=== PATIENT | female | born 1965 | race American Indian/Alaskan Native ===

== ENCOUNTER 2019-02-22 16:59 | Inpatient (IN) ==
[~2019-02-22 16:59] MED LIST: LEVOFLOXACIN 750 MG/150 ML BAG IV ONE
[2019-02-22] MEDS ORDERED: 0.9 % SODIUM CHLORIDE 1,000 ML IV ONE ×2 (17:11→18:52)
[2019-02-22] MEDS ORDERED: NALOXONE HCL 0.4 MG/ML VIAL IV ONE ×2 (17:26)
--- NOTE | 2019-02-22 17:26 | Emergency Department Note ---
Altered Mental Status HPI - General Chief Complaint: Altered Mental Status Stated Complaint: Unresponsive Time Seen by Provider: 02/22/19 17:13 Source: family Mode of arrival: other Limitations: altered mental status - History of Present Illness HPI Narrative: Patient brought in some lab way by daughter in which patient was sleeping all day today she noticed that she was unarousable 45 minutes before coming into the ED. Daughter states that her mother was unresponsive to try to wake her up she went a wheelchair and drove her in the car to the ED. Her sats were real low when she arrived to the ED in the 70s and responded immediately to bagging with O2 she is breathing on her own and her sats are running at 9800% at this time. Her Accu-Chek initially was 23 we did give her some D50 also gave her Narcan. Records indicate that she takes oxycodone at home Has had a history of previous hypoglycemia in the past according to the daughter these 2 previous times prior to coming to the ED this time daughter states that the patient has not been eating over the last 2 days. she has missed 2 ointments for dialysis. Her last treatment being last Tuesday 7 days ago.Initial respiratory rate was 8 initial pulse ox is reading at 69% until we did give her oxygen. Vital signs at this time show blood pressure 125/49 the pulse ox is reading at 100%. Heart rate is running 80 catheter probe was inserted her current temperature is 94.3 put a heating blanket on her we have IV fluids running and we have use normal saline with D5W most recent Accu-Chek was 125Her daughter states that the patient is never smoked. Uses no drugs records indicate that the patient is on oxycodone however - Related Data Previous Rx's Medication Instructions Recorded midodrine 5 mg tablet 5 mg PO TID #90 tab 06/16/18 glipizide 5 mg tablet 5 mg PO QDAY #90 tab 07/13/18 cholecalciferol (vitamin D3) 1,000 1,000 unit PO QDAY #30 cap 11/27/18 unit capsule sertraline 25 mg tablet 25 mg PO QDAY #30 tab 12/27/18 fluticasone propionate 50 2 spray INTRANASAL QDAY #9.9 g 01/11/19 mcg/actuation nasal spray,suspension pregabalin 100 mg capsule 100 mg PO BID #90 cap 01/11/19 oxycodone 10 mg tablet 10 mg PO q8h PRN #90 tab 01/25/19 atorvastatin 40 mg tablet 40 mg PO HS #90 tab 02/19/19 suvorexant 5 mg tablet 5 mg PO QHS #60 tab 02/19/19 Allergies Allergy/AdvReac Type Severity Reaction Status Date / Time No Known Drug Allergies Allergy Unverified 02/22/19 17:05 Review of Systems Limitations: ROS unobtainable due to patients medical condition Past Medical History - Past Medical History PMFSH Narrative: All Active Problems (Last Reviewed 01/11/19 @ 16:27 by Reyna Mattson DO) CRF (chronic renal failure) (Acute) Hypoglycemia associated with type 2 diabetes mellitus (Acute) Dehydration (Acute) Ventricular tachycardia, nonsustained (Acute) History of CHF (congestive heart failure) (Chronic) Obesity (Chronic) RBBB (right bundle branch block) (Chronic) Hemorrhoids (Chronic) Hypotension (Chronic) Depression (Chronic) Insomnia (Chronic) Encounter for Health Maintenance Examination in Adult (Chronic) Wellness examination (Chronic) Dizziness (Chronic) Chronic nausea (Chronic) Gastroparesis (Chronic) Steal syndrome of upper extremity (Chronic) Subcutaneous nodule of breast (Chronic) Diabetic retinopathy associated with type 2 diabetes mellitus (Chronic) Migraines (Chronic) Arthritis (Chronic) Diabetes (Chronic) Cancer of kidney (Chronic) Anxiety (Chronic) ESRD (end stage renal disease) on dialysis (Chronic) Fibromyalgia (Chronic) Past Surgical History (Last Reviewed 01/11/19 @ 16:27 by Reyna Mattson DO) H/O colonoscopy (Chronic) H/O: (Chronic) History of angioplasty (Chronic 07/26/17) History of kidney surgery (Chronic) History of surgery (Chronic 06/09/16) History of surgery (Chronic) History of surgery (Chronic) History of surgery (Chronic) Family History (Last Reviewed 01/11/19 @ 16:27 by Reyna Mattson DO) Sister Arthritis Mother Cancer Father Heart attack Brother Tuberculosis Medical history: Reports: cancer (renal.), CHF, DM, fibromyalgia, hyperlipidemia, hypertension, obesity, other (Frequent hypotension for which she takes midodrine.). Denies: CAD (coronary artery disease), CVA, thyroid disease, TIA Psychiatric history: Reports: anxiety, depression Surgical history ED: Reports: (2), cholecystectomy, other (Nephrectomy, fistula with repair) - Social History smoking status: Never smoker Alcohol use: Reports: None Drug use: Reports: none. Denies: marijuana Physical Exam Limitations: altered mental status General appearance: other (Unresponsive verbally. Responds to verbal stimuli) Head: atraumatic Eye: Present: normal appearance ENT: normal exam, normal oropharynx Neck: Present: normal inspection, full ROM Chest: Present: normal inspection, symmetric chest wall rise. Absent: tenderness Respiratory: Present: normal lung sounds bilaterally Cardiovascular: Present: regular rate, normal rhythm Abdominal: Present: soft. Absent: distention, tenderness Extremities: Present: normal inspection Back: Present: normal inspection Cranial nerves: EOM function (II, III, IV, ): Normal, facial sensation (V): Normal, facial palsy (VII): Normal, gag reflex (IX): Normal, spinal accessory function (XI): Normal, tongue deviation (XII): Normal Upper motor neuron exam: Babinski sign: Absent bilaterally Coma Scale Eye Opening: To Voice Psychiatric: Present: normal affect, normal mood Course Vital Signs Temperature 91 F L 02/22/19 17:06 Pulse Rate 85 02/22/19 17:06 Respiratory Rate 8 L 02/22/19 17:06 Pulse Oximetry (%) 69 L 02/22/19 17:06 Temperature 95.7 F L 02/22/19 20:00 Pulse Rate 88 02/22/19 20:00 Respiratory Rate 18 02/22/19 20:00 Blood Pressure 113/52 02/22/19 20:00 Pulse Oximetry (%) 92 02/22/19 20:00 Altered Mental Status - [facility] Narrative Medical decision making narrative: After the glucose and D5 was given, patient has aroused and responsive to verbal and painful stimuli. Quick [id number] 3 reveals that her potassium is 6.0 BUN is 117 and the creatinine 16.9. Dr. Lozano was consulted and she recommended that we give her bicarb as her CO2 was 16 also calcium gluconate. x-rays reveal a left pneumonia blood cultures have been drawn and lactic acid. Started Rocephin and Zithromax. PT 17.7 INR is 1.5. Patient denies any chest pain denies any shortness of breath. EKG shows no acute findings - Lab Data Result diagrams: 02/22/19 17:18 02/22/19 17:18 Lab Results 02/22/19 02/22/19 02/22/19 Range/Units 17:18 17:18 17:18 WBC 21.3 H (4.5-11.0) K/mcL RBC 3.57 L (4.00-5.20) M/mcL Hgb 9.8 L (12.0-15.0) g/dL Hct 30.1 L (36.0-48.0) % POC Hct 29.0 L (36.0-48.0) % MCV 84.2 (80.0-100.0) fL MCH 27.4 (26.0-34.0) pg MCHC 32.5 (31.0-36.0) g/dL RDW 13.3 (11.5-14.5) % Plt Count 357 (140-440) K/mcL MPV 8.7 (7.4-10.4) fL Gran % 93.7 H (38.0-78.0) % Lymph % (Auto) 5.1 L (15.5-49.0) % Nelson % (Auto) 1.2 (1.0-12.0) % Eos % (Auto) 0 (0.0-7.0) % Baso % (Auto) 0 (0.0-2.0) % Gran # 20.0 H (1.8-8.0) K/mcL Lymph # (Auto) 1.1 L (1.5-4.8) K/mcL Nelson # (Auto) 0.2 (0.1-0.9) K/mcL Eos # (Auto) 0 (0.0-0.7) K/mcL Baso # (Auto) 0 (0.0-0.3) K/mcL POC PT (11.9-14.5) sec POC INR (0.9-1.2) VBG Lactic Acid (0.5-2.0) mmol/L POC Sodium 137 (133-145) mmol/L Sodium 133 (133-145) mmol/L POC Potassium 6.0 H* (3.3-5.1) mmol/L Potassium 5.9 H* (3.3-5.1) mmol/L POC Chloride 109 H (96-108) mmol/L Chloride 100 (96-108) mmol/L Carbon Dioxide 14 L (22-30) mmol/L POC Total CO2 16 L (22-30) mmol/L Anion Gap 19.0 H (8-16) POC BUN 117 H* (6-20) mg/dl BUN 98 H (6-20) mg/dl Creatinine 14.4 H* (0.6-1.1) mg/dl POC Creatinine 16.9 H* (0.6-1.1) mg/dl GFR Calculation 3 Glucose 164 H (70-105) mg/dL POC Glucose 159 H (70-105) mg/dL Calcium 7.5 L (8.6-10.4) mg/dl POC WB Ioniz Calcium 1.03 L (1.16-1.32) mmol/L Total Bilirubin 0.4 (0.0-1.0) mg/dL AST 8 (0-37) U/l ALT 12 (0-40) U/l Alkaline Phosphatase 99 (39-117) U/L Total Creatine Kinase 55 (24-170) IU/L CK-MB (CK-2) 3.3 H (0-2.9) ng/ml Myoglobin 215 H (25-58) ng/ml Troponin T (0-0.03) ng/ml NT-Pro-B Natriuret Pep (0-125) pg/ml Total Protein 7.5 (5.9-8.4) gm/dL Albumin 3.6 (3.2-5.2) gm/dL Globulin 3.9 H (2.2-3.7) gm/dL Albumin/Globulin Ratio 0.9 L (1.0-2.3) Urine Color Urine Appearance Urine pH Ur Specific [place] Urine Protein Urine Glucose (UA) Urine Ketones Urine Occult Blood Urine Nitrate Urine Bilirubin Urine Urobilinogen Ur Leukocyte Esterase Salicylates < 0.3 mg/dL Urine Opiates Screen (NONDETECTED) Ur Opiates Confirm Ur Oxycodone Screen (NONDETECTED) Urine Methadone Screen (NONDETECTED) Ur Methadone Confirm Acetaminophen < 5.0 ug/mL Ur Barbiturates Screen (NONDETECTED) Ur Barbiturate Confirm Ur Phencyclidine Scrn (NONDETECTED) Urine PCP Confirm Ur Amphetamines Screen (NONDETECTED) U Amphetamines Confirm U Benzodiazepines Scrn (NONDETECTED) U Benzodiazepine Confm Urine Cocaine Screen (NONDETECTED) Urine Cocaine Confirm U Cannabinoids Confirm U Marijuana (THC) Screen (NONDETECTED) 02/22/19 02/22/19 02/22/19 Range/Units 17:18 17:18 17:18 WBC (4.5-11.0) K/mcL RBC (4.00-5.20) M/mcL Hgb (12.0-15.0) g/dL Hct (36.0-48.0) % POC Hct (36.0-48.0) % MCV (80.0-100.0) fL MCH (26.0-34.0) pg MCHC (31.0-36.0) g/dL RDW (11.5-14.5) % Plt Count (140-440) K/mcL MPV (7.4-10.4) fL Gran % (38.0-78.0) % Lymph % (Auto) (15.5-49.0) % Nelson % (Auto) (1.0-12.0) % Eos % (Auto) (0.0-7.0) % Baso % (Auto) (0.0-2.0) % Gran # (1.8-8.0) K/mcL Lymph # (Auto) (1.5-4.8) K/mcL Nelson # (Auto) (0.1-0.9) K/mcL Eos # (Auto) (0.0-0.7) K/mcL Baso # (Auto) (0.0-0.3) K/mcL POC PT (11.9-14.5) sec POC INR (0.9-1.2) VBG Lactic Acid 0.4 L (0.5-2.0) mmol/L POC Sodium (133-145) mmol/L Sodium (133-145) mmol/L POC Potassium (3.3-5.1) mmol/L Potassium (3.3-5.1) mmol/L POC Chloride (96-108) mmol/L Chloride (96-108) mmol/L Carbon Dioxide (22-30) mmol/L POC Total CO2 (22-30) mmol/L Anion Gap (8-16) POC BUN (6-20) mg/dl BUN (6-20) mg/dl Creatinine (0.6-1.1) mg/dl POC Creatinine (0.6-1.1) mg/dl GFR Calculation Glucose (70-105) mg/dL POC Glucose (70-105) mg/dL Calcium (8.6-10.4) mg/dl POC WB Ioniz Calcium (1.16-1.32) mmol/L Total Bilirubin (0.0-1.0) mg/dL AST (0-37) U/l ALT (0-40) U/l Alkaline Phosphatase (39-117) U/L Total Creatine Kinase 55 (24-170) IU/L CK-MB (CK-2) (0-2.9) ng/ml Myoglobin (25-58) ng/ml Troponin T 0.13 H* (0-0.03) ng/ml NT-Pro-B Natriuret Pep 5133.0 H (0-125) pg/ml Total Protein (5.9-8.4) gm/dL Albumin (3.2-5.2) gm/dL Globulin (2.2-3.7) gm/dL Albumin/Globulin Ratio (1.0-2.3) Urine Color Urine Appearance Urine pH Ur Specific [place] Urine Protein Urine Glucose (UA) Urine Ketones Urine Occult Blood Urine Nitrate Urine Bilirubin Urine Urobilinogen Ur Leukocyte Esterase Salicylates mg/dL Urine Opiates Screen (NONDETECTED) Ur Opiates Confirm Ur Oxycodone Screen (NONDETECTED) Urine Methadone Screen (NONDETECTED) Ur Methadone Confirm Acetaminophen ug/mL Ur Barbiturates Screen (NONDETECTED) Ur Barbiturate Confirm Ur Phencyclidine Scrn (NONDETECTED) Urine PCP Confirm Ur Amphetamines Screen (NONDETECTED) U Amphetamines Confirm U Benzodiazepines Scrn (NONDETECTED) U Benzodiazepine Confm Urine Cocaine Screen (NONDETECTED) Urine Cocaine Confirm U Cannabinoids Confirm U Marijuana (THC) Screen (NONDETECTED) 02/22/19 02/22/19 02/22/19 Range/Units 17:20 17:30 19:46 WBC (4.5-11.0) K/mcL RBC (4.00-5.20) M/mcL Hgb (12.0-15.0) g/dL Hct (36.0-48.0) % POC Hct (36.0-48.0) % MCV (80.0-100.0) fL MCH (26.0-34.0) pg MCHC (31.0-36.0) g/dL RDW (11.5-14.5) % Plt Count (140-440) K/mcL MPV (7.4-10.4) fL Gran % (38.0-78.0) % Lymph % (Auto) (15.5-49.0) % Nelson % (Auto) (1.0-12.0) % Eos % (Auto) (0.0-7.0) % Baso % (Auto) (0.0-2.0) % Gran # (1.8-8.0) K/mcL Lymph # (Auto) (1.5-4.8) K/mcL Nelson # (Auto) (0.1-0.9) K/mcL Eos # (Auto) (0.0-0.7) K/mcL Baso # (Auto) (0.0-0.3) K/mcL POC PT 17.7 H (11.9-14.5) sec POC INR 1.5 H (0.9-1.2) VBG Lactic Acid (0.5-2.0) mmol/L POC Sodium (133-145) mmol/L Sodium (133-145) mmol/L POC Potassium (3.3-5.1) mmol/L Potassium (3.3-5.1) mmol/L POC Chloride (96-108) mmol/L Chloride (96-108) mmol/L Carbon Dioxide (22-30) mmol/L POC Total CO2 (22-30) mmol/L Anion Gap (8-16) POC BUN (6-20) mg/dl BUN (6-20) mg/dl Creatinine (0.6-1.1) mg/dl POC Creatinine (0.6-1.1) mg/dl GFR Calculation Glucose (70-105) mg/dL POC Glucose (70-105) mg/dL Calcium (8.6-10.4) mg/dl POC WB Ioniz Calcium (1.16-1.32) mmol/L Total Bilirubin (0.0-1.0) mg/dL AST (0-37) U/l ALT (0-40) U/l Alkaline Phosphatase (39-117) U/L Total Creatine Kinase (24-170) IU/L CK-MB (CK-2) (0-2.9) ng/ml Myoglobin (25-58) ng/ml Troponin T (0-0.03) ng/ml NT-Pro-B Natriuret Pep (0-125) pg/ml Total Protein (5.9-8.4) gm/dL Albumin (3.2-5.2) gm/dL Globulin (2.2-3.7) gm/dL Albumin/Globulin Ratio (1.0-2.3) Urine Color TNP Urine Appearance Not Reportable Urine pH Not Reportable Ur Specific [place] Not Reportable Urine Protein Not Reportable Urine Glucose (UA) Not Reportable Urine Ketones Not Reportable Urine Occult Blood Not Reportable Urine Nitrate Not Reportable Urine Bilirubin Not Reportable Urine Urobilinogen Not Reportable Ur Leukocyte Esterase Not Reportable Salicylates mg/dL Urine Opiates Screen None detected (NONDETECTED) Ur Opiates Confirm Not Reportable Ur Oxycodone Screen None detected (NONDETECTED) Urine Methadone Screen Suspect positive A (NONDETECTED) Ur Methadone Confirm Not Reportable Acetaminophen ug/mL Ur Barbiturates Screen None detected (NONDETECTED) Ur Barbiturate Confirm Not Reportable Ur Phencyclidine Scrn None detected (NONDETECTED) Urine PCP Confirm Not Reportable Ur Amphetamines Screen None detected (NONDETECTED) U Amphetamines Confirm Not Reportable U Benzodiazepines Scrn None detected (NONDETECTED) U Benzodiazepine Confm Not Reportable Urine Cocaine Screen None detected (NONDETECTED) Urine Cocaine Confirm Not Reportable U Cannabinoids Confirm Not Reportable U Marijuana (THC) Screen None detected (NONDETECTED) Disposition Pt seen by [employer]/PA only: No Clinical Impression: Pneumonia, Hyperkalemia Disposition: Xfer As Inpt ([facility]) Condition: Fair
[2019-02-22] MEDS ORDERED: DEXTROSE 50% 50 ML SYRINGE IV ONE (17:27)
--- NOTE | 2019-02-22 17:34 | XRay Report ---
INDICATION: Unresponsive TECHNIQUE: AP chest x-ray,supine portable COMPARISON: Previous chest x-rays dated 04/22/2018, 07/27/2016, 10/03/2015 FINDINGS:There are diffuse left-sided infiltrate with dense left basilar infiltrate. Appearance is consistent with pneumonia. Right lung is negative. No right lung consolidation. There is cardiomegaly. This is probably unchanged when allowances are made for differences in positioning and technique IMPRESSION: 1. Diffuse left-sided infiltrate consistent with pneumonia 2. Cardiomegaly. No definite pulmonary edema Interpreted and Authenticated by: Gary Michel 02/22/19
[2019-02-22] MEDS ORDERED: AZITHROMYCIN 500 MG in DEXTROSE 5% IN WATER 250 ML IV ONE (17:37)
[2019-02-22] MEDS ORDERED: cefTRIAXone 1 GM VIAL IV ONE (17:37)
[2019-02-22] MEDS ORDERED: CALCIUM GLUCONATE 7 MEQ in DEXTROSE 5% IN WATER 50 ML IV ONE (17:45)
[2019-02-22] MEDS ORDERED: SODIUM BICARBONATE 50 MEQ/50 ML VIAL IV SCH (17:45)
[2019-02-22] MEDS ORDERED: SODIUM BICARBONATE 50 MEQ/50 ML VIAL IV ONE (17:53)
[2019-02-22] MEDS ORDERED: CALCIUM GLUCONATE 4.65 MEQ/10 ML VIAL ONE (17:59)
[2019-02-22 18:12] LABS: Basophils # (Auto) 0 K/mcL (0.0-0.3); Basophils % (Auto) 0 % (0.0-2.0); Eosinophils # (Auto) 0 K/mcL (0.0-0.7); Eosinophils % (Auto) 0 % (0.0-7.0); Granulocytes % (Auto) 93.7 % (38.0-78.0); Lymphocytes # (Auto) 1.1 K/mcL (1.5-4.8); Lymphocytes % (Auto) 5.1 % (15.5-49.0); Mean Cell Volume 84.2 fL (80.0-100.0); Mean Corpuscular HGB Conc 32.5 g/dL (31.0-36.0); Monocytes # (Auto) 0.2 K/mcL (0.1-0.9); Monocytes % (Auto) 1.2 % (1.0-12.0); Platelet Count 357 K/mcL (140-440); RBC 3.57 M/mcL (4.00-5.20); Red Cell Distribution Width 13.3 % (11.5-14.5)
[2019-02-22 18:22] LABS: Amphetamine Screen,Urine NONE DETECTED (NONDETECTED); Benzodiazepines Screen,Urine NONE DETECTED (NONDETECTED); Cocaine Screen,Urine NONE DETECTED (NONDETECTED); Opiate Screen,Urine NONE DETECTED (NONDETECTED); Oxycodone, Urine Screen NONE DETECTED (NONDETECTED)
[2019-02-22 18:34] LABS: Acetaminophen < 5.0 ug/mL; Creatine Kinase MB 3.3 ng/ml (0-2.9); Myoglobin 215 ng/ml (25-58); Salicylate < 0.3 mg/dL
[2019-02-22 18:37] LABS: ALT/SGPT 12 U/l (0-40); Albumin 3.6 gm/dL (3.2-5.2); Albumin/Globulin Ratio 0.9 (1.0-2.3); Alkaline Phosphatase 99 U/L (39-117); Blood Urea Nitrogen 98 mg/dl (6-20); Creatine Kinase 55 IU/L (24-170)
--- NOTE | 2019-02-22 18:38 | Nephrology Consult Note ---
History of Present Illness - Reason for Consult Patient information: Note initiated : 02/22/19 at 6:33 pm Service Date, if different from initiated Date: [] Patient: Dang Varner 53 y/o F admitted on for Unresponsive. Chief Complaint: [] Consult date: 02/22/19 end stage renal disease Requesting physician: Michael Joseph - History of Present Illness Patient is a 53 y/o female with PMH of ESRD on HD and other medical problems who presented to the ER with AMS Patient has missed her dialysis this week, last dialysed on Tuesday last week. She states she was feeling weak and then got late so did not come. She started having diarrhea, multiple episodes of loose stools since Tuesday. She denies nausea, vomiting. She also has been having some cough. She has no h/o fever but has been cold today per daughter. She denies any sick contacts. She denies SOB, CP. She was apparently not responding when her daughter checked on her this afternoon, she was alert and oriented this am, so the daughter brought her to ED. In the ER patient was found to have hypoxia, hypothermia and hypoglycemia, her mental status improved with improvement in her blood glucose level. She is been maintained on oxymask and is been warmed. Her BP is at her baseline Her labs show hyperkalemia, metabolic acidosis, elevated WBC count, very high BUN and s.creatinine, CXR shows diffuse left sided pneumonia She also has sore on her buttocks Review of Systems All systems PM: reviewed and no additional remarkable complaints except as stated (as in HPI) Past History Past medical history: ESRD on HD Secondary hyperparathyroidism anemia of CKD Diabetes mellitus type 2 with neuropathy and ESRD HTN, currently not on meds, rather hypotension on midodrine CHF, cardiomyopathy fibromyalgia on pain meds depression dyslipidemia patient has h/o LE fracture that was not fixed and she is wheelchair bound, walks with walker at home and has LE weakness from this Past surgical history: AVF, multiple surgeries, h/o tcc Past family history: not pertinent, reviewed Past social history: lives with her family, no current addictions, daughter provides care at home Medications and Allergies Home Medications Medication Instructions Recorded Confirmed Type midodrine 5 mg tablet 5 mg PO TID #90 tab 06/16/18 02/22/19 Rx glipizide 5 mg tablet 5 mg PO QDAY #90 tab 07/13/18 02/22/19 Rx cholecalciferol (vitamin D3) 1,000 1,000 unit PO QDAY #30 cap 11/27/18 02/22/19 Rx unit capsule sertraline 25 mg tablet 25 mg PO QDAY #30 tab 12/27/18 02/22/19 Rx fluticasone propionate 50 2 spray INTRANASAL QDAY #9.9 g 01/11/19 02/22/19 Rx mcg/actuation nasal spray,suspension pregabalin 100 mg capsule 100 mg PO BID #90 cap 01/11/19 02/22/19 Rx oxycodone 10 mg tablet 10 mg PO q8h PRN #90 tab 01/25/19 02/22/19 Rx atorvastatin 40 mg tablet 40 mg PO HS #90 tab 02/19/19 02/22/19 Rx suvorexant 5 mg tablet 5 mg PO QHS #60 tab 02/19/19 02/22/19 Rx Allergies Allergy/AdvReac Type Severity Reaction Status Date / Time No Known Drug Allergies Allergy Unverified 02/22/19 17:05 Exam - Vital Signs Vital signs: Temp Pulse Resp BP Pulse Ox 94.5 F L 77 23 H 95/48 100 02/22/19 18:11 02/22/19 18:11 02/22/19 18:11 02/22/19 18:11 02/22/19 18:11 - General Appearance General appearance: appears started age, frail EENT: mucous membranes moist Neck: no JVD Respiratory: rales (mainly on left ) Cardiology: no rub, no edema, normal S1, normal S2 (tachycardic) Gastrointestinal: no tenderness, no guarding Integumentary: warm and dry Neurologic: alert and oriented x3 Musculoskeletal: no erythema, no cyanosis Psychiatric: mood/affect appropriate Results - Lab Results 02/22/19 17:18 02/22/19 17:18 Assessment and Plan (1) Hyperkalemia Status: Acute (2) ESRD (end stage renal disease) on dialysis Status: Chronic (3) Metabolic acidosis Status: Acute (4) Anemia Plan was to dialyse the patient urgently but her AVF is not working when the RN tried to access it we do not have IR to declot the AVF or place temporary catheter and hence requested Dr Garibay to transfer the patient I will start her sodium bicarb gtt given mixed gap and non anion gap acidosis she has received calcium gluconate and one amp of sodium bicarb in the ER for her hyperkalemia I will give her one dose of kayexalate now given the anticipated delay in her dialysis given access issues Sepsis/pneumonia: on antibiotics, managed by hospitalist AMS from sepsis and hypoglycemia which resolved with improvement in her blood glucose Status: Acute (5) Pneumonia Status: Acute
[2019-02-22] MEDS ORDERED: DEXTROSE 5%-NS 1,000 ML IV ONE (18:52)
--- NOTE | 2019-02-22 19:12 | Internal Med History&Physical ---
Medical - H&P: [facility] Patient information: Note initiated : 02/22/19 at 7:07 pm Service Date, if different from initiated Date: [] Patient: Dang Varner a 53 y/o F admitted on for Unresponsive. Chief Complaint: [] Chief complaint: unresponsive History of present illness: Ms. Varner is a 53 year old F with a history of ESRD on hemodialysis who was found unresponsive state by her family and was brought into the ER for evaluation. Initial workup was consistent with hyperkalemia/severe sepsis with a white count over 21,000 and a large left-sided chest infiltrates. Potassium over 6. Patient is probably start an antibiotic coverage after cultures were drawn. Nephrology was consulted. Initial blood sugar was 22 with a core body temperature 94.4 Fahrenheit. After Narcan/D50 patient became slightly arousable. Most of the history was obtained from prior records and from daughter. Tox screen was positive for methadone Hospitalist service was consulted in light of above At the time of evaluation patient is lethargic and fatigued however was able to provide some history. She has been feeling poorly and has been experiencing upper respiratory symptoms including cough, weakness and shortness of breath over the last 3-4 days. She does not remember anything since this morning. She denies substance abuse. Patient was transferred to ICU for further management of hyperkalemia/severe sepsis/hypoxic respiratory failure and altered mental status and hypothermia Review of systems 10 point review of systems was attempted but could not be performed because the patient mental status. Medical - H&P: PMH Medical history: History of CHF (congestive heart failure) (Chronic) Obesity (Chronic) RBBB (right bundle branch block) (Chronic) Hemorrhoids (Chronic) Hypotension (Chronic) Depression (Chronic) Insomnia (Chronic) Encounter for Health Maintenance Examination in Adult (Chronic) Wellness examination (Chronic) 07/28/17 Dizziness (Chronic) Chronic nausea (Chronic) Gastroparesis (Chronic) 07/26/16 Steal syndrome of upper extremity (Chronic) Subcutaneous nodule of breast (Chronic) Diabetic retinopathy associated with type 2 diabetes mellitus (Chronic) Migraines (Chronic) Arthritis (Chronic) Diabetes (Chronic) Cancer of kidney (Chronic) 2014 Anxiety (Chronic) ESRD (end stage renal disease) on dialysis (Chronic) Fibromyalgia (Chronic) Arthralgia of multiple joints (Resolved) Atypical chest pain (Resolved) CKD (chronic kidney disease) stage 4, GFR 15-29 ml/min (Resolved) Maddie esophagitis (Resolved) Cervical muscle strain (Resolved) Chronic Kidney Disease (Resolved) Congestion of nasal sinus (Resolved) Congestive heart failure (Resolved) Daytime sleepiness (Resolved) Dehydration (Resolved) Depression (Resolved) Dizziness of unknown cause (Resolved) Encounter for medication refill (Resolved) Fracture of femur (Resolved) Gastroenteritis (Resolved) Gastroparesis (Resolved) Generalized pain (Resolved) Heart failure, chronic, with acute decompensation (Resolved) Hypokalemia (Resolved) Hypokalemia (Resolved) Insomnia (Resolved) Muscle pain (Resolved) Nausea (Resolved) Nausea & vomiting (Resolved) Nausea and vomiting (Resolved) Nausea, Vomiting, and Diarrhea (Resolved) Osteoarthritis (Resolved) Polymyalgia rheumatica (Resolved) Polyp in nasopharynx (Resolved) Trochanteric bursitis of left hip (Resolved) UTI (urinary tract infection) (Resolved) Volume depletion, gastrointestinal loss (Resolved) Surgical History H/O colonoscopy (Chronic) Dr. Ford H/O: (Chronic) 1998 2002 History of angioplasty (Chronic 07/26/17) and fistulogram History of kidney surgery (Chronic) 2010 Kidney cancer History of surgery (Chronic 06/09/16) Transposition of left upper arm cephalic vein History of surgery (Chronic) 2014 Placement of catheters History of surgery (Chronic) 1996 Gallstones History of surgery (Chronic) 2014 Fistula repair Family History Sister Arthritis Mother Cancer Father Heart attack Brother Tuberculosis Social History marital status: other: Children-2 smoking status: Never smoker alcohol intake frequency: does not drink Medical - H&P: Meds Home Medications Medication Instructions Recorded Confirmed Type midodrine 5 mg tablet 5 mg PO TID #90 tab 06/16/18 02/22/19 Rx glipizide 5 mg tablet 5 mg PO QDAY #90 tab 07/13/18 02/22/19 Rx cholecalciferol (vitamin D3) 1,000 1,000 unit PO QDAY #30 cap 11/27/18 02/22/19 Rx unit capsule sertraline 25 mg tablet 25 mg PO QDAY #30 tab 12/27/18 02/22/19 Rx fluticasone propionate 50 2 spray INTRANASAL QDAY #9.9 g 01/11/19 02/22/19 Rx mcg/actuation nasal spray,suspension pregabalin 100 mg capsule 100 mg PO BID #90 cap 01/11/19 02/22/19 Rx oxycodone 10 mg tablet 10 mg PO q8h PRN #90 tab 01/25/19 02/22/19 Rx atorvastatin 40 mg tablet 40 mg PO HS #90 tab 02/19/19 02/22/19 Rx suvorexant 5 mg tablet 5 mg PO QHS #60 tab 02/19/19 02/22/19 Rx Allergies Allergy/AdvReac Type Severity Reaction Status Date / Time No Known Drug Allergies Allergy Unverified 02/22/19 17:05 Medical - H&P: Exam - Constitutional Vitals: Temp Pulse Resp BP Pulse Ox 94.6 F L 81 18 95/41 95 02/22/19 18:48 02/22/19 18:48 02/22/19 18:48 02/22/19 18:47 02/22/19 18:48 General appearance: moderate distress, morbidly obese Exam: Confused and lethargic No scleral icterus Oral cavity dry No discharge Neck no lymphadenopathy S1 and S2 regular rhythm Diminished breath sounds bases, on 5 L oxygen Tachypnea Abdomen soft Lower extremity no cyanosis clubbing, clammy, erythema gluteal area Skin no suspicious lesion Psych lethargic and fatigued but cooperative Neuro moving all 4 extremities Medical - H&P: Reslt - Labs CBC & Chem 7: 02/22/19 17:18 02/22/19 17:18 Labs: Short CBC 02/22/19 Range/Units 17:18 WBC 21.3 H (4.5-11.0) K/mcL Hgb 9.8 L (12.0-15.0) g/dL Hct 30.1 L (36.0-48.0) % Plt Count 357 (140-440) K/mcL BMP 02/22/19 17:18 Sodium 133 Potassium 5.9 H* Chloride 100 Carbon Dioxide 14 L BUN 98 H Creatinine 14.4 H* Glucose 164 H Calcium 7.5 L Cardiac Enzymes 02/22/19 02/22/19 02/22/19 Range/Units 17:18 17:18 17:18 Total Creatine Kinase 55 55 (24-170) IU/L CK-MB (CK-2) 3.3 H (0-2.9) ng/ml Troponin T 0.13 H* (0-0.03) ng/ml Liver Function 02/22/19 Range/Units 17:18 Total Bilirubin 0.4 (0.0-1.0) mg/dL AST 8 (0-37) U/l ALT 12 (0-40) U/l Alkaline Phosphatase 99 (39-117) U/L Albumin 3.6 (3.2-5.2) gm/dL Medical - H&P: A/P (1) Left lower lobe pneumonia Current visit: Yes Status: Acute * Left lower lobe pneumonia-broad antibiotic coverage with Zosyn/Levaquin/Vanco. ICU admission. Sofa score 5, [place] II score 18 indicated above high risk mortality * Severe sepsis with hypotension and end organ dysfunction including AMS/hypothermia-continue management per guidelines, veloz cultures, broad antibiotic coverage. Initiate vasopressors * Acute hypoxic respiratory failure currently on 5 L oxygen. Secondary to abov e. * Acute change in mental status-secondary to sepsis end organ dysfunction/hypoglycemia. Status post D50/Narcan * Hypothermia gradual rewarming/electrolyte management * Hyperkalemia @ 6- managed per nephrology. He'll undergo hemodialysis * Anion gap metabolic acidosis- Started on Bicarb drip. Bicarb 14. Await ABG * ESRD on hemodialysis managed per nephrology * DM type II continue prandial insulin/CC diet/target blood sugars around 150 in light of hypoglycemia * Hyperlipidemia restart statin 24 hours * Neuropathy-hold Lyrica at this time and likely MS * Anxiety disorder on sertraline * History of hypotension-continue midodrine. Pressors as indicated * Full code * Prophylaxis heparin Plan * ICU admissions in light of high risk mortality based on [place] 2 score * Broad antibiotic coverage/vasopressors if MAP <65/ management per guidelines * Hypothermia management * Check ABG * Serial BMP * ESRD/hyperkalemia management per nephrology * Pre-existing medical condition management as above
[2019-02-22] MEDS ORDERED: DEXTROSE 31 GM ORAL.SUSP PO PRN (19:55)
[2019-02-22] MEDS ORDERED: ACETAMINOPHEN 325 MG TABLET PO PRN (19:55)
[2019-02-22] MEDS ORDERED: ONDANSETRON 4 MG/2 ML VIAL IV PRN (19:55)
[2019-02-22] MEDS ORDERED: DEXTROSE 50% 50 ML VIAL IV PRN (19:55)
[2019-02-22] MEDS ORDERED: MAGNESIUM SULFATE 2 GM/50 ML BAG IV PRN (19:55)
[2019-02-22] MEDS ORDERED: IPRATROPIUM/ALBUTEROL 3 ML AMPUL.NEB NEB PRN (19:55)
[2019-02-22] MEDS ORDERED: ACETAMINOPHEN 1,000 MG/100 ML BOTTLE IV PRN (19:55)
[2019-02-22] MEDS ORDERED: SENNOSIDES/DOCUSATE SODIUM 1 TAB TABLET PO SCH (21:00)
[2019-02-22] MEDS ORDERED: DOCUSATE SODIUM 100 MG CAPSULE PO SCH (21:00)
[2019-02-22] MEDS ORDERED: LEVOFLOXACIN 750 MG/150 ML BAG IV ONE (21:00)
[2019-02-22] MEDS ORDERED: INSULIN LISPRO 1 UNIT/0.01 ML UNIT SQ SCH (21:00)
[2019-02-22] MEDS ORDERED: HEPARIN 5,000 UNIT/ML VIAL SQ SCH (21:00)
[2019-02-22] MEDS ORDERED: CYANOCOBALAMIN (VITAMIN B-12) 500 MCG TABLET PO SCH (21:00)
[2019-02-22] MEDS ORDERED: 0.9 % SODIUM CHLORIDE 10 ML SYRINGE IV SCH (22:00)
[2019-02-22] MEDS ORDERED: PIPERACILLIN SODIUM/TAZOBACTAM 2.25 GM in DEXTROSE 5% IN WATER 50 ML IV SCH (22:00)
[2019-02-22] MEDS ORDERED: SODIUM POLYSTYRENE SULFONATE 15 GM/60 ML SUSPENSION PO ONE (22:38)
[2019-02-22] MEDS ORDERED: SODIUM BICARBONATE VIAL 150 MEQ in DEXTROSE 5% IN WATER 850 ML IV SCH (22:45)
[2019-02-22] MEDS ORDERED: SODIUM POLYSTYRENE SULFONATE 15 GM/60 ML SUSPENSION ONE (22:45)
[2019-02-22] MEDS ORDERED: VANCOMYCIN PER PHARMACY IV ONE (23:23)
[2019-02-22] MEDS ORDERED: VANCOMYCIN 1,500 MG in 0.9 % SODIUM CHLORIDE 500 ML IV ONE (23:36)
--- NOTE | 2019-02-22 23:45 | Transfer Summary ---
Transfer Discharge Sum: Prov Patient information: Note initiated : 02/22/19 at 11:19 pm Service Date, if different from initiated Date: [] Patient: Dang Varner 53 y/o F admitted on 02/22/19 for Unresponsive. Chief Complaint: [] Date of admission: 02/22/19 19:52 Discharge Date: 02/22/19 Primary care physician: Reyna Mattson DO Consults: 02/22/19 17:42 Consult to Physician [CONS] Stat Comment: Consulting Provider: Lupe Lozano Reason For Exam: Physician to Consult 02/22/19 18:49 Consult to Physician [CONS] Stat Comment: Consulting Provider: Roc Garibay Reason For Exam: Physician to Consult Receiving physician/facility: Syed Lopez Transfer Discharge Sum: Diag - Discharge Diagnosis (1) Left lower lobe pneumonia Status: Acute Transfer Discharge Sum: Med - Medications Active and Home Medications: Home Medications midodrine 5 mg tablet 5 mg PO TID #90 tab 06/16/18 [Rx Confirmed 02/22/19] glipizide 5 mg tablet 5 mg PO QDAY #90 tab 07/13/18 [Rx Confirmed 02/22/19] cholecalciferol (vitamin D3) 1,000 unit capsule 1,000 unit PO QDAY #30 cap 11/27/18 [Rx Confirmed 02/22/19] sertraline 25 mg tablet 25 mg PO QDAY #30 tab 12/27/18 [Rx Confirmed 02/22/19] fluticasone propionate 50 mcg/actuation nasal spray,suspension 2 spray INT RANASAL QDAY #9.9 g 01/11/19 [Rx Confirmed 02/22/19] pregabalin 100 mg capsule 100 mg PO BID #90 cap 01/11/19 [Rx Confirmed 02/22/19] oxycodone 10 mg tablet 10 mg PO q8h PRN #90 tab 01/25/19 [Rx Confirmed 02/22/19] atorvastatin 40 mg tablet 40 mg PO HS #90 tab 02/19/19 [Rx Confirmed 02/22/19] suvorexant 5 mg tablet 5 mg PO QHS #60 tab 02/19/19 [Rx Confirmed 02/22/19] Active Medications Acetaminophen (Tylenol) 650 mg PO Q4-6HP PRN PRN Reason: PAIN/FEVER > 101 Albuterol/Ipratropium (Duoneb) 3 ml NEB Q4HP PRN PRN Reason: Shortness Of Breath Cyanocobalamin (Vitamin B-12) 1,000 mcg PO BID [facility] Stop: 02/27/19 09:01 Last Admin: 02/22/19 22:38 Dose: Not Given Documented by: Dextrose (Dextrose 50%) 0 ml IV UD PRN PRN Reason: Hypoglycemia Diagnostic Test (Pha) (Accu-Chek) 1 each FS ACHS [facility] Last Admin: 02/22/19 22:32 Dose: 1 each Documented by: Docusate Sodium (Colace) 100 mg PO BID [facility] Last Admin: 02/22/19 22:37 Dose: Not Given Documented by: Glucose (Insta-Glucose) 15 gm PO PRN PRN PRN Reason: Hypoglycemia Heparin Sodium (Porcine) (Heparin) 5,000 unit SQ Q12 [facility] Last Admin: 02/22/19 23:13 Dose: Not Given Documented by: Magnesium Sulfate (Magnesium Sulfate) 2 gm in 50 mls @ 50 mls/hr IV UD PRN PRN Reason: MG = or < 1.7 Acetaminophen (Ofirmev) 1,000 mg in 100 mls @ 200 mls/hr IV Q6HP PRN PRN Reason: PAIN/FEVER > 101 Piperacillin Sod/Tazobactam (Sod 2.25 gm/ Dextrose) 50 mls @ 100 mls/hr IV Q8H [facility]; Protocol Levofloxacin (Levaquin) 500 mg in 100 mls @ 100 mls/hr IV Q48H [facility] Sodium Bicarbonate 150 meq/ (Dextrose) 1,000 mls @ 50 mls/hr IV Q20H [facility] Last Admin: 02/22/19 23:11 Dose: 50 mls/hr Documented by: Insulin Human Lispro (Humalog) 0 unit SQ [facility]; Protocol Last Admin: 02/22/19 22:38 Dose: Not Given Documented by: Ondansetron HCl (Zofran) 4 mg IV Q4-6HP PRN PRN Reason: Nausea And Vomiting Senna/Docusate Sodium (Senna Plus Tablet) 1 tab PO HS [facility] Last Admin: 02/22/19 22:38 Dose: Not Given Documented by: Sodium Chloride (Saline Flush) 10 ml IV Q8 [facility] Last Admin: 02/22/19 22:39 Dose: 10 ml Documented by: Sodium Polystyrene Sulfonate (Kayexalate) 30 gm PO ONCE ONE Stop: 02/22/19 22:39 Thiamine HCl (Vitamin B1) 100 mg PO DAILY [facility] Transfer Discharge Sum: Hosp Hospital course: Transfer diagnosis * Left lower lobe pneumonia-broad antibiotic coverage with Zosyn/Levaquin/vancomycin. Sofa score 5, [place] II score 18 indicated high risk mortality * Severe sepsis with borderline hypotension and end organ dysfunction including AMS/hypothermia-continue management per guidelines, veloz cultures, broad antibiotic coverage. Initiate vasopressors if map drops below 65 * Acute hypoxic respiratory failure currently on 5 L oxygen. Secondary to above. * Acute change in mental status-secondary to sepsis end organ dysfunction/hypoglycemia. Status post D50/Narcan. Continue monitoring * Hypothermia gradual rewarming/electrolyte management. Core body temperature 94.6 * Hyperkalemia @ 6- managed per nephrology. Patient unable to undergo hemodialysis due to inability to access fistula. On bicarbonate drip per nephrology * Anion gap metabolic acidosis-managed per nephrology. * ESRD on hemodialysis Brief hospital course Ms. Varner is a 53 year old F with a history of ESRD on hemodialysis who was found unresponsive state by her family and was brought into the ER for evaluation. Initial workup was consistent with hyperkalemia/severe sepsis with a white count over 21,000 and a large left-sided chest infiltrates. Potassium over 6. Patient is probably start an antibiotic coverage after cultures were drawn. Nephrology is consulted. Initial blood sugar was 22 with a core body temperature 94 Fahrenheit. After Narcan/D50 patient became slightly arousable. Most of the history was obtained from prior records and from daughter. Tox screen was positive for methadone Hospitalist service was consulted in light of above At the time of evaluation patient is lethargic and fatigued however was able to provide some history. She has been feeling poorly and has been experiencing upper respiratory symptoms including cough, weakness and shortness of breath over the last 3-4 days. She does not remember anything since this morning. She denies substance abuse. Patient was transferred to ICU for further management of hyperkalemia/severe sepsis/hypoxic respiratory failure and altered mental status and hypothermia 1045- fistula could not be accessed for HD. Nephrology recommends transfer to tertiary Center for fistula declotting/need for hemodialysis. Case discussed with [facility] Dr Syed Lopez who graciously accepted patient for further management. Patient be transferred via air ambula nce. Patient has been started on bicarbonate drip for hypokalemia. - Time Spent with Patient Total time spent providing and/or coordinating transfer services: Greater than 30 minutes Transfer Discharge Sum: Exam - Constitutional Vitals: Vital Signs Temp Pulse Resp BP Pulse Ox 02/22/19 20:00 95.7 F L 88 18 113/52 92 02/22/19 19:52 97.2 F 02/22/19 19:48 95.7 F L 88 18 92 02/22/19 19:46 95.9 F L 88 29 H 113/52 95 02/22/19 19:31 95.4 F L 87 24 H 107/36 93 02/22/19 19:15 95.0 F L 84 102/57 93 02/22/19 19:00 94.7 F L 81 19 89/43 95 02/22/19 18:57 94.7 F L 83 17 102/50 93 02/22/19 18:48 94.6 F L 81 18 95 02/22/19 18:47 94.6 F L 81 15 95/41 95 02/22/19 18:20 94.6 F L 80 23 H 108/49 100 02/22/19 18:19 94.6 F L 81 15 104/62 100 02/22/19 18:11 94.5 F L 77 23 H 95/48 100 02/22/19 18:01 94.4 F L 80 22 107/66 100 02/22/19 17:51 94.4 F L 81 13 137/54 100 02/22/19 17:41 94.4 F L 80 20 129/52 100 02/22/19 17:33 94.3 F L 79 22 125/49 100 02/22/19 17:31 94.3 F L 80 18 125/49 100 02/22/19 17:21 92.6 F L 81 22 106/53 100 02/22/19 17:12 82 27 H 115/93 99 02/22/19 17:06 91 F L 85 8 L 69 L Intake and Output 02/22/19 02/22/19 02/23/19 13:59 21:59 05:59 Intake Total 2741.0537 Balance 2741.0537 Intake: IV 2742.0537 Sodium Chloride 0.9% 1,000 ml @ 1917 500 mls/hr IV .Q2H ONE Rx#: [id number] Zithromax 500 mg In Dextrose 5% 250 in Water 250 ml @ 250 mls/hr IV ONCE ONE Rx#:[id number] Calcium Gluconate 7 Meq In 65.0537 Dextrose 5% in Water 50 ml @ 200 mls/hr IV ONCE ONE Rx#: [id number] Dextrose 5%-Ns IV Solution 1, 510 000 ml @ 250 mls/hr IV .Q4H ONE Rx#:[id number] Other: Urine Appearance Uretheral (Davis) Cloudy Sediment Purulent Urine Color Uretheral (Davis) Pale Weight 183 lb 6.4 oz Patient Weight 02/23/19 05:59 Weight 183 lb 6.4 oz Transfer Discharge Sum: Data Procedures and tests throughout hospitalization: Pending Orders 02/22/19 17:10 ABG (RT) NOW 02/22/19 17:24 Blood Culture Stat 02/22/19 17:42 Consult to Physician [CONS] Stat 02/22/19 18:42 DIALYSIS [Hemodialysis Treatment] .ROUTINE 02/22/19 18:49 Consult to Physician [CONS] Stat 02/22/19 19:00 GI Tube Management .Routine 02/22/19 19:04 Resuscitation Status Routine 02/22/19 19:55 Case Management Referral .Routine Admit as Inpatient Routine Ambulate-Progressive PRN Blood Culture PRN PRN classroom monitor CONT Condition Routine Elevate head of bed .ROUTINE Intake and Output Q4H Occult blood, stool, guaic poc .ALL STOOLS Oral hygiene .ROUTINE PICC Line PRN Specialty Bed PRN Vital Signs Q4H Weight Monitoring QHS Consistent Carbohydrate Diet Urine Culture Urgent Acetaminophen [Ofirmev] 1,000 mg in 100 ml IV Q6HP Acetaminophen [Tylenol] 650 mg PO Q4-6HP PRN Dextrose 50% See Dose Instructions IV UD PRN Dextrose [Insta-Glucose] 15 gm PO PRN PRN Ipratropium/Albuterol [Duoneb] 3 ml NEB Q4HP PRN Magnesium Sulfate 2 gm in 50 ml IV UD Ondansetron [Zofran] 4 mg IV Q4-6HP PRN RD to Adjust Diet/Supplements as Needed Routine Occupational Therapy Eval & Tx DAILY Physical Therapy Eval & Tx QD-BID Incentive Spirometry Assess/Tx Q2HWA Nebulizer management .Routine Oxygen Order .Routine 02/22/19 20:09 UA [Urinalysis] Urgent 02/22/19 21:00 Accu-Chek 1 each FS ACHS Cyanocobalamin (Vitamin B-12) [Vitamin B-12] 1,000 mcg PO BID Docusate Sodium [Colace] 100 mg PO BID Heparin 5,000 unit SQ Q12 Insulin Lispro [HumaLOG] See Dose Instructions SQ ACHS Sennosides/Docusate Sodium [Senna Plus Tablet] 1 tab PO HS 02/22/19 22:00 0.9 % Sodium Chloride [Saline Flush] 10 ml IV Q8 Piperacillin Sodium/Tazobactam [Zosyn] 2.25 gm Dextrose 5% in Water 50 ml IV Q8H 02/22/19 22:38 Sodium Polystyrene Sulfonate [Kayexalate] 30 gm PO ONCE ONE 02/22/19 22:45 Sodium Bicarbonate Vial 150 meq Dextrose 5% in Water 850 ml IV Q20H 02/23/19 04:00 Complete Blood Count Man Dif DAILY Inpatient Panel DAILY 02/23/19 09:00 Thiamine [Vitamin B1] 100 mg PO DAILY 02/24/19 04:00 Complete Blood Count Man Dif DAILY Inpatient Panel DAILY 02/24/19 12:00 Levofloxacin [Levaquin] 500 mg in 100 ml IV Q48H 02/25/19 04:00 Complete Blood Count Man Dif DAILY Inpatient Panel DAILY 02/26/19 04:00 Complete Blood Count Man Dif DAILY Inpatient Panel DAILY 02/27/19 04:00 Complete Blood Count Man Dif DAILY Inpatient Panel DAILY Transfer Discharge Sum: A/P - Problem Maintenance (1) Left lower lobe pneumonia Status: Acute - Plan Functional capacity at transfer: bed bound Overall status at transfer: patient is not back to baseline Disposition: Xfer [facility] Quality Measure Queries - VTE Deep Vein Thrombosis/Pulmonary Embolism Present on Admission: No
[2019-02-23] MEDS ORDERED: DEXTROSE 50% 50 ML VIAL IV ONE (01:00)
[2019-02-23] MEDS ORDERED: NALOXONE HCL 0.4 MG/ML VIAL IV ONE (01:00)
[2019-02-23 03:55] LABS: Appearance,Urine CLEAR; Bilirubin,Urine NEG (NEG); Color,Urine YELLOW; Glucose,Urine (UA) NORM (NEG); Leukocyte Esterase,Urine 1+ (SMALL) /uL (NEG); PH,Urine 5.5 (5.0-9.0); Protein,Urine >=300 mg/dL (NEG); Specific Gravity,Urine 1.025 (1.003-1.030); Urine Blood 2+ (MODERATE) mg/dL (<0.03); Urobilinogen,Urine NORM (NEG)
[2019-02-23] MEDS ORDERED: THIAMINE 100 MG TABLET PO SCH (09:00)
[2019-02-24] MEDS ORDERED: LEVOFLOXACIN 500 MG/100 ML BAG IV SCH (12:00)
== END 2019-02-23 01:01 | disposition short-term general hospital (02) | DRG 871 ==
LOC: ED 16:59 → ICU 19:52
PROVIDERS: ADMIT Internal Medicine; ATTEND Internal Medicine

== ENCOUNTER 2020-09-01 21:23 | Inpatient (IN) ==
--- NOTE | 2020-09-01 22:05 | Internal Med History&Physical ---
HPI History of Present Illness Patient information: Note initiated : 09/01/20 at 10:02 pm Service Date, if different from initiated Date: [] Patient: Dang Varner a 55 y/o F admitted on for foot wound. Chief Complaint: [] History of present illness: Ms. Varner is a 55 year old F Presents to the ED with left foot wound. Patient seems to be a poor historian she says she was seen in the ED several weeks ago but the last note was a month ago and that was for the foot infection. Sounds like a foot injury occurred after she did have it tightly wrapped, which she does whenever she goes to dialysis She says she was given an antibiotic for a week but could not recall what it is, possibly Keflex. She felt it was improving last week. She wrapped her foot up Tuesday for dialysis and usually takes it off afterwards but left it on a weekend and when she unwrapped it this morning she felt the wound was worsening. It is started to some purulent drainage and there was sloughing of skin. Some increased wet redness and smiling Patient denies fever chills. Laboratory work in the ED showed a leukocytosis of 17 and although elevated she has been between 12 and 14,000 since January. Lactic acid level was unremarkable. CT of the foot showed no osteomyelitis. But did show a metallic foreign body in the plantar soft tissue overlying the fifth metatarsal head and moderate cellulitis in the subcutaneous fat of the mid plantar region. Dr. Gerardo evaluated the wound in the ED and will follow in the hospital. Review of Systems: Pertinent positives as above. Denies headache/fever/chills/nausea/vomiting/chest or abdominal pain/cough/dy spnea/diarrhea. remaining 10 point review of system reviewed negative PFSH PFSH All Active Problems Cellulitis (Acute) Failure of outpatient treatment (Acute) Wound of left foot (Acute) Syncope (Acute) Anemia (Acute) At risk for fluid volume overload (Acute) Contusion of ankle or foot, left (Acute) Blister (nonthermal), left foot, initial encounter (Acute) Otitis externa (Acute) Cellulitis (Acute) Wound of right foot (Acute) Syncope and collapse (Acute) Debility (Acute) Generalized weakness (Acute) Chronic, continuous use of opioids (Chronic) Altered mental status (Acute) UTI (urinary tract infection) (Acute) Hypothermia (Chronic) AV fistula thrombosis (Chronic) Hypertension (Chronic) Anemia of chronic renal failure, stage 5 (Chronic) CRF (chronic renal failure) (Acute) Hypoglycemia associated with type 2 diabetes mellitus (Acute) Dehydration (Acute) Ventricular tachycardia, nonsustained (Acute) Hyperkalemia (Acute) Metabolic acidosis (Acute) Anemia (Acute) Pneumonia (Acute) Left lower lobe pneumonia (Acute) Pneumonia (Acute) Hyperkalemia (Acute) History of CHF (congestive heart failure) (Chronic) Obesity (Chronic) RBBB (right bundle branch block) (Chronic) Hemorrhoids (Chronic) Hypotension (Chronic) Depression (Chronic) Insomnia (Chronic) Encounter for Health Maintenance Examination in Adult (Chronic) Wellness examination (Chronic) Dizziness (Chronic) Chronic nausea (Chronic) Gastroparesis (Chronic) Steal syndrome of upper extremity (Chronic) Subcutaneous nodule of breast (Chronic) Diabetic retinopathy associated with type 2 diabetes mellitus (Chronic) Migraines (Chronic) Arthritis (Chronic) Diabetes (Chronic) Cancer of kidney (Chronic) Anxiety (Chronic) ESRD (end stage renal disease) on dialysis (Chronic) Fibromyalgia (Chronic) Medical History Anemia of chronic renal failure, stage 5 (Chronic) Anxiety (Chronic) Arthralgia of multiple joints (Resolved) Arthritis (Chronic) Atypical chest pain (Resolved) AV fistula thrombosis (Chronic) Cancer of kidney (Chronic) 2014 Maddie esophagitis (Resolved) Cellulitis (Acute) Cervical muscle strain (Resolved) Chronic Kidney Disease (Resolved) Chronic nausea (Chronic) Chronic, continuous use of opioids (Chronic) CKD (chronic kidney disease) stage 4, GFR 15-29 ml/min (Resolved) Congestion of nasal sinus (Resolved) Congestive heart failure (Resolved) Daytime sleepiness (Resolved) Dehydration (Resolved) Depression (Resolved) Depression (Chronic) Diabetes (Chronic) Diabetic retinopathy associated with type 2 diabetes mellitus (Chronic) Dizziness (Chronic) Dizziness of unknown cause (Resolved) Encounter for Health Maintenance Examination in Adult (Chronic) Encounter for medication refill (Resolved) ESRD (end stage renal disease) on dialysis (Chronic) Fibromyalgia (Chronic) Fracture of femur (Resolved) Gastroenteritis (Resolved) Gastroparesis (Resolved) Gastroparesis (Chronic) 07/26/16 Generalized pain (Resolved) Heart failure, chronic, with acute decompensation (Resolved) Hemorrhoids (Chronic) History of CHF (congestive heart failure) (Chronic) Hypertension (Chronic) Hypokalemia (Resolved) Hypokalemia (Resolved) Hypotension (Chronic) Hypothermia (Chronic) Insomnia (Resolved) Insomnia (Chronic) Migraines (Chronic) Muscle pain (Resolved) Nausea (Resolved) Nausea & vomiting (Resolved) Nausea and vomiting (Resolved) Nausea, Vomiting, and Diarrhea (Resolved) Obesity (Chronic) Osteoarthritis (Resolved) Otitis externa (Acute) Polymyalgia rheumatica (Resolved) Polyp in nasopharynx (Resolved) RBBB (right bundle branch block) (Chronic) Steal syndrome of upper extremity (Chronic) Subcutaneous nodule of breast (Chronic) Syncope and collapse (Acute) Trochanteric bursitis of left hip (Resolved) UTI (urinary tract infection) (Resolved) Volume depletion, gastrointestinal loss (Resolved) Wellness examination (Chronic) 07/28/17 Wound of left foot (Acute) Surgical History H/O colonoscopy (Chronic) Dr. Ford H/O: (Chronic) 1998 2002 History of angioplasty (Chronic 07/26/17) and fistulogram History of kidney surgery (Chronic) 2010 Kidney cancer History of surgery (Chronic 06/09/16) Transposition of left upper arm cephalic vein History of surgery (Chronic) 2014 Placement of catheters History of surgery (Chronic) 1996 Gallstones History of surgery (Chronic) 2014 Fistula repair Family History Sister Arthritis Mother Cancer Father Heart attack Brother Tuberculosis Social History (Updated 09/01/20 @ 22:03 by Yandel Hunt DO) marital status: other: Children-2 smoking status: Never smoker alcohol intake frequency: does not drink substance use type: does not use additional history: She uses a walker and wheelchair 50%/50% of the time MEDS/ALLERGIES Home Medications and Allergies Home Medications Medication Instructions Recorded Confirmed Type calcium acetate(phosphat bind) 667 667 mg PO TID #90 cap 11/19/19 08/05/20 Rx mg capsule pregabalin 100 mg capsule 100 mg PO BID #180 cap 01/03/20 08/05/20 Rx midodrine 2.5 mg tablet 2.5 mg PO ONCE PRN #30 tab 05/08/20 08/05/20 Rx Protein bar PO 05/21/20 08/05/20 History acetaminophen 325 mg capsule 325 mg PO ONCE PRN 05/21/20 08/05/20 History alteplase 2 mg intra-catheter 2 mg INTRA-CATHETER ONCE 05/21/20 08/05/20 History solution calcitriol 0.25 mcg capsule 0.25 mcg PO 3XW 05/21/20 08/05/20 History cholecalciferol (vitamin D3) 125 5,000 unit PO QDAY cap 05/21/20 08/05/20 History mcg (5,000 unit) capsule clonidine HCl 0.1 mg tablet 0.1 mg PO QHS 05/21/20 08/05/20 History heparin (porcine) 1,000 unit/mL IV 05/21/20 08/05/20 History injection solution heparin (porcine) 1,000 unit/mL IV .3 x wk ml 05/21/20 08/05/20 History injection solution heparin (porcine) 1,000 unit/mL IV .q 3 times wk ml 05/21/20 08/05/20 History injection solution hydroxyzine HCl 10 mg tablet 10 mg PO ONCE tab 05/21/20 08/05/20 History loperamide 2 mg capsule 2 mg PO Q6H PRN 05/21/20 08/05/20 History midodrine 5 mg tablet 5 mg PO 3XW tab 05/21/20 08/05/20 History ondansetron HCl 4 mg tablet 4 mg PO Q8H 05/21/20 08/05/20 History sodium ferric gluconat-sucrose 62.5 mg IV QWEEK ml 05/21/20 08/05/20 History 62.5 mg/5 mL intravenous cephalexin 500 mg capsule 500 mg PO BID #10 cap 05/29/20 08/05/20 Rx ciprofloxacin HCl 0.2 % ear drops 5 drp OTIC BID #14 each 05/29/20 08/05/20 Rx in a dropperette suvorexant 10 mg tablet 10 mg PO QHS #30 tab 06/02/20 08/05/20 Rx B complex with C 20-folic acid 1 1 cap PO QDAY #30 cap 07/14/20 08/05/20 Rx mg capsule cephalexin 500 mg PO QID #28 cap 07/28/20 08/05/20 Rx atorvastatin 40 mg tablet 40 mg PO HS #90 tab 08/04/20 08/05/20 Rx sertraline 25 mg tablet 25 mg PO QDAY #30 tab 08/26/20 Rx oxycodone 10 mg tablet 10 mg PO q8h PRN #90 tab 08/29/20 Rx Allergies Allergy/AdvReac Type Severity Reaction Status Date / Time No Known Drug Allergies Allergy Verified 09/01/20 15:29 EXAM Constitutional Vitals: Temp Pulse Resp BP Pulse Ox 98.1 F 87 16 161/84 98 09/01/20 21:23 09/01/20 21:41 09/01/20 21:23 09/01/20 21:41 09/01/20 21:41 Exam: General: Alert, Awake, No acute Distress Eyes/N/T: EOMI, PERRL, Head/Neck: neck supple, normocephalic atraumatic CV: RRR, No murmurs, normal s1/s2 Pulm: Clear b/l, no wheezing/rhonchi/rales Abd: soft, nontender, +BS x4 Ext: no clubbing/cyanosis/edema to left lower extremity. Right foot in dressings, was evaluated by wound care surgeon. Neuro: Alert, no focal deficits, moves all extremities, CN 2-12 grossly intact, symmetrical strength b/l upper/lower, decreased sensations from neuropathy bilateral lower extremities Skin: warm/dry DATA Data Completed and Pending Labs: Labs from last 24 hours 09/01/20 21:26 SARS-CoV-2 (PCR) Pending A/P Narrative A/P Narrative: A: *Left Foot wound/purulent cellulitis: Failed outpatient treatment -CT no osteo or abscess *Diabetes w/neuropathy: *ESRD: Has been following with Dr. Rodriguez *Anemia, chronic *HTN/HLD: *Depression/anxiety/fibromyalgia: *Chronic pain: *h/o cardiomyopathy: * P: -Vanco/Zosyn pending mrsa screen and WC/BC -Dr. Gerardo, ?debridement/exploration of foreign body -Nephrology for HD -clarify and update home meds -basal and SSI -cont home psych meds -cont home clonidine -PT/OT -ppx: Heparin Time Spent With Patient Time: Total time spent is greater than 50% in coordination of care (as documented) at patient's floor/unit and/or counseling patient:
[2020-09-01] MEDS ORDERED: cloNIDine HCL 0.1 MG TABLET PO PRN (22:59)
[2020-09-01] MEDS ORDERED: ONDANSETRON 4 MG/2 ML VIAL IV PRN (22:59)
[2020-09-01] MEDS ORDERED: DEXTROSE 31 GM ORAL.SUSP PO PRN (22:59)
[2020-09-01] MEDS ORDERED: POTASSIUM CHLORIDE 20 MEQ TABLET PO PRN (22:59)
[2020-09-01] MEDS ORDERED: SENNOSIDES 1 TABLET PO PRN (22:59)
[2020-09-01] MEDS ORDERED: POTASSIUM CHLORIDE 40 MEQ in DEXTROSE 5% IN WATER 500 ML IV PRN (22:59)
[2020-09-01] MEDS ORDERED: VANCOMYCIN PER PHARMACY IV ONE (22:59)
[2020-09-01] MEDS ORDERED: MAGNESIUM SULFATE 2 GM/50 ML BAG IV PRN (22:59)
[2020-09-01] MEDS ORDERED: DEXTROSE 50% 50 ML VIAL IV PRN (22:59)
[2020-09-01] MEDS ORDERED: POLYETHYLENE GLYCOL 3350 17 GM PACKET PO PRN (22:59)
[2020-09-01] MEDS ORDERED: ACETAMINOPHEN 325 MG TABLET PO PRN (22:59)
[2020-09-01] MEDS ORDERED: IPRATROPIUM/ALBUTEROL 3 ML AMPUL.NEB NEB PRN (22:59)
[2020-09-02 00:19] LABS: POC Blood Urea Nitrogen 5 mg/dL (6-20); POC CO2 31 mmol/L (22-30); POC Calcium, Ionized 1.01 mmEq/L (1.16-1.32); POC Chloride 96 mEq/L (96-108); POC Glucose, Random 98 mg/dL (70-105); POC Hematocrit 40 % (36-48); POC Potassium 3.7 mEql/L (3.3-5.1); POC Sodium 135 mEq/L (133-145)
[2020-09-02] MEDS: PIPERACILLIN SODIUM/TAZOBACTAM 3.375 GM in DEXTROSE 5% IN WATER 50 ML IV SCH ×2 (00:22→06:34)
[2020-09-02] MEDS ORDERED: VANCOMYCIN 1,000 MG in 0.9 % SODIUM CHLORIDE 250 ML IV ONE (01:31)
[2020-09-02 01:49] LABS: ALT/SGPT 13 U/L (<40); AST/SGOT 20 U/L (<32); Albumin 3.8 gm/dL (3.2-5.2); Albumin/Globulin Ratio 0.9 (1.0-2.3); Alkaline Phosphatase 129 U/L (39-117); Bilirubin,Total 0.2 mg/dL (0.1-1.0); Blood Urea Nitrogen 6 mg/dL (6-20); Calcium 8.6 mg/dL (8.6-10.4); Carbon Dioxide 27 mmol/L (22-30); Chloride 96 mmol/L (96-108); Globulin 4.2 gm/dL (2.2-3.7); Glomerular Filtration Rate 18; Glucose 88 mg/dL (70-105)
--- NOTE | 2020-09-02 05:11 | Nephrology Consult Note ---
HPI Data of Consult Patient: known to practice within the last 3 years Consult date: 09/02/20 Requesting physician: Yandel Hunt Primary Care Provider: Reyna Mattson DO Consult Narrative Chief complaint: Left leg cellulitis Reason for consult: End-stage renal disease on chronic hemodialysis History of present illness: Dang Varner is a 55-year-old female with end- stage renal disease on chronic hemodialysis, chronic anemia due to ESRD, diabetes mellitus type 2, admitted on 09/01/20 for left leg cellulitis. cc:: CC: Yandel Hunt Constitutional Constitutional: Absent fever(s) and headache(s) EENT Nose, mouth and throat: Absent nasal congestion and sore throat Cardiovascular Cardiovascular: Absent chest pain and dyspnea on exertion Respiratory Respiratory: Absent cough and wheezing Gastrointestinal Gastrointestinal: Absent diarrhea and nausea Genitourinary Genitourinary: Absent dysuria and hematuria Musculoskeletal Musculoskeletal: Absent joint swelling Integumentary Integumentary: Present wounds Neurological Neurological: Absent confusion and headache(s) Psychiatric Psychiatric: Absent anxiety and panic attacks Hematologic/Lymphatic Hematologic/Lymphatic: Absent easy bleeding and easy bruising Allergic/Immunologic Allergic/Immunologic: Absent tongue swelling and uticaria PFSH PFSH All Active Problems Cellulitis (Acute) Failure of outpatient treatment (Acute) Wound of left foot (Acute) Syncope (Acute) Anemia (Acute) At risk for fluid volume overload (Acute) Contusion of ankle or foot, left (Acute) Blister (nonthermal), left foot, initial encounter (Acute) Otitis externa (Acute) Cellulitis (Acute) Wound of right foot (Acute) Syncope and collapse (Acute) Debility (Acute) Generalized weakness (Acute) Chronic, continuous use of opioids (Chronic) Altered mental status (Acute) UTI (urinary tract infection) (Acute) Hypothermia (Chronic) AV fistula thrombosis (Chronic) Hypertension (Chronic) Anemia of chronic renal failure, stage 5 (Chronic) CRF (chronic renal failure) (Acute) Hypoglycemia associated with type 2 diabetes mellitus (Acute) Dehydration (Acute) Ventricular tachycardia, nonsustained (Acute) Hyperkalemia (Acute) Metabolic acidosis (Acute) Anemia (Acute) Pneumonia (Acute) Left lower lobe pneumonia (Acute) Pneumonia (Acute) Hyperkalemia (Acute) History of CHF (congestive heart failure) (Chronic) Obesity (Chronic) RBBB (right bundle branch block) (Chronic) Hemorrhoids (Chronic) Hypotension (Chronic) Depression (Chronic) Insomnia (Chronic) Encounter for Health Maintenance Examination in Adult (Chronic) Wellness examination (Chronic) Dizziness (Chronic) Chronic nausea (Chronic) Gastroparesis (Chronic) Steal syndrome of upper extremity (Chronic) Subcutaneous nodule of breast (Chronic) Diabetic retinopathy associated with type 2 diabetes mellitus (Chronic) Migraines (Chronic) Arthritis (Chronic) Diabetes (Chronic) Cancer of kidney (Chronic) Anxiety (Chronic) ESRD (end stage renal disease) on dialysis (Chronic) Fibromyalgia (Chronic) Medical History Anemia of chronic renal failure, stage 5 (Chronic) Anxiety (Chronic) Arthralgia of multiple joints (Resolved) Arthritis (Chronic) Atypical chest pain (Resolved) AV fistula thrombosis (Chronic) Cancer of kidney (Chronic) 2014 Maddie esophagitis (Resolved) Cellulitis (Acute) Cervical muscle strain (Resolved) Chronic Kidney Disease (Resolved) Chronic nausea (Chronic) Chronic, continuous use of opioids (Chronic) CKD (chronic kidney disease) stage 4, GFR 15-29 ml/min (Resolved) Congestion of nasal sinus (Resolved) Congestive heart failure (Resolved) Daytime sleepiness (Resolved) Dehydration (Resolved) Depression (Resolved) Depression (Chronic) Diabetes (Chronic) Diabetic retinopathy associated with type 2 diabetes mellitus (Chronic) Dizziness (Chronic) Dizziness of unknown cause (Resolved) Encounter for Health Maintenance Examination in Adult (Chronic) Encounter for medication refill (Resolved) ESRD (end stage renal disease) on dialysis (Chronic) Fibromyalgia (Chronic) Fracture of femur (Resolved) Gastroenteritis (Resolved) Gastroparesis (Resolved) Gastroparesis (Chronic) 07/26/16 Generalized pain (Resolved) Heart failure, chronic, with acute decompensation (Resolved) Hemorrhoids (Chronic) History of CHF (congestive heart failure) (Chronic) Hypertension (Chronic) Hypokalemia (Resolved) Hypokalemia (Resolved) Hypotension (Chronic) Hypothermia (Chronic) Insomnia (Resolved) Insomnia (Chronic) Migraines (Chronic) Muscle pain (Resolved) Nausea (Resolved) Nausea & vomiting (Resolved) Nausea and vomiting (Resolved) Nausea, Vomiting, and Diarrhea (Resolved) Obesity (Chronic) Osteoarthritis (Resolved) Otitis externa (Acute) Polymyalgia rheumatica (Resolved) Polyp in nasopharynx (Resolved) RBBB (right bundle branch block) (Chronic) Steal syndrome of upper extremity (Chronic) Subcutaneous nodule of breast (Chronic) Syncope and collapse (Acute) Trochanteric bursitis of left hip (Resolved) UTI (urinary tract infection) (Resolved) Volume depletion, gastrointestinal loss (Resolved) Wellness examination (Chronic) 07/28/17 Wound of left foot (Acute) Surgical History H/O colonoscopy (Chronic) Dr. Ford H/O: (Chronic) 1998 2002 History of angioplasty (Chronic 07/26/17) and fistulogram History of kidney surgery (Chronic) 2010 Kidney cancer History of surgery (Chronic 06/09/16) Transposition of left upper arm cephalic vein History of surgery (Chronic) 2014 Placement of catheters History of surgery (Chronic) 1996 Gallstones History of surgery (Chronic) 2014 Fistula repair Family History Sister Arthritis Mother Cancer Father Heart attack Brother Tuberculosis Social History (Updated 09/01/20 @ 22:03 by Yandel Hunt DO) marital status: other: Children-2 smoking status: Never smoker alcohol intake frequency: does not drink substance use type: does not use additional history: She uses a walker and wheelchair 50%/50% of the time MEDS/ALLERGIES Home Medications and Allergies Home Medications Medication Instructions Recorded Confirmed Type calcium acetate(phosphat bind) 667 667 mg PO TID #90 cap 11/19/19 08/05/20 Rx mg capsule pregabalin 100 mg capsule 100 mg PO BID #180 cap 01/03/20 08/05/20 Rx midodrine 2.5 mg tablet 2.5 mg PO ONCE PRN #30 tab 05/08/20 08/05/20 Rx Protein bar PO 05/21/20 08/05/20 History acetaminophen 325 mg capsule 325 mg PO ONCE PRN 05/21/20 08/05/20 History alteplase 2 mg intra-catheter 2 mg INTRA-CATHETER ONCE 05/21/20 08/05/20 History solution calcitriol 0.25 mcg capsule 0.25 mcg PO 3XW 05/21/20 08/05/20 History cholecalciferol (vitamin D3) 125 5,000 unit PO QDAY cap 05/21/20 08/05/20 History mcg (5,000 unit) capsule clonidine HCl 0.1 mg tablet 0.1 mg PO QHS 05/21/20 08/05/20 History heparin (porcine) 1,000 unit/mL IV 05/21/20 08/05/20 History injection solution heparin (porcine) 1,000 unit/mL IV .3 x wk ml 05/21/20 08/05/20 History injection solution heparin (porcine) 1,000 unit/mL IV .q 3 times wk ml 05/21/20 08/05/20 History injection solution hydroxyzine HCl 10 mg tablet 10 mg PO ONCE tab 05/21/20 08/05/20 History loperamide 2 mg capsule 2 mg PO Q6H PRN 05/21/20 08/05/20 History midodrine 5 mg tablet 5 mg PO 3XW tab 05/21/20 08/05/20 History ondansetron HCl 4 mg tablet 4 mg PO Q8H 05/21/20 08/05/20 History sodium ferric gluconat-sucrose 62.5 mg IV QWEEK ml 05/21/20 08/05/20 History 62.5 mg/5 mL intravenous cephalexin 500 mg capsule 500 mg PO BID #10 cap 05/29/20 08/05/20 Rx ciprofloxacin HCl 0.2 % ear drops 5 drp OTIC BID #14 each 05/29/20 08/05/20 Rx in a dropperette suvorexant 10 mg tablet 10 mg PO QHS #30 tab 06/02/20 08/05/20 Rx B complex with C 20-folic acid 1 1 cap PO QDAY #30 cap 07/14/20 08/05/20 Rx mg capsule cephalexin 500 mg PO QID #28 cap 07/28/20 08/05/20 Rx atorvastatin 40 mg tablet 40 mg PO HS #90 tab 08/04/20 08/05/20 Rx sertraline 25 mg tablet 25 mg PO QDAY #30 tab 08/26/20 Rx oxycodone 10 mg tablet 10 mg PO q8h PRN #90 tab 08/29/20 Rx Allergies Allergy/AdvReac Type Severity Reaction Status Date / Time No Known Drug Allergies Allergy Verified 09/01/20 15:29 Physical Examination Vital Signs Vital signs: Temp Pulse Resp BP Pulse Ox 99.0 F 74 16 148/73 93 09/02/20 04:20 09/02/20 04:20 09/02/20 04:20 09/02/20 04:20 09/02/20 04:20 General Appearance General appearance: well-developed and well-nourished EENT EENT: mucous membranes moist Respiratory Respiratory: clear Cardiovascular Cardiology: no edema and regular rate Gastrointestinal Gastrointestinal: no tenderness Integumentary Integumentary: warm and dry Neurologic Neurologic: no focal deficit and alert and oriented x3 Psychiatric Psychiatric: mood/affect appropriate and cooperative Results Lab Results Result Diagrams: 09/02/20 05:53 09/02/20 00:00 Lab results: Most recent lab results Calcium 8.6 mg/dL (8.6-10.4) 09/02/20 00:00 A/P Assessment and plan (1) ESRD (end stage renal disease) on dialysis: Assessment and plan: Dang Varner is a 55-year-old female with end-stage renal disease on chronic hemodialysis, chronic anemia due to ESRD, diabetes mellitus type 2, admitted on 09/01/20 for left leg cellulitis. Plan: Hemodialysis on Tuesday, Tuesday, Tuesday. Status: Chronic Time Spent With Patient Time: Total time spent is greater than 50% in coordination of care (as documented) at patient's floor/unit and/or counseling patient:
[2020-09-02 05:33] LABS: Hemoglobin A1C 6.7 % Hgb (4.0-6.0)
[2020-09-02] MEDS ORDERED: VANCOMYCIN PER PHARMACY IV SCH (06:30)
[2020-09-02 06:41] LABS: Basophils # (Auto) 0.25 K/mcL (0.00-0.20); Basophils % (Auto) 1.6 % (0.0-2.0); Eosinophils # (Auto) 0.53 K/mcL (0.00-0.70); Eosinophils % (Auto) 3.4 % (0.0-7.0); Hemoglobin 11.3 g/dL (12.0-15.0); Lymphocytes # (Auto) 2.05 K/mcL (1.50-4.80); Mean Cell Volume 89.6 fL (80.0-100.0); Mean Corpuscular HGB Conc 30.5 g/dL (31.0-36.0); Mean Platelet Volume 9.7 fL (7.4-10.4); Monocytes # (Auto) 0.65 K/mcL (0.10-0.90); Monocytes % (Auto) 4.1 % (1.0-12.0); Neutrophils % (Auto) 77.9 % (38.0-78.0); Platelet Count 331 K/mcL (140-440); RBC 4.13 M/mcL (4.00-5.20); Red Cell Distribution Width 13.4 % (11.5-14.5); WBC 15.8 K/mcL (4.5-11.0)
[2020-09-02] MEDS: 0.9 % SODIUM CHLORIDE 10 ML SYRINGE IV SCH ×3 (06:52→21:24)
[2020-09-02] MEDS: INSULIN LISPRO 1 UNIT/0.01 ML UNIT SQ SCH ×4 (06:53→21:36)
[2020-09-02 07:50] LABS: ALT/SGPT 12 U/L (<40); AST/SGOT 18 U/L (<32); Albumin 3.4 gm/dL (3.2-5.2); Albumin/Globulin Ratio 0.9 (1.0-2.3); Alkaline Phosphatase 124 U/L (39-117); Bilirubin,Direct < 0.2 mg/dL (<0.3); Bilirubin,Total 0.2 mg/dL (0.1-1.0); Blood Urea Nitrogen 10 mg/dL (6-20); Calcium 8.3 mg/dL (8.6-10.4); Carbon Dioxide 25 mmol/L (22-30); Chloride 97 mmol/L (96-108); Globulin 3.9 gm/dL (2.2-3.7); Glomerular Filtration Rate 14; Glucose 120 mg/dL (70-105); Lactate Dehydrogenase 218 U/L (135-225); Phosphorous 2.5 mg/dL (2.5-4.5); Triglycerides 181 mg/dL (<150); Uric Acid 2.4 mg/dL (2.5-8.0)
--- NOTE | 2020-09-02 07:52 | Internal Med Progress Note ---
SUBJECTIVE Subjective Patient information: Note initiated : 09/02/20 at 7:49 am Service Date, if different from initiated Date: [] Patient: Dang Varner a 55 y/o F admitted on 09/01/20 for foot wound. Chief Complaint: [] Interval history: History of present illness: Ms. Varner is a 55 year old F Presents to the ED with left foot wound. Patient seems to be a poor historian she says she was seen in the ED several weeks ago but the last note was a month ago and that was for the foot infection. Sounds like a foot injury occurred after she did have it tightly wrapped, which she does whenever she goes to dialysis She says she was given an antibiotic for a week but could not recall what it is, possibly Keflex. She felt it was improving last week. She wrapped her foot up Tuesday for dialysis and usually takes it off afterwards but left it on a weekend and when she unwrapped it this morning she felt the wound was worsening. It is started to some purulent drainage and there was sloughing of skin. Some increased wet redness and smiling Patient denies fever chills. Laboratory work in the ED showed a leukocytosis of 17 and although elevated she has been between 12 and 14,000 since January. Lactic acid level was unremarkable. CT of the foot showed no osteomyelitis. But did show a metallic foreign body in the plantar soft tissue overlying the fifth metatarsal head and moderate cellulitis in the subcutaneous fat of the mid plantar region. Dr. Gerardo evaluated the wound in the ED and will follow in the hospital. 09/02 No new complaints overnight events. Review of Systems: Positive for headache. Denies fever/chills/nausea/vomiting/chest or abdominal pain/cough/dyspnea/diarrhea. Otherwise see above. Constitutional Vitals: Vital Signs Temp Pulse Resp BP Pulse Ox 98.2 F 82 20 149/77 90 09/02/20 07:22 09/02/20 07:22 09/02/20 07:22 09/02/20 07:22 09/02/20 07:22 Period Temp Pulse Resp BP Sys/Bernstein Pulse Ox Last 24 Hr 98.1 F-99.0 F 74-88 16-20 117-181/70-93 90-98 Intake and Output 09/01/20 09/02/20 09/02/20 21:59 05:59 13:59 Intake Total 450 Output Total 0 Balance 450 Weight 79.832 kg 79.832 kg Intake & Output: Intake & Output 09/01/20 09/02/20 09/02/20 21:59 05:59 13:59 Intake Total 450 Output Total 0 Balance 450 Weight 79.832 kg 79.832 kg Intake: IV 300 Zosyn 3.375 gm In Dextrose 5% 50 in Water 50 ml @ 100 mls/hr IV Q6H KIET Rx#:[id number] Vancomycin 1,000 mg In Sodium 250 Chloride 0.9% 250 ml @ 250 mls/ hr IV ONCE ONE Rx#:[id number] Oral 150 Output: Void Amount 0 Exam: General: Alert, Awake, No acute Distress Eyes/N/T: EOMI, , Head/Neck: neck supple, CV: RRR, No murmurs, Pulm: Clear b/l, no wheezing/rhonchi/rales Abd: soft, nontender, +BS x4 Ext: no clubbing/cyanosis/edema to left lower extremity. Right foot in dressings Neuro: Alert, no focal deficits, moves all extremities, Skin: warm/dry OBJ DATA Labs CBC & Chem 7: 09/02/20 05:53 09/02/20 05:53 Labs: Abnormal Lab Results 09/02/20 09/02/20 09/01/20 05:53 00:00 23:57 WBC 15.8 H Hgb 11.3 L MCHC 30.5 L Lymph % (Auto) 13.0 L Baso # (Auto) 0.25 H Absolute Neutrophils 12.27 H POC Total CO2 31 H POC BUN 5 L Creatinine 2.8 H POC Creatinine 3.0 H Hemoglobin A1c POC WB Ioniz Calcium 1.01 L Alkaline Phosphatase 129 H Globulin 4.2 H Albumin/Globulin Ratio 0.9 L 09/01/20 16:13 WBC Hgb MCHC Lymph % (Auto) Baso # (Auto) Absolute Neutrophils POC Total CO2 POC BUN Creatinine POC Creatinine Hemoglobin A1c 6.7 H POC WB Ioniz Calcium Alkaline Phosphatase Globulin Albumin/Globulin Ratio Meds: Medications Acetaminophen (Tylenol) 650 mg PO Q6HP PRN PRN Reason: PAIN/FEVER > 101 Albuterol/Ipratropium (Duoneb) 3 ml NEB Q4HP PRN PRN Reason: Shortness Of Breath Clonidine HCl (Catapres) 0.1 mg PO Q4HP PRN PRN Reason: Hypertension Dextrose (Dextrose 50%) 0 ml IV UD PRN PRN Reason: Hypoglycemia Diagnostic Test (Pha) (Accu-Chek) 1 each FS [facility] Last Admin: 09/02/20 06:53 Dose: 1 each Documented by: Docusate Sodium (Colace) 100 mg PO BID [facility] Glucose (Insta-Glucose) 15 gm PO PRN PRN PRN Reason: Hypoglycemia Heparin Sodium (Porcine) (Heparin) 5,000 unit SQ Q12 [facility] Potassium Chloride 40 meq/ (Dextrose) 520 mls @ 130 mls/hr IV UD PRN PRN Reason: Potassium < 3 Magnesium Sulfate (Magnesium Sulfate) 2 gm in 50 mls @ 50 mls/hr IV UD PRN PRN Reason: Magnesium </= 1.6 Piperacillin Sod/Tazobactam (Sod 2.25 gm/ Dextrose) 50 mls @ 100 mls/hr IV Q8H [facility] Insulin Human Lispro (Humalog) 0 unit SQ [facility]; Protocol Last Admin: 09/02/20 06:53 Dose: Not Given Documented by: Ondansetron HCl (Zofran) 4 mg IV Q4HP PRN PRN Reason: Nausea And Vomiting Polyethylene Glycol (Miralax) 17 gm PO DAILYP PRN PRN Reason: Constipation Potassium Chloride (Kdur) 40 meq PO UD PRN PRN Reason: Potassium < 3 Senna (Senokot) 2 tab PO DAILYP PRN PRN Reason: Constipation Sodium Chloride (Saline Flush) 10 ml IV Q8 [facility] Last Admin: 09/02/20 06:52 Dose: 10 ml Documented by: Vancomycin HCl (Vancomycin Per Pharmacy) 1 order IV UD [facility]; Protocol A/P Narrative A/P Narrative: A: *Left Foot wound/purulent cellulitis: Failed outpatient treatment -CT no osteo or abscess -WC with GPC in clusters *Diabetes w/neuropathy: *ESRD: Has been following with Dr. Rodriguez *Anemia, chronic *HTN/HLD: *Depression/anxiety/fibromyalgia: *Chronic pain: *h/o cardiomyopathy: *chronic leukocytosis P: -Vanco/Zosyn deescalate, mrsa screen neg, pending WC/BC -Dr. Akin, ?debridement/exploration of foreign body -Nephrology for HD -clarify and update home meds -basal and SSI -cont home psych meds -cont home clonidine -PT/OT -ppx: Heparin Time Spent With Patient Time: Total time spent is greater than 50% in coordination of care (as documented) at patient's floor/unit and/or counseling patient: QUALITY VTE Deep Vein Thrombosis/Pulmonary Embolism Present on Admission: No
[2020-09-02] MEDS: DOCUSATE SODIUM 100 MG CAPSULE PO SCH ×2 (08:17→21:30)
[2020-09-02] MEDS: HEPARIN 5,000 UNIT/ML VIAL SQ SCH ×2 (08:17→21:31)
[2020-09-02] MEDS: PIPERACILLIN SODIUM/TAZOBACTAM 2.25 GM in DEXTROSE 5% IN WATER 50 ML IV SCH ×3 (08:17→21:15)
[2020-09-02] MEDS: COLLAGENASE TOP OINT TUBE 30GM TOPICAL SCH (11:56)
--- NOTE | 2020-09-02 11:57 | Emergency Department Note ---
HPI General Chief complaint: Skin/Abscess/Foreign Body Stated complaint: foot wound Time Seen by Provider: 09/01/20 15:36 Source: patient Mode of arrival: wheelchair Limitations: no limitations History of Present Illness HPI Narrative: Narrative: 55-year-old female presents for cellulitis and wound infection to the left foot. She was seen here a few hours ago and evaluated by myself. She left to go to dialysis as she did not want to miss it, prior to her labs returning. We did have her return to the ER after dialysis as she was found to have a white count of 17,000 and cellulitis findings on CT. She has co mpleted oral Keflex with no improvement. Patient is a poor historian. Has told nursing staff that this started a week ago. Has told me previously that it started 2 weeks ago after wrapping her foot and forgetting about it for 2 days. She originally wrapped this foot because of peripheral vascular disease that was causing her some pain and sometimes wrapping it helps. States when she remembered and took off the wrap 2 days later she had this wound. However we did find in a prior chart on 07-28-20 that she had been seen for cellulitis of the left foot and had a blister at that time. Since then it has progressively gotten worse. Denies fever but does have some chills intermittently. Unsure for how long. No nausea, vomiting, or diarrhea. Related Data Home Medications Medication Instructions Recorded Confirmed Protein bar PO 05/21/20 08/05/20 acetaminophen 325 mg capsule 325 mg PO ONCE PRN 05/21/20 08/05/20 alteplase 2 mg intra-catheter 2 mg INTRA-CATHETER ONCE 05/21/20 08/05/20 solution calcitriol 0.25 mcg capsule 0.25 mcg PO 3XW 05/21/20 08/05/20 cholecalciferol (vitamin D3) 125 5,000 unit PO QDAY cap 05/21/20 08/05/20 mcg (5,000 unit) capsule clonidine HCl 0.1 mg tablet 0.1 mg PO QHS 05/21/20 08/05/20 heparin (porcine) 1,000 unit/mL IV 05/21/20 08/05/20 injection solution heparin (porcine) 1,000 unit/mL IV .3 x wk ml 05/21/20 08/05/20 injection solution heparin (porcine) 1,000 unit/mL IV .q 3 times wk ml 05/21/20 08/05/20 injection solution hydroxyzine HCl 10 mg tablet 10 mg PO ONCE tab 05/21/20 08/05/20 loperamide 2 mg capsule 2 mg PO Q6H PRN 05/21/20 08/05/20 midodrine 5 mg tablet 5 mg PO 3XW tab 05/21/20 08/05/20 ondansetron HCl 4 mg tablet 4 mg PO Q8H 05/21/20 08/05/20 sodium ferric gluconat-sucrose 62.5 mg IV QWEEK ml 05/21/20 08/05/20 62.5 mg/5 mL intravenous Previous Rx's Medication Instructions Recorded calcium acetate(phosphat bind) 667 667 mg PO TID #90 cap 11/19/19 mg capsule pregabalin 100 mg capsule 100 mg PO BID #180 cap 01/03/20 midodrine 2.5 mg tablet 2.5 mg PO ONCE PRN #30 tab 05/08/20 cephalexin 500 mg capsule 500 mg PO BID #10 cap 05/29/20 ciprofloxacin HCl 0.2 % ear drops 5 drp OTIC BID #14 each 05/29/20 in a dropperette suvorexant 10 mg tablet 10 mg PO QHS #30 tab 06/02/20 B complex with C 20-folic acid 1 1 cap PO QDAY #30 cap 07/14/20 mg capsule cephalexin 500 mg PO QID #28 cap 07/28/20 atorvastatin 40 mg tablet 40 mg PO HS #90 tab 08/04/20 sertraline 25 mg tablet 25 mg PO QDAY #30 tab 08/26/20 oxycodone 10 mg tablet 10 mg PO q8h PRN #90 tab 08/29/20 Allergies Allergy/AdvReac Type Severity Reaction Status Date / Time No Known Drug Allergies Allergy Verified 09/01/20 15:29 Review of Systems ROS ROS Narrative: Narrative: All systems ED: reviewed and negative except as stated. PFSH Narrative Patient History Narrative: Narrative: Medical/Surgical/Family History All Active Problems Cellulitis (Acute) Failure of outpatient treatment (Acute) Wound of left foot (Acute) Syncope (Acute) Anemia (Acute) At risk for fluid volume overload (Acute) Contusion of ankle or foot, left (Acute) Blister (nonthermal), left foot, initial encounter (Acute) Otitis externa (Acute) Cellulitis (Acute) Wound of right foot (Acute) Syncope and collapse (Acute) Debility (Acute) Generalized weakness (Acute) Chronic, continuous use of opioids (Chronic) Altered mental status (Acute) UTI (urinary tract infection) (Acute) Hypothermia (Chronic) AV fistula thrombosis (Chronic) Hypertension (Chronic) Anemia of chronic renal failure, stage 5 (Chronic) CRF (chronic renal failure) (Acute) Hypoglycemia associated with type 2 diabetes mellitus (Acute) Dehydration (Acute) Ventricular tachycardia, nonsustained (Acute) Hyperkalemia (Acute) Metabolic acidosis (Acute) Anemia (Acute) Pneumonia (Acute) Left lower lobe pneumonia (Acute) Pneumonia (Acute) Hyperkalemia (Acute) History of CHF (congestive heart failure) (Chronic) Obesity (Chronic) RBBB (right bundle branch block) (Chronic) Hemorrhoids (Chronic) Hypotension (Chronic) Depression (Chronic) Insomnia (Chronic) Encounter for Health Maintenance Examination in Adult (Chronic) Wellness examination (Chronic) Dizziness (Chronic) Chronic nausea (Chronic) Gastroparesis (Chronic) Steal syndrome of upper extremity (Chronic) Subcutaneous nodule of breast (Chronic) Diabetic retinopathy associated with type 2 diabetes mellitus (Chronic) Migraines (Chronic) Arthritis (Chronic) Diabetes (Chronic) Cancer of kidney (Chronic) Anxiety (Chronic) ESRD (end stage renal disease) on dialysis (Chronic) Fibromyalgia (Chronic) Medical History Anemia of chronic renal failure, stage 5 (Chronic) Anxiety (Chronic) Arthralgia of multiple joints (Resolved) Arthritis (Chronic) Atypical chest pain (Resolved) AV fistula thrombosis (Chronic) Cancer of kidney (Chronic) 2014 Maddie esophagitis (Resolved) Cellulitis (Acute) Cervical muscle strain (Resolved) Chronic Kidney Disease (Resolved) Chronic nausea (Chronic) Chronic, continuous use of opioids (Chronic) CKD (chronic kidney disease) stage 4, GFR 15-29 ml/min (Resolved) Congestion of nasal sinus (Resolved) Congestive heart failure (Resolved) Daytime sleepiness (Resolved) Dehydration (Resolved) Depression (Resolved) Depression (Chronic) Diabetes (Chronic) Diabetic retinopathy associated with type 2 diabetes mellitus (Chronic) Dizziness (Chronic) Dizziness of unknown cause (Resolved) Encounter for Health Maintenance Examination in Adult (Chronic) Encounter for medication refill (Resolved) ESRD (end stage renal disease) on dialysis (Chronic) Fibromyalgia (Chronic) Fracture of femur (Resolved) Gastroenteritis (Resolved) Gastroparesis (Resolved) Gastroparesis (Chronic) 07/26/16 Generalized pain (Resolved) Heart failure, chronic, with acute decompensation (Resolved) Hemorrhoids (Chronic) History of CHF (congestive heart failure) (Chronic) Hypertension (Chronic) Hypokalemia (Resolved) Hypokalemia (Resolved) Hypotension (Chronic) Hypothermia (Chronic) Insomnia (Resolved) Insomnia (Chronic) Migraines (Chronic) Muscle pain (Resolved) Nausea (Resolved) Nausea & vomiting (Resolved) Nausea and vomiting (Resolved) Nausea, Vomiting, and Diarrhea (Resolved) Obesity (Chronic) Osteoarthritis (Resolved) Otitis externa (Acute) Polymyalgia rheumatica (Resolved) Polyp in nasopharynx (Resolved) RBBB (right bundle branch block) (Chronic) Steal syndrome of upper extremity (Chronic) Subcutaneous nodule of breast (Chronic) Syncope and collapse (Acute) Trochanteric bursitis of left hip (Resolved) UTI (urinary tract infection) (Resolved) Volume depletion, gastrointestinal loss (Resolved) Wellness examination (Chronic) 07/28/17 Wound of left foot (Acute) Surgical History H/O colonoscopy (Chronic) Dr. Ford H/O: (Chronic) 1998 2002 History of angioplasty (Chronic 07/26/17) and fistulogram History of kidney surgery (Chronic) 2010 Kidney cancer History of surgery (Chronic 06/09/16) Transposition of left upper arm cephalic vein History of surgery (Chronic) 2014 Placement of catheters History of surgery (Chronic) 1996 Gallstones History of surgery (Chronic) 2014 Fistula repair Family History Sister Arthritis Mother Cancer Father Heart attack Brother Tuberculosis Social History Smoking Status: Never smoker Alcohol Intake Frequency: does not drink Substance Use: does not use Exam Narrative Narrative: Narrative: General Limitations: no limitations General appearance: Present alert Head Head: Present atraumatic and normocephalic ENT ENT: Present normal exam, normal oropharynx, mucous membranes moist and TM's normal bilaterally Chest Chest: Present symmetric chest wall rise Respiratory Respiratory: Present normal lung sounds bilaterally; Absent respiratory distress, rales/crackles, wheezes, stridor and accessory muscle use Cardiovascular Cardiovascular: Present regular rate and normal heart sounds Adbominal Abdominal: Present soft; Absent distention, tenderness and guarding Extremities Extremities: Present normal capillary refill and other (There is diffuse swelling, redness, and warmth to the left foot. Culture was obtained earlier in prior visit and is pending.); Absent normal inspection (Left foot with 14 cm area that is open but the center 10 is the worst on the dorsal surface of the foot, extending over most of the surface. Palmar surface has a 6 cm area of skin breakdown. Please see pictures in the chart.) Neurological Neurological: Present alert and oriented X3 Psychiatric Psychiatric: Present normal affect and normal mood Skin Skin: Present warm (WNL) and dry Course Course Course Narrative: On patient's arrival I did speak with nephrology on-call Dr. López who agrees to consult on this patient. Dr. Hunt, hospitalist agrees to accept patient. Vital Signs Vital signs: Vital Signs Temperature 97.5 F 09/01/20 15:27 Pulse Rate 82 09/01/20 15:27 Respiratory Rate 18 09/01/20 15:27 Blood Pressure 130/73 09/01/20 15:27 Pulse Oximetry (%) 92 09/01/20 15:27 Temperature 97.5 F 09/01/20 15:27 Pulse Rate 81 09/01/20 16:17 Respiratory Rate 18 09/01/20 15:27 Blood Pressure 149/82 09/01/20 16:17 Pulse Oximetry (%) 92 09/01/20 16:17 [facility] Narrative Medical decision making narrative: Narrative: Lab Data Lab results reviewed: Yes I reviewed the patient's lab results. Result diagrams: 09/01/20 16:20 09/01/20 16:20 Labs: Lab Results 09/01/20 09/01/20 09/01/20 Range/Units 16:20 16:20 16:20 WBC 17.6 H (4.5-11.0) K/mcL RBC 4.35 (4.00-5.20) M/mcL Hgb 11.8 L (12.0-15.0) g/dL Hct 38.6 (36.0-48.0) % MCV 88.7 (80.0-100.0) fL MCH 27.1 (26.0-34.0) pg MCHC 30.6 L (31.0-36.0) g/dL RDW 13.4 (11.5-14.5) % Plt Count 345 (140-440) K/mcL MPV 9.9 (7.4-10.4) fL Neut % (Auto) 79.2 H (38.0-78.0) % Lymph % (Auto) 12.5 L (15.0-49.0) % Candler % (Auto) 4.2 (1.0-12.0) % Eos % (Auto) 2.7 (0.0-7.0) % Baso % (Auto) 1.4 (0.0-2.0) % Lymph # (Auto) 2.20 (1.50-4.80) K/mcL Candler # (Auto) 0.74 (0.10-0.90) K/mcL Eos # (Auto) 0.48 (0.00-0.70) K/mcL Baso # (Auto) 0.24 H (0.00-0.20) K/mcL Absolute Neutrophils 13.97 H (1.80-8.00) K/mcL VBG Lactic Acid 1.1 (0.5-2.0) mmol/L Sodium 135 (133-145) mmol/L Potassium 4.5 (3.3-5.1) mmol/L Chloride 98 (96-108) mmol/L Carbon Dioxide 22 (22-30) mmol/L Anion Gap 15.0 (8.0-16.0) BUN 28 H (6-20) mg/dL Creatinine 7.4 H* (0.6-1.1) mg/dL GFR Calculation 6 Glucose 104 (70-105) mg/dL Calcium 8.6 (8.6-10.4) mg/dL Total Bilirubin 0.2 (0.1-1.0) mg/dL AST 19 (<32) U/L ALT 13 (<40) U/L Alkaline Phosphatase 144 H (39-117) U/L Total Protein 7.7 (5.9-8.4) gm/dL Albumin 3.8 (3.2-5.2) gm/dL Globulin 3.9 H (2.2-3.7) gm/dL Albumin/Globulin Ratio 1.0 (1.0-2.3) Radiology Data Radiology results reviewed: Yes I reviewed the patient's radiology results. Discharge Plan Patient/Caregiver Discharge Instructions Pt seen by MANAGER OF MERCHANDISING/PA only: Yes Clinical Impression: Wound of left foot, Cellulitis, Failure of outpatient treatment Patient Disposition: Xfer As Inpt ([facility]) Condition: Fair Follow up with: Oscar Gerardo MD [Physician] - Reyna Mattson DO [Primary Care Provider] - Prescriptions: No Action calcium acetate(phosphat bind) 667 mg capsule 667 mg PO TID Qty: 90 RF: 2 pregabalin 100 mg capsule 100 mg PO BID Qty: 180 RF: 3 midodrine 2.5 mg tablet 2.5 mg PO ONCE PRN (Reason: BP equal/ below 90) Qty: 30 RF: 4 suvorexant 10 mg tablet 10 mg PO QHS Qty: 30 RF: 3 Triphrocaps 1 mg capsule 1 cap PO QDAY Qty: 30 RF: 6 atorvastatin 40 mg tablet 40 mg PO HS Qty: 90 RF: 0 sertraline 25 mg tablet 25 mg PO QDAY Qty: 30 RF: 3 oxycodone 10 mg tablet 10 mg PO q8h PRN (Reason: pain) Qty: 90 RF: 0 cephalexin [Keflex] 500 mg capsule 500 mg PO BID Qty: 10 RF: 0 ciprofloxacin HCl 0.2 % dropperette 5 drp OTIC BID Qty: 14 RF: 0 acetaminophen 325 mg capsule 325 mg PO ONCE PRN (Reason: Pain) RF: 0 calcitriol 0.25 mcg capsule 0.25 mcg PO 3XW RF: 0 Cathflo Activase 2 mg recon soln 2 mg intra-catheter ONCE RF: 0 cholecalciferol (vitamin D3) 125 mcg (5,000 unit) capsule 5,000 unit PO QDAY RF: 0 clonidine HCl 0.1 mg tablet 0.1 mg PO QHS RF: 0 sodium ferric gluconat-sucrose [Ferrlecit] 62.5 mg/5 mL solution 62.5 mg IV QWEEK RF: 0 heparin (porcine) 1,000 unit/mL solution IV .q 3 times wk RF: 0 heparin (porcine) 1,000 unit/mL solution IV .3 x wk RF: 0 heparin (porcine) 1,000 unit/mL solution IV RF: 0 hydroxyzine HCl 10 mg tablet 10 mg PO ONCE RF: 0 loperamide [Imodium A-D] 2 mg capsule 2 mg PO Q6H PRN (Reason: Diarrhea) RF: 0 midodrine 5 mg tablet 5 mg PO 3XW RF: 0 ondansetron HCl 4 mg tablet 4 mg PO Q8H RF: 0 Protein bar PO RF: 0 cephalexin [cephalexin] 500 MG capsule 500 mg PO QID Qty: 28 RF: 0 Discharge Date/Time: 09/01/20 17:00
[2020-09-02] MEDS ORDERED: MIDODRINE 2.5 MG PO PRN (14:13)
[2020-09-02] MEDS ORDERED: LOPERAMIDE 2 MG CAPSULE PO PRN (14:13)
[2020-09-02] MEDS ORDERED: MIDODRINE 5 MG TABLET PO SCH (14:15)
[2020-09-02] MEDS ORDERED: hydrOXYzine 10 MG TABLET PO PRN (14:15)
[2020-09-02] MEDS ORDERED: oxyCODONE HCL 5 MG TABLET PO PRN (14:16)
--- NOTE | 2020-09-02 15:13 | Discharge Summary ---
Discharge Provider Provider Patient information: Note initiated : 09/02/20 at 3:12 pm Service Date, if different from initiated Date: [] Patient: Dang Varner 55 y/o F admitted on 09/01/20 for foot wound. Chief Complaint: [] Date of admission: 09/01/20 22:36 Discharge date: 09/04/20 Primary care physician: Reyna Mattson DO Consults: 09/01/20 Consult to Physician [CONS] Stat Comment: Consulting Provider: Yandel Hunt Reason For Exam: Physician to Consult Consult to Physician [CONS] Stat Comment: Consulting Provider: Kala López Reason For Exam: Physician to Consult 09/01/20 22:59 Consult to Physician [CONS] Routine Comment: Consulting Provider: Oscar Gerardo Reason For Exam: Physician to Consult Discharge Meds Discharge Medications Home Medications calcium acetate(phosphat bind) 667 mg capsule 667 mg PO TID #90 cap 11/19/19 [Rx Confirmed 09/02/20 Last Taken 08/31/20 20:00] pregabalin 100 mg capsule 100 mg PO BID #180 cap 01/03/20 [Rx Confirmed 09/02/20 Last Taken 08/31/20 21:00] midodrine 2.5 mg tablet 2.5 mg PO ONCE PRN #30 tab 05/08/20 [Rx Confirmed 09/02/20 Last Taken 06/17/20] Protein bar PO 05/21/20 [History Confirmed 08/05/20 Last Taken Unknown] acetaminophen 325 mg capsule 325 mg PO ONCE PRN 05/21/20 [History Confirmed 09/02/20 Last Taken 08/31/20 20:00] alteplase 2 mg intra-catheter solution 2 mg INTRA-CATHETER ONCE 05/21/20 [History Confirmed 08/05/20 Last Taken Unknown] calcitriol 0.25 mcg capsule 0.25 mcg PO 3XW 05/21/20 [History Confirmed 09/02/20 Last Taken 08/31/20 20:00] cholecalciferol (vitamin D3) 125 mcg (5,000 unit) capsule 5,000 unit PO QDAY c ap 05/21/20 [History Confirmed 09/02/20 Last Taken Unknown] clonidine HCl 0.1 mg tablet 0.1 mg PO QHS 05/21/20 [History Confirmed 09/02/20 Last Taken Unknown] heparin (porcine) 1,000 unit/mL injection solution IV 05/21/20 [History Confirmed 08/05/20 Last Taken 09/01/20 21:00] heparin (porcine) 1,000 unit/mL injection solution IV .3 x wk ml 05/21/20 [History Confirmed 08/05/20 Last Taken 09/01/20 21:00] heparin (porcine) 1,000 unit/mL injection solution IV .q 3 times wk ml 05/21/20 [History Confirmed 08/05/20 Last Taken 09/01/20 20:00] hydroxyzine HCl 10 mg tablet 10 mg PO ONCE tab 05/21/20 [History Confirmed 09/02/20 Last Taken Unknown] loperamide 2 mg capsule 2 mg PO Q6H PRN 05/21/20 [History Confirmed 09/02/20 Last Taken 08/19/20 21:00] midodrine 5 mg tablet 5 mg PO 3XW tab 05/21/20 [History Confirmed 09/02/20 Last Taken 07/17/20] ondansetron HCl 4 mg tablet 4 mg PO Q8H 05/21/20 [History Confirmed 09/02/20 Last Taken Unknown] sodium ferric gluconat-sucrose 62.5 mg/5 mL intravenous 62.5 mg IV QWEEK ml 05/21/20 [History Confirmed 08/05/20 Last Taken Unknown] cephalexin 500 mg capsule 500 mg PO BID #10 cap 05/29/20 [Rx Confirmed 09/02/20 Last Taken 08/26/20] ciprofloxacin HCl 0.2 % ear drops in a dropperette 5 drp OTIC BID #14 each 05/29/20 [Rx Confirmed 09/02/20 Last Taken 07/17/20] suvorexant 10 mg tablet 10 mg PO QHS #30 tab 06/02/20 [Rx Confirmed 09/02/20 Last Taken 08/31/20 21:00] B complex with C 20-folic acid 1 mg capsule 1 cap PO QDAY #30 cap 07/14/20 [Rx Confirmed 09/02/20 Last Taken 08/31/20 20:00] cephalexin 500 mg PO QID #28 cap 07/28/20 [Rx Confirmed 09/02/20 Last Taken Unknown] atorvastatin 40 mg tablet 40 mg PO HS #90 tab 08/04/20 [Rx Confirmed 09/02/20 Last Taken 08/31/20 20:00] sertraline 25 mg tablet 25 mg PO QDAY #30 tab 08/26/20 [Rx Confirmed 09/02/20 Last Taken 08/31/20 21:00] oxycodone 10 mg tablet 10 mg PO q8h PRN #90 tab 08/29/20 [Rx Confirmed 09/02/20 Last Taken 08/31/20 21:00] amoxicillin-pot clavulanate [Augmentin] 1 tab PO QDAY #6 tab 09/04/20 [Rx Last Taken Unknown] COURSE Hospital Course Hospital course: History of present illness: Ms. Varner is a 55 year old F Presents to the ED with left foot wound. Patient seems to be a poor historian she says she was seen in the ED several weeks ago but the last note was a month ago and that was for the foot infection. Sounds like a foot injury occurred after she did have it tightly wrapped, which she does whenever she goes to dialysis She says she was given an antibiotic for a week but could not recall what it is, possibly Keflex. She felt it was improving last week. She wrapped her foot up Tuesday for dialysis and usually takes it off afterwards but left it on a weekend and when she unwrapped it this morning she felt the wound was worsening. It is started to some purulent drainage and there was sloughing of skin. Some increased wet redness and smiling Patient denies fever chills. Laboratory work in the ED showed a leukocytosis of 17 and although elevated she has been between 12 and 14,000 since January. Lactic acid level was unremarkable. CT of the foot showed no osteomyelitis. But did show a metallic foreign body in the plantar soft tissue overlying the fifth metatarsal head and moderate cellulitis in the subcutaneous fat of the mid plantar region. Dr. Gerardo evaluated the wound in the ED and will follow in the hospital. 09/02 No new complaints overnight events. 09/03 Slept all right. No new complaints overnight events. Evaluated by Dr. Gage, no concerned about the questionable foreign body, he will follow up outpatient with her after the course of antibiotics. 09/04 Doing well. No new complaints. Stable for discharge. Patient will follow up w ketan Gerardo A: *Left Foot wound/purulent cellulitis: Failed outpatient treatment -CT no osteo or abscess -WC with GPC in clusters *Diabetes w/neuropathy: *ESRD: Has been following with Dr. Rodriguez *Anemia, chronic *HTN/HLD: *Depression/anxiety/fibromyalgia: *Chronic pain: *h/o cardiomyopathy: *chronic leukocytosis Discharge diagnosis: Left foot wound cellulitis diabetic neuropathy Secondary discharge diagnosis: End-stage renal disease chronic anemia hypertension depression anxiety chronic pain cardiomyopathy chronic leukocytosis Time Spent with Patient Time attestation: Total time spent providing and/or coordinating discharge services: Time spent: Greater than 30 minutes EXAM Constitutional Vitals: Temp Pulse Resp BP Pulse Ox 97.9 F 79 20 141/72 90 09/02/20 12:00 09/02/20 12:00 09/02/20 12:00 09/02/20 12:00 09/02/20 12:00 Discharge Data Data Completed and Pending Labs on day of discharge: Labs from last 24 hours 09/02/20 09/02/20 09/02/20 05:53 05:53 00:00 WBC 15.8 H RBC 4.13 Hgb 11.3 L Hct 37.0 POC Hct MCV 89.6 MCH 27.4 MCHC 30.5 L RDW 13.4 Plt Count 331 MPV 9.7 Neut % (Auto) 77.9 Lymph % (Auto) 13.0 L Wake % (Auto) 4.1 Eos % (Auto) 3.4 Baso % (Auto) 1.6 Lymph # (Auto) 2.05 Wake # (Auto) 0.65 Eos # (Auto) 0.53 Baso # (Auto) 0.25 H Absolute Neutrophils 12.27 H POC Sodium Sodium 135 134 POC Potassium Potassium 4.1 3.7 POC Chloride Chloride 97 96 Carbon Dioxide 25 27 POC Total CO2 Anion Gap 13.0 11.0 POC BUN BUN 10 6 Creatinine 3.4 H 2.8 H POC Creatinine GFR Calculation 14 18 Glucose 120 H 88 POC Glucose Hemoglobin A1c Estim Average Glucose Uric Acid 2.4 L Calcium 8.3 L 8.6 POC WB Ioniz Calcium Phosphorus 2.5 Magnesium 2.3 Total Bilirubin 0.2 0.2 Direct Bilirubin < 0.2 GGT 12 AST 18 20 ALT 12 13 Alkaline Phosphatase 124 H 129 H Lactate Dehydrogenase 218 Total Protein 7.3 8.0 Albumin 3.4 3.8 Globulin 3.9 H 4.2 H Albumin/Globulin Ratio 0.9 L 0.9 L Triglycerides 181 H SARS-CoV-2 (PCR) 09/01/20 09/01/20 09/01/20 23:57 21:26 16:13 WBC RBC Hgb Hct POC Hct 40 MCV MCH MCHC RDW Plt Count MPV Neut % (Auto) Lymph % (Auto) Wake % (Auto) Eos % (Auto) Baso % (Auto) Lymph # (Auto) Wake # (Auto) Eos # (Auto) Baso # (Auto) Absolute Neutrophils POC Sodium 135 Sodium POC Potassium 3.7 Potassium POC Chloride 96 Chloride Carbon Dioxide POC Total CO2 31 H Anion Gap POC BUN 5 L BUN Creatinine POC Creatinine 3.0 H GFR Calculation Glucose POC Glucose 98 Hemoglobin A1c 6.7 H Estim Average Glucose 146 Uric Acid Calcium POC WB Ioniz Calcium 1.01 L Phosphorus Magnesium Total Bilirubin Direct Bilirubin GGT AST ALT Alkaline Phosphatase Lactate Dehydrogenase Total Protein Albumin Globulin Albumin/Globulin Ratio Triglycerides SARS-CoV-2 (PCR) Negative Discharge Plan Patient/Caregiver Discharge Instructions Activity: increase activity as tolerated Diet: Renal/Consistent Carbs Prescriptions: New amoxicillin-pot clavulanate [Augmentin] 500-125 mg tablet 1 tab PO QDAY Qty: 6 RF: 0 Continued calcium acetate(phosphat bind) 667 mg capsule 667 mg PO TID Qty: 90 RF: 2 pregabalin 100 mg capsule 100 mg PO BID Qty: 180 RF: 3 midodrine 2.5 mg tablet 2.5 mg PO ONCE PRN (Reason: BP equal/ below 90) Qty: 30 RF: 4 suvorexant 10 mg tablet 10 mg PO QHS Qty: 30 RF: 3 Triphrocaps 1 mg capsule 1 cap PO QDAY Qty: 30 RF: 6 atorvastatin 40 mg tablet 40 mg PO HS Qty: 90 RF: 0 sertraline 25 mg tablet 25 mg PO QDAY Qty: 30 RF: 3 oxycodone 10 mg tablet 10 mg PO q8h PRN (Reason: pain) Qty: 90 RF: 0 cephalexin [Keflex] 500 mg capsule 500 mg PO BID Qty: 10 RF: 0 ciprofloxacin HCl 0.2 % dropperette 5 drp OTIC BID Qty: 14 RF: 0 acetaminophen 325 mg capsule 325 mg PO ONCE PRN (Reason: Pain) RF: 0 calcitriol 0.25 mcg capsule 0.25 mcg PO 3XW RF: 0 Cathflo Activase 2 mg recon soln 2 mg intra-catheter ONCE RF: 0 cholecalciferol (vitamin D3) 125 mcg (5,000 unit) capsule 5,000 unit PO QDAY RF: 0 clonidine HCl 0.1 mg tablet 0.1 mg PO QHS RF: 0 sodium ferric gluconat-sucrose [Ferrlecit] 62.5 mg/5 mL solution 62.5 mg IV QWEEK RF: 0 heparin (porcine) 1,000 unit/mL solution IV .q 3 times wk RF: 0 heparin (porcine) 1,000 unit/mL solution IV .3 x wk RF: 0 heparin (porcine) 1,000 unit/mL solution IV RF: 0 hydroxyzine HCl 10 mg tablet 10 mg PO ONCE RF: 0 loperamide [Imodium A-D] 2 mg capsule 2 mg PO Q6H PRN (Reason: Diarrhea) RF: 0 midodrine 5 mg tablet 5 mg PO 3XW RF: 0 ondansetron HCl 4 mg tablet 4 mg PO Q8H RF: 0 Protein bar PO RF: 0 cephalexin 500 MG capsule 500 mg PO QID Qty: 28 RF: 0 Follow Up Plan Follow up with: Oscar Gerardo MD [Physician] - Patient Disposition: Home, Self-Care Prognosis: Fair Overall status at discharge: patient is progressing back to baseline Discharge Orders: Discharge Order (Routine); Ordered 09/04/20 Ordered By: Yandel Rios [facility] VTE Deep Vein Thrombosis/Pulmonary Embolism Present on Admission: No
--- NOTE | 2020-09-02 15:42 | General Surgery Consult Note ---
HPI Data of Consult Consult date: 09/02/20 Requesting physician: Yandel Hunt Primary Care Provider: Reyna Mattson DO Consult Narrative cc:: CC: Yandel Hunt [facility] All Active Problems Cellulitis (Acute) Failure of outpatient treatment (Acute) Wound of left foot (Acute) Syncope (Acute) Anemia (Acute) At risk for fluid volume overload (Acute) Contusion of ankle or foot, left (Acute) Blister (nonthermal), left foot, initial encounter (Acute) Otitis externa (Acute) Cellulitis (Acute) Wound of right foot (Acute) Syncope and collapse (Acute) Debility (Acute) Generalized weakness (Acute) Chronic, continuous use of opioids (Chronic) Altered mental status (Acute) UTI (urinary tract infection) (Acute) Hypothermia (Chronic) AV fistula thrombosis (Chronic) Hypertension (Chronic) Anemia of chronic renal failure, stage 5 (Chronic) CRF (chronic renal failure) (Acute) Hypoglycemia associated with type 2 diabetes mellitus (Acute) Dehydration (Acute) Ventricular tachycardia, nonsustained (Acute) Hyperkalemia (Acute) Metabolic acidosis (Acute) Anemia (Acute) Pneumonia (Acute) Left lower lobe pneumonia (Acute) Pneumonia (Acute) Hyperkalemia (Acute) History of CHF (congestive heart failure) (Chronic) Obesity (Chronic) RBBB (right bundle branch block) (Chronic) Hemorrhoids (Chronic) Hypotension (Chronic) Depression (Chronic) Insomnia (Chronic) Encounter for Health Maintenance Examination in Adult (Chronic) Wellness examination (Chronic) Dizziness (Chronic) Chronic nausea (Chronic) Gastroparesis (Chronic) Steal syndrome of upper extremity (Chronic) Subcutaneous nodule of breast (Chronic) Diabetic retinopathy associated with type 2 diabetes mellitus (Chronic) Migraines (Chronic) Arthritis (Chronic) Diabetes (Chronic) Cancer of kidney (Chronic) Anxiety (Chronic) ESRD (end stage renal disease) on dialysis (Chronic) Fibromyalgia (Chronic) Medical History Anemia of chronic renal failure, stage 5 (Chronic) Anxiety (Chronic) Arthralgia of multiple joints (Resolved) Arthritis (Chronic) Atypical chest pain (Resolved) AV fistula thrombosis (Chronic) Cancer of kidney (Chronic) 2015 Maddie esophagitis (Resolved) Cellulitis (Acute) Cervical muscle strain (Resolved) Chronic Kidney Disease (Resolved) Chronic nausea (Chronic) Chronic, continuous use of opioids (Chronic) CKD (chronic kidney disease) stage 4, GFR 15-29 ml/min (Resolved) Congestion of nasal sinus (Resolved) Congestive heart failure (Resolved) Daytime sleepiness (Resolved) Dehydration (Resolved) Depression (Resolved) Depression (Chronic) Diabetes (Chronic) Diabetic retinopathy associated with type 2 diabetes mellitus (Chronic) Dizziness (Chronic) Dizziness of unknown cause (Resolved) Encounter for Health Maintenance Examination in Adult (Chronic) Encounter for medication refill (Resolved) ESRD (end stage renal disease) on dialysis (Chronic) Fibromyalgia (Chronic) Fracture of femur (Resolved) Gastroenteritis (Resolved) Gastroparesis (Resolved) Gastroparesis (Chronic) 07/26/16 Generalized pain (Resolved) Heart failure, chronic, with acute decompensation (Resolved) Hemorrhoids (Chronic) History of CHF (congestive heart failure) (Chronic) Hypertension (Chronic) Hypokalemia (Resolved) Hypokalemia (Resolved) Hypotension (Chronic) Hypothermia (Chronic) Insomnia (Resolved) Insomnia (Chronic) Migraines (Chronic) Muscle pain (Resolved) Nausea (Resolved) Nausea & vomiting (Resolved) Nausea and vomiting (Resolved) Nausea, Vomiting, and Diarrhea (Resolved) Obesity (Chronic) Osteoarthritis (Resolved) Otitis externa (Acute) Polymyalgia rheumatica (Resolved) Polyp in nasopharynx (Resolved) RBBB (right bundle branch block) (Chronic) Steal syndrome of upper extremity (Chronic) Subcutaneous nodule of breast (Chronic) Syncope and collapse (Acute) Trochanteric bursitis of left hip (Resolved) UTI (urinary tract infection) (Resolved) Volume depletion, gastrointestinal loss (Resolved) Wellness examination (Chronic) 07/28/17 Wound of left foot (Acute) Surgical History H/O colonoscopy (Chronic) Dr. Ford H/O: (Chronic) 1998 2002 History of angioplasty (Chronic 07/26/17) and fistulogram History of kidney surgery (Chronic) 2010 Kidney cancer History of surgery (Chronic 06/09/16) Transposition of left upper arm cephalic vein History of surgery (Chronic) 2014 Placement of catheters History of surgery (Chronic) 1996 Gallstones History of surgery (Chronic) 2015 Fistula repair Family History Sister Arthritis Mother Cancer Father Heart attack Brother Tuberculosis Social History (Updated 09/01/20 @ 22:03 by Yandel Hunt DO) marital status: other: Children-2 smoking status: Never smoker alcohol intake frequency: does not drink substance use type: does not use additional history: She uses a walker and wheelchair 50%/50% of the time MEDS/ALLERGIES Home Medications and Allergies Home Medications Medication Instructions Recorded Confirmed Type calcium acetate(phosphat bind) 667 667 mg PO TID #90 cap 11/19/19 09/02/20 Rx mg capsule pregabalin 100 mg capsule 100 mg PO BID #180 cap 01/03/20 09/02/20 Rx midodrine 2.5 mg tablet 2.5 mg PO ONCE PRN #30 tab 05/08/20 09/02/20 Rx Protein bar PO 05/21/20 08/05/20 History acetaminophen 325 mg capsule 325 mg PO ONCE PRN 05/21/20 09/02/20 History alteplase 2 mg intra-catheter 2 mg INTRA-CATHETER ONCE 05/21/20 08/05/20 History solution calcitriol 0.25 mcg capsule 0.25 mcg PO 3XW 05/21/20 09/02/20 History cholecalciferol (vitamin D3) 125 5,000 unit PO QDAY cap 05/21/20 09/02/20 History mcg (5,000 unit) capsule clonidine HCl 0.1 mg tablet 0.1 mg PO QHS 05/21/20 09/02/20 History heparin (porcine) 1,000 unit/mL IV 05/21/20 08/05/20 History injection solution heparin (porcine) 1,000 unit/mL IV .3 x wk ml 05/21/20 08/05/20 History injection solution heparin (porcine) 1,000 unit/mL IV .q 3 times wk ml 05/21/20 08/05/20 History injection solution hydroxyzine HCl 10 mg tablet 10 mg PO ONCE tab 05/21/20 09/02/20 History loperamide 2 mg capsule 2 mg PO Q6H PRN 05/21/20 09/02/20 History midodrine 5 mg tablet 5 mg PO 3XW tab 05/21/20 09/02/20 History ondansetron HCl 4 mg tablet 4 mg PO Q8H 05/21/20 09/02/20 History sodium ferric gluconat-sucrose 62.5 mg IV QWEEK ml 05/21/20 08/05/20 History 62.5 mg/5 mL intravenous cephalexin 500 mg capsule 500 mg PO BID #10 cap 05/29/20 09/02/20 Rx ciprofloxacin HCl 0.2 % ear drops 5 drp OTIC BID #14 each 05/29/20 09/02/20 Rx in a dropperette suvorexant 10 mg tablet 10 mg PO QHS #30 tab 06/02/20 09/02/20 Rx B complex with C 20-folic acid 1 1 cap PO QDAY #30 cap 07/14/20 09/02/20 Rx mg capsule cephalexin 500 mg PO QID #28 cap 07/28/20 09/02/20 Rx atorvastatin 40 mg tablet 40 mg PO HS #90 tab 08/04/20 09/02/20 Rx sertraline 25 mg tablet 25 mg PO QDAY #30 tab 08/26/20 09/02/20 Rx oxycodone 10 mg tablet 10 mg PO q8h PRN #90 tab 08/29/20 09/02/20 Rx Allergies Allergy/AdvReac Type Severity Reaction Status Date / Time No Known Drug Allergies Allergy Verified 09/01/20 15:29 Physical Examination Vital Signs Vital signs: Temp Pulse Resp BP Pulse Ox 97.9 F 79 20 141/72 90 09/02/20 12:00 09/02/20 12:00 09/02/20 12:00 09/02/20 12:00 09/02/20 12:00 Results Labs Result diagrams: 09/02/20 05:53 09/02/20 05:53 Labs: Abnormal lab results 09/01/20 09/01/20 09/02/20 Range/Units 16:13 23:57 00:00 WBC (4.5-11.0) K/mcL Hgb (12.0-15.0) g/dL MCHC (31.0-36.0) g/dL Lymph % (Auto) (15.0-49.0) % Baso # (Auto) (0.00-0.20) K/mcL Absolute Neutrophils (1.80-8.00) K/mcL POC Total CO2 31 H (22-30) mmol/L POC BUN 5 L (6-20) mg/dL Creatinine 2.8 H (0.6-1.1) mg/dL POC Creatinine 3.0 H (0.6-1.2) mg/dL Glucose (70-105) mg/dL Hemoglobin A1c 6.7 H (4.0-6.0) % Hgb Uric Acid (2.5-8.0) mg/dL Calcium (8.6-10.4) mg/dL POC WB Ioniz Calcium 1.01 L (1.16-1.32) mmEq/L Alkaline Phosphatase 129 H (39-117) U/L Globulin 4.2 H (2.2-3.7) gm/dL Albumin/Globulin Ratio 0.9 L (1.0-2.3) Triglycerides (<150) mg/dL 09/02/20 09/02/20 Range/Units 05:53 05:53 WBC 15.8 H (4.5-11.0) K/mcL Hgb 11.3 L (12.0-15.0) g/dL MCHC 30.5 L (31.0-36.0) g/dL Lymph % (Auto) 13.0 L (15.0-49.0) % Baso # (Auto) 0.25 H (0.00-0.20) K/mcL Absolute Neutrophils 12.27 H (1.80-8.00) K/mcL POC Total CO2 (22-30) mmol/L POC BUN (6-20) mg/dL Creatinine 3.4 H (0.6-1.1) mg/dL POC Creatinine (0.6-1.2) mg/dL Glucose 120 H (70-105) mg/dL Hemoglobin A1c (4.0-6.0) % Hgb Uric Acid 2.4 L (2.5-8.0) mg/dL Calcium 8.3 L (8.6-10.4) mg/dL POC WB Ioniz Calcium (1.16-1.32) mmEq/L Alkaline Phosphatase 124 H (39-117) U/L Globulin 3.9 H (2.2-3.7) gm/dL Albumin/Globulin Ratio 0.9 L (1.0-2.3) Triglycerides 181 H (<150) mg/dL Diabetes panel 09/01/20 09/02/20 09/02/20 Range/Units 16:13 00:00 05:53 Sodium 134 135 (133-145) mmol/L Potassium 3.7 4.1 (3.3-5.1) mmol/L Chloride 96 97 (96-108) mmol/L Carbon Dioxide 27 25 (22-30) mmol/L BUN 6 10 (6-20) mg/dL Creatinine 2.8 H 3.4 H (0.6-1.1) mg/dL Glucose 88 120 H (70-105) mg/dL Hemoglobin A1c 6.7 H (4.0-6.0) % Hgb Calcium 8.6 8.3 L (8.6-10.4) mg/dL AST 20 18 (<32) U/L ALT 13 12 (<40) U/L Alkaline Phosphatase 129 H 124 H (39-117) U/L Total Protein 8.0 7.3 (5.9-8.4) gm/dL Albumin 3.8 3.4 (3.2-5.2) gm/dL Triglycerides 181 H (<150) mg/dL Calcium panel 09/02/20 09/02/20 Range/Units 00:00 05:53 Calcium 8.6 8.3 L (8.6-10.4) mg/dL Phosphorus 2.5 (2.5-4.5) mg/dL Albumin 3.8 3.4 (3.2-5.2) gm/dL Pituitary panel 09/02/20 09/02/20 Range/Units 00:00 05:53 Sodium 134 135 (133-145) mmol/L Potassium 3.7 4.1 (3.3-5.1) mmol/L Chloride 96 97 (96-108) mmol/L Carbon Dioxide 27 25 (22-30) mmol/L BUN 6 10 (6-20) mg/dL Creatinine 2.8 H 3.4 H (0.6-1.1) mg/dL Glucose 88 120 H (70-105) mg/dL Calcium 8.6 8.3 L (8.6-10.4) mg/dL Adrenal panel 09/02/20 09/02/20 Range/Units 00:00 05:53 Sodium 134 135 (133-145) mmol/L Potassium 3.7 4.1 (3.3-5.1) mmol/L Chloride 96 97 (96-108) mmol/L Carbon Dioxide 27 25 (22-30) mmol/L BUN 6 10 (6-20) mg/dL Creatinine 2.8 H 3.4 H (0.6-1.1) mg/dL Glucose 88 120 H (70-105) mg/dL Calcium 8.6 8.3 L (8.6-10.4) mg/dL Total Bilirubin 0.2 0.2 (0.1-1.0) mg/dL AST 20 18 (<32) U/L ALT 13 12 (<40) U/L Alkaline Phosphatase 129 H 124 H (39-117) U/L Total Protein 8.0 7.3 (5.9-8.4) gm/dL Albumin 3.8 3.4 (3.2-5.2) gm/dL All other labs normal. A/P Time Spent With Patient Time: Total time spent is greater than 50% in coordination of care (as documented) at patient's floor/unit and/or counseling patient:
--- NOTE | 2020-09-02 16:00 | General Surgery Consult Note ---
HPI Data of Consult Consult date: 09/02/20 Requesting physician: Yandel Hunt Primary Care Provider: Reyna Mattson, DO Consult Narrative cc:: CC: Yandel Hunt 55/F I saw this patient in ER last evening and again this morning on rounds with Keyanna FLEMING, Wound Care Nurse. This is a patient with HTN, ESRD, DM and peripheral neuropathy. She developed a skin wound of LEFT mid plantar foot, which progressed to involve an area along lateral and dorsal aspect of foot towards ankle region. Patient gets regular HD. She has deep tissue injury without clinical sings of sepsis. Her other comorbid medical conditions are dealt with by Hospitalist Medical Service. ( Dr. Hunt ) [facility] All Active Problems Cellulitis (Acute) Failure of outpatient treatment (Acute) Wound of left foot (Acute) Syncope (Acute) Anemia (Acute) At risk for fluid volume overload (Acute) Contusion of ankle or foot, left (Acute) Blister (nonthermal), left foot, initial encounter (Acute) Otitis externa (Acute) Cellulitis (Acute) Wound of right foot (Acute) Syncope and collapse (Acute) Debility (Acute) Generalized weakness (Acute) Chronic, continuous use of opioids (Chronic) Altered mental status (Acute) UTI (urinary tract infection) (Acute) Hypothermia (Chronic) AV fistula thrombosis (Chronic) Hypertension (Chronic) Anemia of chronic renal failure, stage 5 (Chronic) CRF (chronic renal failure) (Acute) Hypoglycemia associated with type 2 diabetes mellitus (Acute) Dehydration (Acute) Ventricular tachycardia, nonsustained (Acute) Hyperkalemia (Acute) Metabolic acidosis (Acute) Anemia (Acute) Pneumonia (Acute) Left lower lobe pneumonia (Acute) Pneumonia (Acute) Hyperkalemia (Acute) History of CHF (congestive heart failure) (Chronic) Obesity (Chronic) RBBB (right bundle branch block) (Chronic) Hemorrhoids (Chronic) Hypotension (Chronic) Depression (Chronic) Insomnia (Chronic) Encounter for Health Maintenance Examination in Adult (Chronic) Wellness examination (Chronic) Dizziness (Chronic) Chronic nausea (Chronic) Gastroparesis (Chronic) Steal syndrome of upper extremity (Chronic) Subcutaneous nodule of breast (Chronic) Diabetic retinopathy associated with type 2 diabetes mellitus (Chronic) Migraines (Chronic) Arthritis (Chronic) Diabetes (Chronic) Cancer of kidney (Chronic) Anxiety (Chronic) ESRD (end stage renal disease) on dialysis (Chronic) Fibromyalgia (Chronic) Medical History Anemia of chronic renal failure, stage 5 (Chronic) Anxiety (Chronic) Arthralgia of multiple joints (Resolved) Arthritis (Chronic) Atypical chest pain (Resolved) AV fistula thrombosis (Chronic) Cancer of kidney (Chronic) 2014 Maddie esophagitis (Resolved) Cellulitis (Acute) Cervical muscle strain (Resolved) Chronic Kidney Disease (Resolved) Chronic nausea (Chronic) Chronic, continuous use of opioids (Chronic) CKD (chronic kidney disease) stage 4, GFR 15-29 ml/min (Resolved) Congestion of nasal sinus (Resolved) Congestive heart failure (Resolved) Daytime sleepiness (Resolved) Dehydration (Resolved) Depression (Resolved) Depression (Chronic) Diabetes (Chronic) Diabetic retinopathy associated with type 2 diabetes mellitus (Chronic) Dizziness (Chronic) Dizziness of unknown cause (Resolved) Encounter for Health Maintenance Examination in Adult (Chronic) Encounter for medication refill (Resolved) ESRD (end stage renal disease) on dialysis (Chronic) Fibromyalgia (Chronic) Fracture of femur (Resolved) Gastroenteritis (Resolved) Gastroparesis (Resolved) Gastroparesis (Chronic) 07/26/16 Generalized pain (Resolved) Heart failure, chronic, with acute decompensation (Resolved) Hemorrhoids (Chronic) History of CHF (congestive heart failure) (Chronic) Hypertension (Chronic) Hypokalemia (Resolved) Hypokalemia (Resolved) Hypotension (Chronic) Hypothermia (Chronic) Insomnia (Resolved) Insomnia (Chronic) Migraines (Chronic) Muscle pain (Resolved) Nausea (Resolved) Nausea & vomiting (Resolved) Nausea and vomiting (Resolved) Nausea, Vomiting, and Diarrhea (Resolved) Obesity (Chronic) Osteoarthritis (Resolved) Otitis externa (Acute) Polymyalgia rheumatica (Resolved) Polyp in nasopharynx (Resolved) RBBB (right bundle branch block) (Chronic) Steal syndrome of upper extremity (Chronic) Subcutaneous nodule of breast (Chronic) Syncope and collapse (Acute) Trochanteric bursitis of left hip (Resolved) UTI (urinary tract infection) (Resolved) Volume depletion, gastrointestinal loss (Resolved) Wellness examination (Chronic) 07/28/17 Wound of left foot (Acute) Surgical History H/O colonoscopy (Chronic) Dr. Ford H/O: (Chronic) 1998 2002 History of angioplasty (Chronic 07/26/17) and fistulogram History of kidney surgery (Chronic) 2010 Kidney cancer History of surgery (Chronic 06/09/16) Transposition of left upper arm cephalic vein History of surgery (Chronic) 2014 Placement of catheters History of surgery (Chronic) 1996 Gallstones History of surgery (Chronic) 2014 Fistula repair Family History Sister Arthritis Mother Cancer Father Heart attack Brother Tuberculosis Social History (Updated 09/01/20 @ 22:03 by Yandel Hunt DO) marital status: other: Children-2 smoking status: Never smoker alcohol intake frequency: does not drink substance use type: does not use additional history: She uses a walker and wheelchair 50%/50% of the time MEDS/ALLERGIES Home Medications and Allergies Home Medications Medication Instructions Recorded Confirmed Type calcium acetate(phosphat bind) 667 667 mg PO TID #90 cap 11/19/19 09/02/20 Rx mg capsule pregabalin 100 mg capsule 100 mg PO BID #180 cap 01/03/20 09/02/20 Rx midodrine 2.5 mg tablet 2.5 mg PO ONCE PRN #30 tab 05/08/20 09/02/20 Rx Protein bar PO 05/21/20 08/05/20 History acetaminophen 325 mg capsule 325 mg PO ONCE PRN 05/21/20 09/02/20 History alteplase 2 mg intra-catheter 2 mg INTRA-CATHETER ONCE 05/21/20 08/05/20 History solution calcitriol 0.25 mcg capsule 0.25 mcg PO 3XW 05/21/20 09/02/20 History cholecalciferol (vitamin D3) 125 5,000 unit PO QDAY cap 05/21/20 09/02/20 History mcg (5,000 unit) capsule clonidine HCl 0.1 mg tablet 0.1 mg PO QHS 05/21/20 09/02/20 History heparin (porcine) 1,000 unit/mL IV 05/21/20 08/05/20 History injection solution heparin (porcine) 1,000 unit/mL IV .3 x wk ml 05/21/20 08/05/20 History injection solution heparin (porcine) 1,000 unit/mL IV .q 3 times wk ml 05/21/20 08/05/20 History injection solution hydroxyzine HCl 10 mg tablet 10 mg PO ONCE tab 05/21/20 09/02/20 History loperamide 2 mg capsule 2 mg PO Q6H PRN 05/21/20 09/02/20 History midodrine 5 mg tablet 5 mg PO 3XW tab 05/21/20 09/02/20 History ondansetron HCl 4 mg tablet 4 mg PO Q8H 05/21/20 09/02/20 History sodium ferric gluconat-sucrose 62.5 mg IV QWEEK ml 05/21/20 08/05/20 History 62.5 mg/5 mL intravenous cephalexin 500 mg capsule 500 mg PO BID #10 cap 05/29/20 09/02/20 Rx ciprofloxacin HCl 0.2 % ear drops 5 drp OTIC BID #14 each 05/29/20 09/02/20 Rx in a dropperette suvorexant 10 mg tablet 10 mg PO QHS #30 tab 06/02/20 09/02/20 Rx B complex with C 20-folic acid 1 1 cap PO QDAY #30 cap 07/14/20 09/02/20 Rx mg capsule cephalexin 500 mg PO QID #28 cap 07/28/20 09/02/20 Rx atorvastatin 40 mg tablet 40 mg PO HS #90 tab 08/04/20 09/02/20 Rx sertraline 25 mg tablet 25 mg PO QDAY #30 tab 08/26/20 09/02/20 Rx oxycodone 10 mg tablet 10 mg PO q8h PRN #90 tab 08/29/20 09/02/20 Rx Allergies Allergy/AdvReac Type Severity Reaction Status Date / Time No Known Drug Allergies Allergy Verified 09/01/20 15:29 Physical Examination Vital Signs Vital signs: Temp Pulse Resp BP Pulse Ox 97.9 F 79 20 141/72 90 09/02/20 12:00 09/02/20 12:00 09/02/20 12:00 09/02/20 12:00 09/02/20 12:00 General physical appearance General physical exam: well developed, well nourished, no distress and no pain Eyes Eye exam: PERRL and normal ocular movement ENT ENT exam: normal pinna, normal nares and no congestion Head Head exam IM: Present atraumatic and normocephalic Neck Neck exam: no masses, no lymphadenopathy and no venous distension Cardiovascular Cardiovascular exam IM: Present normal rate and rhythm Respiratory Respiratory exam: normal expansion and clear to auscultation Abdomen Abdomen: Present soft, non tender and bowel sounds Integumentary Integumentary: Present other (Dry gangenous / necrotic patches of skin DTI along mid plantar, lateral and dorsal surface of foot. NOT cirumferntial. Intact Ankle movements.) Neurologic Neurologic: Present other (Diabetes with mixed peripheral neuropathy of foot. ) Musculoskeletal Musculoskeletal: Present other (LLE, Hip, knee and ankle movements are unremarkable. Toes are warm, dry and moble.) Psychiatric Psychiatric: Present oriented to time, oriented to place and speech is normal Results Labs Result diagrams: 09/02/20 05:53 09/02/20 05:53 Labs: Abnormal lab results 09/01/20 09/01/20 09/02/20 Range/Units 16:13 23:57 00:00 WBC (4.5-11.0) K/mcL Hgb (12.0-15.0) g/dL MCHC (31.0-36.0) g/dL Lymph % (Auto) (15.0-49.0) % Baso # (Auto) (0.00-0.20) K/mcL Absolute Neutrophils (1.80-8.00) K/mcL POC Total CO2 31 H (22-30) mmol/L POC BUN 5 L (6-20) mg/dL Creatinine 2.8 H (0.6-1.1) mg/dL POC Creatinine 3.0 H (0.6-1.2) mg/dL Glucose (70-105) mg/dL Hemoglobin A1c 6.7 H (4.0-6.0) % Hgb Uric Acid (2.5-8.0) mg/dL Calcium (8.6-10.4) mg/dL POC WB Ioniz Calcium 1.01 L (1.16-1.32) mmEq/L Alkaline Phosphatase 129 H (39-117) U/L Globulin 4.2 H (2.2-3.7) gm/dL Albumin/Globulin Ratio 0.9 L (1.0-2.3) Triglycerides (<150) mg/dL 09/02/20 09/02/20 Range/Units 05:53 05:53 WBC 15.8 H (4.5-11.0) K/mcL Hgb 11.3 L (12.0-15.0) g/dL MCHC 30.5 L (31.0-36.0) g/dL Lymph % (Auto) 13.0 L (15.0-49.0) % Baso # (Auto) 0.25 H (0.00-0.20) K/mcL Absolute Neutrophils 12.27 H (1.80-8.00) K/mcL POC Total CO2 (22-30) mmol/L POC BUN (6-20) mg/dL Creatinine 3.4 H (0.6-1.1) mg/dL POC Creatinine (0.6-1.2) mg/dL Glucose 120 H (70-105) mg/dL Hemoglobin A1c (4.0-6.0) % Hgb Uric Acid 2.4 L (2.5-8.0) mg/dL Calcium 8.3 L (8.6-10.4) mg/dL POC WB Ioniz Calcium (1.16-1.32) mmEq/L Alkaline Phosphatase 124 H (39-117) U/L Globulin 3.9 H (2.2-3.7) gm/dL Albumin/Globulin Ratio 0.9 L (1.0-2.3) Triglycerides 181 H (<150) mg/dL Diabetes panel 09/01/20 09/02/20 09/02/20 Range/Units 16:13 00:00 05:53 Sodium 134 135 (133-145) mmol/L Potassium 3.7 4.1 (3.3-5.1) mmol/L Chloride 96 97 (96-108) mmol/L Carbon Dioxide 27 25 (22-30) mmol/L BUN 6 10 (6-20) mg/dL Creatinine 2.8 H 3.4 H (0.6-1.1) mg/dL Glucose 88 120 H (70-105) mg/dL Hemoglobin A1c 6.7 H (4.0-6.0) % Hgb Calcium 8.6 8.3 L (8.6-10.4) mg/dL AST 20 18 (<32) U/L ALT 13 12 (<40) U/L Alkaline Phosphatase 129 H 124 H (39-117) U/L Total Protein 8.0 7.3 (5.9-8.4) gm/dL Albumin 3.8 3.4 (3.2-5.2) gm/dL Triglycerides 181 H (<150) mg/dL Calcium panel 09/02/20 09/02/20 Range/Units 00:00 05:53 Calcium 8.6 8.3 L (8.6-10.4) mg/dL Phosphorus 2.5 (2.5-4.5) mg/dL Albumin 3.8 3.4 (3.2-5.2) gm/dL Pituitary panel 09/02/20 09/02/20 Range/Units 00:00 05:53 Sodium 134 135 (133-145) mmol/L Potassium 3.7 4.1 (3.3-5.1) mmol/L Chloride 96 97 (96-108) mmol/L Carbon Dioxide 27 25 (22-30) mmol/L BUN 6 10 (6-20) mg/dL Creatinine 2.8 H 3.4 H (0.6-1.1) mg/dL Glucose 88 120 H (70-105) mg/dL Calcium 8.6 8.3 L (8.6-10.4) mg/dL Adrenal panel 09/02/20 09/02/20 Range/Units 00:00 05:53 Sodium 134 135 (133-145) mmol/L Potassium 3.7 4.1 (3.3-5.1) mmol/L Chloride 96 97 (96-108) mmol/L Carbon Dioxide 27 25 (22-30) mmol/L BUN 6 10 (6-20) mg/dL Creatinine 2.8 H 3.4 H (0.6-1.1) mg/dL Glucose 88 120 H (70-105) mg/dL Calcium 8.6 8.3 L (8.6-10.4) mg/dL Total Bilirubin 0.2 0.2 (0.1-1.0) mg/dL AST 20 18 (<32) U/L ALT 13 12 (<40) U/L Alkaline Phosphatase 129 H 124 H (39-117) U/L Total Protein 8.0 7.3 (5.9-8.4) gm/dL Albumin 3.8 3.4 (3.2-5.2) gm/dL All other labs normal. A/P Narrative A/P Narrative: Assessment: Diabetes DFU ( Not staged ) DTI of LEFT mid foot Reviewed imaging studies, Question of ROFB on Radiology report. This appears to be vascular calcification. Will monitor her progress clinically. Plan: Chemical debridement using collagenase ( Santyl ) ointment along margins and over necrotic skin. Will follow clinically and make recommendations about excision / debridement etc as her condition evolves. Time Spent With Patient Time: Total time spent is greater than 50% in coordination of care (as documented) at patient's floor/unit and/or counseling patient: Total time spent with greater than 50% in coordination of care (as documented) at patient's floor/unit and/or counseling patient:: 15 - 24 minutes
[2020-09-02] MEDS: CALCIUM ACETATE 667 MG CAPSULE PO SCH (17:23)
[2020-09-02] MEDS: MELATONIN 3 MG TABLET PO SCH (21:30)
[2020-09-02] MEDS: ATORVASTATIN 40 MG TABLET PO SCH (21:31)
[2020-09-02] MEDS: cloNIDine HCL 0.1 MG TABLET PO SCH (21:31)
[2020-09-02] MEDS: PREGABALIN 100 MG CAPSULE PO SCH (21:31)
[2020-09-02] MEDS: SUVOREXANT 10 MG PO SCH (21:36)
[2020-09-03] MEDS: 0.9 % SODIUM CHLORIDE 10 ML SYRINGE IV SCH ×3 (05:55→21:13)
[2020-09-03] MEDS: PIPERACILLIN SODIUM/TAZOBACTAM 2.25 GM in DEXTROSE 5% IN WATER 50 ML IV SCH (05:55)
[2020-09-03 06:59] LABS: Basophils # (Auto) 0.24 K/mcL (0.00-0.20); Basophils % (Auto) 1.7 % (0.0-2.0); Eosinophils # (Auto) 0.37 K/mcL (0.00-0.70); Eosinophils % (Auto) 2.7 % (0.0-7.0); Hematocrit 33.5 % (36.0-48.0); Hemoglobin 10.3 g/dL (12.0-15.0); Lymphocytes # (Auto) 2.56 K/mcL (1.50-4.80); Lymphocytes % (Auto) 18.5 % (15.0-49.0); Mean Cell Volume 89.3 fL (80.0-100.0); Mean Corpuscular HGB Conc 30.7 g/dL (31.0-36.0); Mean Platelet Volume 9.8 fL (7.4-10.4); Monocytes # (Auto) 0.78 K/mcL (0.10-0.90); Monocytes % (Auto) 5.6 % (1.0-12.0); Neutrophils % (Auto) 71.5 % (38.0-78.0); Platelet Count 325 K/mcL (140-440); RBC 3.75 M/mcL (4.00-5.20); Red Cell Distribution Width 13.5 % (11.5-14.5); WBC 13.9 K/mcL (4.5-11.0)
[2020-09-03] MEDS: INSULIN LISPRO 1 UNIT/0.01 ML UNIT SQ SCH ×4 (07:29→21:12)
--- NOTE | 2020-09-03 07:52 | Internal Med Progress Note ---
SUBJECTIVE Subjective Patient information: Note initiated : 09/03/20 at 7:48 am Service Date, if different from initiated Date: [] Patient: Dang Varner a 55 y/o F admitted on 09/01/20 for foot wound. Chief Complaint: [] Interval history: History of present illness: Ms. Varner is a 55 year old F Presents to the ED with left foot wound. Patient seems to be a poor historian she says she was seen in the ED several weeks ago but the last note was a month ago and that was for the foot infection. Sounds like a foot injury occurred after she did have it tightly wrapped, which she does whenever she goes to dialysis She says she was given an antibiotic for a week but could not recall what it is, possibly Keflex. She felt it was improving last week. She wrapped her foot up Tuesday for dialysis and usually takes it off afterwards but left it on a weekend and when she unwrapped it this morning she felt the wound was worsening. It is started to some purulent drainage and there was sloughing of skin. Some increased wet redness and smiling Patient denies fever chills. Laboratory work in the ED showed a leukocytosis of 17 and although elevated she has been between 12 and 14,000 since January. Lactic acid level was unremarkable. CT of the foot showed no osteomyelitis. But did show a metallic foreign body in the plantar soft tissue overlying the fifth metatarsal head and moderate cellulitis in the subcutaneous fat of the mid plantar region. Dr. Gerardo evaluated the wound in the ED and will follow in the hospital. 09/02 No new complaints overnight events. 09/03 Slept all right. No new complaints overnight events. Evaluated by Dr. Gage, no concerned about the questionable foreign body, he will follow up outpatient with her after the course of antibiotics. Review of Systems: Positive for headache. Denies fever/chills/nausea/vomiting/chest or abdominal pain/cough/dyspnea/diarrhea. Otherwise see above. Constitutional Vitals: Vital Signs Temp Pulse Resp BP Pulse Ox 97.2 F 62 18 116/64 90 09/03/20 07:15 09/03/20 07:15 09/03/20 07:15 09/03/20 07:15 09/03/20 07:15 Period Temp Pulse Resp BP Sys/Bernstein Pulse Ox Last 24 Hr 97.2 F-98.5 F 62-87 - 116-155/64-80 90-93 Intake and Output 09/02/20 09/03/20 09/03/20 21:59 05:59 13:59 Intake Total 100 360 Balance 100 360 Weight 78.245 kg Intake & Output: Intake & Output 09/02/20 09/03/20 09/03/20 21:59 05:59 13:59 Intake Total 100 360 Balance 100 360 Weight 78.245 kg Intake: IV 100 Zosyn 2.25 gm In Dextrose 5% in 100 Water 50 ml @ 100 mls/hr IV Q8H [facility] Rx#:[id number] Oral 360 Other: Feeding Ability Assist with Tray Set Up # Voids 1 Exam: General: Alert, Awake, No acute Distress Eyes/N/T: EOMI, , Head/Neck: neck supple, CV: RRR, No murmurs, Pulm: Clear b/l, no wheezing/rhonchi/rales Abd: soft, nontender, +BS x4 Ext: no clubbing/cyanosis/edema to left lower extremity. Right foot in dressings Neuro: Alert, no focal deficits, moves all extremities, Skin: warm/dry OBJ DATA Labs CBC & Chem 7: 09/03/20 05:53 09/02/20 05:53 Labs: Abnormal Lab Results 09/03/20 09/02/20 09/02/20 05:53 05:53 05:53 WBC 13.9 H 15.8 H RBC 3.75 L Hgb 10.3 L 11.3 L Hct 33.5 L MCHC 30.7 L 30.5 L Lymph % (Auto) 13.0 L Baso # (Auto) 0.24 H 0.25 H Absolute Neutrophils 9.90 H 12.27 H POC Total CO2 POC BUN Creatinine 3.4 H POC Creatinine Glucose 120 H Hemoglobin A1c Uric Acid 2.4 L Calcium 8.3 L POC WB Ioniz Calcium Alkaline Phosphatase 124 H Globulin 3.9 H Albumin/Globulin Ratio 0.9 L Triglycerides 181 H 09/02/20 09/01/20 09/01/20 00:00 23:57 16:13 WBC RBC Hgb Hct MCHC Lymph % (Auto) Baso # (Auto) Absolute Neutrophils POC Total CO2 31 H POC BUN 5 L Creatinine 2.8 H POC Creatinine 3.0 H Glucose Hemoglobin A1c 6.7 H Uric Acid Calcium POC WB Ioniz Calcium 1.01 L Alkaline Phosphatase 129 H Globulin 4.2 H Albumin/Globulin Ratio 0.9 L Triglycerides Meds: Medications Acetaminophen (Tylenol) 650 mg PO Q6HP PRN PRN Reason: PAIN/FEVER > 101 Albuterol/Ipratropium (Duoneb) 3 ml NEB Q4HP PRN PRN Reason: Shortness Of Breath Atorvastatin Calcium (Lipitor) 40 mg PO HS [facility] Last Admin: 09/02/20 21:31 Dose: 40 mg Documented by: Calcitriol (Rocaltrol) 0.25 mcg PO MoWeFr@1600 [facility] Calcium Acetate (Phoslo) 667 mg PO TIDCC [facility] Last Admin: 09/02/20 17:23 Dose: 667 mg Documented by: Clonidine HCl (Catapres) 0.1 mg PO Q4HP PRN PRN Reason: Hypertension Clonidine HCl (Catapres) 0.1 mg PO QHS [facility] Last Admin: 09/02/20 21:31 Dose: 0.1 mg Documented by: Collagenase (Santyl Top Oint) 1 dose TOPICAL DAILY [facility] Last Admin: 09/02/20 11:56 Dose: 1 dose Documented by: Dextrose (Dextrose 50%) 0 ml IV UD PRN PRN Reason: Hypoglycemia Diagnostic Test (Pha) (Accu-Chek) 1 each FS ACHS [facility] Last Admin: 09/03/20 07:29 Dose: 1 each Documented by: Docusate Sodium (Colace) 100 mg PO BID [facility] Last Admin: 09/02/20 21:30 Dose: 100 mg Documented by: Glucose (Insta-Glucose) 15 gm PO PRN PRN PRN Reason: Hypoglycemia Heparin Sodium (Porcine) (Heparin) 5,000 unit SQ Q12 [facility] Last Admin: 09/02/20 21:31 Dose: 5,000 unit Documented by: Hydroxyzine HCl (Vistaril) 10 - 25 mg PO DAILYP PRN PRN Reason: Itching Potassium Chloride 40 meq/ (Dextrose) 520 mls @ 130 mls/hr IV UD PRN PRN Reason: Potassium < 3 Magnesium Sulfate (Magnesium Sulfate) 2 gm in 50 mls @ 50 mls/hr IV UD PRN PRN Reason: Magnesium </= 1.6 Piperacillin Sod/Tazobactam (Sod 2.25 gm/ Dextrose) 50 mls @ 100 mls/hr IV Q8H [facility] Last Admin: 09/03/20 05:55 Dose: 100 mls/hr Documented by: Insulin Human Lispro (Humalog) 0 unit SQ ACHS [facility]; Protocol Last Admin: 09/03/20 07:29 Dose: Not Given Documented by: Loperamide HCl (Imodium) 2 mg PO Q6H PRN PRN Reason: Diarrhea Melatonin (Melatonin 3mg Tablet) 3 mg PO QHS [facility] Last Admin: 09/02/20 21:30 Dose: 3 mg Documented by: Midodrine (Midodrine Hcl) 5 mg PO 3XW [facility] Ondansetron HCl (Zofran) 4 mg IV Q4HP PRN PRN Reason: Nausea And Vomiting Oxycodone HCl (Roxicodone) 10 mg PO Q8HP PRN PRN Reason: pain Suvorexant [Belsomra (] 10 Mg Tab) 1 dose PO QHS [facility] Last Admin: 09/02/20 21:36 Dose: Not Given Documented by: Polyethylene Glycol (Miralax) 17 gm PO DAILYP PRN PRN Reason: Constipation Potassium Chloride (Kdur) 40 meq PO UD PRN PRN Reason: Potassium < 3 Pregabalin (Lyrica) 100 mg PO BID [facility] Last Admin: 09/02/20 21:31 Dose: 100 mg Documented by: Senna (Senokot) 2 tab PO DAILYP PRN PRN Reason: Constipation Sertraline HCl (Zoloft) 25 mg PO DAILY [facility] Sodium Chloride (Saline Flush) 10 ml IV Q8 [facility] Last Admin: 09/03/20 05:55 Dose: 10 ml Documented by: Vancomycin HCl (Vancomycin Per Pharmacy) 1 order IV UD [facility]; Protocol Vitamin D (Vitamin D3) 5,000 unit PO DAILY [facility] A/P Narrative A/P Narrative: A: *Left Foot wound/purulent cellulitis: Failed outpatient treatment -CT no osteo or abscess, possible foreign body reviewed with wound surgeon - will f/u outpt after abx course -WC with [facility] in clusters -Leukocytosis improved to baseline *Diabetes w/neuropathy: *ESRD: Has been following with Dr. Rodriguez *Anemia, chronic *HTN/HLD: *Depression/anxiety/fibromyalgia: *Chronic pain: *h/o cardiomyopathy: *chronic leukocytosis P: -Vanco/zosyn to [place] roseescalate, mrsa screen neg, pending WC/BC -Dr. Gerardo/wound care -Nephrology for HD -basal and SSI -cont home psych meds -cont home clonidine -PT/OT -ppx: Heparin Time Spent With Patient Time: Total time spent is greater than 50% in coordination of care (as documented) at patient's floor/unit and/or counseling patient: QUALITY VTE Deep Vein Thrombosis/Pulmonary Embolism Present on Admission: No
--- NOTE | 2020-09-03 08:18 | Nephrology Progress Note ---
SUBJECTIVE Subjective Patient information: Note initiated : 09/03/20 at 8:17 am Patient: Dang Varner 55 y/o F admitted on 09/01/20 for foot wound. Chief Complaint: Left leg wound Pertinent ROS: Left leg wound No weakness Constitutional Vitals: Vital Signs Temp Pulse Resp BP Pulse Ox 97.2 F 62 18 116/64 90 09/03/20 07:15 09/03/20 07:15 09/03/20 07:15 09/03/20 07:15 09/03/20 07:15 Period Temp Pulse Resp BP Sys/Bernstein Pulse Ox Last 24 Hr 97.2 F-98.5 F 62-87 - 116-155/64-80 90-93 Intake and Output 09/02/20 09/03/20 09/03/20 21:59 05:59 13:59 Intake Total 100 360 Balance 100 360 Weight 172 lb 8 oz Intake & Output: Intake & Output 09/02/20 09/03/20 09/03/20 21:59 05:59 13:59 Intake Total 100 360 Balance 100 360 Weight 172 lb 8 oz Intake: IV 100 Zosyn 2.25 gm In Dextrose 5% in 100 Water 50 ml @ 100 mls/hr IV Q8H [facility] Rx#:[id number] Oral 360 Other: Feeding Ability Assist with Tray Set Up # Voids 1 General appearance: cooperative and no acute distress Head Head exam: Present normal inspection Eye Eye exam: Present normal appearance ENT ENT exam: Present mucous membranes moist Respiratory Respiratory exam: Absent respiratory distress Cardiovascular Cardiovascular exam: Present normal rate and rhythm GI/Abdominal GI/Abdominal exam: Present soft; Absent tenderness Extremities Exam Extremities exam: Absent joint swelling and pedal edema Neurological Exam Neurological exam: Present alert and oriented X3 Psychiatric Psychiatric exam: Present normal affect and normal mood Skin Skin exam: Present warm; Absent rash A/P Assessment and plan (1) ESRD (end stage renal disease) on dialysis: Assessment and plan: Dang Varner is a 55-year-old female with end-stage renal disease on chronic hemodialysis, chronic anemia due to ESRD, diabetes mellitus type 2, admitted on 09/01/20 for left leg cellulitis. Plan: The patient seen and evaluated during hemodialysis. Continue hemodialysis on Tuesday, Tuesday, Tuesday. Status: Chronic Time Spent With Patient Time: Total time spent is greater than 50% in coordination of care (as documented) at patient's floor/unit and/or counseling patient:
[2020-09-03 08:34] LABS: Blood Urea Nitrogen 24 mg/dL (6-20); Calcium 8.5 mg/dL (8.6-10.4); Carbon Dioxide 26 mmol/L (22-30); Chloride 98 mmol/L (96-108); Glomerular Filtration Rate 8; Glucose 96 mg/dL (70-105)
[2020-09-03] MEDS ORDERED: COLLAGENASE TOP OINT TUBE 30GM TOPICAL SCH (09:00)
[2020-09-03] MEDS: CALCIUM ACETATE 667 MG CAPSULE PO SCH ×3 (09:20→17:09)
[2020-09-03] MEDS: DOCUSATE SODIUM 100 MG CAPSULE PO SCH ×3 (11:42→21:09)
[2020-09-03] MEDS: HEPARIN 5,000 UNIT/ML VIAL SQ SCH ×3 (11:42→21:09)
[2020-09-03] MEDS: PREGABALIN 100 MG CAPSULE PO SCH ×3 (11:42→21:18)
[2020-09-03] MEDS: VITAMIN D3 5,000 UNIT CAPSULE PO SCH ×2 (11:43→12:30)
[2020-09-03] MEDS: SERTRALINE 50 MG TABLET PO SCH (11:43)
[2020-09-03] MEDS: cefTRIAXone 2 GM in DEXTROSE 5% IN WATER 50 ML IV SCH (12:29)
[2020-09-03] MEDS: COLLAGENASE TOP OINT TUBE 30GM TOPICAL SCH (13:03)
[2020-09-03 13:29] LABS: Vancomycin,Random 7.7 ug/mL
[2020-09-03] MEDS ORDERED: VANCOMYCIN 1,000 MG in 0.9 % SODIUM CHLORIDE 250 ML IV ONE (15:00)
[2020-09-03] MEDS ORDERED: CALCITRIOL 0.25 MCG CAPSULE PO SCH (16:00)
[2020-09-03] MEDS: ATORVASTATIN 40 MG TABLET PO SCH (21:09)
[2020-09-03] MEDS: cloNIDine HCL 0.1 MG TABLET PO SCH (21:09)
[2020-09-03] MEDS: SUVOREXANT 10 MG PO SCH (21:18)
[2020-09-03] MEDS: MELATONIN 3 MG TABLET PO SCH (21:18)
[2020-09-04] MEDS: INSULIN LISPRO 1 UNIT/0.01 ML UNIT SQ SCH ×2 (07:21→11:52)
[2020-09-04] MEDS: 0.9 % SODIUM CHLORIDE 10 ML SYRINGE IV SCH (07:21)
[2020-09-04] MEDS: CALCIUM ACETATE 667 MG CAPSULE PO SCH ×2 (08:32→11:51)
[2020-09-04] MEDS: SERTRALINE 50 MG TABLET PO SCH (08:32)
[2020-09-04] MEDS: VITAMIN D3 5,000 UNIT CAPSULE PO SCH (08:32)
[2020-09-04] MEDS: DOCUSATE SODIUM 100 MG CAPSULE PO SCH (08:32)
[2020-09-04] MEDS: PREGABALIN 100 MG CAPSULE PO SCH (08:33)
[2020-09-04] MEDS: HEPARIN 5,000 UNIT/ML VIAL SQ SCH (08:33)
[2020-09-04] MEDS: cefTRIAXone 2 GM in DEXTROSE 5% IN WATER 50 ML IV SCH (08:33)
[2020-09-04] MEDS: COLLAGENASE TOP OINT TUBE 30GM TOPICAL SCH (08:34)
--- NOTE | 2020-09-04 12:09 | Nephrology Progress Note ---
SUBJECTIVE Subjective Patient information: Note initiated : 09/04/20 at 12:07 pm Patient: Dang Varner 55 y/o F admitted on 09/01/20 for foot wound. Chief Complaint: Left leg wounds Pertinent ROS: No significant edema. Constitutional Vitals: Vital Signs Temp Pulse Resp BP Pulse Ox 96.5 F L 65 18 98/65 92 09/04/20 11:54 09/04/20 11:54 09/04/20 11:54 09/04/20 11:54 09/04/20 11:54 Period Temp Pulse Resp BP Sys/Bernstein Pulse Ox Last 24 Hr 96.4 F-98.4 F 62-74 - 98-167/63-83 90-93 Intake and Output 09/03/20 09/04/20 09/04/20 21:59 05:59 13:59 Intake Total 240 350 170 Balance 240 350 170 Weight 170 lb Intake & Output: Intake & Output 09/03/20 09/04/20 09/04/20 21:59 05:59 13:59 Intake Total 240 350 170 Balance 240 350 170 Weight 170 lb Intake: IV 50 Rocephin 2 gm In Dextrose 5% in 50 Water 50 ml @ 100 mls/hr IV Q24H [facility] Rx#:[id number] Oral 240 350 120 Other: Meal Dinner Breakfast Percent of Meal Consumed 75% 100% Feeding Ability Independent General appearance: cooperative and no acute distress Head Head exam: Present normal inspection Eye Eye exam: Present normal appearance ENT ENT exam: Present mucous membranes moist Respiratory Respiratory exam: Absent respiratory distress Cardiovascular Cardiovascular exam: Present normal rate and rhythm GI/Abdominal GI/Abdominal exam: Present soft; Absent tenderness Extremities Exam Extremities exam: Absent joint swelling and pedal edema Neurological Exam Neurological exam: Present alert and oriented X3 Psychiatric Psychiatric exam: Present normal affect and normal mood Skin Skin exam: Present warm; Absent rash A/P Assessment and plan (1) ESRD (end stage renal disease) on dialysis: Assessment and plan: Dang Varner is a 55-year-old female with end-stage renal disease on chronic hemodialysis, chronic anemia due to ESRD, diabetes mellitus type 2, admitted on 09/01/20 for left leg cellulitis. Plan: Continue hemodialysis on Tuesday, Tuesday, Tuesday. Status: Chronic Time Spent With Patient Time: Total time spent is greater than 50% in coordination of care (as documented) at patient's floor/unit and/or counseling patient:
== END 2020-09-04 14:30 | disposition home or self-care (01) | DRG 592 ==
LOC: ED 21:23 → MEDSUR 22:36
PROVIDERS: ADMIT Internal Medicine; ATTEND Internal Medicine

== ENCOUNTER 2020-09-15 12:00 | Inpatient (IN) ==
[2020-09-15] MEDS ORDERED: NALOXONE HCL 0.4 MG/ML VIAL ONE (12:27)
[2020-09-15] MEDS ORDERED: 0.9 % SODIUM CHLORIDE 250 ML IV SCH ×2 (12:30→20:03)
[2020-09-15] MEDS ORDERED: NOREPINEPHRINE BITARTRATE 16 MG in 0.9 % SODIUM CHLORIDE 234 ML IV SCH (12:30)
[2020-09-15] MEDS ORDERED: 0.9 % SODIUM CHLORIDE 1,000 ML IV SCH ×2 (12:30→20:03)
[2020-09-15] MEDS ORDERED: NALOXONE HCL 0.4 MG/ML VIAL IV ONE (12:49)
--- NOTE | 2020-09-15 13:35 | XRay Report ---
INDICATION: obtundation unexplained, fever, covid + TECHNIQUE: AP portable semierect upright chest x-ray COMPARISON: Previous examinations dated 09/13/2020, 06/12/2020, 02/22/2019 FINDINGS:No change in large caliber right central venous catheter with its tip in the right atrium Lungs:There are bilateral patchy pulmonary parenchymal densities, worse at the right lung base. This patient has a history of positive Covid test and findings are consistent with Covid pneumonia. Infiltrates are worse than on 09/13/2020 Heart, vascular:No significant cardiomegaly. Pulmonary vascularity is normal. No pulmonary edema or pulmonary congestion Mediastinum, monty:No mediastinal widening. No hilar mass Pleura:No pleural fluid. No pleural-based mass or calcification Skeletal:Negative. IMPRESSION: 1. Bilateral pulmonary parenchymal infiltrates consistent with Covid pneumonia 2. Interval worsening since 09/13/2020 Interpreted and Authenticated by: Gary Michel 09/15/20
[2020-09-15] MEDS ORDERED: PHENTOLAMINE MESYLATE 5 MG VIAL IJ ONE (14:00)
[2020-09-15 14:13] LABS: Basophils # (Auto) 0.14 K/mcL (0.00-0.20); Basophils % (Auto) 0.9 % (0.0-2.0); Eosinophils # (Auto) 0.04 K/mcL (0.00-0.70); Eosinophils % (Auto) 0.2 % (0.0-7.0); Hematocrit 40.8 % (36.0-48.0); Hemoglobin 12.2 g/dL (12.0-15.0); Lymphocytes # (Auto) 4.39 K/mcL (1.50-4.80); Lymphocytes % (Auto) 27.3 % (15.0-49.0); Mean Cell Volume 90.9 fL (80.0-100.0); Mean Corpuscular HGB Conc 29.9 g/dL (31.0-36.0); Mean Platelet Volume 9.8 fL (7.4-10.4); Monocytes # (Auto) 1.17 K/mcL (0.10-0.90); Monocytes % (Auto) 7.3 % (1.0-12.0); Neutrophils % (Auto) 64.3 % (38.0-78.0); Platelet Count 331 K/mcL (140-440); RBC 4.49 M/mcL (4.00-5.20); Red Cell Distribution Width 15.4 % (11.5-14.5); WBC 16.1 K/mcL (4.5-11.0)
[2020-09-15 14:46] LABS: Alcohol, Blood < 10.0 mg/dL
[2020-09-15 14:56] LABS: ALT/SGPT 14 U/L (<40); AST/SGOT 18 U/L (<32); Albumin 3.5 gm/dL (3.2-5.2); Albumin/Globulin Ratio 0.8 (1.0-2.3); Alkaline Phosphatase 121 U/L (39-117); Bilirubin,Total 0.2 mg/dL (0.1-1.0); Blood Urea Nitrogen 62 mg/dL (6-20); Calcium 7.4 mg/dL (8.6-10.4); Carbon Dioxide 12 mmol/L (22-30); Chloride 101 mmol/L (96-108); Globulin 4.2 gm/dL (2.2-3.7); Glomerular Filtration Rate 3; Glucose 134 mg/dL (70-105)
--- NOTE | 2020-09-15 15:00 | Emergency Department Note ---
Altered Mental Status HPI General Chief Complaint: Altered Mental Status Stated Complaint: altered loc Time Seen by Provider: 09/15/20 12:27 Source: EMS Mode of arrival: EMS Limitations: altered mental status History of Present Illness HPI Narrative: Narrative: This individual is brought by EMS with reports of missed her dialysis last week and reportedly was Covid positive although our test results from the indicate negative. They found her to have low blood pressure at 73 and was obtunded. Family had called EMS because of her not responding normally. They gave her 300 cc of IV fluids in route with her blood pressure coming up to 103. She remains unresponsive here to be able to gather much history. Blood pressures remain significantly low initially necessitating aggressive measures. Related Data Home Medications Medication Instructions Recorded Confirmed Protein bar PO 05/21/20 08/05/20 acetaminophen 325 mg capsule 325 mg PO ONCE PRN 05/21/20 09/02/20 alteplase 2 mg intra-catheter 2 mg INTRA-CATHETER ONCE 05/21/20 08/05/20 solution calcitriol 0.25 mcg capsule 0.25 mcg PO 3XW 05/21/20 09/02/20 cholecalciferol (vitamin D3) 125 5,000 unit PO QDAY cap 05/21/20 09/02/20 mcg (5,000 unit) capsule clonidine HCl 0.1 mg tablet 0.1 mg PO QHS 05/21/20 09/02/20 heparin (porcine) 1,000 unit/mL IV 05/21/20 08/05/20 injection solution heparin (porcine) 1,000 unit/mL IV .3 x wk ml 05/21/20 08/05/20 injection solution heparin (porcine) 1,000 unit/mL IV .q 3 times wk ml 05/21/20 08/05/20 injection solution hydroxyzine HCl 10 mg tablet 10 mg PO ONCE tab 05/21/20 09/02/20 loperamide 2 mg capsule 2 mg PO Q6H PRN 05/21/20 09/02/20 midodrine 5 mg tablet 5 mg PO 3XW tab 05/21/20 09/02/20 ondansetron HCl 4 mg tablet 4 mg PO Q8H 05/21/20 09/02/20 sodium ferric gluconat-sucrose 62.5 mg IV QWEEK ml 05/21/20 08/05/20 62.5 mg/5 mL intravenous Previous Rx's Medication Instructions Recorded calcium acetate(phosphat bind) 667 667 mg PO TID #90 cap 11/19/19 mg capsule pregabalin 100 mg capsule 100 mg PO BID #180 cap 01/03/20 midodrine 2.5 mg tablet 2.5 mg PO ONCE PRN #30 tab 05/08/20 cephalexin 500 mg capsule 500 mg PO BID #10 cap 05/29/20 ciprofloxacin HCl 0.2 % ear drops 5 drp OTIC BID #14 each 05/29/20 in a dropperette suvorexant 10 mg tablet 10 mg PO QHS #30 tab 06/02/20 B complex with C 20-folic acid 1 1 cap PO QDAY #30 cap 07/14/20 mg capsule cephalexin 500 mg PO QID #28 cap 07/28/20 atorvastatin 40 mg tablet 40 mg PO HS #90 tab 08/04/20 sertraline 25 mg tablet 25 mg PO QDAY #30 tab 08/26/20 oxycodone 10 mg tablet 10 mg PO q8h PRN #90 tab 08/29/20 amoxicillin-pot clavulanate 1 tab PO QDAY #6 tab 09/04/20 [Augmentin] Allergies Allergy/AdvReac Type Severity Reaction Status Date / Time No Known Drug Allergies Allergy Verified 09/15/20 12:21 Review of Systems ROS ROS Narrative: Narrative: Unable to obtain. [facility] Narrative Patient History Narrative: Narrative: Medical/Surgical/Family History All Active Problems (Updated 09/15/20 @ 17:34 by Artis Kelly DO) Acute viral syndrome (Acute) Fever (Acute) Pressure ulcer of buttock (Acute) Altered mental status (Acute) Hypotension (Acute) Chronic kidney disease, stage 5, kidney failure (Acute) Obtundation (Acute) Cellulitis (Acute) Failure of outpatient treatment (Acute) Wound of left foot (Acute) Syncope (Acute) Anemia (Acute) At risk for fluid volume overload (Acute) Contusion of ankle or foot, left (Acute) Blister (nonthermal), left foot, initial encounter (Acute) Otitis externa (Acute) Cellulitis (Acute) Wound of right foot (Acute) Syncope and collapse (Acute) Debility (Acute) Generalized weakness (Acute) Chronic, continuous use of opioids (Chronic) Altered mental status (Acute) UTI (urinary tract infection) (Acute) Hypothermia (Chronic) AV fistula thrombosis (Chronic) Hypertension (Chronic) Anemia of chronic renal failure, stage 5 (Chronic) CRF (chronic renal failure) (Acute) Hypoglycemia associated with type 2 diabetes mellitus (Acute) Dehydration (Acute) Ventricular tachycardia, nonsustained (Acute) Hyperkalemia (Acute) Metabolic acidosis (Acute) Anemia (Acute) Pneumonia (Acute) Left lower lobe pneumonia (Acute) Pneumonia (Acute) Hyperkalemia (Acute) History of CHF (congestive heart failure) (Chronic) Obesity (Chronic) RBBB (right bundle branch block) (Chronic) Hemorrhoids (Chronic) Hypotension (Chronic) Depression (Chronic) Insomnia (Chronic) Encounter for Health Maintenance Examination in Adult (Chronic) Wellness examination (Chronic) Dizziness (Chronic) Chronic nausea (Chronic) Gastroparesis (Chronic) Steal syndrome of upper extremity (Chronic) Subcutaneous nodule of breast (Chronic) Diabetic retinopathy associated with type 2 diabetes mellitus (Chronic) Migraines (Chronic) Arthritis (Chronic) Diabetes (Chronic) Cancer of kidney (Chronic) Anxiety (Chronic) ESRD (end stage renal disease) on dialysis (Chronic) Fibromyalgia (Chronic) Medical History (Updated 09/15/20 @ 17:34 by Artis Kelly DO) Anemia of chronic renal failure, stage 5 (Chronic) Anxiety (Chronic) Arthralgia of multiple joints (Resolved) Arthritis (Chronic) Atypical chest pain (Resolved) AV fistula thrombosis (Chronic) Cancer of kidney (Chronic) 2014 Maddie esophagitis (Resolved) Cellulitis (Acute) Cervical muscle strain (Resolved) Chronic Kidney Disease (Resolved) Chronic nausea (Chronic) Chronic, continuous use of opioids (Chronic) CKD (chronic kidney disease) stage 4, GFR 15-29 ml/min (Resolved) Congestion of nasal sinus (Resolved) Congestive heart failure (Resolved) Daytime sleepiness (Resolved) Dehydration (Resolved) Depression (Resolved) Depression (Chronic) Diabetes (Chronic) Diabetic retinopathy associated with type 2 diabetes mellitus (Chronic) Dizziness (Chronic) Dizziness of unknown cause (Resolved) Encounter for Health Maintenance Examination in Adult (Chronic) Encounter for medication refill (Resolved) ESRD (end stage renal disease) on dialysis (Chronic) Fibromyalgia (Chronic) Fracture of femur (Resolved) Gastroenteritis (Resolved) Gastroparesis (Resolved) Gastroparesis (Chronic) 07/26/16 Generalized pain (Resolved) Heart failure, chronic, with acute decompensation (Resolved) Hemorrhoids (Chronic) History of CHF (congestive heart failure) (Chronic) Hypertension (Chronic) Hypokalemia (Resolved) Hypokalemia (Resolved) Hypotension (Chronic) Hypothermia (Chronic) Insomnia (Resolved) Insomnia (Chronic) Migraines (Chronic) Muscle pain (Resolved) Nausea (Resolved) Nausea & vomiting (Resolved) Nausea and vomiting (Resolved) Nausea, Vomiting, and Diarrhea (Resolved) Obesity (Chronic) Osteoarthritis (Resolved) Otitis externa (Acute) Polymyalgia rheumatica (Resolved) Polyp in nasopharynx (Resolved) RBBB (right bundle branch block) (Chronic) Steal syndrome of upper extremity (Chronic) Subcutaneous nodule of breast (Chronic) Syncope and collapse (Acute) Trochanteric bursitis of left hip (Resolved) UTI (urinary tract infection) (Resolved) Volume depletion, gastrointestinal loss (Resolved) Wellness examination (Chronic) 07/28/17 Wound of left foot (Acute) Surgical History H/O colonoscopy (Chronic) Dr. Ford H/O: (Chronic) 1998 2002 History of angioplasty (Chronic 07/26/17) and fistulogram History of kidney surgery (Chronic) 2010 Kidney cancer History of surgery (Chronic 06/09/16) Transposition of left upper arm cephalic vein History of surgery (Chronic) 2014 Placement of catheters History of surgery (Chronic) 1996 Gallstones History of surgery (Chronic) 2014 Fistula repair Family History Tuberculosis Brother Arthritis Sister Heart attack Father Cancer Mother Social History Smoking Status: Never smoker Alcohol Intake Frequency: does not drink Substance Use: does not use Exam Narrative Narrative: Narrative: General: Does not respond to painful stimuli with sternal rub or tibial pressure. Does not appear to be grimacing. Neuro: Her left hand with some increased contraction and recruiting intern. She has some purposeful movements of her right hand. She occasionally moves her left extremity a little bit. None of these extremities are flaccid but have some minor tension generally. Her right leg seems to be more tense with trying to flex her knee and hip as if slight resistance but not consistent. Babinski is negative. Extremities: Has a significant ulcer that is with discharge and mucus that is brownish-zabala in color on the anterior dorsal foot (left). Lungs: Clear to auscultation CV: Regular without murmur. Abdomen: No hepatosplenomegaly or mass. Is somewhat obese and large abdominally. Psych: Unable to assess due to above. Eyes: Extra muscles appear to be intact. She does not have any spontaneous eye opening. Pupils are reactive and round. General Limitations: altered mental status Expanded Neurological Coma Scale Eye Opening: None Coma Scale Motor Response: None Coma Scale Verbal Response: None Coma Scale Total: 3 Course Vital Signs Vital signs: Vital Signs Temperature 98.2 F 09/15/20 12:11 Pulse Rate 75 09/15/20 12:11 Respiratory Rate 14 09/15/20 12:11 Blood Pressure 79/65 09/15/20 12:11 Pulse Oximetry (%) 98 09/15/20 12:11 Temperature 98.2 F 09/15/20 12:11 Pulse Rate 110 H 09/15/20 17:06 Respiratory Rate 16 09/15/20 17:06 Blood Pressure 103/55 09/15/20 17:01 Pulse Oximetry (%) 94 09/15/20 17:06 MDM MDM Narrative Medical decision making narrative: Narrative: 12:10 PM - interviewed and examined. Obtundation, hypotension, in need of dialysis possibly. Was seen yesterday with "acute viral syndrome, fever, pressure ulcer buttock". Rule out sepsis now. IV fluids, pressors if needed. Due to her obtundation she was given 2 doses of Narcan. There was 0 response to these. Pressors were needed for patient. Patient was carefully treated with some IV fluids but her blood pressures remained in the 50-70 systolic range. 12:37 PM - occasional purposeful movement of right arm. 2:45 PM - patient's blood pressures have come up nicely but and heart rate as well. Will wean down the Levophed. Because of difficulty with IV access and need excellent future access, anesthesia was asked to assist in placement of a central line. She does have a catheter, temporary, for hemodialysis in the right subclavian area and we wish not to use this if possible. 2:50 PM - labs include a white count of 16.1 which is not dissimilar to many labs that she has had in the past 7 months. She is consistently had a white count 12-17. No anemia which she actually has had in the past. Ethyl alcohol read 0.010 but there have been some false positives in this recent past and this lab. Lactic acid (RT), venous, 0.6. 2:55 PM - lab calls with her creatinine 12.3, potassium 6.7, troponin 0 0.15. Because of her obtundation. CT scan of her head had been intended and requested after she was stabilized. She is now stabilized and this will be ordered. Source or cause of her hypotension remains poorly defined. With her now having a white count unchanged, and initial lack of tachycardia, and a normal lactic acid, sepsis is less likely. She continues to require Levophed and so vascular access is still essential and so going ahead with the central line. I spoke with Dr. Mata who recommended 3 ampoules of bicarb for her potassium which was ordered. I spoke with Dr. Zaldivar who is willing to accept this patient. He requested ABG done. 5:25 PM - respiratory reports great difficulty obtaining ABG. Blood was actually then ran through the analyzer as venous and results included a pH of 7.03 and a PCO2 in the range as expected for venous therefore CO2 narcosis is not the cause of her mental status changes. Dr. Hunt has received these results. Lab Data Result diagrams: 09/15/20 13:08 09/15/20 13:08 Labs: Lab Results 09/15/20 09/15/20 09/15/20 Range/Units 13:08 13:08 13:08 WBC 16.1 H (4.5-11.0) K/mcL RBC 4.49 (4.00-5.20) M/mcL Hgb 12.2 (12.0-15.0) g/dL Hct 40.8 (36.0-48.0) % MCV 90.9 (80.0-100.0) fL MCH 27.2 (26.0-34.0) pg MCHC 29.9 L (31.0-36.0) g/dL RDW 15.4 H (11.5-14.5) % Plt Count 331 (140-440) K/mcL MPV 9.8 (7.4-10.4) fL Neut % (Auto) 64.3 (38.0-78.0) % Lymph % (Auto) 27.3 (15.0-49.0) % [place] % (Auto) 7.3 (1.0-12.0) % Eos % (Auto) 0.2 (0.0-7.0) % Baso % (Auto) 0.9 (0.0-2.0) % Lymph # (Auto) 4.39 (1.50-4.80) K/mcL [place] # (Auto) 1.17 H (0.10-0.90) K/mcL Eos # (Auto) 0.04 (0.00-0.70) K/mcL Baso # (Auto) 0.14 (0.00-0.20) K/mcL Absolute Neutrophils 10.32 H (1.80-8.00) K/mcL Sodium 135 (133-145) mmol/L Potassium 6.7 H* (3.3-5.1) mmol/L Chloride 101 (96-108) mmol/L Carbon Dioxide 12 L (22-30) mmol/L Anion Gap 22.0 H (8.0-16.0) BUN 62 H (6-20) mg/dL Creatinine 12.3 H* (0.6-1.1) mg/dL GFR Calculation 3 Glucose 134 H (70-105) mg/dL Calcium 7.4 L (8.6-10.4) mg/dL Total Bilirubin 0.2 (0.1-1.0) mg/dL AST 18 (<32) U/L ALT 14 (<40) U/L Alkaline Phosphatase 121 H (39-117) U/L Troponin T 0.15 H* (<0.03) ng/mL Total Protein 7.7 (5.9-8.4) gm/dL Albumin 3.5 (3.2-5.2) gm/dL Globulin 4.2 H (2.2-3.7) gm/dL Albumin/Globulin Ratio 0.8 L (1.0-2.3) Ethyl Alcohol (<0.010) gm/dL 09/15/20 Range/Units 13:08 WBC (4.5-11.0) K/mcL RBC (4.00-5.20) M/mcL Hgb (12.0-15.0) g/dL Hct (36.0-48.0) % MCV (80.0-100.0) fL MCH (26.0-34.0) pg MCHC (31.0-36.0) g/dL RDW (11.5-14.5) % Plt Count (140-440) K/mcL MPV (7.4-10.4) fL Neut % (Auto) (38.0-78.0) % Lymph % (Auto) (15.0-49.0) % [place] % (Auto) (1.0-12.0) % Eos % (Auto) (0.0-7.0) % Baso % (Auto) (0.0-2.0) % Lymph # (Auto) (1.50-4.80) K/mcL [place] # (Auto) (0.10-0.90) K/mcL Eos # (Auto) (0.00-0.70) K/mcL Baso # (Auto) (0.00-0.20) K/mcL Absolute Neutrophils (1.80-8.00) K/mcL Sodium (133-145) mmol/L Potassium (3.3-5.1) mmol/L Chloride (96-108) mmol/L Carbon Dioxide (22-30) mmol/L Anion Gap (8.0-16.0) BUN (6-20) mg/dL Creatinine (0.6-1.1) mg/dL GFR Calculation Glucose (70-105) mg/dL Calcium (8.6-10.4) mg/dL Total Bilirubin (0.1-1.0) mg/dL AST (<32) U/L ALT (<40) U/L Alkaline Phosphatase (39-117) U/L Troponin T (<0.03) ng/mL Total Protein (5.9-8.4) gm/dL Albumin (3.2-5.2) gm/dL Globulin (2.2-3.7) gm/dL Albumin/Globulin Ratio (1.0-2.3) Ethyl Alcohol 0.010 H (<0.010) gm/dL Discharge Plan Patient/Caregiver Discharge Instructions Pt seen by METAL TECHNICIAN/PA only: No Clinical Impression: Altered mental status, Pressure ulcer of buttock, Wound of left foot, Hypotension, Chronic kidney disease, stage 5, kidney failure, Obtundation Patient Disposition: Xfer As Inpt ([facility]) Follow up with: Reyna Mattson DO [Primary Care Provider] - Prescriptions: No Action calcium acetate(phosphat bind) 667 mg capsule 667 mg PO TID Qty: 90 RF: 2 pregabalin 100 mg capsule 100 mg PO BID Qty: 180 RF: 3 midodrine 2.5 mg tablet 2.5 mg PO ONCE PRN (Reason: BP equal/ below 90) Qty: 30 RF: 4 suvorexant 10 mg tablet 10 mg PO QHS Qty: 30 RF: 3 Triphrocaps 1 mg capsule 1 cap PO QDAY Qty: 30 RF: 6 atorvastatin 40 mg tablet 40 mg PO HS Qty: 90 RF: 0 sertraline 25 mg tablet 25 mg PO QDAY Qty: 30 RF: 3 oxycodone 10 mg tablet 10 mg PO q8h PRN (Reason: pain) Qty: 90 RF: 0 cephalexin [Keflex] 500 mg capsule 500 mg PO BID Qty: 10 RF: 0 ciprofloxacin HCl 0.2 % dropperette 5 drp OTIC BID Qty: 14 RF: 0 acetaminophen 325 mg capsule 325 mg PO ONCE PRN (Reason: Pain) RF: 0 calcitriol 0.25 mcg capsule 0.25 mcg PO 3XW RF: 0 Cathflo Activase 2 mg recon soln 2 mg intra-catheter ONCE RF: 0 cholecalciferol (vitamin D3) 125 mcg (5,000 unit) capsule 5,000 unit PO QDAY RF: 0 clonidine HCl 0.1 mg tablet 0.1 mg PO QHS RF: 0 sodium ferric gluconat-sucrose [Ferrlecit] 62.5 mg/5 mL solution 62.5 mg IV QWEEK RF: 0 heparin (porcine) 1,000 unit/mL solution IV .q 3 times wk RF: 0 heparin (porcine) 1,000 unit/mL solution IV .3 x wk RF: 0 heparin (porcine) 1,000 unit/mL solution IV RF: 0 hydroxyzine HCl 10 mg tablet 10 mg PO ONCE RF: 0 loperamide [Imodium A-D] 2 mg capsule 2 mg PO Q6H PRN (Reason: Diarrhea) RF: 0 midodrine 5 mg tablet 5 mg PO 3XW RF: 0 ondansetron HCl 4 mg tablet 4 mg PO Q8H RF: 0 Protein bar PO RF: 0 cephalexin 500 MG capsule 500 mg PO QID Qty: 28 RF: 0 amoxicillin-pot clavulanate [Augmentin] 500-125 mg tablet 1 tab PO QDAY Qty: 6 RF: 0
[2020-09-15] MEDS ORDERED: HYDROCORTISONE SOD SUCC 100 MG VIAL IV ONE (15:19)
--- NOTE | 2020-09-15 15:46 | Procedure Note ---
Procedures - Central Line Placement Left IJ Consent obtained: written consent ([address] Kelly) Date of Procedure: 09/15/20 (Altered LOC, [address] Kelly) Time out performed: Yes Patient placed on monitor/pulse ox: Yes MD prep: mask, sterile gown, sterile gloves, cap, other (N95 and faceshield, COVID 19 +) Central line prep: 2% Chlorhexidine scrub, large sterile drapes applied, proper hand hygiene Local anesthesia used: lidocaine 1% Amount of anesthesia used (mls): 20 (20mg Ketamine) Ultrasound used for placement: Yes Central line lumen inserted: quad, 16 cm Post procedure: sutured in place, good blood return, all ports aspirated, flushed, capped, sterile dressing applied Post procedure x-ray: tip of catheter in good position, no pneumothorax seen Patient tolerated procedure: well, no complications Complications: none
[2020-09-15] MEDS ORDERED: SODIUM BICARBONATE 50 MEQ/50 ML VIAL IV ONE ×3 (15:55→17:45)
--- NOTE | 2020-09-15 16:11 | XRay Report ---
INDICATION: confirm central line placement TECHNIQUE: AP portable upright chest x-ray COMPARISON: Previous chest x-ray dated 09/15/2020 FINDINGS:Interval placement of a left-sided central venous catheter. Catheter tip is in the brachiocephalic vein. There is no pneumothorax identified on this AP, supine radiograph Lungs:Bilateral pulmonary parenchymal infiltrates, left worse than right. Patient has a positive Covid test and findings are consistent with Covid pneumonia Heart, vascular:No significant cardiomegaly. Pulmonary vascularity is normal. No pulmonary edema or pulmonary congestion Mediastinum, monty:No mediastinal widening. No hilar mass Pleura:No pleural fluid. No pleural-based mass or calcification Skeletal:Negative. IMPRESSION: 1. Left central venous catheter with its tip in the brachiocephalic vein. No pneumothorax identified on AP, supine radiograph 2. Bilateral pulmonary parenchymal infiltrates consistent with Covid pneumonia Interpreted and Authenticated by: Gary Michel 09/15/20
--- NOTE | 2020-09-15 16:17 | Cat Scan Report ---
INDICATION: obtundation COMPARISON: Previous CT scans dated 09/17/2019, 04/15/2016. Previous MRI scan dated 04/23/2016 TECHNIQUE: Axial noncontrast-enhanced images through the brain. Sagittally and coronally reformatted images. FINDINGS: Cerebral hemispheres:No intra-axial hemorrhage. No acute attenuation abnormality or localized mass effect. No midline shift. There are bilateral globus pallidus lacunar infarctions. These are unchanged. Brainstem and cerebellum:No intra-axial abnormality Extra-axial:No acute hemorrhage. No subdural or epidural hematoma. No subarachnoid hemorrhage. Basilar cisterns are normal Calvarial: No calvarial fracture. There is a lytic lesion in the occipital bone. This is stable since 04/15/2016. No other calvarial lesions. There is stable lytic lesion is most consistent with a benign process such as epidermal inclusion cyst. Temporal bones are negative. No destructive lesions Soft tissue, orbits, sinuses:Orbits and visualized facial soft tissues and paranasal sinuses are negative IMPRESSION: 1. Benign lytic lesion in the occipital bone, unchanged 2. Bilateral chronic lacunar infarctions in the globus pallidus 3. No acute abnormality The exam was performed using radiation dose optimization techniques including, but not limited to, automated exposure control, adjustment of the mA and/or kV according to patient size and use of iterative reconstruction technique. Interpreted and Authenticated by: Gary Michel 09/15/20
--- NOTE | 2020-09-15 17:02 | Internal Med History&Physical ---
HPI History of Present Illness Patient information: Note initiated : 09/15/20 at 5:00 pm Service Date, if different from initiated Date: [] Patient: Dang Varnre a 55 y/o F admitted on for altered loc. Chief Complaint: [] History of present illness: Ms. Varner is a 55 year old F Presents to the ED with obtundation. History obtained from chart and, member. Per family member Meghan, she has had a dry cough for the past week little bit of phlegm occasionally but otherwise no recent complaints. She as well as found members were tested positive for Covid, but got tested at [place] on and were told results on Tuesday. She presented to [facility] ER with a cough on Tuesday when she was also to undergo dialysis but did not have any significant findings. Family ever said she was in her typical state of health last night. But they the patient would not wake up for the family member. Per the family member patient typically sleeps 2 to 4 hours daily. He has been to wound care clinic recently of the last Tuesday for a left foot infection she is dealing with. Family member did denies any drug use or alcohol use. She received Narcan x2 in the ED with no real response. She was hypotensive and was started on Levophed. Looking at her old history she has had many episodes of hypotension. She missed dialysis on Tuesday and today. Discussed with Dr. Mata. Patient will get dialysis today. Review of systems: Unable to obtain given patient's altered state PFSH PFSH All Active Problems (Updated 09/15/20 @ 17:34 by Artis Kelly DO) Acute viral syndrome (Acute) Fever (Acute) Pressure ulcer of buttock (Acute) Altered mental status (Acute) Hypotension (Acute) Chronic kidney disease, stage 5, kidney failure (Acute) Obtundation (Acute) Cellulitis (Acute) Failure of outpatient treatment (Acute) Wound of left foot (Acute) Syncope (Acute) Anemia (Acute) At risk for fluid volume overload (Acute) Contusion of ankle or foot, left (Acute) Blister (nonthermal), left foot, initial encounter (Acute) Otitis externa (Acute) Cellulitis (Acute) Wound of right foot (Acute) Syncope and collapse (Acute) Debility (Acute) Generalized weakness (Acute) Chronic, continuous use of opioids (Chronic) Altered mental status (Acute) UTI (urinary tract infection) (Acute) Hypothermia (Chronic) AV fistula thrombosis (Chronic) Hypertension (Chronic) Anemia of chronic renal failure, stage 5 (Chronic) CRF (chronic renal failure) (Acute) Hypoglycemia associated with type 2 diabetes mellitus (Acute) Dehydration (Acute) Ventricular tachycardia, nonsustained (Acute) Hyperkalemia (Acute) Metabolic acidosis (Acute) Anemia (Acute) Pneumonia (Acute) Left lower lobe pneumonia (Acute) Pneumonia (Acute) Hyperkalemia (Acute) History of CHF (congestive heart failure) (Chronic) Obesity (Chronic) RBBB (right bundle branch block) (Chronic) Hemorrhoids (Chronic) Hypotension (Chronic) Depression (Chronic) Insomnia (Chronic) Encounter for Health Maintenance Examination in Adult (Chronic) Wellness examination (Chronic) Dizziness (Chronic) Chronic nausea (Chronic) Gastroparesis (Chronic) Steal syndrome of upper extremity (Chronic) Subcutaneous nodule of breast (Chronic) Diabetic retinopathy associated with type 2 diabetes mellitus (Chronic) Migraines (Chronic) Arthritis (Chronic) Diabetes (Chronic) Cancer of kidney (Chronic) Anxiety (Chronic) ESRD (end stage renal disease) on dialysis (Chronic) Fibromyalgia (Chronic) Medical History (Updated 09/15/20 @ 17:34 by Artis Kelly DO) Anemia of chronic renal failure, stage 5 (Chronic) Anxiety (Chronic) Arthralgia of multiple joints (Resolved) Arthritis (Chronic) Atypical chest pain (Resolved) AV fistula thrombosis (Chronic) Cancer of kidney (Chronic) 2014 Maddie esophagitis (Resolved) Cellulitis (Acute) Cervical muscle strain (Resolved) Chronic Kidney Disease (Resolved) Chronic nausea (Chronic) Chronic, continuous use of opioids (Chronic) CKD (chronic kidney disease) stage 4, GFR 15-29 ml/min (Resolved) Congestion of nasal sinus (Resolved) Congestive heart failure (Resolved) Daytime sleepiness (Resolved) Dehydration (Resolved) Depression (Resolved) Depression (Chronic) Diabetes (Chronic) Diabetic retinopathy associated with type 2 diabetes mellitus (Chronic) Dizziness (Chronic) Dizziness of unknown cause (Resolved) Encounter for Health Maintenance Examination in Adult (Chronic) Encounter for medication refill (Resolved) ESRD (end stage renal disease) on dialysis (Chronic) Fibromyalgia (Chronic) Fracture of femur (Resolved) Gastroenteritis (Resolved) Gastroparesis (Resolved) Gastroparesis (Chronic) 07/26/16 Generalized pain (Resolved) Heart failure, chronic, with acute decompensation (Resolved) Hemorrhoids (Chronic) History of CHF (congestive heart failure) (Chronic) Hypertension (Chronic) Hypokalemia (Resolved) Hypokalemia (Resolved) Hypotension (Chronic) Hypothermia (Chronic) Insomnia (Resolved) Insomnia (Chronic) Migraines (Chronic) Muscle pain (Resolved) Nausea (Resolved) Nausea & vomiting (Resolved) Nausea and vomiting (Resolved) Nausea, Vomiting, and Diarrhea (Resolved) Obesity (Chronic) Osteoarthritis (Resolved) Otitis externa (Acute) Polymyalgia rheumatica (Resolved) Polyp in nasopharynx (Resolved) RBBB (right bundle branch block) (Chronic) Steal syndrome of upper extremity (Chronic) Subcutaneous nodule of breast (Chronic) Syncope and collapse (Acute) Trochanteric bursitis of left hip (Resolved) UTI (urinary tract infection) (Resolved) Volume depletion, gastrointestinal loss (Resolved) Wellness examination (Chronic) 07/28/17 Wound of left foot (Acute) Surgical History H/O colonoscopy (Chronic) Dr. Ford H/O: (Chronic) 1998 2002 History of angioplasty (Chronic 07/26/17) and fistulogram History of kidney surgery (Chronic) 2010 Kidney cancer History of surgery (Chronic 06/09/16) Transposition of left upper arm cephalic vein History of surgery (Chronic) 2014 Placement of catheters History of surgery (Chronic) 1996 Gallstones History of surgery (Chronic) 2014 Fistula repair Family History Sister Arthritis Mother Cancer Father Heart attack Brother Tuberculosis Social History (Updated 09/01/20 @ 22:03 by Yandel Hunt DO) marital status: other: Children-2 smoking status: Never smoker alcohol intake frequency: does not drink substance use type: does not use additional history: She uses a walker and wheelchair 50%/50% of the time MEDS/ALLERGIES Home Medications and Allergies Home Medications Medication Instructions Recorded Confirmed Type calcium acetate(phosphat bind) 667 667 mg PO TID #90 cap 11/19/19 09/02/20 Rx mg capsule pregabalin 100 mg capsule 100 mg PO BID #180 cap 01/03/20 09/02/20 Rx midodrine 2.5 mg tablet 2.5 mg PO ONCE PRN #30 tab 05/08/20 09/02/20 Rx Protein bar PO 05/21/20 08/05/20 History acetaminophen 325 mg capsule 325 mg PO ONCE PRN 05/21/20 09/02/20 History alteplase 2 mg intra-catheter 2 mg INTRA-CATHETER ONCE 05/21/20 08/05/20 History solution calcitriol 0.25 mcg capsule 0.25 mcg PO 3XW 05/21/20 09/02/20 History cholecalciferol (vitamin D3) 125 5,000 unit PO QDAY cap 05/21/20 09/02/20 History mcg (5,000 unit) capsule clonidine HCl 0.1 mg tablet 0.1 mg PO QHS 05/21/20 09/02/20 History heparin (porcine) 1,000 unit/mL IV 05/21/20 08/05/20 History injection solution heparin (porcine) 1,000 unit/mL IV .3 x wk ml 05/21/20 08/05/20 History injection solution heparin (porcine) 1,000 unit/mL IV .q 3 times wk ml 05/21/20 08/05/20 History injection solution hydroxyzine HCl 10 mg tablet 10 mg PO ONCE tab 05/21/20 09/02/20 History loperamide 2 mg capsule 2 mg PO Q6H PRN 05/21/20 09/02/20 History midodrine 5 mg tablet 5 mg PO 3XW tab 05/21/20 09/02/20 History ondansetron HCl 4 mg tablet 4 mg PO Q8H 05/21/20 09/02/20 History sodium ferric gluconat-sucrose 62.5 mg IV QWEEK ml 05/21/20 08/05/20 History 62.5 mg/5 mL intravenous cephalexin 500 mg capsule 500 mg PO BID #10 cap 05/29/20 09/02/20 Rx ciprofloxacin HCl 0.2 % ear drops 5 drp OTIC BID #14 each 05/29/20 09/02/20 Rx in a dropperette suvorexant 10 mg tablet 10 mg PO QHS #30 tab 06/02/20 09/02/20 Rx B complex with C 20-folic acid 1 1 cap PO QDAY #30 cap 07/14/20 09/02/20 Rx mg capsule cephalexin 500 mg PO QID #28 cap 07/28/20 09/02/20 Rx atorvastatin 40 mg tablet 40 mg PO HS #90 tab 08/04/20 09/02/20 Rx sertraline 25 mg tablet 25 mg PO QDAY #30 tab 08/26/20 09/02/20 Rx oxycodone 10 mg tablet 10 mg PO q8h PRN #90 tab 08/29/20 09/02/20 Rx amoxicillin-pot clavulanate 1 tab PO QDAY #6 tab 09/04/20 Rx [Augmentin] Allergies Allergy/AdvReac Type Severity Reaction Status Date / Time No Known Drug Allergies Allergy Verified 09/15/20 12:21 EXAM Constitutional Vitals: Temp Pulse Resp BP Pulse Ox 98.2 F 111 H 17 115/54 98 09/15/20 12:11 09/15/20 16:34 09/15/20 16:34 09/15/20 16:31 09/15/20 16:34 Exam: General: Obtunded, obese Eyes/N/T: PERRL, Head/Neck: neck supple, normocephalic atraumatic CV: Tacky but regular, No murmurs, normal s1/s2 Pulm: Clear b/l, no wheezing/rhonchi/rales Abd: soft, nontender, +BS x4 Ext: no clubbing/cyanosis/edema Neuro: Patient responds to sternal rub. She stated yes when asked if she could hear me but would not open her eyes. Seems to squeeze my hand but was difficult to tell. she is protecting her airway. pupils equal round reactive to light. Skin: warm/dry. left foot wound looks clean/dry DATA Data Completed and Pending Labs: Labs from last 24 hours 09/15/20 09/15/20 09/15/20 15:23 13:08 13:08 WBC RBC Hgb Hct MCV MCH MCHC RDW Plt Count MPV Neut % (Auto) Lymph % (Auto) [place] % (Auto) Eos % (Auto) Baso % (Auto) Lymph # (Auto) [place] # (Auto) Eos # (Auto) Baso # (Auto) Absolute Neutrophils Platelet Estimate Pending RBC Morphology Pending Sodium Potassium Chloride Carbon Dioxide Anion Gap BUN Creatinine GFR Calculation Glucose Calcium Total Bilirubin AST ALT Alkaline Phosphatase Troponin T Total Protein Albumin Globulin Albumin/Globulin Ratio Random Cortisol Pending Ethyl Alcohol 0.010 H 09/15/20 09/15/20 09/15/20 13:08 13:08 13:08 WBC 16.1 H RBC 4.49 Hgb 12.2 Hct 40.8 MCV 90.9 MCH 27.2 MCHC 29.9 L RDW 15.4 H Plt Count 331 MPV 9.8 Neut % (Auto) 64.3 Lymph % (Auto) 27.3 [place] % (Auto) 7.3 Eos % (Auto) 0.2 Baso % (Auto) 0.9 Lymph # (Auto) 4.39 [place] # (Auto) 1.17 H Eos # (Auto) 0.04 Baso # (Auto) 0.14 Absolute Neutrophils 10.32 H Platelet Estimate RBC Morphology Sodium 135 Potassium 6.7 H* Chloride 101 Carbon Dioxide 12 L Anion Gap 22.0 H BUN 62 H Creatinine 12.3 H* GFR Calculation 3 Glucose 134 H Calcium 7.4 L Total Bilirubin 0.2 AST 18 ALT 14 Alkaline Phosphatase 121 H Troponin T 0.15 H* Total Protein 7.7 Albumin 3.5 Globulin 4.2 H Albumin/Globulin Ratio 0.8 L Random Cortisol Ethyl Alcohol A/P Narrative A/P Narrative: A: *Acute encephalopathy (obtunded): likely metabolic with uremia/electrolyte + meds, ?infectious -CT brain unremarkable *ESRD: missed several sessions of HD *Hyperkalemia: *Circulatory shock: endocrine vs less likely septic vs meds(clonidine/narc). Has had multiple episodes of hypotension in past -weaning off levophed in ED -lactate wnl *AG met acidosis: lacate wnl *recent Left foot infection: follows with Dr. Gerardo *Diabetes w/neuropathy: A1c 6.7 *ESRD: Has been following with Dr. Rodriguez *Anemia, chronic *HTN/HLD: *Depression/anxiety/fibromyalgia: *Chronic pain: *h/o cardiomyopathy: *chronic leukocytosis *COVID(+) when tested @ [facility] on 09/11: -on room air -cxr with b/l infiltrates but could be edema P: -monitor airway, protecting at this time -icu -wean off levophed -Nephrology for emergent HD, bicarb - -check TSH/cortisol/ammonia/ABG/UA/BC/PCT -UDS -covid screen -Dr. Gerardo/wound care -basal and SSI -cont home psych meds -hold home clonidine -hold home narcotics -PT/OT -ppx: Heparin Time Spent With Patient Time: Total time spent is greater than 50% in coordination of care (as documented) at patient's floor/unit and/or counseling patient:
--- NOTE | 2020-09-15 17:41 | Nephrology History & Physical ---
HPI History of Present Illness Patient information: Note initiated : 09/15/20 at 5:36 pm Service Date, if different from initiated Date: [] Patient: Dang Varner a 55 y/o F admitted on for altered loc. Chief Complaint: [obtundation] History of present illness: Ms. Varner is a 55 year old F with a history of end-stage renal disease, diabetes, usual complications of diabetes and end-stage renal disease including anemia, hyperphosphatemia, and peripheral vascular disease. She was hospitalized earlier in the month for what is believed to be purulent cellulitis and was treated with completion of a course of a 1st- generation cephalosporin along with augmentin 500/125 mg po BID x 6 days. She was seen by wound care and MRI negative for osteomyelitis and she was discharged. She developed a dry cough about a week ago. On Tuesday, she did come to dialysis c/o diarrhea. She was seen in ED and was discharge with tentative Dx of a viral syndrome. her and other members of her family were tested for SARSCV 2 and results were at [facility] and I have not looked them up as of this dictation. The SARS CV-2 test from 09/11/2020 was POSITIVE at [facility]. She presented to the emergency room today hypotensive, acidotic and obtunded. Vital signs at 1736 hrs. include a blood pressure of 96/54, pulse of 109, respirations of 15, O2 sat of 86%. Her lowest blood pressure was 50-60 systolic. She received small boluses of normal saline with some improvement There is no change in her mentation with 2 A of Narcan EKG showed right bundle branch pattern but this is old CXR => IMPRESSION: 1. Left central venous catheter with its tip in the brachiocephalic vein. No pneumothorax identified on AP, supine radiograph 2. Bilateral pulmonary parenchymal infiltrates consistent with Covid pneumonia CT Head: IMPRESSION: 1. Benign lytic lesion in the occipital bone, unchanged 2. Bilateral chronic lacunar infarctions in the globus pallidus 3. No acute abnormality Laboratory Tests 09/15/20 09/15/20 13:08 13:08 WBC 16.1 H Hgb 12.2 Hct 40.8 MCV 90.9 Plt Count 331 Eos % (Auto) 0.2 Absolute Neutrophils 10.32 H Ethyl Alcohol 0.010 H Laboratory Tests 09/15/20 09/15/20 13:08 13:08 Sodium 135 Potassium 6.7 H* Chloride 101 Carbon Dioxide 12 L Anion Gap 22.0 H BUN 62 H Creatinine 12.3 H* GFR Calculation 3 Glucose 134 H Calcium 7.4 L Total Bilirubin 0.2 AST 18 ALT 14 Alkaline Phosphatase 121 H Troponin T 0.15 H* Albumin 3.5 In order to treat the hyperkalemia and acidosis rapidly as no HD is available for several hours, I would give a minimum of 3 amp IV NaHCO3 to replace bicarb deficit and promote intracellular shift of K. This is a toxic metabolic event and the trigger may well have been hypoxemia due to SARS CV2 preumionia and now shock, acidosis and hyperkalemia. Pressors for maintenance of perfusion. Solumedrol and remdesivir x 5 days with daily LFTs Oxycodone, pregabalin and suvorexant may be playing a role in contributing to the obtundation out of proprotion to ther hypoxemia Give 100 mg hydrocortisone for low BP incase this is acute adrenitis from a viral cause. Review of Systems ROS unobtainable: due to mental status Review of systems: Chart reviewed [facility] All Active Problems (Updated 09/15/20 @ 21:05 by Richy Mtaa MD) Toxic metabolic encephalopathy (Acute) Metabolic acidosis with increased anion gap and accumulation of organic acids (Acute) COVID-19 in immunocompromised patient (Acute) Acute viral syndrome (Acute) Fever (Acute) Pressure ulcer of buttock (Acute) Altered mental status (Acute) Hypotension (Acute) Chronic kidney disease, stage 5, kidney failure (Acute) Obtundation (Acute) Cellulitis (Acute) Failure of outpatient treatment (Acute) Wound of left foot (Acute) Syncope (Acute) Anemia (Acute) At risk for fluid volume overload (Acute) Contusion of ankle or foot, left (Acute) Blister (nonthermal), left foot, initial encounter (Acute) Otitis externa (Acute) Cellulitis (Acute) Wound of right foot (Acute) Syncope and collapse (Acute) Debility (Acute) Generalized weakness (Acute) Chronic, continuous use of opioids (Chronic) Altered mental status (Acute) UTI (urinary tract infection) (Acute) Hypothermia (Chronic) AV fistula thrombosis (Chronic) Hypertension (Chronic) Anemia of chronic renal failure, stage 5 (Chronic) CRF (chronic renal failure) (Acute) Hypoglycemia associated with type 2 diabetes mellitus (Acute) Dehydration (Acute) Ventricular tachycardia, nonsustained (Acute) Hyperkalemia (Acute) Metabolic acidosis (Acute) Anemia (Acute) Pneumonia (Acute) Left lower lobe pneumonia (Acute) Pneumonia (Acute) Hyperkalemia (Acute) History of CHF (congestive heart failure) (Chronic) Obesity (Chronic) RBBB (right bundle branch block) (Chronic) Hemorrhoids (Chronic) Hypotension (Chronic) Depression (Chronic) Insomnia (Chronic) Encounter for Health Maintenance Examination in Adult (Chronic) Wellness examination (Chronic) Dizziness (Chronic) Chronic nausea (Chronic) Gastroparesis (Chronic) Steal syndrome of upper extremity (Chronic) Subcutaneous nodule of breast (Chronic) Diabetic retinopathy associated with type 2 diabetes mellitus (Chronic) Migraines (Chronic) Arthritis (Chronic) Diabetes (Chronic) Cancer of kidney (Chronic) Anxiety (Chronic) ESRD (end stage renal disease) on dialysis (Chronic) Fibromyalgia (Chronic) Medical History (Updated 09/15/20 @ 21:05 by Richy Mata MD) Anemia of chronic renal failure, stage 5 (Chronic) Anxiety (Chronic) Arthralgia of multiple joints (Resolved) Arthritis (Chronic) Atypical chest pain (Resolved) AV fistula thrombosis (Chronic) Cancer of kidney (Chronic) 2014 Maddie esophagitis (Resolved) Cellulitis (Acute) Cervical muscle strain (Resolved) Chronic Kidney Disease (Resolved) Chronic nausea (Chronic) Chronic, continuous use of opioids (Chronic) CKD (chronic kidney disease) stage 4, GFR 15-29 ml/min (Resolved) Congestion of nasal sinus (Resolved) Congestive heart failure (Resolved) Daytime sleepiness (Resolved) Dehydration (Resolved) Depression (Resolved) Depression (Chronic) Diabetes (Chronic) Diabetic retinopathy associated with type 2 diabetes mellitus (Chronic) Dizziness (Chronic) Dizziness of unknown cause (Resolved) Encounter for Health Maintenance Examination in Adult (Chronic) Encounter for medication refill (Resolved) ESRD (end stage renal disease) on dialysis (Chronic) Missed HD on Tuesday due to viral syndrome and diarrhea. SARS CV2 positive on 09/11/2020 at [facility] Fibromyalgia (Chronic) Fracture of femur (Resolved) Gastroenteritis (Resolved) Gastroparesis (Resolved) Gastroparesis (Chronic) 07/26/16 Generalized pain (Resolved) Heart failure, chronic, with acute decompensation (Resolved) Hemorrhoids (Chronic) History of CHF (congestive heart failure) (Chronic) Hypertension (Chronic) Hypokalemia (Resolved) Hypokalemia (Resolved) Hypotension (Chronic) Hypothermia (Chronic) Insomnia (Resolved) Insomnia (Chronic) Migraines (Chronic) Muscle pain (Resolved) Nausea (Resolved) Nausea & vomiting (Resolved) Nausea and vomiting (Resolved) Nausea, Vomiting, and Diarrhea (Resolved) Obesity (Chronic) Osteoarthritis (Resolved) Otitis externa (Acute) Polymyalgia rheumatica (Resolved) Polyp in nasopharynx (Resolved) RBBB (right bundle branch block) (Chronic) Steal syndrome of upper extremity (Chronic) Subcutaneous nodule of breast (Chronic) Syncope and collapse (Acute) Trochanteric bursitis of left hip (Resolved) UTI (urinary tract infection) (Resolved) Volume depletion, gastrointestinal loss (Resolved) Wellness examination (Chronic) 07/28/17 Wound of left foot (Acute) Surgical History H/O colonoscopy (Chronic) Dr. Ford H/O: (Chronic) 1998 2002 History of angioplasty (Chronic 07/26/17) and fistulogram History of kidney surgery (Chronic) 2010 Kidney cancer History of surgery (Chronic 06/09/16) Transposition of left upper arm cephalic vein History of surgery (Chronic) 2014 Placement of catheters History of surgery (Chronic) 1996 Gallstones History of surgery (Chronic) 2014 Fistula repair Family History Sister Arthritis Mother Cancer Father Heart attack Brother Tuberculosis Social History (Updated 09/01/20 @ 22:03 by Yandel Hunt DO) marital status: other: Children-2 smoking status: Never smoker alcohol intake frequency: does not drink substance use type: does not use additional history: She uses a walker and wheelchair 50%/50% of the time MEDS/ALLERGIES Home Medications and Allergies Home Medications Medication Instructions Recorded Confirmed Type calcium acetate(phosphat bind) 667 667 mg PO TID #90 cap 11/19/19 09/02/20 Rx mg capsule pregabalin 100 mg capsule 100 mg PO BID #180 cap 01/03/20 09/02/20 Rx midodrine 2.5 mg tablet 2.5 mg PO ONCE PRN #30 tab 05/08/20 09/02/20 Rx Protein bar PO 05/21/20 08/05/20 History acetaminophen 325 mg capsule 325 mg PO ONCE PRN 05/21/20 09/02/20 History alteplase 2 mg intra-catheter 2 mg INTRA-CATHETER ONCE 05/21/20 08/05/20 History solution calcitriol 0.25 mcg capsule 0.25 mcg PO 3XW 05/21/20 09/02/20 History cholecalciferol (vitamin D3) 125 5,000 unit PO QDAY cap 05/21/20 09/02/20 History mcg (5,000 unit) capsule clonidine HCl 0.1 mg tablet 0.1 mg PO QHS 05/21/20 09/02/20 History heparin (porcine) 1,000 unit/mL IV 05/21/20 08/05/20 History injection solution heparin (porcine) 1,000 unit/mL IV .3 x wk ml 05/21/20 08/05/20 History injection solution heparin (porcine) 1,000 unit/mL IV .q 3 times wk ml 05/21/20 08/05/20 History injection solution hydroxyzine HCl 10 mg tablet 10 mg PO ONCE tab 05/21/20 09/02/20 History loperamide 2 mg capsule 2 mg PO Q6H PRN 05/21/20 09/02/20 History midodrine 5 mg tablet 5 mg PO 3XW tab 05/21/20 09/02/20 History ondansetron HCl 4 mg tablet 4 mg PO Q8H 05/21/20 09/02/20 History sodium ferric gluconat-sucrose 62.5 mg IV QWEEK ml 05/21/20 08/05/20 History 62.5 mg/5 mL intravenous cephalexin 500 mg capsule 500 mg PO BID #10 cap 05/29/20 09/02/20 Rx ciprofloxacin HCl 0.2 % ear drops 5 drp OTIC BID #14 each 05/29/20 09/02/20 Rx in a dropperette suvorexant 10 mg tablet 10 mg PO QHS #30 tab 06/02/20 09/02/20 Rx B complex with C 20-folic acid 1 1 cap PO QDAY #30 cap 07/14/20 09/02/20 Rx mg capsule cephalexin 500 mg PO QID #28 cap 07/28/20 09/02/20 Rx atorvastatin 40 mg tablet 40 mg PO HS #90 tab 08/04/20 09/02/20 Rx sertraline 25 mg tablet 25 mg PO QDAY #30 tab 08/26/20 09/02/20 Rx oxycodone 10 mg tablet 10 mg PO q8h PRN #90 tab 08/29/20 09/02/20 Rx amoxicillin-pot clavulanate 1 tab PO QDAY #6 tab 09/04/20 Rx [Augmentin] Allergies Allergy/AdvReac Type Severity Reaction Status Date / Time No Known Drug Allergies Allergy Verified 09/15/20 12:21 Physical Examination Vital Signs Vital signs: Temp Pulse Resp BP Pulse Ox 36.8 C 110 H 16 103/55 94 09/15/20 12:11 09/15/20 17:06 09/15/20 17:06 09/15/20 17:01 09/15/20 17:06 General Appearance General appearance: obese, chronically ill and comatose (obtunded) EENT EENT: ATNC, PERRL, mucous membranes dry and conjunctiva injected Neck Neck: no JVD, no carotid bruit and supple Respiratory Respiratory: no kyphosis, course breath sounds and rhonchi Cardiovascular Cardiology: mid-systolic murmur, no edema, normal S1 and normal S2 Gastrointestinal Gastrointestinal: no tenderness, no guarding and obese Integumentary Integumentary: no rash, decubiti and chronic venous stasis Neurologic Neurologic: CN 3-12 intact, obtunded and upper extremity weakness Musculoskeletal Musculoskeletal: no clubbing Results Lab Results Result Diagrams: 09/15/20 13:08 09/15/20 13:08 Lab results: Most recent lab results Creatinine 12.3 mg/dL (0.6-1.1) H* 09/15/20 13:08 Calcium 7.4 mg/dL (8.6-10.4) L 09/15/20 13:08 Image Kidney/bladder ultrasound: pending A/P Assessment and plan (1) ESRD (end stage renal disease) on dialysis: Status: Chronic Comment: Missed HD on Tuesday due to viral syndrome and diarrhea. SARS CV2 positive on 09/11/2020 at [facility] (2) COVID-19 in immunocompromised patient: Status: Acute Comment: Start Hydrocortisone or solumedrol Remdesivir x 5 days Monitor Aa gradient and trend O2 sats (3) Hyperkalemia: Status: Acute Comment: Will see if 150 mEq NaHCO3 helps temporize the K level currently at 6.9 mEq /L but no EKG changes (4) Obtundation: Status: Acute Comment: Seems like toxic/metabolic encephalopathy No acute CVA or SDH on CT Stop [employer]OC[employer]ATE active meds Not likely to be uremic in nature (5) Metabolic acidosis with increased anion gap and accumulation of organic acids: Status: Acute Comment: 3 amps bicarb given in ED Recheck stat labs and plan HD accordingly (6) Toxic metabolic encephalopathy: Status: Acute Comment: I suspect SARS CV-2 related acute encephalitis Consider LP to look for csf pleocytosis and rule out other causes of viral encephalitis High dose corticosteroids have helped in this situation. Stop [employer] active Rx Time Spent With Patient Time: Total time spent is greater than 50% in coordination of care (as documented) at patient's floor/unit and/or counseling patient:
[2020-09-15 19:02] LABS: Thyroid Stimulating Hormone 0.7 uIU/mL (0.27-5.01)
[2020-09-15 19:03] LABS: C-Reactive Protein 2.2 mg/dL (0.03-0.80)
[2020-09-15 19:08] LABS: Eosinophils % (Manual) 1 % (0-7); Lymphocytes % 27 % (15-49); Monocytes % (Manual) 4 % (1-12); Platelet Estimate NORMAL (Normal); RBC Morphology NORMAL (Normal); Segmented Neutrophils % 68 % (38-78)
[2020-09-15] MEDS: 0.9 % SODIUM CHLORIDE 250 ML IV SCH (19:42)
[2020-09-15] MEDS ORDERED: IPRATROPIUM/ALBUTEROL 3 ML AMPUL.NEB NEB PRN (20:03)
[2020-09-15] MEDS ORDERED: VANCOMYCIN PER PHARMACY IV SCH (20:03)
[2020-09-15] MEDS ORDERED: DEXTROSE 50% 50 ML VIAL IV PRN (20:03)
[2020-09-15] MEDS ORDERED: DEXTROSE 31 GM ORAL.SUSP PO PRN (20:03)
[2020-09-15] MEDS ORDERED: ONDANSETRON 4 MG/2 ML VIAL IV PRN (20:03)
[2020-09-15] MEDS ORDERED: VANCOMYCIN 1,000 MG in 0.9 % SODIUM CHLORIDE 250 ML IV ONE (20:15)
[2020-09-15 20:56] LABS: Prothrombin Time 13.6 sec (11.9-14.5)
[2020-09-15] MEDS: PIPERACILLIN SODIUM/TAZOBACTAM 2.25 GM in DEXTROSE 5% IN WATER 50 ML IV SCH (20:56)
[2020-09-15 21:02] LABS: Albumin 3.2 gm/dL (3.2-5.2); Calcium 7.4 mg/dL (8.6-10.4); Phosphorous 7.1 mg/dL (2.5-4.5)
[2020-09-15] MEDS: INSULIN LISPRO 1 UNIT/0.01 ML UNIT SQ SCH (21:27)
[2020-09-15] MEDS: DOCUSATE SODIUM 100 MG CAPSULE PO SCH (21:27)
[2020-09-15] MEDS ORDERED: 0.9 % SODIUM CHLORIDE 10 ML SYRINGE IV SCH (22:00)
[2020-09-15] MEDS: HEPARIN 5,000 UNIT/ML VIAL SQ SCH (22:20)
[2020-09-15 22:47] LABS: Albumin 3.4 gm/dL (3.2-5.2); Blood Urea Nitrogen 66 mg/dL (6-20); Calcium 7.1 mg/dL (8.6-10.4); Carbon Dioxide 18 mmol/L (22-30); Chloride 101 mmol/L (96-108); Glomerular Filtration Rate 3; Glucose 197 mg/dL (70-105)
[2020-09-15] MEDS ORDERED: SODIUM BICARBONATE VIAL 150 MEQ in DEXTROSE 5% IN WATER 850 ML IV SCH (23:30)
[2020-09-16] MEDS ORDERED: SODIUM BICARBONATE 50 MEQ/50 ML VIAL ONE (00:22)
[2020-09-16 03:51] LABS: Appearance,Urine CLOUDY (Clear); Bacteria,Urine FEW /hpf (0); Bilirubin,Urine Negative (Negative); Color,Urine YELLOW; Culture Indicated,Urine yes; Glucose,Urine (UA) 50 mg/dL (Negative); Ketones,Urine 5 mg/dL (Negative); Leukocyte Esterase,Urine 500 /ug (Negative); Nitrate,Urine Negative (Negative); Protein,Urine 100 mg/dL (Negative); Specific Gravity,Urine 1.017 (1.000-1.035); Urine Blood >=1.0 mg/dL (Negative); Urine RBC > 182 /hpf (0-1); Urine Squamous Epithelial Cell 2 /hpf (0-4); Urine Transitional Epi Cells 1 /hpf (0-2); Urine WBC 77 /hpf (0-4); Urobilinogen,Urine Negative
[2020-09-16 04:17] LABS: Amphetamine Screen,Urine None detected; Barbiturate Screen,Urine None detected; Benzodiazepines Screen,Urine None detected; Cannabinoid Screen,Urine None detected; Cocaine Screen,Urine None detected; Opiate Screen,Urine None detected; Oxycodone, Urine Screen None detected; Phencyclidine Screen,Urine None detected
[2020-09-16] MEDS: PIPERACILLIN SODIUM/TAZOBACTAM 2.25 GM in DEXTROSE 5% IN WATER 50 ML IV SCH ×3 (05:38→22:04)
--- NOTE | 2020-09-16 07:19 | Internal Med Progress Note ---
SUBJECTIVE Subjective Patient information: Note initiated : 09/16/20 at 7:07 am Service Date, if different from initiated Date: [] Patient: Dang Varner a 55 y/o F admitted on 09/15/20 for altered loc. Chief Complaint: [] Interval history: History of present illness: Ms. Varner is a 55 year old F Presents to the ED with obtundation. History obtained from chart and, member. Per family member Meghan, she has had a dry cough for the past week little bit of phlegm occasionally but otherwise no recent complaints. She as well as found members were tested positive for Covid, but got tested at [place] on and were told results on Tuesday. She presented to [facility] ER with a cough on Tuesday when she was also to undergo dialysis but did not have any significant findings. Family ever said she was in her typical state of health last night. But they the patient would not wake up for the family member. Per the family member patient typically sleeps 2 to 4 hours daily. He has been to wound care clinic recently of the last Tuesday for a left foot infection she is dealing with. Family member did denies any drug use or alcohol use. She received Narcan x2 in the ED with no real response. She was hypotensive and was started on Levophed. Looking at her old history she has had many episodes of hypotension. She missed dialysis on Tuesday and today. Discussed with Dr. Mata. Patient will get dialysis today. 09/16 Patient getting dialysis this morning. Mentation much improved. She does not recalled why she came in, explained that her daughter found her unresponsive. Review of Systems: denies headache/fever/chills/nausea/vomiting/chest or abdominal pain/cough/dyspnea/diarrhea. Otherwise see above. Constitutional Vitals: Vital Signs Temp Pulse Resp BP Pulse Ox 99.2 F H 75 14 166/74 98 09/16/20 05:00 09/16/20 06:39 09/16/20 06:39 09/16/20 06:39 09/16/20 06:39 Period Temp Pulse Resp BP Sys/Bernstein Pulse Ox Last 24 Hr 97.3 F-100.0 F 31-131 11-24 50-195/30-156 77-100 Intake and Output 09/15/20 09/16/20 09/16/20 21:59 05:59 13:59 Intake Total 88 265 Output Total 1 3 Balance 87 262 Weight 77.882 kg Intake & Output: Intake & Output 09/15/20 09/16/20 09/16/20 21:59 05:59 13:59 Intake Total 88 265 Output Total 1 3 Balance 87 262 Weight 77.882 kg Intake: IV 88 265 Levophed 16 mg In Sodium 38 15 Chloride 0.9% 234 ml @ 10 MCG/ MIN 9.375 mls/hr IV Q24H [facility] Rx #:[id number] Zosyn 2.25 gm In Dextrose 5% in 50 Water 50 ml @ 100 mls/hr IV Q8H [facility] Rx#:[id number] Vancomycin 1,000 mg In Sodium 250 Chloride 0.9% 250 ml @ 250 mls/ hr IV ONCE ONE Rx#:[id number] Oral 0 Output: Urine Catheter Amount 1 3 Uretheral (Davis) 1 Void Amount 0 Other: Urine Appearance Cloudy Uretheral (Davis) Sediment Mucous Threads Purulent Urine Color Light Cecille Uretheral (Davis) Light Cecille Stool Size Smear Stool Color Yellow Stool Consistency Loose # Bowel Movements 0 0 # of times incontinent of 1 Bowels Exam: General: Drowsy but awakens easily, acute distress, obese Eyes/N/T: EOMI Head/Neck: neck supple, CV: RRR , No murmurs, Pulm: mild b/l wheezing, nonlabored Abd: soft, nontender, +BS x4 Ext: no clubbing/cyanosis/edema, left foot in dressings Neuro: Patient is sleepy but awakens easily. Responds to questions appropriately. Follows commands. Moves all extremities Skin: warm/dry. OBJ DATA Labs CBC & Chem 7: 09/16/20 05:12 09/16/20 05:12 Labs: Abnormal Lab Results 09/16/20 09/15/20 09/15/20 02:18 21:08 16:00 WBC MCHC RDW [place] # (Auto) Absolute Neutrophils D-Dimer Potassium 6.3 H* 6.3 H* Carbon Dioxide 18 L 19 L Anion Gap 21.0 H 22.0 H BUN 66 H 66 H Creatinine 12.7 H* 12.8 H* Glucose 197 H 146 H Calcium 7.1 L 7.4 L Phosphorus 7.0 H* 7.1 H* Ferritin Alkaline Phosphatase Total Creatine Kinase Troponin T C-Reactive Protein Globulin Albumin/Globulin Ratio Procalcitonin Urine Appearance Cloudy A Urine Protein 100 A Urine Glucose (UA) 50 A Urine Ketones 5 A Urine Occult Blood >=1.0 A Ur Leukocyte Esterase 500 A Urine RBC > 182 H Urine WBC 77 H Urine Bacteria Few A Ethyl Alcohol 09/15/20 09/15/20 09/15/20 13:30 13:08 13:08 WBC MCHC RDW [place] # (Auto) Absolute Neutrophils D-Dimer Potassium Carbon Dioxide Anion Gap BUN Creatinine Glucose Calcium Phosphorus Ferritin 1784.0 H Alkaline Phosphatase Total Creatine Kinase 239 H Troponin T C-Reactive Protein 2.20 H Globulin Albumin/Globulin Ratio Procalcitonin 0.73 H Urine Appearance Urine Protein Urine Glucose (UA) Urine Ketones Urine Occult Blood Ur Leukocyte Esterase Urine RBC Urine WBC Urine Bacteria Ethyl Alcohol 09/15/20 09/15/20 09/15/20 13:08 13:08 13:08 WBC MCHC RDW [place] # (Auto) Absolute Neutrophils D-Dimer 1.61 H Potassium Carbon Dioxide Anion Gap BUN Creatinine Glucose Calcium Phosphorus Ferritin Alkaline Phosphatase Total Creatine Kinase Troponin T 0.15 H* C-Reactive Protein Globulin Albumin/Globulin Ratio Procalcitonin Urine Appearance Urine Protein Urine Glucose (UA) Urine Ketones Urine Occult Blood Ur Leukocyte Esterase Urine RBC Urine WBC Urine Bacteria Ethyl Alcohol 0.010 H 09/15/20 09/15/20 13:08 13:08 WBC 16.1 H MCHC 29.9 L RDW 15.4 H [place] # (Auto) 1.17 H Absolute Neutrophils 10.32 H D-Dimer Potassium 6.7 H* Carbon Dioxide 12 L Anion Gap 22.0 H BUN 62 H Creatinine 12.3 H* Glucose 134 H Calcium 7.4 L Phosphorus Ferritin Alkaline Phosphatase 121 H Total Creatine Kinase Troponin T C-Reactive Protein Globulin 4.2 H Albumin/Globulin Ratio 0.8 L Procalcitonin Urine Appearance Urine Protein Urine Glucose (UA) Urine Ketones Urine Occult Blood Ur Leukocyte Esterase Urine RBC Urine WBC Urine Bacteria Ethyl Alcohol Meds: Medications Acetaminophen (Tylenol) 650 mg IN Q4-6HP PRN PRN Reason: PAIN/FEVER > 101 Albuterol/Ipratropium (Duoneb) 3 ml NEB Q4HRT PRN PRN Reason: Dyspnea Dextrose (Dextrose 50%) 0 ml IV UD PRN PRN Reason: Hypoglycemia Diagnostic Test (Pha) (Accu-Chek) 1 each FS ACHS [facility] Last Admin: 09/15/20 21:25 Dose: 1 each Documented by: Docusate Sodium (Colace) 100 mg PO BID [facility] Last Admin: 09/15/20 21:27 Dose: Not Given Documented by: Glucose (Insta-Glucose) 15 gm PO PRN PRN PRN Reason: Hypoglycemia Heparin Sodium (Porcine) (Heparin) 5,000 unit SQ Q12 [facility] Last Admin: 09/15/20 22:20 Dose: 5,000 unit Documented by: Norepinephrine Bitartrate 16 (mg/ Sodium Chloride) 250 mls @ 9.375 mls/hr IV Q24H [facility]; Protocol Sodium Chloride (Sodium Chloride 0.9%) 250 mls @ 20 mls/hr IV .[id number] [facility] Last Admin: 09/15/20 19:42 Dose: 20 mls/hr Documented by: Piperacillin Sod/Tazobactam (Sod 2.25 gm/ Dextrose) 50 mls @ 100 mls/hr IV Q8H [facility]; Protocol Last Admin: 09/16/20 05:38 Dose: 100 mls/hr Documented by: Sodium Bicarbonate 150 meq/ (Dextrose) 1,000 mls @ 125 mls/hr IV Q20H [facility] Last Admin: 09/16/20 00:39 Dose: 125 mls/hr Documented by: Insulin Human Lispro (Humalog) 0 unit SQ ACHS [facility]; Protocol Last Admin: 09/15/20 21:27 Dose: Not Given Documented by: Ondansetron HCl (Zofran) 4 mg IV Q4-6HP PRN PRN Reason: Nausea And Vomiting Sodium Chloride (Saline Flush) 10 ml IV Q12 [facility] Vancomycin HCl (Vancomycin Per Pharmacy) 1 order IV UD [facility]; Protocol A/P Narrative A/P Narrative: A: *Acute encephalopathy (obtunded): likely metabolic/toxic with uremia/electrolyte + meds, ?infectious/covid -CT brain unremarkable. -much improved today *ESRD: missed several sessions of HD *Hyperkalemia: *Circulatory shock: endocrine vs less likely septic vs meds(clonidine/narc). Has had multiple episodes of hypotension in past -levophed first night -lactate wnl *AG met acidosis: lacate wnl *recent Left foot infection: follows with Dr. Gerardo and seen recently *?UTI: UA chronically abnormal *Diabetes w/neuropathy: A1c 6.7 *ESRD: Has been following with Dr. Rodriguez *Anemia, chronic *HTN/HLD: *Depression/anxiety/fibromyalgia: *Chronic pain: *h/o cardiomyopathy: *chronic leukocytosis *COVID(+) @ [facility] on 09/11: -on room air in ED. last night started on 2L. Tmax 100.0 -cxr with b/l infiltrates but could be edema P: -icu -Nephrology following, IVF's per nephro -Dexamathasone, renal fxn precluding remdesivir -empric abx, f/u PCT/BC -Wound care -basal and SSI -hold home clonidine -hold home narcotics -PT/OT -ppx: Heparin Time Spent With Patient Time: Total time spent is greater than 50% in coordination of care (as documented) at patient's floor/unit and/or counseling patient:
--- NOTE | 2020-09-16 07:37 | Nephrology Progress Note ---
SUBJECTIVE Subjective Patient information: Note initiated : 09/16/20 at 7:33 am Service Date, if different from initiated Date: [] Patient: Dang Varner 55 y/o F admitted on 09/15/20 for altered loc. Chief Complaint: [SARS COV 2 pneumonia with obtundation] This patient has end-stage renal disease with diabetes and peripheral vascular issues recently being treated for a left foot suppurative cellulitis on Keflex and Augmentin. She developed a viral syndrome and around 1126 had a positive S ARS COV 2 test at [facility]. Her last dialysis was Tuesday09/10/2020. She missed dialysis on Tuesday due to diarrhea/loose stools. Family brought her in to the ER and obtunded state yesterday where work-up was negative. 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 EtOH and urine tox screens were negative yesterday, head CT was negative, metabolic acidosis and hyperkalemia were temporized with IV bicarbonate. Labs from this morning are pending at the time of this dictation. She is scheduled for hemodialysis this morning and will repeat tomorrow to get her back on her regular MWF schedule. Discussed with Dr Hunt who offered an alternative explanation for her waxing and waning MS to obtundation again this afternoon, that is status epilepticus. She will go for MRI and be loaded with keppra as we do not have the capabilities for EEG and SARS CV2 infection limits her transport acceptance. Seen during HD this AM ~9:30 and she was stable hemodynamically and somewhat responsive to voice and followed simple commands. Lest arm not moving as much as right but HD nurse reports that this is not new and may be 2/2 nerve injury at time of AV access placement. MRI: Nothing acute. LP: Initially clear but by tube #4 blood tinged. Glucose and protein WNL and 5 WBCs/cmm which can be accounted for by the RBCs at a 400/1 ratio would expect 23 WBCs/cc just from blood contamination of the CSF. Laboratory Tests 09/16/20 17:20 CSF RBC 9231 H CSF Total Nucleated Auto 5 CSF Neutrophils 92 H CSF Lymphocytes 5 L CSF Monocytes 3 L CSF Glucose 84 H CSF Total Protein 26.0 Constitutional Vitals: Vital Signs Temp Pulse Resp BP Pulse Ox 37.3 C H 75 14 166/74 98 09/16/20 05:00 09/16/20 06:39 09/16/20 06:39 09/16/20 06:39 09/16/20 06:39 Period Temp Pulse Resp BP Sys/Bernstein Pulse Ox Last 24 Hr 36.3 C-37.8 C 31-131 11-24 50-195/30-156 77-100 Intake and Output 09/15/20 09/16/20 09/16/20 21:59 05:59 13:59 Intake Total 88 265 3 Output Total 1 3 Balance 87 262 3 Weight 77.882 kg Intake & Output: Intake & Output 09/15/20 09/16/20 09/16/20 21:59 05:59 13:59 Intake Total 88 265 3 Output Total 1 3 Balance 87 262 3 Weight 77.882 kg Intake: IV 88 265 3 Levophed 16 mg In Sodium 38 15 3 Chloride 0.9% 234 ml @ 10 MCG/ MIN 9.375 mls/hr IV Q24H [facility] Rx #:[id number] Zosyn 2.25 gm In Dextrose 5% in 50 Water 50 ml @ 100 mls/hr IV Q8H [facility] Rx#:[id number] Vancomycin 1,000 mg In Sodium 250 Chloride 0.9% 250 ml @ 250 mls/ hr IV ONCE ONE Rx#:[id number] Oral 0 Output: Urine Catheter Amount 1 3 Uretheral (Davis) 1 Void Amount 0 Other: Urine Appearance Cloudy Uretheral (Davis) Sediment Cloudy Mucous Threads Hematuria Purulent Urine Color Light Cecille Uretheral (Davis) Light Cecille Light Cecille Stool Size Smear Stool Color Yellow Stool Consistency Loose # Bowel Movements 0 0 # of times incontinent of 1 Bowels General appearance: disheveled and obese Exam: Opens her eyes to command which is an improvement over yesterday Head Head exam: Present normal inspection Eye Eye exam: Present conjunctival injection and EOMI Pupils: Present PERRL ENT ENT exam: Present mucous membranes dry Neck Neck exam: Absent meningismus Respiratory Respiratory exam: Present prolonged expiratory phase and rhonchi Cardiovascular Cardiovascular exam: Present normal rate and rhythm, +S1, +S2 and systolic murmur; Absent JVD and rubs GI/Abdominal GI/Abdominal exam: Present diminished bowel sounds Rectal Rectal exam: Present deferred Extremities Exam Extremities exam: Absent full ROM and tenderness Additional comments: Clotted AV graft Left foot with cellulitis said to be improved Back Exam Back exam: Absent rash noted Neurological Exam Neurological exam: Present altered (Obtunded on admission, improved during the retinal angiographer hours, once again obtunded high afternoon) Psychiatric Additional comments: Cannot assess Skin Skin exam: Present dry Additional comments: Scattered ecchymoses Additional findings Additional findings: Right IJ dialysis catheter with good function A/P Assessment and plan (1) COVID-19 in immunocompromised patient: Status: Acute Comment: Start Hydrocortisone or solumedrol Remdesivir x 5 days Monitor Aa gradient and trend O2 sats (2) Metabolic acidosis with increased anion gap and accumulation of organic acids: Status: Acute Comment: 3 amps bicarb given in ED Recheck stat labs and plan HD accordingly Repeat dialysis in the morning (3) Obtundation: Status: Acute Comment: Seems like toxic/metabolic encephalopathy No acute CVA or SDH on CT Stop [employer] active meds Not likely to be uremic in nature Results of LP argues against encephalitis MRI without any acute changes That 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 SARS CV2 positive on 09/11/2020 at [facility] Dialysis today with a potassium of 7 Repeat dialysis tomorrow and then 3 times a week on her usual MWF schedule Time Spent With Patient Time: Total time spent is greater than 50% in coordination of care (as documented) at patient's floor/unit and/or counseling patient: Total time spent with greater than 50% in coordination of care (as documented) at patient's floor/unit and/or counseling patient:: Greater than 35 minutes
[2020-09-16 07:48] LABS: ALT/SGPT 12 U/L (<40); AST/SGOT 19 U/L (<32); Albumin/Globulin Ratio 0.9 (1.0-2.3); Alkaline Phosphatase 96 U/L (39-117); Bilirubin,Direct < 0.2 mg/dL (<0.3); Bilirubin,Total 0.2 mg/dL (0.1-1.0); Blood Urea Nitrogen 69 mg/dL (6-20); Calcium 6.7 mg/dL (8.6-10.4); Carbon Dioxide 20 mmol/L (22-30); Chloride 101 mmol/L (96-108); Globulin 3.5 gm/dL (2.2-3.7); Glomerular Filtration Rate 3; Glucose 265 mg/dL (70-105); Lactate Dehydrogenase 225 U/L (135-225); Phosphorous 6.9 mg/dL (2.5-4.5); Triglycerides 85 mg/dL (<150); Uric Acid 12.3 mg/dL (2.5-8.0)
[2020-09-16] MEDS: INSULIN LISPRO 1 UNIT/0.01 ML UNIT SQ SCH ×4 (08:29→22:06)
[2020-09-16] MEDS: DOCUSATE SODIUM 100 MG CAPSULE PO SCH ×2 (08:30→22:05)
[2020-09-16] MEDS: HEPARIN 5,000 UNIT/ML VIAL SQ SCH ×2 (08:34→22:07)
[2020-09-16] MEDS: 0.9 % SODIUM CHLORIDE 250 ML IV SCH ×2 (08:37→22:08)
[2020-09-16] MEDS: 0.9 % SODIUM CHLORIDE 10 ML SYRINGE IV SCH ×2 (08:38→22:04)
[2020-09-16 08:40] LABS: Eosinophils % (Manual) 1 % (0-7); Hemoglobin 10.2 g/dL (12.0-15.0); Lymphocytes % 12 % (15-49); Mean Cell Volume 88.5 fL (80.0-100.0); Mean Corpuscular HGB Conc 30.9 g/dL (31.0-36.0); Mean Platelet Volume 9.9 fL (7.4-10.4); Monocytes % (Manual) 9 % (1-12); Platelet Count 287 K/mcL (140-440); Platelet Estimate NORMAL (Normal); RBC 3.73 M/mcL (4.00-5.20); RBC Morphology NORMAL (Normal); Red Cell Distribution Width 15.5 % (11.5-14.5); Segmented Neutrophils % 78 % (38-78); WBC 8.5 K/mcL (4.5-11.0)
[2020-09-16 10:44] LABS: C-Reactive Protein 3.8 mg/dL (0.03-0.80)
[2020-09-16] MEDS ORDERED: NOREPINEPHRINE BITARTRATE 16 MG in 0.9 % SODIUM CHLORIDE 234 ML IV SCH (12:30)
[2020-09-16 14:04] LABS: Vancomycin,Random 8.3 ug/mL
[2020-09-16] MEDS: DEXAMETHASONE 10 MG/ML VIAL IV SCH (14:30)
--- NOTE | 2020-09-16 14:56 | XRay Report ---
INDICATION: s/p HD, ?pulm edema TECHNIQUE: AP portable supine chest x-ray COMPARISON: Previous chest x-rays dated 09/15/2020, 09/13/2020 FINDINGS: Left-sided central venous catheter with its tip in the brachiocephalic vein. Large caliber right central venous catheter with its tip in the right atrium. Lungs: Poorly defined pulmonary parenchymal infiltrates. There is peribronchial thickening. More focal infiltrate at the left lung base. Appearance is most consistent with interstitial pulmonary edema. Left basilar pneumonia is possible. Heart, vascular:Mild cardiomegaly. Pulmonary vascularity is prominent but this study was performed and AP supine position Mediastinum, monty:No mediastinal widening. No hilar mass Pleura:No detectable pleural fluid Skeletal:Negative. Incidental note is made of surgical clips in the left upper arm IMPRESSION: 1. Probable interstitial pulmonary edema 2. Mild left basilar infiltrate. Pneumonia is possible. Interpreted and Authenticated by: Gary Michel 09/16/20
[2020-09-16 16:56] LABS: Prolactin 16.2 ng/mL (4.8-23.3)
[2020-09-16] MEDS ORDERED: VANCOMYCIN 1,000 MG in 0.9 % SODIUM CHLORIDE 250 ML IV ONE (17:00)
[2020-09-16] MEDS ORDERED: levETIRAcetam 750 MG in 0.9 % SODIUM CHLORIDE 100 ML IV SCH (17:00)
--- NOTE | 2020-09-16 17:26 | XRay Report ---
INDICATION: AMS, with Opening Pressure TECHNIQUE: Patient was placed in a prone position. Routine Betadine skin cleansing. 1% lidocaine was injected. An 18-gauge spinal needle was utilized. Lumbar puncture was performed at the L3-L4 level. Quantitative opening pressure was not obtained. CSF pressure is not elevated. CSF. Only slowly into the collection bile vials. 5 mL clear CSF was removed. The last tube was slightly bloody as I needed to adjust the position of the needle to continue collecting fluid. 10 seconds fluoroscopy utilized IMPRESSION: 1. Fluoroscopic guided lumbar puncture 2. 5 mL clear CSF removed 3. No elevated opening pressure Interpreted and Authenticated by: Gary Michel 09/16/20
[2020-09-16] MEDS ORDERED: LORazepam 2 MG/ML VIAL IV ONE (18:16)
[2020-09-16] MEDS ORDERED: LORazepam 2 MG/ML VIAL ONE (18:25)
[2020-09-16 18:50] LABS: Glucose,CSF 84 mg/dL (40-70)
--- NOTE | 2020-09-16 18:57 | Magnetic Resonance Report ---
INDICATION: AMS. Cochlea positive COMPARISON: Previous CT scan dated 09/15/2020 TECHNIQUE: Sagittal T1 FLAIR images. Axial diffusion-weighted images and FLAIR sequences FINDINGS: Cerebral hemispheres:No restricted diffusion. No acute infarction. No focal intra-axial signal abnormalities. No localized mass effect. No midline shift. Brain volume is normal. There is no hydrocephalus. Brain stem and cerebellum:No intra-axial abnormalities. Extra-axial:Normal flow void within vessels at the base of the brain. No subdural or epidural hematoma. No detectable subarachnoid hemorrhage Cavernous sinuses and basilar cisterns are normal. Skull:Lytic lesion in the occipital bone is again identified. This was present on previous brain CT scan. This was also present brain CT scan dated 04/15/2016. This is considered benign. There is mild subgaleal fluid in the left parietal region extending to the vertex. There is no discrete soft tissue mass Temporal bones:Mastoid sinuses are normal. No fluid or soft tissue intensity within either middle ear. Inner ear structures are normal Orbits, facial soft tissues:Globes are normal. No intraorbital abnormality. Facial soft tissues are negative Paranasal sinuses:Maxillary, frontal, ethmoid sinuses are negative. Sphenoid sinuses are negative. No mucosal thickening. No air-fluid levels. No discrete soft tissue mass IMPRESSION: No intracranial abnormality. No cerebral infarction Interpreted and Authenticated by: Gary Michel 09/16/20
[2020-09-16 19:40] LABS: Appearance,CSF Cloudy; Lymphocytes,CSF 5 % (28-96); Monocytes,CSF 3 % (16-56); Neutrophils,CSF 92 % (0-7); Nucleated Cells,CSF 5 /cumm (0-5); Red Blood Cell,CSF 9231 /cumm (0-1)
[2020-09-16] MEDS ORDERED: LORazepam 2 MG/ML VIAL IV PRN (19:49)
[2020-09-16] MEDS ORDERED: LABETALOL 5 MG/ML ML IV PRN (21:06)
[2020-09-16] MEDS ORDERED: cloNIDine HCL 0.1 MG TABLET PO PRN (21:06)
[2020-09-16] MEDS: BENZOCAINE/MENTHOL 1 LOZENGE PO PRN ×2 (21:46→23:01)
[2020-09-16] MEDS: ACETAMINOPHEN 650 MG SUPP.RECT PR PRN (22:38)
[2020-09-17] MEDS: BENZOCAINE/MENTHOL 1 LOZENGE PO PRN (01:58)
[2020-09-17] MEDS: PIPERACILLIN SODIUM/TAZOBACTAM 2.25 GM in DEXTROSE 5% IN WATER 50 ML IV SCH ×3 (05:11→21:49)
[2020-09-17] MEDS: ACETAMINOPHEN 650 MG SUPP.RECT PR PRN (05:27)
[2020-09-17 06:23] LABS: Basophils # (Auto) 0.03 K/mcL (0.00-0.20); Basophils % (Auto) 0.4 % (0.0-2.0); Eosinophils # (Auto) 0 K/mcL (0.00-0.70); Eosinophils % (Auto) 0 % (0.0-7.0); Hematocrit 33.3 % (36.0-48.0); Hemoglobin 10.5 g/dL (12.0-15.0); Lymphocytes % (Auto) 10.9 % (15.0-49.0); Mean Cell Volume 86.5 fL (80.0-100.0); Mean Corpuscular HGB Conc 31.5 g/dL (31.0-36.0); Monocytes # (Auto) 0.56 K/mcL (0.10-0.90); Monocytes % (Auto) 7.6 % (1.0-12.0); Neutrophils % (Auto) 81.1 % (38.0-78.0); Platelet Count 260 K/mcL (140-440); RBC 3.85 M/mcL (4.00-5.20); WBC 7.4 K/mcL (4.5-11.0)
[2020-09-17] MEDS ORDERED: NOREPINEPHRINE BITARTRATE 16 MG in 0.9 % SODIUM CHLORIDE 234 ML IV PRN ×2 (07:15→15:34)
[2020-09-17] MEDS ORDERED: ACETAMINOPHEN 160 MG/5 ML ORAL.SOL PO PRN (07:22)
--- NOTE | 2020-09-17 07:26 | Internal Med Progress Note ---
SUBJECTIVE Subjective Patient information: Note initiated : 09/17/20 at 7:21 am Service Date, if different from initiated Date: [] Patient: Dang Varner 55 y/o F admitted on 09/15/20 for altered loc. Chief Complaint: [] Interval history: History of present illness: Ms. Varner is a 55 year old F Presents to the ED with obtundation. History obtained from chart and, member. Per family member Meghan, she has had a dry cough for the past week little bit of phlegm occasionally but otherwise no recent complaints. She as well as found members were tested positive for Covid, but got tested at [facility] on and were told results on Tuesday. She presented to [facility] ER with a cough on Tuesday when she was also to undergo dialysis but did not have any significant findings. Family ever said she was in her typical state of health last night. But they the patient would not wake up for the family member. Per the family member patient typically sleeps 2 to 4 hours daily. He has been to wound care clinic recently of the last Tuesday for a left foot infection she is dealing with. Family member did denies any drug use or alcohol use. She received Narcan x2 in the ED with no real response. She was hypotensive and was started on Levophed. Looking at her old history she has had many episodes of hypotension. She missed dialysis on Tuesday and today. Discussed with Dr. Mata. Patient will get dialysis today. 09/16 Patient getting dialysis this morning. Mentation much improved. She does not recalled why she came in, explained that her daughter found her unresponsive. 09/17 Mentation clear up yesterday evening and is good again today. No overnight event or new complaints. Getting dialysis this morning. Review of Systems: denies headache/fever/chills/nausea/vomiting/chest or abdominal pain/cough/dyspnea/diarrhea. Otherwise see above. Constitutional Vitals: Vital Signs Temp Pulse Resp BP Pulse Ox 97.5 F 76 23 H 110/72 98 09/17/20 04:28 09/17/20 07:00 09/17/20 07:00 09/17/20 07:00 09/17/20 07:00 Period Temp Pulse Resp BP Sys/Bernstein Pulse Ox Last 24 Hr 96.2 F-98.3 F 73-89 8-24 68-181/26-140 91-100 Intake and Output 09/16/20 09/17/20 09/17/20 21:59 05:59 13:59 Intake Total 284.5 290 50 Output Total 25 Balance 284.5 265 50 Weight 78.29 kg Intake & Output: Intake & Output 09/16/20 09/17/20 09/17/20 21:59 05:59 13:59 Intake Total 284.5 290 50 Output Total 25 Balance 284.5 265 50 Weight 78.29 kg Intake: IV 284.5 50 50 Sodium Chloride 0.9% 250 ml @ 124 20 mls/hr IV .[id number] [facility] Rx#: [id number] Levophed 16 mg In Sodium 3 Chloride 0.9% 234 ml @ 10 MCG/ MIN 9.375 mls/hr IV Q24H [facility] Rx #:[id number] Zosyn 2.25 gm In Dextrose 5% in 50 50 50 Water 50 ml @ 100 mls/hr IV Q8H [facility] Rx#:[id number] Keppra 750 mg In Sodium 107.5 Chloride 0.9% 100 ml @ 200 mls/ hr IV Q24H [facility] Rx#:[id number] Oral 240 Output: Urine Catheter Amount 25 Other: Meal snack Percent of Meal Consumed 100% Urine Appearance Cloudy Cloudy Uretheral (Davis) Sediment Sediment Urine Color Dark Cecille Light Cecille Uretheral (Davis) Light Cecille Light Cecille Urine Odor Strong Stool Size Smear Smear Stool Color Yellow Yellow Stool Consistency Loose # Bowel Movements 0 # of times incontinent of 1 Bowels Exam: General: awake, acute distress, obese Eyes/N/T: EOMI Head/Neck: neck supple, CV: RRR , No murmurs, Pulm: mild b/l wheezing, nonlabored Abd: soft, nontender, +BS x4 Ext: no clubbing/cyanosis/edema, left foot in dressings Neuro: awake. no focal deficits. Follows commands. Moves all extremities Skin: warm/dry. OBJ DATA Labs CBC & Chem 7: 09/17/20 05:08 09/17/20 05:08 Labs: Abnormal Lab Results 09/17/20 09/16/20 09/16/20 05:08 17:20 05:13 WBC RBC 3.85 L Hgb 10.5 L Hct 33.3 L MCHC RDW 15.0 H Neut % (Auto) 81.1 H Lymph % (Auto) 10.9 L Lymph # (Auto) 0.80 L Owen # (Auto) Lymphocytes % Absolute Neutrophils D-Dimer Potassium Carbon Dioxide Anion Gap BUN Creatinine Glucose Uric Acid Calcium Phosphorus Ferritin Alkaline Phosphatase Total Creatine Kinase Troponin T C-Reactive Protein Albumin Globulin Albumin/Globulin Ratio Procalcitonin 2.49 H Urine Appearance Urine Protein Urine Glucose (UA) Urine Ketones Urine Occult Blood Ur Leukocyte Esterase Urine RBC Urine WBC Urine Bacteria CSF RBC 9231 H CSF Neutrophils 92 H CSF Lymphocytes 5 L CSF Monocytes 3 L CSF Glucose 84 H Ethyl Alcohol 09/16/20 09/16/20 09/16/20 05:12 05:12 05:12 WBC RBC 3.73 L Hgb 10.2 L Hct 33.0 L MCHC 30.9 L RDW 15.5 H Neut % (Auto) Lymph % (Auto) Lymph # (Auto) Owen # (Auto) Lymphocytes % 12 L Absolute Neutrophils D-Dimer Potassium 7.0 H* Carbon Dioxide 20 L Anion Gap 18.0 H BUN 69 H Creatinine 12.2 H* Glucose 265 H Uric Acid 12.3 H Calcium 6.7 L Phosphorus 6.9 H* Ferritin 1804.0 H Alkaline Phosphatase Total Creatine Kinase 257 H Troponin T C-Reactive Protein 3.80 H Albumin 3.0 L Globulin Albumin/Globulin Ratio 0.9 L Procalcitonin Urine Appearance Urine Protein Urine Glucose (UA) Urine Ketones Urine Occult Blood Ur Leukocyte Esterase Urine RBC Urine WBC Urine Bacteria CSF RBC CSF Neutrophils CSF Lymphocytes CSF Monocytes CSF Glucose Ethyl Alcohol 09/16/20 09/15/20 09/15/20 02:18 21:08 16:00 WBC RBC Hgb Hct MCHC RDW Neut % (Auto) Lymph % (Auto) Lymph # (Auto) Owen # (Auto) Lymphocytes % Absolute Neutrophils D-Dimer Potassium 6.3 H* 6.3 H* Carbon Dioxide 18 L 19 L Anion Gap 21.0 H 22.0 H BUN 66 H 66 H Creatinine 12.7 H* 12.8 H* Glucose 197 H 146 H Uric Acid Calcium 7.1 L 7.4 L Phosphorus 7.0 H* 7.1 H* Ferritin Alkaline Phosphatase Total Creatine Kinase Troponin T C-Reactive Protein Albumin Globulin Albumin/Globulin Ratio Procalcitonin Urine Appearance Cloudy A Urine Protein 100 A Urine Glucose (UA) 50 A Urine Ketones 5 A Urine Occult Blood >=1.0 A Ur Leukocyte Esterase 500 A Urine RBC > 182 H Urine WBC 77 H Urine Bacteria Few A CSF RBC CSF Neutrophils CSF Lymphocytes CSF Monocytes CSF Glucose Ethyl Alcohol 09/15/20 09/15/20 09/15/20 13:30 13:08 13:08 WBC RBC Hgb Hct MCHC RDW Neut % (Auto) Lymph % (Auto) Lymph # (Auto) Owen # (Auto) Lymphocytes % Absolute Neutrophils D-Dimer Potassium Carbon Dioxide Anion Gap BUN Creatinine Glucose Uric Acid Calcium Phosphorus Ferritin 1784.0 H Alkaline Phosphatase Total Creatine Kinase 239 H Troponin T C-Reactive Protein 2.20 H Albumin Globulin Albumin/Globulin Ratio Procalcitonin 0.73 H Urine Appearance Urine Protein Urine Glucose (UA) Urine Ketones Urine Occult Blood Ur Leukocyte Esterase Urine RBC Urine WBC Urine Bacteria CSF RBC CSF Neutrophils CSF Lymphocytes CSF Monocytes CSF Glucose Ethyl Alcohol 09/15/20 09/15/20 09/15/20 13:08 13:08 13:08 WBC RBC Hgb Hct MCHC RDW Neut % (Auto) Lymph % (Auto) Lymph # (Auto) Owen # (Auto) Lymphocytes % Absolute Neutrophils D-Dimer 1.61 H Potassium Carbon Dioxide Anion Gap BUN Creatinine Glucose Uric Acid Calcium Phosphorus Ferritin Alkaline Phosphatase Total Creatine Kinase Troponin T 0.15 H* C-Reactive Protein Albumin Globulin Albumin/Globulin Ratio Procalcitonin Urine Appearance Urine Protein Urine Glucose (UA) Urine Ketones Urine Occult Blood Ur Leukocyte Esterase Urine RBC Urine WBC Urine Bacteria CSF RBC CSF Neutrophils CSF Lymphocytes CSF Monocytes CSF Glucose Ethyl Alcohol 0.010 H 09/15/20 09/15/20 13:08 13:08 WBC 16.1 H RBC Hgb Hct MCHC 29.9 L RDW 15.4 H Neut % (Auto) Lymph % (Auto) Lymph # (Auto) Owen # (Auto) 1.17 H Lymphocytes % Absolute Neutrophils 10.32 H D-Dimer Potassium 6.7 H* Carbon Dioxide 12 L Anion Gap 22.0 H BUN 62 H Creatinine 12.3 H* Glucose 134 H Uric Acid Calcium 7.4 L Phosphorus Ferritin Alkaline Phosphatase 121 H Total Creatine Kinase Troponin T C-Reactive Protein Albumin Globulin 4.2 H Albumin/Globulin Ratio 0.8 L Procalcitonin Urine Appearance Urine Protein Urine Glucose (UA) Urine Ketones Urine Occult Blood Ur Leukocyte Esterase Urine RBC Urine WBC Urine Bacteria CSF RBC CSF Neutrophils CSF Lymphocytes CSF Monocytes CSF Glucose Ethyl Alcohol Meds: Medications Acetaminophen (Tylenol) 650 mg IN Q4-6HP PRN PRN Reason: PAIN/FEVER > 101 Last Admin: 09/17/20 05:27 Dose: 650 mg Documented by: Albuterol/Ipratropium (Duoneb) 3 ml NEB Q4HRT PRN PRN Reason: Dyspnea Clonidine HCl (Catapres) 0.1 mg PO Q4HP PRN PRN Reason: Hypertension sbp>155 Last Admin: 09/16/20 21:46 Dose: 0.1 mg Documented by: Dexamethasone (Decadron) 6 mg IV DAILY [facility] Last Admin: 09/16/20 14:30 Dose: 6 mg Documented by: Dextrose (Dextrose 50%) 0 ml IV UD PRN PRN Reason: Hypoglycemia Diagnostic Test (Pha) (Accu-Chek) 1 each FS [facility] Last Admin: 09/16/20 22:03 Dose: 1 each Documented by: Docusate Sodium (Colace) 100 mg PO BID [facility] Last Admin: 09/16/20 22:05 Dose: Not Given Documented by: Glucose (Insta-Glucose) 15 gm PO PRN PRN PRN Reason: Hypoglycemia Heparin Sodium (Porcine) (Heparin) 5,000 unit SQ Q12 [facility] Last Admin: 09/16/20 22:07 Dose: 5,000 unit Documented by: Sodium Chloride (Sodium Chloride 0.9%) 250 mls @ 20 mls/hr IV .[id number] [facility] Last Admin: 09/16/20 22:08 Dose: Not Given Documented by: Piperacillin Sod/Tazobactam (Sod 2.25 gm/ Dextrose) 50 mls @ 100 mls/hr IV Q8H [facility]; Protocol Last Infusion: 09/17/20 06:00 Dose: Infused Documented by: Levetiracetam 750 mg/ Sodium (Chloride) 107.5 mls @ 200 mls/hr IV Q24H [facility] Last Infusion: 09/16/20 18:15 Dose: Infused Documented by: Norepinephrine Bitartrate 16 (mg/ Sodium Chloride) 250 mls @ 9.375 mls/hr IV Q24HP PRN; Protocol PRN Reason: Hypotension Insulin Human Lispro (Humalog) 0 unit SQ [facility]; Protocol Last Admin: 09/16/20 22:06 Dose: Not Given Documented by: Labetalol HCl (Trandate) 0 mg IV Q2HP PRN PRN Reason: Hypertension Lorazepam (Ativan) 2 mg IV Q4HP PRN PRN Reason: Seizure Ondansetron HCl (Zofran) 4 mg IV Q4-6HP PRN PRN Reason: Nausea And Vomiting Sodium Chloride (Saline Flush) 10 ml IV Q12 [facility] Last Admin: 09/16/20 22:04 Dose: 10 ml Documented by: Throat Lozenges (Cepacol) 1 lozenge PO PRN PRN PRN Reason: Sore Throat Last Admin: 09/17/20 01:58 Dose: 1 lozenge Documented by: Vancomycin HCl (Vancomycin Per Pharmacy) 1 order IV UD [facility]; Protocol A/P Narrative A/P Narrative: A: *Acute encephalopathy (obtunded): likely metabolic/toxic with uremia/electrolyte + meds, ?infectious/covid, ?Seizure -CT brain unremarkable for acute but does show old b/l lacunar infarcts. -MRI/LP unremarkable, -much improved yesterday morning then worsened in afternoon, better again during the evening and today *ESRD: missed several sessions of HD *Hyperkalemia: resolved *Circulatory shock: endocrine vs less likely septic vs meds(clonidine/narc). Has had multiple episodes of hypotension in past -levophed first night -lactate wnl *AG met acidosis: lacate wnl, improved *recent Left foot infection: follows with Dr. Gerardo and seen recently, site looks good per Dr. Gerardo *?UTI: UA chronically abnormal *Diabetes w/neuropathy: A1c 6.7 *ESRD: Has been following with Dr. Rodriguez *Anemia, chronic *HTN/HLD: *Depression/anxiety/fibromyalgia: *Chronic pain: *h/o cardiomyopathy: *chronic leukocytosis *COVID(+) @ [facility] on 09/11: -cxr with b/l infiltrates more likely edema, appeared mildly improved after HD P: -Nephrology following, IVF's per nephro -Dexamathasone, renal fxn precluding remdesivir -empric abx, f/u PCT/BC/UC -Wound care -basal and SSI -restart home clonidine -hold home narcotics -PT/OT -ppx: Heparin Time Spent With Patient Time: Total time spent is greater than 50% in coordination of care (as docume nted) at patient's floor/unit and/or counseling patient:
[2020-09-17] MEDS ORDERED: MIDODRINE 5 MG TABLET PO PRN ×2 (07:36→15:34)
[2020-09-17 07:39] LABS: ALT/SGPT 16 U/L (<40); AST/SGOT 32 U/L (<32); Albumin 3.1 gm/dL (3.2-5.2); Albumin/Globulin Ratio 0.8 (1.0-2.3); Alkaline Phosphatase 81 U/L (39-117); Bilirubin,Direct < 0.2 mg/dL (<0.3); Bilirubin,Total 0.2 mg/dL (0.1-1.0); Blood Urea Nitrogen 28 mg/dL (6-20); Calcium 6.9 mg/dL (8.6-10.4); Carbon Dioxide 28 mmol/L (22-30); Chloride 90 mmol/L (96-108); Globulin 3.8 gm/dL (2.2-3.7); Glomerular Filtration Rate 7; Glucose 167 mg/dL (70-105); Lactate Dehydrogenase 327 U/L (135-225); Phosphorous 5.5 mg/dL (2.5-4.5); Triglycerides 98 mg/dL (<150)
[2020-09-17] MEDS: DOCUSATE SODIUM 100 MG CAPSULE PO SCH ×2 (07:46→21:18)
[2020-09-17] MEDS: INSULIN LISPRO 1 UNIT/0.01 ML UNIT SQ SCH ×4 (07:46→21:18)
[2020-09-17] MEDS ORDERED: MUPIROCIN OINT 2% 22GM TOPICAL SCH (09:00)
[2020-09-17] MEDS ORDERED: COLLAGENASE TOP OINT TUBE 30GM TOPICAL SCH (09:00)
--- NOTE | 2020-09-17 11:23 | General Surgery Consult Note ---
HPI Data of Consult Consult date: 09/16/20 Requesting physician: Yandel Hunt Primary Care Provider: Reyna Mattson, Family Provider: I saw this patient in ICU 120/D along with Lani RN , Wound care nurse. Reviewed details pertaining to patient's current admission and subsequent progress. Spoke with nursing staff and Dr. Hunt about wound care management. Consult Narrative cc:: CC: Yandel Hunt PFSH PFSH All Active Problems (Updated 09/16/20 @ 20:20 by Richy Mata MD) Toxic metabolic encephalopathy (Acute) Metabolic acidosis with increased anion gap and accumulation of organic acids (Acute) COVID-19 in immunocompromised patient (Acute) Acute viral syndrome (Acute) Fever (Acute) Pressure ulcer of buttock (Acute) Altered mental status (Acute) Hypotension (Acute) Chronic kidney disease, stage 5, kidney failure (Acute) Obtundation (Acute) Cellulitis (Acute) Failure of outpatient treatment (Acute) Wound of left foot (Acute) Syncope (Acute) Anemia (Acute) At risk for fluid volume overload (Acute) Contusion of ankle or foot, left (Acute) Blister (nonthermal), left foot, initial encounter (Acute) Otitis externa (Acute) Cellulitis (Acute) Wound of right foot (Acute) Syncope and collapse (Acute) Debility (Acute) Generalized weakness (Acute) Chronic, continuous use of opioids (Chronic) Altered mental status (Acute) UTI (urinary tract infection) (Acute) Hypothermia (Chronic) AV fistula thrombosis (Chronic) Hypertension (Chronic) Anemia of chronic renal failure, stage 5 (Chronic) CRF (chronic renal failure) (Acute) Hypoglycemia associated with type 2 diabetes mellitus (Acute) Dehydration (Acute) Ventricular tachycardia, nonsustained (Acute) Hyperkalemia (Acute) Metabolic acidosis (Acute) Anemia (Acute) Pneumonia (Acute) Left lower lobe pneumonia (Acute) Pneumonia (Acute) Hyperkalemia (Acute) History of CHF (congestive heart failure) (Chronic) Obesity (Chronic) RBBB (right bundle branch block) (Chronic) Hemorrhoids (Chronic) Hypotension (Chronic) Depression (Chronic) Insomnia (Chronic) Encounter for Health Maintenance Examination in Adult (Chronic) Wellness examination (Chronic) Dizziness (Chronic) Chronic nausea (Chronic) Gastroparesis (Chronic) Steal syndrome of upper extremity (Chronic) Subcutaneous nodule of breast (Chronic) Diabetic retinopathy associated with type 2 diabetes mellitus (Chronic) Migraines (Chronic) Arthritis (Chronic) Diabetes (Chronic) Cancer of kidney (Chronic) Anxiety (Chronic) ESRD (end stage renal disease) on dialysis (Chronic) Fibromyalgia (Chronic) Medical History (Updated 09/16/20 @ 20:20 by Richy Mata MD) Anemia of chronic renal failure, stage 5 (Chronic) Anxiety (Chronic) Arthralgia of multiple joints (Resolved) Arthritis (Chronic) Atypical chest pain (Resolved) AV fistula thrombosis (Chronic) Cancer of kidney (Chronic) 2014 Maddie esophagitis (Resolved) Cellulitis (Acute) Cervical muscle strain (Resolved) Chronic Kidney Disease (Resolved) Chronic nausea (Chronic) Chronic, continuous use of opioids (Chronic) CKD (chronic kidney disease) stage 4, GFR 15-29 ml/min (Resolved) Congestion of nasal sinus (Resolved) Congestive heart failure (Resolved) Daytime sleepiness (Resolved) Dehydration (Resolved) Depression (Resolved) Depression (Chronic) Diabetes (Chronic) Diabetic retinopathy associated with type 2 diabetes mellitus (Chronic) Dizziness (Chronic) Dizziness of unknown cause (Resolved) Encounter for Health Maintenance Examination in Adult (Chronic) Encounter for medication refill (Resolved) ESRD (end stage renal disease) on dialysis (Chronic) Missed HD on Tuesday due to viral syndrome and diarrhea. SARS CV2 positive on 09/11/2020 at [facility] Dialysis today with a potassium of 7 Repeat dialysis tomorrow and then 3 times a week on her usual MWF schedule Fibromyalgia (Chronic) Fracture of femur (Resolved) Gastroenteritis (Resolved) Gastroparesis (Resolved) Gastroparesis (Chronic) 07/26/16 Generalized pain (Resolved) Heart failure, chronic, with acute decompensation (Resolved) Hemorrhoids (Chronic) History of CHF (congestive heart failure) (Chronic) Hypertension (Chronic) Hypokalemia (Resolved) Hypokalemia (Resolved) Hypotension (Chronic) Hypothermia (Chronic) Insomnia (Resolved) Insomnia (Chronic) Migraines (Chronic) Muscle pain (Resolved) Nausea (Resolved) Nausea & vomiting (Resolved) Nausea and vomiting (Resolved) Nausea, Vomiting, and Diarrhea (Resolved) Obesity (Chronic) Osteoarthritis (Resolved) Otitis externa (Acute) Polymyalgia rheumatica (Resolved) Polyp in nasopharynx (Resolved) RBBB (right bundle branch block) (Chronic) Steal syndrome of upper extremity (Chronic) Subcutaneous nodule of breast (Chronic) Syncope and collapse (Acute) Trochanteric bursitis of left hip (Resolved) UTI (urinary tract infection) (Resolved) Volume depletion, gastrointestinal loss (Resolved) Wellness examination (Chronic) 07/28/17 Wound of left foot (Acute) Surgical History H/O colonoscopy (Chronic) Dr. Ford H/O: (Chronic) 1998 2002 History of angioplasty (Chronic 07/26/17) and fistulogram History of kidney surgery (Chronic) 2010 Kidney cancer History of surgery (Chronic 06/09/16) Transposition of left upper arm cephalic vein History of surgery (Chronic) 2014 Placement of catheters History of surgery (Chronic) 1996 Gallstones History of surgery (Chronic) 2014 Fistula repair Family History Sister Arthritis Mother Cancer Father Heart attack Brother Tuberculosis Social History (Updated 09/01/20 @ 22:03 by Yandel Hunt DO) marital status: other: Children-2 smoking status: Smoker, status unknown alcohol intake frequency: does not drink substance use type: does not use additional history: She uses a walker and wheelchair 50%/50% of the time MEDS/ALLERGIES Home Medications and Allergies Home Medications Medication Instructions Recorded Confirmed Type pregabalin 100 mg capsule 100 mg PO BID #180 cap 01/03/20 09/16/20 Rx acetaminophen 325 mg capsule 325 mg PO ONCE PRN 05/21/20 09/02/20 History alteplase 2 mg intra-catheter 2 mg INTRA-CATHETER ONCE 05/21/20 08/05/20 History solution calcitriol 0.25 mcg capsule 0.25 mcg PO 3XW 05/21/20 09/02/20 History cholecalciferol (vitamin D3) 125 5,000 unit PO QDAY cap 05/21/20 09/02/20 History mcg (5,000 unit) capsule clonidine HCl 0.1 mg tablet 0.1 mg PO QHS 05/21/20 09/02/20 History heparin (porcine) 1,000 unit/mL IV 05/21/20 08/05/20 History injection solution heparin (porcine) 1,000 unit/mL IV .3 x wk ml 05/21/20 08/05/20 History injection solution heparin (porcine) 1,000 unit/mL IV .q 3 times wk ml 05/21/20 08/05/20 History injection solution hydroxyzine HCl 10 mg tablet 10 mg PO ONCE tab 05/21/20 09/02/20 History loperamide 2 mg capsule 2 mg PO Q6H PRN 05/21/20 09/02/20 History midodrine 5 mg tablet 5 mg PO 3XW tab 05/21/20 09/02/20 History ondansetron HCl 4 mg tablet 4 mg PO Q8H 05/21/20 09/02/20 History sodium ferric gluconat-sucrose 62.5 mg IV QWEEK ml 05/21/20 08/05/20 History 62.5 mg/5 mL intravenous suvorexant 10 mg tablet 10 mg PO QHS #30 tab 06/02/20 09/16/20 Rx B complex with C 20-folic acid 1 1 cap PO QDAY #30 cap 07/14/20 09/16/20 Rx mg capsule atorvastatin 40 mg tablet 40 mg PO HS #90 tab 08/04/20 09/16/20 Rx sertraline 25 mg tablet 25 mg PO QDAY #30 tab 08/26/20 09/16/20 Rx oxycodone 10 mg tablet 10 mg PO q8h PRN #90 tab 08/29/20 09/16/20 Rx calcium acetate(phosphat bind) 1,334 mg PO TIDCC 09/16/20 09/16/20 History midodrine 2.5 mg PO BIDP PRN 09/16/20 09/16/20 History Allergies Allergy/AdvReac Type Severity Reaction Status Date / Time No Known Drug Allergies Allergy Verified 09/15/20 12:21 Physical Examination Vital Signs Vital signs: Temp Pulse Resp BP Pulse Ox 97.7 F 77 19 112/61 97 09/17/20 10:10 09/17/20 10:15 09/17/20 09:00 09/17/20 10:15 09/17/20 09:00 General physical appearance General physical exam: well developed, well nourished, no distress and no pain Eyes Eye exam: PERRL and normal ocular movement ENT ENT exam: normal pinna, normal nares, normal mucosa and no congestion Head Head exam IM: Present atraumatic and normocephalic Neck Neck exam: no masses, trachea midline and no venous distension Cardiovascular Cardiovascular exam IM: Present normal rate and rhythm Respiratory Respiratory exam: normal expansion and clear to auscultation Abdomen Abdomen: Present soft, non tender and bowel sounds Integumentary Integumentary: Present other (OPEN chronic wound Stage 3 ulceration dorsal foot DEPTH upto fascia and stendon. Stage 5 mid plantar escahar covered wound, demarcating well with Santyl ) Neurologic Neurologic: Present normal coordination and other (No focal neurological deficits. Speech normal ) Musculoskeletal Musculoskeletal: Present normal posture Psychiatric Psychiatric: Present oriented to time, oriented to person and speech is normal Results Labs Result diagrams: 09/17/20 05:08 09/17/20 05:08 Labs: Abnormal lab results 09/16/20 09/17/20 09/17/20 Range/Units 17:20 05:07 05:08 RBC 3.85 L (4.00-5.20) M/mcL Hgb 10.5 L (12.0-15.0) g/dL Hct 33.3 L (36.0-48.0) % RDW 15.0 H (11.5-14.5) % Neut % (Auto) 81.1 H (38.0-78.0) % Lymph % (Auto) 10.9 L (15.0-49.0) % Lymph # (Auto) 0.80 L (1.50-4.80) K/mcL D-Dimer (0.27-0.50) ug/mL Chloride (96-108) mmol/L BUN (6-20) mg/dL Creatinine (0.6-1.1) mg/dL Glucose (70-105) mg/dL Calcium (8.6-10.4) mg/dL Phosphorus (2.5-4.5) mg/dL Ferritin (13.0-150.0) ng/mL AST (<32) U/L Lactate Dehydrogenase (135-225) U/L Total Creatine Kinase 212 H (24-170) U/L C-Reactive Protein (0.03-0.80) mg/dL Albumin (3.2-5.2) gm/dL Globulin (2.2-3.7) gm/dL Albumin/Globulin Ratio (1.0-2.3) Procalcitonin (<0.10) ng/mL CSF RBC 9231 H (0-1) /cumm CSF Neutrophils 92 H (0-7) % CSF Lymphocytes 5 L (28-96) % CSF Monocytes 3 L (16-56) % CSF Glucose 84 H (40-70) mg/dL 09/17/20 09/17/20 09/17/20 Range/Units 05:08 05:08 05:08 RBC (4.00-5.20) M/mcL Hgb (12.0-15.0) g/dL Hct (36.0-48.0) % RDW (11.5-14.5) % Neut % (Auto) (38.0-78.0) % Lymph % (Auto) (15.0-49.0) % Lymph # (Auto) (1.50-4.80) K/mcL D-Dimer 1.87 H (0.27-0.50) ug/mL Chloride 90 L (96-108) mmol/L BUN 28 H (6-20) mg/dL Creatinine 5.9 H* (0.6-1.1) mg/dL Glucose 167 H (70-105) mg/dL Calcium 6.9 L (8.6-10.4) mg/dL Phosphorus 5.5 H (2.5-4.5) mg/dL Ferritin (13.0-150.0) ng/mL AST 32 H (<32) U/L Lactate Dehydrogenase 327 H (135-225) U/L Total Creatine Kinase (24-170) U/L C-Reactive Protein 3.10 H (0.03-0.80) mg/dL Albumin 3.1 L (3.2-5.2) gm/dL Globulin 3.8 H (2.2-3.7) gm/dL Albumin/Globulin Ratio 0.8 L (1.0-2.3) Procalcitonin 3.42 H (<0.10) ng/mL CSF RBC (0-1) /cumm CSF Neutrophils (0-7) % CSF Lymphocytes (28-96) % CSF Monocytes (16-56) % CSF Glucose (40-70) mg/dL 09/17/20 Range/Units 05:08 RBC (4.00-5.20) M/mcL Hgb (12.0-15.0) g/dL Hct (36.0-48.0) % RDW (11.5-14.5) % Neut % (Auto) (38.0-78.0) % Lymph % (Auto) (15.0-49.0) % Lymph # (Auto) (1.50-4.80) K/mcL D-Dimer (0.27-0.50) ug/mL Chloride (96-108) mmol/L BUN (6-20) mg/dL Creatinine (0.6-1.1) mg/dL Glucose (70-105) mg/dL Calcium (8.6-10.4) mg/dL Phosphorus (2.5-4.5) mg/dL Ferritin > 2000.0 H (13.0-150.0) ng/mL AST (<32) U/L Lactate Dehydrogenase (135-225) U/L Total Creatine Kinase (24-170) U/L C-Reactive Protein (0.03-0.80) mg/dL Albumin (3.2-5.2) gm/dL Globulin (2.2-3.7) gm/dL Albumin/Globulin Ratio (1.0-2.3) Procalcitonin (<0.10) ng/mL CSF RBC (0-1) /cumm CSF Neutrophils (0-7) % CSF Lymphocytes (28-96) % CSF Monocytes (16-56) % CSF Glucose (40-70) mg/dL Diabetes panel 09/17/20 Range/Units 05:08 Sodium 134 (133-145) mmol/L Potassium 4.6 (3.3-5.1) mmol/L Chloride 90 L (96-108) mmol/L Carbon Dioxide 28 (22-30) mmol/L BUN 28 H (6-20) mg/dL Creatinine 5.9 H* (0.6-1.1) mg/dL Glucose 167 H (70-105) mg/dL Calcium 6.9 L (8.6-10.4) mg/dL AST 32 H (<32) U/L ALT 16 (<40) U/L Alkaline Phosphatase 81 (39-117) U/L Total Protein 6.9 (5.9-8.4) gm/dL Albumin 3.1 L (3.2-5.2) gm/dL Triglycerides 98 (<150) mg/dL Calcium panel 12/02/20 Range/Units 05:08 Calcium 6.9 L (8.6-10.4) mg/dL Phosphorus 5.5 H (2.5-4.5) mg/dL Albumin 3.1 L (3.2-5.2) gm/dL Pituitary panel 09/16/20 09/17/20 Range/Units 15:42 05:08 Sodium 134 (133-145) mmol/L Potassium 4.6 (3.3-5.1) mmol/L Chloride 90 L (96-108) mmol/L Carbon Dioxide 28 (22-30) mmol/L BUN 28 H (6-20) mg/dL Creatinine 5.9 H* (0.6-1.1) mg/dL Glucose 167 H (70-105) mg/dL Calcium 6.9 L (8.6-10.4) mg/dL Prolactin 16.2 (4.8-23.3) ng/mL Adrenal panel 09/17/20 Range/Units 05:08 Sodium 134 (133-145) mmol/L Potassium 4.6 (3.3-5.1) mmol/L Chloride 90 L (96-108) mmol/L Carbon Dioxide 28 (22-30) mmol/L BUN 28 H (6-20) mg/dL Creatinine 5.9 H* (0.6-1.1) mg/dL Glucose 167 H (70-105) mg/dL Calcium 6.9 L (8.6-10.4) mg/dL Total Bilirubin 0.2 (0.1-1.0) mg/dL AST 32 H (<32) U/L ALT 16 (<40) U/L Alkaline Phosphatase 81 (39-117) U/L Total Protein 6.9 (5.9-8.4) gm/dL Albumin 3.1 L (3.2-5.2) gm/dL All other labs normal. A/P Narrative A/P Narrative: Assessment: Emergency admission with AMS. Encephalopathy and Shock IMPROVED. Chronic open wounds LEFT foot dorsal, lateral and plantar. Plan: Continue with medical management of her problems and HD per protocol LOCAL WOUND CARE AND DRESSING CHANGES daily. See wound care management notes / orders per wound care nurse. Will see patient as appropriate. Out patient f/u at wound center after discharge. Time Spent With Patient Time: Total time spent is greater than 50% in coordination of care (as documented) at patient's floor/unit and/or counseling patient: Total time spent with greater than 50% in coordination of care (as documented) at patient's floor/unit and/or counseling patient:: 25 - 35 minutes
[2020-09-17] MEDS ORDERED: ACETAMINOPHEN 325 MG TABLET PO PRN (13:36)
[2020-09-17] MEDS: DEXAMETHASONE 10 MG/ML VIAL IV SCH (14:37)
[2020-09-17] MEDS: HEPARIN 5,000 UNIT/ML VIAL SQ SCH ×2 (14:37→21:18)
[2020-09-17] MEDS: 0.9 % SODIUM CHLORIDE 250 ML IV SCH ×2 (14:39→16:19)
[2020-09-17] MEDS: 0.9 % SODIUM CHLORIDE 10 ML SYRINGE IV SCH ×2 (14:40→21:17)
[2020-09-17] MEDS ORDERED: BENZOCAINE/MENTHOL 1 LOZENGE PO PRN (15:34)
[2020-09-17] MEDS ORDERED: IPRATROPIUM/ALBUTEROL 3 ML AMPUL.NEB NEB PRN (15:34)
[2020-09-17] MEDS ORDERED: VANCOMYCIN PER PHARMACY IV SCH (15:34)
[2020-09-17] MEDS ORDERED: DEXTROSE 50% 50 ML VIAL IV PRN (15:34)
[2020-09-17] MEDS ORDERED: ONDANSETRON 4 MG/2 ML VIAL IV PRN (15:34)
[2020-09-17] MEDS ORDERED: DEXTROSE 31 GM ORAL.SUSP PO PRN (15:34)
[2020-09-17] MEDS ORDERED: LORazepam 2 MG/ML VIAL IV PRN (15:34)
[2020-09-17] MEDS: levETIRAcetam 750 MG in 0.9 % SODIUM CHLORIDE 100 ML IV SCH (17:01)
[2020-09-17] MEDS: cloNIDine HCL 0.1 MG TABLET PO SCH (21:19)
--- NOTE | 2020-09-17 23:40 | Nephrology Progress Note ---
SUBJECTIVE Subjective Patient information: Note initiated : 09/17/20 at 11:14 pm Service Date, if different from initiated Date: [] Patient: Dang Varner 55 y/o F admitted on 09/15/20 for altered loc. Chief Complaint: [OBTUNDATION in a hemodialysis patient] As mentioned on previous notes, patient is a chronically ill, nonambulatory obese patient with type 2 diabetes leading to ESRD. In August she was admitted with a suppurative cellulitis treated with IV then oral antibiotics with improvement. She returned with flulike symptom, was sent home and had a Covid positive PCR test done at [facility] on September 11. She was admitted after being found obtunded by her family. She had missed her regularly scheduled dialysis treatment on September 12 but missing 4 to 5 days of dialysis would not be expected to cause this degree of obtundation. Initially I was concerned for SARS COV 2 related encephalitis. She received dialysis within the first 12 hours of her hospitalization to address a serum potassium of 7. There are brief interludes of improvement in her mental status to awakening and looking around the room and even after a pleural long dialysis yesterday she lapsed back into a state of obtundation removing any doubt that this was not uremia. She had an MRI that showed no acute stroke or intracranial bleed nor was there any abnormal fluid collections or other explanations for her mental status. She then underwent a fluoroscopically guided LP that initially drained clear fluid but then became blood-tinged. Assuming of 400:1 ratio of red cells to white cells, there is no elevation in the CSF white count, additionally glucose and protein were not reduced or elevated respectively. While various viral PCR are being completed, encephalitis/meningitis does not seem to be a diagnostic possibility. 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 Hunt. For this reason the patient was loaded with Keppra last evening and she is markedly improved today as she is awake and conversant and reporting she is having severe cramping with her dialysis. She was seen on dialysis and treatment time was reduced to 3.5 hours due to her intense cramping and the fact that we are not able to remove much more than 2 L of fluid. Her next dialysis treatment will be Tuesday. Constitutional Vitals: Vital Signs Temp Pulse Resp BP Pulse Ox 36.2 C 81 18 156/78 95 09/17/20 19:55 09/17/20 21:31 09/17/20 21:31 09/17/20 21:31 09/17/20 21:31 Period Temp Pulse Resp BP Sys/Bernstein Pulse Ox Last 24 Hr 36.2 C-36.8 C 72-117 12-27 88-170/34-138 88-99 Intake and Output 09/17/20 09/17/20 09/18/20 13:59 21:59 05:59 Intake Total 50 0 50 Output Total 1256 5 Balance -1206 -5 50 Weight 78.698 kg Patient Weight 09/18/20 05:59 Weight 78.698 kg Intake & Output: Intake & Output 09/17/20 09/17/20 09/18/20 13:59 21:59 05:59 Intake Total 50 0 50 Output Total 1256 5 Balance -1206 -5 50 Weight 78.698 kg Intake: IV 50 50 Zosyn 2.25 gm In Dextrose 5% in 50 50 Water 50 ml @ 100 mls/hr IV Q8H [facility] Rx#:[id number] Oral 0 0 Output: Urine Catheter Amount 0 5 Uretheral (Davis) 5 Void Amount 0 Hemodialysis UF 1256 Other: Meal Lunch Dinner Percent of Meal Consumed Refused 25% Urine Appearance Uretheral (Davis) Sediment Stool Size Small Moderate Stool Color Brown Yellow Yellow Stool Consistency Soft Loose # Bowel Movements 1 1 # of times incontinent of 1 Bowels General appearance: disheveled, mild distress and obese Exam: HEENT: Normocephalic atraumatic Pupils equal round reactive, extraocular muscles are intact Sclera anicteric Oropharynx dry Neck is supple without elevated JVD Chest has scattered rhonchi no wheezing or rales Cardiac reveals normal S1 and S2 without an S3 or S4 there is a 2 out of 6 systolic ejection murmur Diminished pulses Clotted aVF graft Right IJ dialysis catheter with good flow and function Abdomen: Obese bowel sounds diminished nontender no CVA tenderness Extremities: Trace edema, muscle wasting present Skin: Pale, no jaundice or pallor no rashes Neuro: Left arm not moving as much as her right, may be an old finding from nerve injury during placement of an AV graft Cranial nerves II to XII intact Diabetic neuropathy changes are present Bedfast so cannot assess gait and she has not walked in a long time A/P Assessment and plan (1) Toxic metabolic encephalopathy: Status: Acute Comment: I suspect SARS CV-2 related acute encephalitis Consider LP to look for csf pleocytosis and rule out other causes of viral encephalitis High dose corticosteroids have helped in this situation. Stop [employer] active Rx Turns out the clinical picture and therapeutic response is best explained by status epilepticus with nonconvulsive epilepsy which 1 would assume would have to be triggered by Covid infection. (2) Metabolic acidosis with increased anion gap and accumulation of organic acids: Status: Acute Comment: 3 amps bicarb given in ED Recheck stat labs and plan HD accordingly Repeat dialysis in the morning (3) COVID-19 in immunocompromised patient: Status: Acute Comment: Start Hydrocortisone or solumedrol Remdesivir x 5 days Monitor Aa gradient and trend O2 sats (4) ESRD (end stage renal disease) on dialysis: Status: Chronic Comment: Missed HD on Tuesday due to viral syndrome and diarrhea. SARS CV2 positive on 09/11/2020 at [facility] Dialysis yesterday day with a potassium of 7 3-1/2-hour treatment today with maximal UF due to cramping and hypotension Next dialysis on Tuesday her regular treatment day Time Spent With Patient Time: Total time spent is greater than 50% in coordination of care (as documented) at patient's floor/unit and/or counseling patient:
[2020-09-18] MEDS: cloNIDine HCL 0.1 MG TABLET PO PRN ×2 (00:56→12:16)
[2020-09-18] MEDS: LABETALOL 5 MG/ML ML IV PRN ×3 (03:28→20:46)
[2020-09-18] MEDS: PIPERACILLIN SODIUM/TAZOBACTAM 2.25 GM in DEXTROSE 5% IN WATER 50 ML IV SCH ×3 (05:42→22:04)
[2020-09-18] MEDS: 0.9 % SODIUM CHLORIDE 250 ML IV SCH ×2 (05:42→16:13)
[2020-09-18] MEDS: DOCUSATE SODIUM 100 MG CAPSULE PO SCH ×2 (07:37→20:45)
--- NOTE | 2020-09-18 07:56 | Internal Med Progress Note ---
SUBJECTIVE Subjective Patient information: Note initiated : 09/18/20 at 7:53 am Service Date, if different from initiated Date: [] Patient: Dang Varner a 55 y/o F admitted on 09/15/20 for altered loc. Chief Complaint: [] Interval history: History of present illness: Ms. Varner is a 55 year old F Presents to the ED with obtundation. History obtained from chart and, member. Per family member Meghan, she has had a dry cough for the past week little bit of phlegm occasionally but otherwise no recent complaints. She as well as found members were tested positive for Covid, but got tested at [place] on and were told results on Tuesday. She presented to [facility] ER with a cough on Tuesday when she was also to undergo dialysis but did not have any significant findings. Family ever said she was in her typical state of health last night. But they the patient would not wake up for the family member. Per the family member patient typically sleeps 2 to 4 hours daily. He has been to wound care clinic recently of the last Tuesday for a left foot infection she is dealing with. Family member did denies any drug use or alcohol use. She received Narcan x2 in the ED with no real response. She was hypotensive and was started on Levophed. Looking at her old history she has had many episodes of hypotension. She missed dialysis on Tuesday and today. Discussed with Dr. Mata. Patient will get dialysis today. 09/16 Patient getting dialysis this morning. Mentation much improved. She does not recalled why she came in, explained that her daughter found her unresponsive. 09/17 Mentation clear up yesterday evening and is good again today. No overnight event or new complaints. Getting dialysis this morning. 09/18 Has not had any other episodes or she became obtunded since starting the Keppra. No events overnight. Had dialysis yesterday. Leukocytosis resolved. Weak. Has not been out of bed. Review of Systems: denies headache/fever/chills/nausea/vomiting/chest or abdominal pain/cough/dyspnea/diarrhea. Otherwise see above. Constitutional Vitals: Vital Signs Temp Pulse Resp BP Pulse Ox 98.4 F 82 11 L 171/89 90 09/18/20 03:30 09/18/20 06:01 09/18/20 06:01 09/18/20 06:01 09/18/20 06:01 Period Temp Pulse Resp BP Sys/Bernstein Pulse Ox Last 24 Hr 97.1 F-98.6 F 69-117 11-27 88-195/34-138 84-99 Intake and Output 09/17/20 09/18/20 09/18/20 21:59 05:59 13:59 Intake Total 157.5 450 50 Output Total 5 Balance 152.5 450 50 Weight 78.698 kg Intake & Output: Intake & Output 09/17/20 09/18/20 09/18/20 21:59 05:59 13:59 Intake Total 157.5 450 50 Output Total 5 Balance 152.5 450 50 Weight 78.698 kg Intake: IV 157.5 50 50 Zosyn 2.25 gm In Dextrose 5% in 50 50 50 Water 50 ml @ 100 mls/hr IV Q8H KIET Rx#:[id number] Keppra 750 mg In Sodium 107.5 Chloride 0.9% 100 ml @ 200 mls/ hr IV Q24H KIET Rx#:[id number] Oral 0 400 Output: Urine Catheter Amount 5 Uretheral (Davis) 5 Void Amount 0 Other: Meal Dinner Percent of Meal Consumed 25% Urine Appearance Uretheral (Davis) Sediment Stool Size Moderate Moderate Stool Color Yellow Yellow Green Stool Consistency Loose Loose # Bowel Movements 1 # of times incontinent of 1 1 Bowels Exam: General: awake, acute distress, obese Eyes/N/T: EOMI Head/Neck: neck supple, CV: RRR , No murmurs, Pulm: diminished b/l, no wheezing today, nonlabored Abd: soft, nontender, +BS x4 Ext: no clubbing/cyanosis/edema, left foot in dressings Neuro: awake. no focal deficits. Follows commands. Moves all extremities Skin: warm/dry. OBJ DATA Labs CBC & Chem 7: 09/17/20 05:08 09/17/20 05:08 Labs: Abnormal Lab Results 09/18/20 09/17/20 09/17/20 05:20 05:08 05:08 WBC RBC Hgb Hct MCHC RDW Neut % (Auto) Lymph % (Auto) Lymph # (Auto) [place] # (Auto) Lymphocytes % Absolute Neutrophils D-Dimer Potassium Chloride 90 L Carbon Dioxide Anion Gap BUN 28 H Creatinine 5.9 H* Glucose 167 H Uric Acid Calcium 6.9 L Phosphorus 5.5 H Ferritin > 2000.0 H AST 32 H Alkaline Phosphatase Lactate Dehydrogenase 327 H Total Creatine Kinase Troponin T C-Reactive Protein 3.10 H Albumin 3.1 L Globulin 3.8 H Albumin/Globulin Ratio 0.8 L Procalcitonin 2.69 H Urine Appearance Urine Protein Urine Glucose (UA) Urine Ketones Urine Occult Blood Ur Leukocyte Esterase Urine RBC Urine WBC Urine Bacteria CSF RBC CSF Neutrophils CSF Lymphocytes CSF Monocytes CSF Glucose Ethyl Alcohol 09/17/20 09/17/20 09/17/20 05:08 05:08 05:08 WBC RBC 3.85 L Hgb 10.5 L Hct 33.3 L MCHC RDW 15.0 H Neut % (Auto) 81.1 H Lymph % (Auto) 10.9 L Lymph # (Auto) 0.80 L [place] # (Auto) Lymphocytes % Absolute Neutrophils D-Dimer 1.87 H Potassium Chloride Carbon Dioxide Anion Gap BUN Creatinine Glucose Uric Acid Calcium Phosphorus Ferritin AST Alkaline Phosphatase Lactate Dehydrogenase Total Creatine Kinase Troponin T C-Reactive Protein Albumin Globulin Albumin/Globulin Ratio Procalcitonin 3.42 H Urine Appearance Urine Protein Urine Glucose (UA) Urine Ketones Urine Occult Blood Ur Leukocyte Esterase Urine RBC Urine WBC Urine Bacteria CSF RBC CSF Neutrophils CSF Lymphocytes CSF Monocytes CSF Glucose Ethyl Alcohol 09/17/20 09/16/20 09/16/20 05:07 17:20 05:13 WBC RBC Hgb Hct MCHC RDW Neut % (Auto) Lymph % (Auto) Lymph # (Auto) [place] # (Auto) Lymphocytes % Absolute Neutrophils D-Dimer Potassium Chloride Carbon Dioxide Anion Gap BUN Creatinine Glucose Uric Acid Calcium Phosphorus Ferritin AST Alkaline Phosphatase Lactate Dehydrogenase Total Creatine Kinase 212 H Troponin T C-Reactive Protein Albumin Globulin Albumin/Globulin Ratio Procalcitonin 2.49 H Urine Appearance Urine Protein Urine Glucose (UA) Urine Ketones Urine Occult Blood Ur Leukocyte Esterase Urine RBC Urine WBC Urine Bacteria CSF RBC 9231 H CSF Neutrophils 92 H CSF Lymphocytes 5 L CSF Monocytes 3 L CSF Glucose 84 H Ethyl Alcohol 09/16/20 09/16/20 09/16/20 05:12 05:12 05:12 WBC RBC 3.73 L Hgb 10.2 L Hct 33.0 L MCHC 30.9 L RDW 15.5 H Neut % (Auto) Lymph % (Auto) Lymph # (Auto) [place] # (Auto) Lymphocytes % 12 L Absolute Neutrophils D-Dimer Potassium 7.0 H* Chloride Carbon Dioxide 20 L Anion Gap 18.0 H BUN 69 H Creatinine 12.2 H* Glucose 265 H Uric Acid 12.3 H Calcium 6.7 L Phosphorus 6.9 H* Ferritin 1804.0 H AST Alkaline Phosphatase Lactate Dehydrogenase Total Creatine Kinase 257 H Troponin T C-Reactive Protein 3.80 H Albumin 3.0 L Globulin Albumin/Globulin Ratio 0.9 L Procalcitonin Urine Appearance Urine Protein Urine Glucose (UA) Urine Ketones Urine Occult Blood Ur Leukocyte Esterase Urine RBC Urine WBC Urine Bacteria CSF RBC CSF Neutrophils CSF Lymphocytes CSF Monocytes CSF Glucose Ethyl Alcohol 09/16/20 09/15/20 09/15/20 02:18 21:08 16:00 WBC RBC Hgb Hct MCHC RDW Neut % (Auto) Lymph % (Auto) Lymph # (Auto) [place] # (Auto) Lymphocytes % Absolute Neutrophils D-Dimer Potassium 6.3 H* 6.3 H* Chloride Carbon Dioxide 18 L 19 L Anion Gap 21.0 H 22.0 H BUN 66 H 66 H Creatinine 12.7 H* 12.8 H* Glucose 197 H 146 H Uric Acid Calcium 7.1 L 7.4 L Phosphorus 7.0 H* 7.1 H* Ferritin AST Alkaline Phosphatase Lactate Dehydrogenase Total Creatine Kinase Troponin T C-Reactive Protein Albumin Globulin Albumin/Globulin Ratio Procalcitonin Urine Appearance Cloudy A Urine Protein 100 A Urine Glucose (UA) 50 A Urine Ketones 5 A Urine Occult Blood >=1.0 A Ur Leukocyte Esterase 500 A Urine RBC > 182 H Urine WBC 77 H Urine Bacteria Few A CSF RBC CSF Neutrophils CSF Lymphocytes CSF Monocytes CSF Glucose Ethyl Alcohol 09/15/20 09/15/20 09/15/20 13:30 13:08 13:08 WBC RBC Hgb Hct MCHC RDW Neut % (Auto) Lymph % (Auto) Lymph # (Auto) [place] # (Auto) Lymphocytes % Absolute Neutrophils D-Dimer Potassium Chloride Carbon Dioxide Anion Gap BUN Creatinine Glucose Uric Acid Calcium Phosphorus Ferritin 1784.0 H AST Alkaline Phosphatase Lactate Dehydrogenase Total Creatine Kinase 239 H Troponin T C-Reactive Protein 2.20 H Albumin Globulin Albumin/Globulin Ratio Procalcitonin 0.73 H Urine Appearance Urine Protein Urine Glucose (UA) Urine Ketones Urine Occult Blood Ur Leukocyte Esterase Urine RBC Urine WBC Urine Bacteria CSF RBC CSF Neutrophils CSF Lymphocytes CSF Monocytes CSF Glucose Ethyl Alcohol 09/15/20 09/15/20 09/15/20 13:08 13:08 13:08 WBC RBC Hgb Hct MCHC RDW Neut % (Auto) Lymph % (Auto) Lymph # (Auto) [place] # (Auto) Lymphocytes % Absolute Neutrophils D-Dimer 1.61 H Potassium Chloride Carbon Dioxide Anion Gap BUN Creatinine Glucose Uric Acid Calcium Phosphorus Ferritin AST Alkaline Phosphatase Lactate Dehydrogenase Total Creatine Kinase Troponin T 0.15 H* C-Reactive Protein Albumin Globulin Albumin/Globulin Ratio Procalcitonin Urine Appearance Urine Protein Urine Glucose (UA) Urine Ketones Urine Occult Blood Ur Leukocyte Esterase Urine RBC Urine WBC Urine Bacteria CSF RBC CSF Neutrophils CSF Lymphocytes CSF Monocytes CSF Glucose Ethyl Alcohol 0.010 H 09/15/20 09/15/20 13:08 13:08 WBC 16.1 H RBC Hgb Hct MCHC 29.9 L RDW 15.4 H Neut % (Auto) Lymph % (Auto) Lymph # (Auto) [place] # (Auto) 1.17 H Lymphocytes % Absolute Neutrophils 10.32 H D-Dimer Potassium 6.7 H* Chloride Carbon Dioxide 12 L Anion Gap 22.0 H BUN 62 H Creatinine 12.3 H* Glucose 134 H Uric Acid Calcium 7.4 L Phosphorus Ferritin AST Alkaline Phosphatase 121 H Lactate Dehydrogenase Total Creatine Kinase Troponin T C-Reactive Protein Albumin Globulin 4.2 H Albumin/Globulin Ratio 0.8 L Procalcitonin Urine Appearance Urine Protein Urine Glucose (UA) Urine Ketones Urine Occult Blood Ur Leukocyte Esterase Urine RBC Urine WBC Urine Bacteria CSF RBC CSF Neutrophils CSF Lymphocytes CSF Monocytes CSF Glucose Ethyl Alcohol Meds: Medications Acetaminophen (Tylenol) 650 mg PO Q6HP PRN; Protocol PRN Reason: Per Pain Protocol Last Admin: 09/17/20 14:38 Dose: 650 mg Documented by: Albuterol/Ipratropium (Duoneb) 3 ml NEB Q4HRT PRN PRN Reason: Dyspnea Clonidine HCl (Catapres) 0.1 mg PO Q4HP PRN PRN Reason: Hypertension sbp>155 Last Admin: 09/18/20 00:56 Dose: 0.1 mg Documented by: Clonidine HCl (Catapres) 0.1 mg PO HS KIET Last Admin: 09/17/20 21:19 Dose: 0.1 mg Documented by: Collagenase (Santyl Top Oint) 1 dose TOPICAL DAILY KIET Dexamethasone (Decadron) 6 mg IV DAILY COUNTS INCLUDE 234 BEDS AT THE [facility] Dextrose (Dextrose 50%) 0 ml IV UD PRN PRN Reason: Hypoglycemia Diagnostic Test (Pha) (Accu-Chek) 1 each FS ACHS COUNTS INCLUDE 234 BEDS AT THE [facility] Last Admin: 09/18/20 07:36 Dose: 1 each Documented by: Docusate Sodium (Colace) 100 mg PO BID COUNTS INCLUDE 234 BEDS AT THE [facility] Last Admin: 09/18/20 07:37 Dose: Not Given Documented by: Glucose (Insta-Glucose) 15 gm PO PRN PRN PRN Reason: Hypoglycemia Heparin Sodium (Porcine) (Heparin) 5,000 unit SQ Q12 COUNTS INCLUDE 234 BEDS AT THE [facility] Last Admin: 09/17/20 21:18 Dose: 5,000 unit Documented by: Sodium Chloride (Sodium Chloride 0.9%) 250 mls @ 20 mls/hr IV .[id number] COUNTS INCLUDE 234 BEDS AT THE [facility] Last Admin: 09/18/20 05:42 Dose: Not Given Documented by: Levetiracetam 750 mg/ Sodium (Chloride) 107.5 mls @ 200 mls/hr IV Q24H COUNTS INCLUDE 234 BEDS AT THE [facility] Last Infusion: 09/17/20 18:00 Dose: Infused Documented by: Piperacillin Sod/Tazobactam (Sod 2.25 gm/ Dextrose) 50 mls @ 100 mls/hr IV Q8H COUNTS INCLUDE 234 BEDS AT THE [facility]; Protocol Last Infusion: 09/18/20 06:15 Dose: Infused Documented by: Norepinephrine Bitartrate 16 (mg/ Sodium Chloride) 250 mls @ 9.375 mls/hr IV Q24HP PRN; Protocol PRN Reason: Hypotension Insulin Human Lispro (Humalog) 0 unit SQ [facility]; Protocol Last Admin: 09/17/20 21:18 Dose: 2 units Documented by: Labetalol HCl (Trandate) 0 mg IV Q2HP PRN PRN Reason: Hypertension Last Admin: 09/18/20 07:35 Dose: 20 mg Documented by: Lorazepam (Ativan) 2 mg IV Q4HP PRN PRN Reason: Seizure Midodrine (Midodrine Hcl) 2.5 mg PO BIDP PRN PRN Reason: BP equal/ below 90 Mupirocin (Bactroban Oint 2%) 1 dose TOPICAL DAILY COUNTS INCLUDE 234 BEDS AT THE [facility] Ondansetron HCl (Zofran) 4 mg IV Q4-6HP PRN PRN Reason: Nausea And Vomiting Sodium Chloride (Saline Flush) 10 ml IV Q12 COUNTS INCLUDE 234 BEDS AT THE [facility] Last Admin: 12/02/20 21:17 Dose: 10 ml Documented by: Throat Lozenges (Cepacol) 1 lozenge PO PRN PRN PRN Reason: Sore Throat Vancomycin HCl (Vancomycin Per Pharmacy) 1 order IV UD COUNTS INCLUDE 234 BEDS AT THE [facility]; Protocol A/P Narrative A/P Narrative: A: *Acute encephalopathy (obtunded): concern for nonconvulsive seizure + metabolic/toxic with uremia/electrolyte + meds, ?infectious/covid, -CT brain unremarkable for acute but does show old b/l lacunar infarcts. -MRI/LP unremarkable, -PCT now improving -after initially waking up then becoming obtunded again, we started her on empiric Keppra w/o any further episodes *ESRD: missed several sessions of HD *Hyperkalemia: resolved *Circulatory shock: endocrine vs less likely septic vs meds(clonidine/narc). Has had multiple episodes of hypotension in past -levophed first night -lactate wnl *AG met acidosis: lacate wnl, improved *recent Left foot infection: follows with Dr. Gerardo and seen recently, site looks good per Dr. Gerardo *?UTI: UA chronically abnormal *Diabetes w/neuropathy: A1c 6.7 *ESRD: Has been following with Dr. Rodriguez *Anemia, chronic *HTN/HLD: *Depression/anxiety/fibromyalgia: *Chronic pain: *h/o cardiomyopathy: *chronic leukocytosis *[facility] -cxr with b/l infiltrates more likely edema, appeared mildly improved after HD P: -Nephrology following, -Dexamathasone, renal fxn precluding remdesivir -empric abx, f/u PCT/BC/UC -Empiric Keppra, f/u outpt with neurology/eeg -Wound care -basal and SSI -restarted home clonidine, BP labile -hold home narcotics -PT/OT -ppx: Heparin Time Spent With Patient Time: Total time spent is greater than 50% in coordination of care (as documented) at patient's floor/unit and/or counseling patient:
--- NOTE | 2020-09-18 08:25 | Internal Med Progress Note ---
SUBJECTIVE Subjective Patient information: Note initiated : 09/18/20 at 8:24 am Service Date, if different from initiated Date: [] Patient: Dang Varner 55 y/o F admitted on 09/15/20 for altered loc. Chief Complaint: [] Constitutional Vitals: Vital Signs Temp Pulse Resp BP Pulse Ox 98.4 F 82 20 165/72 96 09/18/20 03:30 09/18/20 08:02 09/18/20 08:02 09/18/20 08:02 09/18/20 08:02 Period Temp Pulse Resp BP Sys/Bernstein Pulse Ox Last 24 Hr 97.1 F-98.6 F 69-117 9-27 88-195/34-138 84-99 Intake and Output 09/17/20 09/18/20 09/18/20 21:59 05:59 13:59 Intake Total 157.5 450 50 Output Total 5 Balance 152.5 450 50 Weight 78.698 kg Intake & Output: Intake & Output 09/17/20 09/18/20 09/18/20 21:59 05:59 13:59 Intake Total 157.5 450 50 Output Total 5 Balance 152.5 450 50 Weight 78.698 kg Intake: IV 157.5 50 50 Zosyn 2.25 gm In Dextrose 5% in 50 50 50 Water 50 ml @ 100 mls/hr IV Q8H [facility] Rx#:[id number] Keppra 750 mg In Sodium 107.5 Chloride 0.9% 100 ml @ 200 mls/ hr IV Q24H [facility] Rx#:[id number] Oral 0 400 Output: Urine Catheter Amount 5 Uretheral (Daivs) 5 Void Amount 0 Other: Meal Dinner Percent of Meal Consumed 25% Urine Appearance Uretheral (Davis) Sediment Stool Size Moderate Moderate Stool Color Yellow Yellow Green Stool Consistency Loose Loose # Bowel Movements 1 # of times incontinent of 1 1 Bowels OBJ DATA Labs CBC & Chem 7: 09/17/20 05:08 09/17/20 05:08 Labs: Abnormal Lab Results 09/18/20 09/17/20 09/17/20 05:20 05:08 05:08 WBC RBC Hgb Hct MCHC RDW Neut % (Auto) Lymph % (Auto) Lymph # (Auto) [place] # (Auto) Lymphocytes % Absolute Neutrophils D-Dimer Potassium Chloride 90 L Carbon Dioxide Anion Gap BUN 28 H Creatinine 5.9 H* Glucose 167 H Uric Acid Calcium 6.9 L Phosphorus 5.5 H Ferritin > 2000.0 H AST 32 H Alkaline Phosphatase Lactate Dehydrogenase 327 H Total Creatine Kinase Troponin T C-Reactive Protein 3.10 H Albumin 3.1 L Globulin 3.8 H Albumin/Globulin Ratio 0.8 L Procalcitonin 2.69 H Urine Appearance Urine Protein Urine Glucose (UA) Urine Ketones Urine Occult Blood Ur Leukocyte Esterase Urine RBC Urine WBC Urine Bacteria CSF RBC CSF Neutrophils CSF Lymphocytes CSF Monocytes CSF Glucose Ethyl Alcohol 09/17/20 09/17/20 09/17/20 05:08 05:08 05:08 WBC RBC 3.85 L Hgb 10.5 L Hct 33.3 L MCHC RDW 15.0 H Neut % (Auto) 81.1 H Lymph % (Auto) 10.9 L Lymph # (Auto) 0.80 L [place] # (Auto) Lymphocytes % Absolute Neutrophils D-Dimer 1.87 H Potassium Chloride Carbon Dioxide Anion Gap BUN Creatinine Glucose Uric Acid Calcium Phosphorus Ferritin AST Alkaline Phosphatase Lactate Dehydrogenase Total Creatine Kinase Troponin T C-Reactive Protein Albumin Globulin Albumin/Globulin Ratio Procalcitonin 3.42 H Urine Appearance Urine Protein Urine Glucose (UA) Urine Ketones Urine Occult Blood Ur Leukocyte Esterase Urine RBC Urine WBC Urine Bacteria CSF RBC CSF Neutrophils CSF Lymphocytes CSF Monocytes CSF Glucose Ethyl Alcohol 09/17/20 09/16/20 09/16/20 05:07 17:20 05:13 WBC RBC Hgb Hct MCHC RDW Neut % (Auto) Lymph % (Auto) Lymph # (Auto) [place] # (Auto) Lymphocytes % Absolute Neutrophils D-Dimer Potassium Chloride Carbon Dioxide Anion Gap BUN Creatinine Glucose Uric Acid Calcium Phosphorus Ferritin AST Alkaline Phosphatase Lactate Dehydrogenase Total Creatine Kinase 212 H Troponin T C-Reactive Protein Albumin Globulin Albumin/Globulin Ratio Procalcitonin 2.49 H Urine Appearance Urine Protein Urine Glucose (UA) Urine Ketones Urine Occult Blood Ur Leukocyte Esterase Urine RBC Urine WBC Urine Bacteria CSF RBC 9231 H CSF Neutrophils 92 H CSF Lymphocytes 5 L CSF Monocytes 3 L CSF Glucose 84 H Ethyl Alcohol 09/16/20 09/16/20 09/16/20 05:12 05:12 05:12 WBC RBC 3.73 L Hgb 10.2 L Hct 33.0 L MCHC 30.9 L RDW 15.5 H Neut % (Auto) Lymph % (Auto) Lymph # (Auto) [place] # (Auto) Lymphocytes % 12 L Absolute Neutrophils D-Dimer Potassium 7.0 H* Chloride Carbon Dioxide 20 L Anion Gap 18.0 H BUN 69 H Creatinine 12.2 H* Glucose 265 H Uric Acid 12.3 H Calcium 6.7 L Phosphorus 6.9 H* Ferritin 1804.0 H AST Alkaline Phosphatase Lactate Dehydrogenase Total Creatine Kinase 257 H Troponin T C-Reactive Protein 3.80 H Albumin 3.0 L Globulin Albumin/Globulin Ratio 0.9 L Procalcitonin Urine Appearance Urine Protein Urine Glucose (UA) Urine Ketones Urine Occult Blood Ur Leukocyte Esterase Urine RBC Urine WBC Urine Bacteria CSF RBC CSF Neutrophils CSF Lymphocytes CSF Monocytes CSF Glucose Ethyl Alcohol 09/16/20 09/15/20 09/15/20 02:18 21:08 16:00 WBC RBC Hgb Hct MCHC RDW Neut % (Auto) Lymph % (Auto) Lymph # (Auto) [place] # (Auto) Lymphocytes % Absolute Neutrophils D-Dimer Potassium 6.3 H* 6.3 H* Chloride Carbon Dioxide 18 L 19 L Anion Gap 21.0 H 22.0 H BUN 66 H 66 H Creatinine 12.7 H* 12.8 H* Glucose 197 H 146 H Uric Acid Calcium 7.1 L 7.4 L Phosphorus 7.0 H* 7.1 H* Ferritin AST Alkaline Phosphatase Lactate Dehydrogenase Total Creatine Kinase Troponin T C-Reactive Protein Albumin Globulin Albumin/Globulin Ratio Procalcitonin Urine Appearance Cloudy A Urine Protein 100 A Urine Glucose (UA) 50 A Urine Ketones 5 A Urine Occult Blood >=1.0 A Ur Leukocyte Esterase 500 A Urine RBC > 182 H Urine WBC 77 H Urine Bacteria Few A CSF RBC CSF Neutrophils CSF Lymphocytes CSF Monocytes CSF Glucose Ethyl Alcohol 09/15/20 09/15/20 09/15/20 13:30 13:08 13:08 WBC RBC Hgb Hct MCHC RDW Neut % (Auto) Lymph % (Auto) Lymph # (Auto) [place] # (Auto) Lymphocytes % Absolute Neutrophils D-Dimer Potassium Chloride Carbon Dioxide Anion Gap BUN Creatinine Glucose Uric Acid Calcium Phosphorus Ferritin 1784.0 H AST Alkaline Phosphatase Lactate Dehydrogenase Total Creatine Kinase 239 H Troponin T C-Reactive Protein 2.20 H Albumin Globulin Albumin/Globulin Ratio Procalcitonin 0.73 H Urine Appearance Urine Protein Urine Glucose (UA) Urine Ketones Urine Occult Blood Ur Leukocyte Esterase Urine RBC Urine WBC Urine Bacteria CSF RBC CSF Neutrophils CSF Lymphocytes CSF Monocytes CSF Glucose Ethyl Alcohol 09/15/20 09/15/20 09/15/20 13:08 13:08 13:08 WBC RBC Hgb Hct MCHC RDW Neut % (Auto) Lymph % (Auto) Lymph # (Auto) [place] # (Auto) Lymphocytes % Absolute Neutrophils D-Dimer 1.61 H Potassium Chloride Carbon Dioxide Anion Gap BUN Creatinine Glucose Uric Acid Calcium Phosphorus Ferritin AST Alkaline Phosphatase Lactate Dehydrogenase Total Creatine Kinase Troponin T 0.15 H* C-Reactive Protein Albumin Globulin Albumin/Globulin Ratio Procalcitonin Urine Appearance Urine Protein Urine Glucose (UA) Urine Ketones Urine Occult Blood Ur Leukocyte Esterase Urine RBC Urine WBC Urine Bacteria CSF RBC CSF Neutrophils CSF Lymphocytes CSF Monocytes CSF Glucose Ethyl Alcohol 0.010 H 09/15/20 09/15/20 13:08 13:08 WBC 16.1 H RBC Hgb Hct MCHC 29.9 L RDW 15.4 H Neut % (Auto) Lymph % (Auto) Lymph # (Auto) [place] # (Auto) 1.17 H Lymphocytes % Absolute Neutrophils 10.32 H D-Dimer Potassium 6.7 H* Chloride Carbon Dioxide 12 L Anion Gap 22.0 H BUN 62 H Creatinine 12.3 H* Glucose 134 H Uric Acid Calcium 7.4 L Phosphorus Ferritin AST Alkaline Phosphatase 121 H Lactate Dehydrogenase Total Creatine Kinase Troponin T C-Reactive Protein Albumin Globulin 4.2 H Albumin/Globulin Ratio 0.8 L Procalcitonin Urine Appearance Urine Protein Urine Glucose (UA) Urine Ketones Urine Occult Blood Ur Leukocyte Esterase Urine RBC Urine WBC Urine Bacteria CSF RBC CSF Neutrophils CSF Lymphocytes CSF Monocytes CSF Glucose Ethyl Alcohol Meds: Medications Acetaminophen (Tylenol) 650 mg PO Q6HP PRN; Protocol PRN Reason: Per Pain Protocol Last Admin: 09/17/20 14:38 Dose: 650 mg Documented by: Albuterol/Ipratropium (Duoneb) 3 ml NEB Q4HRT PRN PRN Reason: Dyspnea Clonidine HCl (Catapres) 0.1 mg PO Q4HP PRN PRN Reason: Hypertension sbp>155 Last Admin: 09/18/20 00:56 Dose: 0.1 mg Documented by: Clonidine HCl (Catapres) 0.1 mg PO HS [facility] Last Admin: 09/17/20 21:19 Dose: 0.1 mg Documented by: Collagenase (Santyl Top Oint) 1 dose TOPICAL DAILY [facility] Dexamethasone (Decadron) 6 mg IV DAILY [facility] Dextrose (Dextrose 50%) 0 ml IV UD PRN PRN Reason: Hypoglycemia Diagnostic Test (Pha) (Accu-Chek) 1 each FS ACHS [facility] Last Admin: 09/18/20 07:36 Dose: 1 each Documented by: Docusate Sodium (Colace) 100 mg PO BID [facility] Last Admin: 09/18/20 07:37 Dose: Not Given Documented by: Glucose (Insta-Glucose) 15 gm PO PRN PRN PRN Reason: Hypoglycemia Heparin Sodium (Porcine) (Heparin) 5,000 unit SQ Q12 [facility] Last Admin: 09/17/20 21:18 Dose: 5,000 unit Documented by: Sodium Chloride (Sodium Chloride 0.9%) 250 mls @ 20 mls/hr IV .[id number] [facility] Last Admin: 09/18/20 05:42 Dose: Not Given Documented by: Levetiracetam 750 mg/ Sodium (Chloride) 107.5 mls @ 200 mls/hr IV Q24H [facility] Last Infusion: 09/17/20 18:00 Dose: Infused Documented by: Piperacillin Sod/Tazobactam (Sod 2.25 gm/ Dextrose) 50 mls @ 100 mls/hr IV Q8H [facility]; Protocol Last Infusion: 09/18/20 06:15 Dose: Infused Documented by: Norepinephrine Bitartrate 16 (mg/ Sodium Chloride) 250 mls @ 9.375 mls/hr IV Q24HP PRN; Protocol PRN Reason: Hypotension Insulin Human Lispro (Humalog) 0 unit SQ [facility]; Protocol Last Admin: 09/17/20 21:18 Dose: 2 units Documented by: Labetalol HCl (Trandate) 0 mg IV Q2HP PRN PRN Reason: Hypertension Last Admin: 09/18/20 07:35 Dose: 20 mg Documented by: Lorazepam (Ativan) 2 mg IV Q4HP PRN PRN Reason: Seizure Midodrine (Midodrine Hcl) 2.5 mg PO BIDP PRN PRN Reason: BP equal/ below 90 Mupirocin (Bactroban Oint 2%) 1 dose TOPICAL DAILY [facility] Ondansetron HCl (Zofran) 4 mg IV Q4-6HP PRN PRN Reason: Nausea And Vomiting Sodium Chloride (Saline Flush) 10 ml IV Q12 [facility] Last Admin: 09/17/20 21:17 Dose: 10 ml Documented by: Throat Lozenges (Cepacol) 1 lozenge PO PRN PRN PRN Reason: Sore Throat Vancomycin HCl (Vancomycin Per Pharmacy) 1 order IV UD [facility]; Protocol A/P Time Spent With Patient Time: Total time spent is greater than 50% in coordination of care (as docu mented) at patient's floor/unit and/or counseling patient:
[2020-09-18 08:45] LABS: Blood Urea Nitrogen 19 mg/dL (6-20); Calcium 6.1 mg/dL (8.6-10.4); Carbon Dioxide 25 mmol/L (22-30); Chloride 93 mmol/L (96-108); Glomerular Filtration Rate 14; Glucose 156 mg/dL (70-105)
[2020-09-18] MEDS: COLLAGENASE TOP OINT TUBE 30GM TOPICAL SCH (09:29)
[2020-09-18] MEDS: DEXAMETHASONE 10 MG/ML VIAL IV SCH (09:30)
[2020-09-18] MEDS: MUPIROCIN OINT 2% 22GM TOPICAL SCH (09:30)
[2020-09-18] MEDS: INSULIN LISPRO 1 UNIT/0.01 ML UNIT SQ SCH ×4 (09:30→22:03)
[2020-09-18] MEDS: HEPARIN 5,000 UNIT/ML VIAL SQ SCH ×2 (09:30→20:45)
[2020-09-18] MEDS: 0.9 % SODIUM CHLORIDE 10 ML SYRINGE IV SCH ×2 (09:31→20:45)
--- NOTE | 2020-09-18 09:43 | Nephrology Progress Note ---
SUBJECTIVE Subjective Patient information: Note initiated : 09/18/20 at 9:39 am Service Date, if different from initiated Date: [] Patient: Dang Varner 55 y/o F admitted on 09/15/20 for altered loc. Chief Complaint: [altered MS] Patient seen and evaluated on AM rounds. Next scheduled HD treatment Tuesday09/19/2020. ABx pip/cinthia and vanco Dexamethasone and Remdesivir Started Keppra 09/16/2020 out of concern for status epilepticus and non-epileptic Sz as cause of obtundadation Laboratory Tests 09/17/20 09/18/20 09/18/20 14:35 05:20 05:20 Sodium 134 Potassium 3.0 L Chloride 93 L Carbon Dioxide 25 Anion Gap 16.0 BUN 19 Creatinine 3.6 H GFR Calculation 14 Glucose 156 H Calcium 6.1 L Procalcitonin 2.69 H Random Vancomycin 17.0 Blood and urine culture N/G to date. CSF negative so far, encephalitis panel pending. Constitutional Vitals: Vital Signs Temp Pulse Resp BP Pulse Ox 37.0 C 82 20 165/72 96 09/18/20 08:00 09/18/20 08:02 09/18/20 08:02 09/18/20 08:02 09/18/20 08:02 Period Temp Pulse Resp BP Sys/Bernstein Pulse Ox Last 24 Hr 36.2 C-37.0 C 69-117 9-27 88-195/34-138 84-99 Intake and Output 09/17/20 09/18/20 09/18/20 21:59 05:59 13:59 Intake Total 157.5 450 50 Output Total 5 200 Balance 152.5 450 -150 Weight 78.698 kg Intake & Output: Intake & Output 09/17/20 09/18/20 09/18/20 21:59 05:59 13:59 Intake Total 157.5 450 50 Output Total 5 200 Balance 152.5 450 -150 Weight 78.698 kg Intake: IV 157.5 50 50 Zosyn 2.25 gm In Dextrose 5% in 50 50 50 Water 50 ml @ 100 mls/hr IV Q8H [facility] Rx#:[id number] Keppra 750 mg In Sodium 107.5 Chloride 0.9% 100 ml @ 200 mls/ hr IV Q24H [facility] Rx#:[id number] Oral 0 400 Output: Urine Catheter Amount 5 Uretheral (Davis) 5 Void Amount 0 200 Other: Meal Dinner Percent of Meal Consumed 25% Urine Appearance Clear Uretheral (Davis) Sediment Urine Color Dark Yellow Urine Odor Normal Stool Size Moderate Moderate Stool Color Yellow Yellow Green Stool Consistency Loose Loose # Bowel Movements 1 # of times incontinent of 1 1 Bowels General appearance: morbidly obese and no acute distress Head Head exam: Present normal inspection and normocephalic Eye Eye exam: Present EOMI and PERRL; Absent nystagmus Pupils: Present PERRL ENT ENT exam: Present mucous membranes moist Neck Neck exam: Present full ROM; Absent meningismus Respiratory Respiratory exam: Present decreased breath sounds; Absent rales, respiratory distress, rhonchi and stridor Cardiovascular Cardiovascular exam: Present normal rate and rhythm, RRR, +S1 and +S2 GI/Abdominal GI/Abdominal exam: Present soft and hypoactive bowel sounds; Absent tenderness Rectal Rectal exam: Present deferred Extremities Exam Extremities exam: Absent calf tenderness and pedal edema Back Exam Back exam: Absent CVA tenderness (L), CVA tenderness (R), muscle spasm and rash noted Neurological Exam Neurological exam: Present alert and CN II-XII intact; Absent abnormal gait (Wheelchair-bound nonambulatory at baseline) Psychiatric Psychiatric exam: Present flat affect Skin Skin exam: Present dry; Absent rash A/P Assessment and plan (1) Toxic metabolic encephalopathy: Status: Acute Comment: I suspect SARS CV-2 related acute encephalitis Consider LP to look for csf pleocytosis and rule out other causes of viral encephalitis => NEGATIVE High dose corticosteroids have helped in this situation. Stop [employer] active Rx Turns out the clinical picture and therapeutic response is best explained by status epilepticus with nonconvulsive epilepsy which 1 would assume would have to be triggered by Covid infection. => Improved with Keppra (2) COVID-19 in immunocompromised patient: Status: Acute Comment: Start Hydrocortisone or solumedrol Remdesivir x 5 days Monitor Aa gradient and trend O2 sats (3) ESRD (end stage renal disease) on dialysis: Status: Chronic Comment: Missed HD on Tuesday due to viral syndrome and diarrhea. SARS CV2 positive on 09/11/2020 at [facility] Dialysis yesterday Next dialysis on Tuesday her regular treatment day Time Spent With Patient Time: Total time spent is greater than 50% in coordination of care (as documented) at patient's floor/unit and/or counseling patient:
[2020-09-18] MEDS: levETIRAcetam 750 MG in 0.9 % SODIUM CHLORIDE 100 ML IV SCH (17:04)
[2020-09-18] MEDS: cloNIDine HCL 0.1 MG TABLET PO SCH (20:45)
[2020-09-19] MEDS: LABETALOL 5 MG/ML ML IV PRN ×4 (00:28→14:16)
[2020-09-19] MEDS: cloNIDine HCL 0.1 MG TABLET PO PRN ×2 (02:04→07:12)
[2020-09-19] MEDS: 0.9 % SODIUM CHLORIDE 250 ML IV SCH ×2 (03:10→17:36)
[2020-09-19] MEDS: PIPERACILLIN SODIUM/TAZOBACTAM 2.25 GM in DEXTROSE 5% IN WATER 50 ML IV SCH ×3 (06:28→22:19)
[2020-09-19 06:36] LABS: Basophils # (Auto) 0 K/mcL (0.00-0.20); Basophils % (Auto) 0 % (0.0-2.0); Eosinophils # (Auto) 0 K/mcL (0.00-0.70); Eosinophils % (Auto) 0 % (0.0-7.0); Hematocrit 33.9 % (36.0-48.0); Hemoglobin 10.9 g/dL (12.0-15.0); Lymphocytes # (Auto) 0.77 K/mcL (1.50-4.80); Lymphocytes % (Auto) 14.1 % (15.0-49.0); Mean Cell Volume 83.7 fL (80.0-100.0); Mean Corpuscular HGB Conc 32.2 g/dL (31.0-36.0); Mean Platelet Volume 10.5 fL (7.4-10.4); Monocytes # (Auto) 0.64 K/mcL (0.10-0.90); Monocytes % (Auto) 11.7 % (1.0-12.0); Neutrophils % (Auto) 74.2 % (38.0-78.0); Platelet Count 253 K/mcL (140-440); RBC 4.05 M/mcL (4.00-5.20); Red Cell Distribution Width 14.3 % (11.5-14.5); WBC 5.5 K/mcL (4.5-11.0)
--- NOTE | 2020-09-19 07:18 | Nephrology Progress Note ---
SUBJECTIVE Subjective Patient information: Note initiated : 09/19/20 at 7:11 am Service Date, if different from initiated Date: [] Patient: Dang Varner 55 y/o F admitted on 09/15/20 for altered loc. Chief Complaint: [CoVID 19 positive HD patient with obtundation] Interval history: On presentation she was obtunded with brief intervals when she would become responsive but it was only after Keppra was started that there is return to baseline level of mental status. Encephalitis had been considered but ruled out by the findings of the LP, and thus we are thinking that her obtundation represented status epilepticus which would have to include nonconvulsive seizures. Patient is not the best historian but she does not recall taking any new medications, any illicit drugs and there is no significantly elevated temperature. She will be dialyzed today with plans to continue a 5-day course of therapy with Solu-Medrol and remdesavir. Laboratory Tests 09/19/20 05:08 WBC 5.5 Hgb 10.9 L Hct 33.9 L MCV 83.7 Plt Count 253 Laboratory Tests 09/19/20 09/19/20 05:08 08:11 Sodium 133 Potassium 3.5 Chloride 89 L Carbon Dioxide 28 Anion Gap 16.0 BUN 37 H Creatinine 5.7 H* GFR Calculation 8 Glucose 172 H Calcium 6.8 L Random Vancomycin 16.0 Constitutional Vitals: Vital Signs Temp Pulse Resp BP Pulse Ox 36.8 C 72 10 L 197/90 93 09/19/20 04:01 09/19/20 04:01 09/19/20 04:01 09/19/20 04:01 09/19/20 04:01 Period Temp Pulse Resp BP Sys/Bernstein Pulse Ox Last 24 Hr 36.1 C-37.0 C 69-84 0-31 103-203/66-96 83-98 Intake and Output 09/18/20 09/19/20 09/19/20 21:59 05:59 13:59 Intake Total 770 397.5 Balance 770 397.5 Weight 78.97 kg Intake & Output: Intake & Output 09/18/20 09/19/20 09/19/20 21:59 05:59 13:59 Intake Total 770 397.5 Balance 770 397.5 Weight 78.97 kg Intake: IV 50 157.5 Zosyn 2.25 gm In Dextrose 5% in 50 50 Water 50 ml @ 100 mls/hr IV Q8H [facility] Rx#:[id number] Keppra 750 mg In Sodium 107.5 Chloride 0.9% 100 ml @ 200 mls/ hr IV Q24H [facility] Rx#:[id number] Oral 720 240 Other: Meal Lunch Percent of Meal Consumed 50% Feeding Ability Independent Stool Size Smear Stool Color Brown Green Stool Consistency Liquid General appearance: no acute distress and obese A/P Assessment and plan (1) Toxic metabolic encephalopathy: Status: Acute Comment: I suspect SARS CV-2 related acute encephalitis Consider LP to look for csf pleocytosis and rule out other causes of viral encephalitis => NEGATIVE High dose corticosteroids have helped in this situation. Stop [employer] active Rx Turns out the clinical picture and therapeutic response is best explained by status epilepticus with nonconvulsive epilepsy which 1 would assume would have to be triggered by Covid infection. => Improved with Keppra (2) COVID-19 in immunocompromised patient: Status: Acute Comment: Start Hydrocortisone or solumedrol Remdesivir x 5 days Monitor Aa gradient and trend O2 sats (3) ESRD (end stage renal disease) on dialysis: Status: Chronic Comment: Missed HD on Tuesday due to viral syndrome and diarrhea. SARS CV2 positive on 09/11/2020 at [facility] Dialysis on Tuesday her regular treatment day Time Spent With Patient Time: Total time spent is greater than 50% in coordination of care (as documented) at patient's floor/unit and/or counseling patient:
[2020-09-19] MEDS: INSULIN LISPRO 1 UNIT/0.01 ML UNIT SQ SCH ×4 (08:29→20:37)
[2020-09-19 08:39] LABS: Blood Urea Nitrogen 37 mg/dL (6-20); Calcium 6.8 mg/dL (8.6-10.4); Carbon Dioxide 28 mmol/L (22-30); Chloride 89 mmol/L (96-108); Glomerular Filtration Rate 8; Glucose 172 mg/dL (70-105)
[2020-09-19] MEDS: HEPARIN 5,000 UNIT/ML VIAL SQ SCH ×2 (08:58→20:36)
[2020-09-19] MEDS: DOCUSATE SODIUM 100 MG CAPSULE PO SCH ×2 (08:58→20:38)
[2020-09-19] MEDS: 0.9 % SODIUM CHLORIDE 10 ML SYRINGE IV SCH ×2 (08:59→20:38)
[2020-09-19] MEDS: DEXAMETHASONE 10 MG/ML VIAL IV SCH (08:59)
[2020-09-19] MEDS: COLLAGENASE TOP OINT TUBE 30GM TOPICAL SCH (08:59)
[2020-09-19] MEDS: MUPIROCIN OINT 2% 22GM TOPICAL SCH (08:59)
[2020-09-19] MEDS ORDERED: DARBEPOETIN ALFA 100 MCG/ML VIAL IV ONE ×2 (10:19→11:00)
--- NOTE | 2020-09-19 11:49 | Internal Med Progress Note ---
SUBJECTIVE Subjective Patient information: Note initiated : 09/19/20 at 11:47 am Service Date, if different from initiated Date: [] Patient: Dang Varner a 55 y/o F admitted on 09/15/20 for altered loc. Chief Complaint: Interval history: Histor of present illness: Ms. Varner is a 55 year old F Presents to the ED with obtundation. History obtained from chart and, member. Per family member Meghan, she has had a dry cough for the past week little bit of phlegm occasionally but otherwise no recent complaints. She as well as found members were tested positive for Covid, but got tested at [place] on and were told results on Tuesday. She presented to [facility] ER with a cough on Tuesday when she was also to undergo dialysis but did not have any significant findings. Family ever said she was in her typical state of health last night. But they the patient would not wake up for the family member. Per the family member patient typically sleeps 2 to 4 hours daily. He has been to wound care clinic recently of the last Tuesday for a left foot infection she is dealing with. Family member did denies any drug use or alcohol use. She received Narcan x2 in the ED with no real response. She was hypotensive and was started on Levophed. Looking at her old history she has had many episodes of hypotension. She missed dialysis on Tuesday and today. Discussed with Dr. Mata. Patient will get dialysis today. 09/16 Patient getting dialysis this morning. Mentation much improved. She does not recalled why she came in, explained that her daughter found her unresponsive. 09/17 Mentation clear up yesterday evening and is good again today. No overnight event or new complaints. Getting dialysis this morning. 09/18 Has not had any other episodes or she became obtunded since starting the Keppra. No events overnight. Had dialysis yesterday. Leukocytosis resolved. Weak. Has not been out of bed. 09/19-patient doing a lot better since previous day. However suboptimally controlled hypertension. Managed as per nephrology recommendations. Currently on 1 L oxygen. Stable white count. On dexamethasone/COVID-19 precautions. Improving encephalopathy. Work-up negative so far. Currently on Keppra for suspected seizures. Continue antibiotic coverage. Constitutional Vitals: Vital Signs Temp Pulse Resp BP Pulse Ox 97.2 F 74 19 134/84 98 09/19/20 09:50 09/19/20 11:45 09/19/20 09:46 09/19/20 11:45 09/19/20 10:00 Period Temp Pulse Resp BP Sys/Bernstein Pulse Ox Last 24 Hr 97.0 F-98.2 F 69-85 0-31 94-214/66-116 83-99 Intake and Output 09/18/20 09/19/20 09/19/20 21:59 05:59 13:59 Intake Total 770 397.5 50 Balance 770 397.5 50 Weight 78.97 kg Improved mentation now alert and oriented No anxiety On 1 L oxygen Afebrile Intake & Output: Intake & Output 09/18/20 09/19/20 09/19/20 21:59 05:59 13:59 Intake Total 770 397.5 50 Balance 770 397.5 50 Weight 78.97 kg Intake: IV 50 157.5 50 Zosyn 2.25 gm In Dextrose 5% in 50 50 50 Water 50 ml @ 100 mls/hr IV Q8H [facility] Rx#:[id number] Keppra 750 mg In Sodium 107.5 Chloride 0.9% 100 ml @ 200 mls/ hr IV Q24H [facility] Rx#:[id number] Oral 720 240 Other: Meal Lunch Percent of Meal Consumed 50% Feeding Ability Independent Stool Size Smear Stool Color Brown Brown Green Green Stool Consistency Liquid Loose OBJ DATA Labs CBC & Chem 7: 09/19/20 05:08 09/19/20 05:08 Labs: Abnormal Lab Results 09/19/20 09/19/20 09/18/20 05:08 05:08 05:20 RBC Hgb 10.9 L Hct 33.9 L RDW MPV 10.5 H Neut % (Auto) Lymph % (Auto) 14.1 L Lymph # (Auto) 0.77 L D-Dimer Potassium 3.0 L Chloride 89 L 93 L BUN 37 H Creatinine 5.7 H* 3.6 H Glucose 172 H 156 H Calcium 6.8 L 6.1 L Phosphorus Ferritin AST Lactate Dehydrogenase Total Creatine Kinase C-Reactive Protein Albumin Globulin Albumin/Globulin Ratio Procalcitonin CSF RBC CSF Neutrophils CSF Lymphocytes CSF Monocytes CSF Glucose 09/18/20 09/17/20 09/17/20 05:20 05:08 05:08 RBC Hgb Hct RDW MPV Neut % (Auto) Lymph % (Auto) Lymph # (Auto) D-Dimer Potassium Chloride 90 L BUN 28 H Creatinine 5.9 H* Glucose 167 H Calcium 6.9 L Phosphorus 5.5 H Ferritin > 2000.0 H AST 32 H Lactate Dehydrogenase 327 H Total Creatine Kinase C-Reactive Protein 3.10 H Albumin 3.1 L Globulin 3.8 H Albumin/Globulin Ratio 0.8 L Procalcitonin 2.69 H CSF RBC CSF Neutrophils CSF Lymphocytes CSF Monocytes CSF Glucose 09/17/20 09/17/20 09/17/20 05:08 05:08 05:08 RBC 3.85 L Hgb 10.5 L Hct 33.3 L RDW 15.0 H MPV Neut % (Auto) 81.1 H Lymph % (Auto) 10.9 L Lymph # (Auto) 0.80 L D-Dimer 1.87 H Potassium Chloride BUN Creatinine Glucose Calcium Phosphorus Ferritin AST Lactate Dehydrogenase Total Creatine Kinase C-Reactive Protein Albumin Globulin Albumin/Globulin Ratio Procalcitonin 3.42 H CSF RBC CSF Neutrophils CSF Lymphocytes CSF Monocytes CSF Glucose 09/17/20 09/16/20 05:07 17:20 RBC Hgb Hct RDW MPV Neut % (Auto) Lymph % (Auto) Lymph # (Auto) D-Dimer Potassium Chloride BUN Creatinine Glucose Calcium Phosphorus Ferritin AST Lactate Dehydrogenase Total Creatine Kinase 212 H C-Reactive Protein Albumin Globulin Albumin/Globulin Ratio Procalcitonin CSF RBC 9231 H CSF Neutrophils 92 H CSF Lymphocytes 5 L CSF Monocytes 3 L CSF Glucose 84 H Meds: Medications Acetaminophen (Tylenol) 650 mg PO Q6HP PRN; Protocol PRN Reason: Per Pain Protocol Last Admin: 09/17/20 14:38 Dose: 650 mg Documented by: Albuterol/Ipratropium (Duoneb) 3 ml NEB Q4HRT PRN PRN Reason: Dyspnea Clonidine HCl (Catapres) 0.1 mg PO Q4HP PRN PRN Reason: Hypertension sbp>155 Last Admin: 09/19/20 07:12 Dose: 0.1 mg Documented by: Clonidine HCl (Catapres) 0.1 mg PO HS [facility] Last Admin: 09/18/20 20:45 Dose: 0.1 mg Documented by: Collagenase (Santyl Top Oint) 1 dose TOPICAL DAILY [facility] Last Admin: 09/19/20 08:59 Dose: 1 dose Documented by: Dexamethasone (Decadron) 6 mg IV DAILY [facility] Last Admin: 09/19/20 08:59 Dose: 6 mg Documented by: Dextrose (Dextrose 50%) 0 ml IV UD PRN PRN Reason: Hypoglycemia Diagnostic Test (Pha) (Accu-Chek) 1 each FS ACHS [facility] Last Admin: 09/19/20 07:11 Dose: 1 each Documented by: Docusate Sodium (Colace) 100 mg PO BID [facility] Last Admin: 09/19/20 08:58 Dose: 100 mg Documented by: Glucose (Insta-Glucose) 15 gm PO PRN PRN PRN Reason: Hypoglycemia Heparin Sodium (Porcine) (Heparin) 5,000 unit SQ Q12 [facility] Last Admin: 09/19/20 08:58 Dose: 5,000 unit Documented by: Sodium Chloride (Sodium Chloride 0.9%) 250 mls @ 20 mls/hr IV .[id number] [facility] Last Admin: 09/19/20 03:10 Dose: Not Given Documented by: Levetiracetam 750 mg/ Sodium (Chloride) 107.5 mls @ 200 mls/hr IV Q24H [facility] Last Infusion: 09/19/20 04:31 Dose: Infused Documented by: Piperacillin Sod/Tazobactam (Sod 2.25 gm/ Dextrose) 50 mls @ 100 mls/hr IV Q8H [facility]; Protocol Last Infusion: 09/19/20 07:00 Dose: Infused Documented by: Norepinephrine Bitartrate 16 (mg/ Sodium Chloride) 250 mls @ 9.375 mls/hr IV Q24HP PRN; Protocol PRN Reason: Hypotension Vancomycin HCl 500 mg/ Sodium (Chloride) 100 mls @ 100 mls/hr IV ONCE ONE Stop: 09/19/20 13:59 Insulin Human Lispro (Humalog) 0 unit SQ ACHS [facility]; Protocol Last Admin: 09/19/20 08:29 Dose: Not Given Documented by: Labetalol HCl (Trandate) 0 mg IV Q2HP PRN PRN Reason: Hypertension Last Admin: 09/19/20 06:28 Dose: 20 mg Documented by: Lorazepam (Ativan) 2 mg IV Q4HP PRN PRN Reason: Seizure Midodrine (Midodrine Hcl) 2.5 mg PO BIDP PRN PRN Reason: BP equal/ below 90 Mupirocin (Bactroban Oint 2%) 1 dose TOPICAL DAILY [facility] Last Admin: 09/19/20 08:59 Dose: 1 dose Documented by: Ondansetron HCl (Zofran) 4 mg IV Q4-6HP PRN PRN Reason: Nausea And Vomiting Sodium Chloride (Saline Flush) 10 ml IV Q12 [facility] Last Admin: 09/19/20 08:59 Dose: 10 ml Documented by: Throat Lozenges (Cepacol) 1 lozenge PO PRN PRN PRN Reason: Sore Throat Vancomycin HCl (Vancomycin Per Pharmacy) 1 order IV UD [facility]; Protocol A/P Narrative A/P Narrative: * COVID-19 syndrome with acute change mental status/pneumonia. Diagnosed at [facility] on 09/11. * *Acute encephalopathy (obtunded): Much improved now alert and responding. Likely manifestation of acute COVID-19 infection/uremia/electrolyte + meds/seizure. Responded well to Keppra. -CT brain unremarkable for acute but does show old b/l lacunar infarcts. -MRI/LP unremarkable, * *ESRD: missed several sessions of HD. Management per Dr. Mata nephrology * *Hyperkalemia: resolved * *Circulatory shock: endocrine vs less likely septic vs meds(clonidine/narc). Has had multiple episodes of hypotension in past. Clinically resolved follo wing brief treatment on vasopressors * *AG met acidosis: lacate wnl, improved * *recent Left foot infection: follows with Dr. Gerardo and seen recently, site looks good per Dr. Gerardo * *?UTI: UA chronically abnormal * *Diabetes w/neuropathy: A1c 6.7 * *ESRD: Has been following with Dr. Rodriguez * *Anemia, chronic * *HTN/HLD: Managed per nephrology * *Depression/anxiety/fibromyalgia: * *Chronic pain: * *h/o cardiomyopathy: * Chronic leukocytosis Plan - HD per nephrology -Hypertension management per nephrology -Dexamathasone -Continue Keppra, follow-up outpatient neurology/EEG on discharge -empric abx, f/u PCT/BC/UC -Wound care -basal and SSI -Continue home clonidine, BP labile -hold home narcotics -PT/OT -ppx: Heparin Time Spent With Patient Time: Total time spent is greater than 50% in coordination of care (as documented) at patient's floor/unit and/or counseling patient:
[2020-09-19] MEDS ORDERED: VANCOMYCIN 500 MG in 0.9 % SODIUM CHLORIDE 100 ML IV ONE (13:00)
[2020-09-19] MEDS: levETIRAcetam 750 MG in 0.9 % SODIUM CHLORIDE 100 ML IV SCH (16:48)
[2020-09-19] MEDS: cloNIDine HCL 0.1 MG TABLET PO SCH (20:36)
[2020-09-20] MEDS: PIPERACILLIN SODIUM/TAZOBACTAM 2.25 GM in DEXTROSE 5% IN WATER 50 ML IV SCH ×3 (05:26→21:29)
[2020-09-20 06:53] LABS: ALT/SGPT 14 U/L (<40); AST/SGOT 36 U/L (<32); Albumin 2.8 gm/dL (3.2-5.2); Albumin/Globulin Ratio 0.8 (1.0-2.3); Alkaline Phosphatase 58 U/L (39-117); Bilirubin,Direct < 0.2 mg/dL (<0.3); Bilirubin,Total 0.4 mg/dL (0.1-1.0); Blood Urea Nitrogen 20 mg/dL (6-20); Calcium 7.1 mg/dL (8.6-10.4); Carbon Dioxide 30 mmol/L (22-30); Chloride 89 mmol/L (96-108); Globulin 3.6 gm/dL (2.2-3.7); Glomerular Filtration Rate 12; Glucose 121 mg/dL (70-105); Lactate Dehydrogenase 424 U/L (135-225); Phosphorous 2.4 mg/dL (2.5-4.5); Triglycerides 191 mg/dL (<150); Uric Acid 3.4 mg/dL (2.5-8.0)
[2020-09-20] MEDS: INSULIN LISPRO 1 UNIT/0.01 ML UNIT SQ SCH ×4 (06:57→20:33)
[2020-09-20 07:01] LABS: Basophils # (Auto) 0.01 K/mcL (0.00-0.20); Basophils % (Auto) 0.1 % (0.0-2.0); Eosinophils # (Auto) 0 K/mcL (0.00-0.70); Eosinophils % (Auto) 0 % (0.0-7.0); Hematocrit 32.3 % (36.0-48.0); Hemoglobin 10.4 g/dL (12.0-15.0); Lymphocytes % (Auto) 10.7 % (15.0-49.0); Mean Cell Volume 83.2 fL (80.0-100.0); Mean Corpuscular HGB Conc 32.2 g/dL (31.0-36.0); Mean Platelet Volume 10.4 fL (7.4-10.4); Monocytes # (Auto) 0.53 K/mcL (0.10-0.90); Monocytes % (Auto) 5.2 % (1.0-12.0); Platelet Count 273 K/mcL (140-440); RBC 3.88 M/mcL (4.00-5.20); Red Cell Distribution Width 14.5 % (11.5-14.5); WBC 10.2 K/mcL (4.5-11.0)
[2020-09-20] MEDS: 0.9 % SODIUM CHLORIDE 250 ML IV SCH ×2 (08:41→23:16)
--- NOTE | 2020-09-20 08:48 | XRay Report ---
INDICATION: Increasing oxygen demand TECHNIQUE: AP portable semiupright chest x-ray COMPARISON: Previous examinations dated 09/16/2020, 09/15/2020, 06/12/2020 FINDINGS:No change in positions of left central venous catheter and right hemodialysis catheter Lungs:Lungs remain abnormal. There is peribronchial thickening which may represent interstitial edema. There are focal infiltrates in left mid lung and left base. These are slightly worse. Findings suggest pneumonia. Clinical correlation continued radiographic follow-up recommended. Heart, vascular:There is cardiomegaly, unchanged. Pulmonary vascularity remains prominent Mediastinum, monty:No mediastinal widening. No hilar mass Pleura:No detectable pleural effusion. This is atypical for congestive heart failure. Skeletal:Negative. IMPRESSION: 1. Left midlung and basilar infiltrates consistent with pneumonia. Findings are slightly worse 2. Possible interstitial edema as well Interpreted and Authenticated by: Gary Michel 09/20/20
--- NOTE | 2020-09-20 09:25 | Internal Med Progress Note ---
SUBJECTIVE Subjective Patient information: Note initiated : 09/20/20 at 9:21 am Service Date, if different from initiated Date: [] Patient: Dang Varner a 55 y/o F admitted on 09/15/20 for altered loc. Chief Complaint: [] Interval history: Histor of present illness: Ms. Varner is a 55 year old F Presents to the ED with obtundation. History obtained from chart and, member. Per family member Meghan, she has had a dry cough for the past week little bit of phlegm occasionally but otherwise no recent complaints. She as well as found members were tested positive for Covid, but got tested at [place] on and were told results on Tuesday. She presented to [facility] ER with a cough on Tuesday when she was also to undergo dialysis but did not have any significant findings. Family ever said she was in her typical state of health last night. But they the patient would not wake up for the family member. Per the family member patient typically sleeps 2 to 4 hours daily. He has been to wound care clinic recently of the last Tuesday for a left foot infection she is dealing with. Family member did denies any drug use or alcohol use. She received Narcan x2 in the ED with no real response. She was hypotensive and was started on Levophed. Looking at her old history she has had many episodes of hypotension. She missed dialysis on Tuesday and today. Discussed with Dr. Mata. Patient will get dialysis today. 09/16 Patient getting dialysis this morning. Mentation much improved. She does not recalled why she came in, explained that her daughter found her unresponsive. 09/17 Mentation clear up yesterday evening and is good again today. No overnight event or new complaints. Getting dialysis this morning. 09/18 Has not had any other episodes or she became obtunded since starting the Keppra. No events overnight. Had dialysis yesterday. Leukocytosis resolved. Weak. Has not been out of bed. 09/19-patient doing a lot better since previous day. However suboptimally controlled hypertension. Managed as per nephrology recommendations. Currently on 1 L oxygen. Stable white count. On dexamethasone/COVID-19 precautions. Improving encephalopathy. Work-up negative so far. Currently on Keppra for suspected seizures. Continue antibiotic coverage. 09/20-dramatic deterioration in respiratory status now requiring several days oxygen. Repeat interval imaging/ABG. Worsening infiltrates noted on chest imaging. Case discussed with nephrology. [employer]er recommends considering remdesivir in light of patient deteriorating status. Start noninvasive ventilation if significant AA gradient. Current PaO2 FiO2 ratio less than 150. Appears confused lethargic. No telemetry events. Constitutional Vitals: Vital Signs Temp Pulse Resp BP Pulse Ox 99.1 F H 92 H 24 H 119/68 90 09/20/20 08:01 09/20/20 08:01 09/20/20 08:01 09/20/20 08:01 09/20/20 08:01 Period Temp Pulse Resp BP Sys/Bernstein Pulse Ox Last 24 Hr 97.2 F-99.1 F 57-96 7-29 77-206/51-105 76-100 Intake and Output 09/19/20 09/20/20 09/20/20 21:59 05:59 13:59 Intake Total 148 250 157.5 Output Total 400 Balance -252 250 157.5 Weight 77.8 kg Confused and lethargic Labored breathing on 7 L oxygen Nondistended nontender abdomen No lymphedema Intake & Output: Intake & Output 09/19/20 09/20/20 09/20/20 21:59 05:59 13:59 Intake Total 148 250 157.5 Output Total 400 Balance -252 250 157.5 Weight 77.8 kg Intake: IV 148 50 157.5 Zosyn 2.25 gm In Dextrose 5% in 50 50 50 Water 50 ml @ 100 mls/hr IV Q8H [facility] Rx#:[id number] Vancomycin 500 mg In Sodium 98 Chloride 0.9% 100 ml @ 100 mls/ hr IV ONCE ONE Rx#:[id number] Keppra 750 mg In Sodium 107.5 Chloride 0.9% 100 ml @ 200 mls/ hr IV Q24H [facility] Rx#:[id number] Oral 200 Output: Hemodialysis UF 400 Other: Urine Appearance Clear Urine Color Pale Urine Odor Normal Stool Size Large Moderate Stool Color Brown Stool Consistency Liquid Liquid # Bowel Movements 1 # of times incontinent of 1 Bowels OBJ DATA Labs CBC & Chem 7: 09/20/20 05:10 09/20/20 05:10 Labs: Abnormal Lab Results 09/20/20 09/20/20 09/19/20 05:10 05:10 05:08 RBC 3.88 L Hgb 10.4 L 10.9 L Hct 32.3 L 33.9 L MPV 10.5 H Neut % (Auto) 84.0 H Lymph % (Auto) 10.7 L 14.1 L Lymph # (Auto) 1.10 L 0.77 L Absolute Neutrophils 8.60 H Sodium 132 L Potassium Chloride 89 L BUN Creatinine 4.0 H Glucose 121 H Calcium 7.1 L Phosphorus 2.4 L AST 36 H Lactate Dehydrogenase 424 H Albumin 2.8 L Albumin/Globulin Ratio 0.8 L Triglycerides 191 H Procalcitonin 09/19/20 09/18/20 09/18/20 05:08 05:20 05:20 RBC Hgb Hct MPV Neut % (Auto) Lymph % (Auto) Lymph # (Auto) Absolute Neutrophils Sodium Potassium 3.0 L Chloride 89 L 93 L BUN 37 H Creatinine 5.7 H* 3.6 H Glucose 172 H 156 H Calcium 6.8 L 6.1 L Phosphorus AST Lactate Dehydrogenase Albumin Albumin/Globulin Ratio Triglycerides Procalcitonin 2.69 H Meds: Medications Acetaminophen (Tylenol) 650 mg PO Q6HP PRN; Protocol PRN Reason: Per Pain Protocol Last Admin: 09/17/20 14:38 Dose: 650 mg Documented by: Albuterol/Ipratropium (Duoneb) 3 ml NEB Q4HRT PRN PRN Reason: Dyspnea Clonidine HCl (Catapres) 0.1 mg PO Q4HP PRN PRN Reason: Hypertension sbp>155 Last Admin: 09/19/20 07:12 Dose: 0.1 mg Documented by: Clonidine HCl (Catapres) 0.1 mg PO HS [facility] Last Admin: 09/19/20 20:36 Dose: 0.1 mg Documented by: Collagenase (Santyl Top Oint) 1 dose TOPICAL DAILY [facility] Last Admin: 09/19/20 08:59 Dose: 1 dose Documented by: Dexamethasone (Decadron) 6 mg IV DAILY [facility] Last Admin: 09/19/20 08:59 Dose: 6 mg Documented by: Dextrose (Dextrose 50%) 0 ml IV UD PRN PRN Reason: Hypoglycemia Diagnostic Test (Pha) (Accu-Chek) 1 each FS ACHS [facility] Last Admin: 09/20/20 06:57 Dose: 1 each Documented by: Docusate Sodium (Colace) 100 mg PO BID [facility] Last Admin: 09/19/20 20:38 Dose: Not Given Documented by: Glucose (Insta-Glucose) 15 gm PO PRN PRN PRN Reason: Hypoglycemia Heparin Sodium (Porcine) (Heparin) 5,000 unit SQ Q12 [facility] Last Admin: 09/19/20 20:36 Dose: 5,000 unit Documented by: Sodium Chloride (Sodium Chloride 0.9%) 250 mls @ 20 mls/hr IV .[id number] [facility] Last Admin: 09/20/20 08:41 Dose: Not Given Documented by: Levetiracetam 750 mg/ Sodium (Chloride) 107.5 mls @ 200 mls/hr IV Q24H [facility] Last Infusion: 09/20/20 08:41 Dose: Infused Documented by: Piperacillin Sod/Tazobactam (Sod 2.25 gm/ Dextrose) 50 mls @ 100 mls/hr IV Q8H [facility]; Protocol Last Infusion: 09/20/20 08:41 Dose: Infused Documented by: Norepinephrine Bitartrate 16 (mg/ Sodium Chloride) 250 mls @ 9.375 mls/hr IV Q24HP PRN; Protocol PRN Reason: Hypotension Insulin Human Lispro (Humalog) 0 unit SQ ACHS [facility]; Protocol Last Admin: 09/20/20 06:57 Dose: Not Given Documented by: Labetalol HCl (Trandate) 0 mg IV Q2HP PRN PRN Reason: Hypertension Last Admin: 09/19/20 14:16 Dose: 5 mg Documented by: Lorazepam (Ativan) 2 mg IV Q4HP PRN PRN Reason: Seizure Midodrine (Midodrine Hcl) 2.5 mg PO BIDP PRN PRN Reason: BP equal/ below 90 Mupirocin (Bactroban Oint 2%) 1 dose TOPICAL DAILY [facility] Last Admin: 09/19/20 08:59 Dose: 1 dose Documented by: Ondansetron HCl (Zofran) 4 mg IV Q4-6HP PRN PRN Reason: Nausea And Vomiting Sodium Chloride (Saline Flush) 10 ml IV Q12 [facility] Last Admin: 09/19/20 20:38 Dose: 10 ml Documented by: Throat Lozenges (Cepacol) 1 lozenge PO PRN PRN PRN Reason: Sore Throat Vancomycin HCl (Vancomycin Per Pharmacy) 1 order IV [facility] [place] [place]; Protocol A/P Narrative A/P Narrative: * COVID-19 pneumonia with acute change mental status. Diagnosed at [facility] on 09/11. Now worsening interval chest imaging. Continue dexamethasone. Low GFR precluding remdesivir use * Acute hypoxic respiratory failure with large AA gradient/PaO2 FiO2 ratio less than 150. Secondary to Covid pneumonia. Initiate noninvasive ventilation * *Acute encephalopathy (obtunded): Demonstrating fluctuating mental status. Now more lethargic. Worsening interval chest imaging. Alert and responding. Likely manifestation of acute COVID-19 infection/uremia/electrolyte + meds/seizure. Responded well to Keppra. CT brain unremarkable for acute but does show old b/l lacunar infarcts. MRI/LP unremarkable, * ESRD: missed several sessions of HD. Management per Dr. Mata nephrology * *Hyperkalemia: resolved * *Circulatory shock: endocrine vs less likely septic vs meds(clonidine/narc). Has had multiple episodes of hypotension in past. Clinically resolved following brief treatment on vasopressors * *AG met acidosis: lacate wnl, improved * *recent Left foot infection: follows with Dr. Gerardo and seen recently, s ite looks good per Dr. Gerardo * *?UTI: UA chronically abnormal * *Diabetes w/neuropathy: A1c 6.7 * *ESRD: Has been following with Dr. Rodriguez * *Anemia, chronic * *HTN/HLD: Managed per nephrology * *Depression/anxiety/fibromyalgia: * *Chronic pain: * *h/o cardiomyopathy: * Chronic leukocytosis Plan - HD per nephrology -Start noninvasive mechanical ventilation -Hypertension management per nephrology -Continue Dexamathasone -Continue Keppra, follow-up outpatient neurology/EEG on discharge -empric abx, f/u PCT/BC/UC -Wound care -basal and SSI -Continue home clonidine, BP labile -hold home narcotics -PT/OT -ppx: Heparin Time Spent With Patient Time: Total time spent is greater than 50% in coordination of care (as documented) at patient's floor/unit and/or counseling patient:
[2020-09-20] MEDS: HEPARIN 5,000 UNIT/ML VIAL SQ SCH ×2 (09:38→20:29)
[2020-09-20] MEDS: MUPIROCIN OINT 2% 22GM TOPICAL SCH (09:39)
[2020-09-20] MEDS: COLLAGENASE TOP OINT TUBE 30GM TOPICAL SCH (09:39)
[2020-09-20] MEDS: 0.9 % SODIUM CHLORIDE 10 ML SYRINGE IV SCH ×2 (09:39→20:35)
[2020-09-20] MEDS: DOCUSATE SODIUM 100 MG CAPSULE PO SCH ×2 (09:39→20:30)
[2020-09-20] MEDS: DEXAMETHASONE 10 MG/ML VIAL IV SCH (09:39)
--- NOTE | 2020-09-20 09:41 | Nephrology Progress Note ---
SUBJECTIVE Subjective Patient information: Note initiated : 09/20/20 at 9:40 am Service Date, if different from initiated Date: [] Patient: Dang Varner 55 y/o F admitted on 09/15/20 for altered loc. Chief Complaint: [obtundation] Interval history: On presentation she was obtunded with brief intervals when she would become responsive but it was only after Keppra was started that there is return to baseline level of mental status. Encephalitis had been considered but ruled out by the findings of the LP, and thus we are thinking that her obtundation represented status epilepticus which would have to include nonconvulsive seizures. Patient is not the best historian but she does not recall taking any new medications, any illicit drugs and there is no significantly elevated temperature. On the day of presentation, September 15, she received 100 mg of hydrocortisone out of concern for adrenal insufficiency but this proved not to be the case as her serum cortisol level prior to hydrocortisone was elevated in a fashion appropriate for response to hypotension and stress. It was my understanding the patient was receiving remdesivir but this turned out not to be the case, and she received 4 additional doses of Solu-Medrol on September 16 THRU September 19. She has been on vancomycin and PIP/Roger . Blood cultures and urine cultures have been negative. Gram stain of CSF negative No growth to date CSF On 1125 her SARSCV 2 PCR was positive at [facility] With time and perhaps institution of Keppra therapy, patient has had improvement back to baseline level mentation. She will need to have an outpatient EEG and neurology evaluation and in all likelihood we will have to continue Keppra for a year and a can be discontinued at that point if she has been seizure-free. She is nonambulatory and does not drive. As recently as yesterday there is consideration of discharge home until last night when she became dyspneic with increased work of breathing and an increased AA gradient requiring the use of BiPAP to maintain her oxygen saturations. This is occurred in the setting of corticosteroid therapy and broad-spectrum antibiotic coverage in a patient considered high risk for Covid complications which appear to be the development of an ARDS-like picture. With dialysis, she had had ultrafiltration to the maximal degree as she became hypotensive during and Fridays treatments. We did not have the equipment necessary for continuous renal replacement therapy so 1 option would be daily hemodialysis with less ultrafiltration per day. While I be the first to admit the data on remdesivir is conflicting at best, her clinical course would warrant a 5-day treatment as the theoretical risks are outweighed by the potential benefits and a high risk patient with a downward clinical course. As such I have ordered 200 mg dose of remdesivir to be given today followed by 4 additional 100 mg doses over the next 4 days. During this time corticosteroids will continue. Laboratory Results 09/19/20 09/20/20 09/20/20 08:11 05:10 05:10 WBC 10.2 RBC 3.88 L Hgb 10.4 L Hct 32.3 L MCV 83.2 MCH 26.8 MCHC 32.2 RDW 14.5 Plt Count 273 MPV 10.4 Neut % (Auto) 84.0 H Lymph % (Auto) 10.7 L [place] % (Auto) 5.2 Eos % (Auto) 0 Baso % (Auto) 0.1 Lymph # (Auto) 1.10 L [place] # (Auto) 0.53 Eos # (Auto) 0 Baso # (Auto) 0.01 Absolute Neutrophils 8.60 H Sodium 132 L Potassium 3.3 Chloride 89 L Carbon Dioxide 30 Anion Gap 13.0 BUN 20 Creatinine 4.0 H GFR Calculation 12 Glucose 121 H Uric Acid 3.4 Calcium 7.1 L Phosphorus 2.4 L Magnesium 1.7 Total Bilirubin 0.4 Direct Bilirubin < 0.2 GGT 20 AST 36 H ALT 14 Alkaline Phosphatase 58 Lactate Dehydrogenase 424 H Total Protein 6.4 Albumin 2.8 L Globulin 3.6 Albumin/Globulin Ratio 0.8 L Triglycerides 191 H Random Vancomycin 16.0 Miscellaneous Test CXR 09/20/2020: 1. Left midlung and basilar infiltrates consistent with pneumonia. Findings are slightly worse 2. Possible interstitial edema as well Constitutional Vitals: Vital Signs Temp Pulse Resp BP Pulse Ox 37.3 C H 92 H 24 H 119/68 90 09/20/20 08:01 09/20/20 08:01 09/20/20 08:01 09/20/20 08:01 09/20/20 08:01 Period Temp Pulse Resp BP Sys/Bernstein Pulse Ox Last 24 Hr 36.2 C-37.3 C 57-96 7-29 77-206/51-93 76-100 Intake and Output 09/19/20 09/20/20 09/20/20 21:59 05:59 13:59 Intake Total 148 250 157.5 Output Total 400 Balance -252 250 157.5 Weight 77.8 kg Intake & Output: Intake & Output 09/19/20 09/20/20 09/20/20 21:59 05:59 13:59 Intake Total 148 250 157.5 Output Total 400 Balance -252 250 157.5 Weight 77.8 kg Intake: IV 148 50 157.5 Zosyn 2.25 gm In Dextrose 5% in 50 50 50 Water 50 ml @ 100 mls/hr IV Q8H [facility] Rx#:[id number] Vancomycin 500 mg In Sodium 98 Chloride 0.9% 100 ml @ 100 mls/ hr IV ONCE ONE Rx#:[id number] Keppra 750 mg In Sodium 107.5 Chloride 0.9% 100 ml @ 200 mls/ hr IV Q24H [facility] Rx#:[id number] Oral 200 Output: Hemodialysis UF 400 Other: Urine Appearance Clear Urine Color Pale Urine Odor Normal Stool Size Large Moderate Stool Color Brown Stool Consistency Liquid Liquid # Bowel Movements 1 # of times incontinent of 1 Bowels General appearance: moderate distress and obese Head Head exam: Present atraumatic Eye Eye exam: Present EOMI and PERRL ENT Additional comments: BiPAP in place Neck Neck exam: Present normal inspection; Absent meningismus Respiratory Respiratory exam: Present accessory muscle use, decreased breath sounds, prolonged expiratory phase and respiratory distress Cardiovascular Cardiovascular exam: Present JVD, +S1 and +S2 GI/Abdominal GI/Abdominal exam: Present bruit, distended and hypoactive bowel sounds Rectal Rectal exam: Present deferred Extremities Exam Extremities exam: Present pedal edema; Absent calf tenderness Back Exam Back exam: Absent CVA tenderness (L), CVA tenderness (R) and rash noted Neurological Exam Neurological exam: Present altered and CN II-XII intact Psychiatric Additional comments: Cannot assess Skin Skin exam: Present dry A/P Assessment and plan (1) ESRD (end stage renal disease) on dialysis: Assessment and plan: Usually Tuesday and Tuesday dialysis. Today's change in condition may require daily ultrafiltration and every other day hemodialysis Status: Chronic Comment: Missed HD on Tuesday due to viral syndrome and diarrhea. SARS CV2 positive on 09/11/2020 at [facility] Dialysis on Tuesday her regular treatment day (2) COVID-19 in immunocompromised patient: Assessment and plan: Will have 10-day course of corticosteroids. Remdesivir x 5 days starting today due to clinical deterioration overnight Monitor Aa gradient and trend O2 sats May require daily ultrafiltration and every other day hemodialysis as continuous renal replacement therapy is not available in the [facility] Status: Acute (3) Toxic metabolic encephalopathy: Assessment and plan: LP was not consistent with encephalitis Had a waxing and waning clinical course but seemed to improve with Keppra therapy for 48 to 72 hours Rapid decline now in parallel with pulmonary decompensation Suspect we are in the cytokine storm phase of SARS COV 2 infection With recent turn of events hospital mortality is now 50% Status: Acute (4) Anemia due to end stage renal disease: Assessment and plan: Aranesp weekly to maintain hemoglobin above 10 gm/dl Status: Acute Narrative A/P Narrative: * After 7 days if cultures remain negative would discontinue Vanco and Zosyn. * 5-day course of remdesivir initiated today and IV dexamethasone will continue for an additional 5 days (total of 10 days). * Hypoxemic respiratory failure requiring ventilatory support in a chronic dialysis patient now increases her mortality to 50%. Time Spent With Patient Time: Total time spent is greater than 50% in coordination of care (as documented) at patient's floor/unit and/or counseling patient: Total time spent with greater than 50% in coordination of care (as documented) at patient's floor/unit and/or counseling patient:: Greater than 35 minutes
[2020-09-20] MEDS ORDERED: REMDESIVIR 200 MG in 0.9 % SODIUM CHLORIDE 250 ML IV ONE (16:00)
[2020-09-20] MEDS: levETIRAcetam 750 MG in 0.9 % SODIUM CHLORIDE 100 ML IV SCH (16:03)
[2020-09-20] MEDS: cloNIDine HCL 0.1 MG TABLET PO SCH (20:29)
[2020-09-20] MEDS: LABETALOL 5 MG/ML ML IV PRN (22:10)
[2020-09-20] MEDS: LOPERAMIDE 2 MG CAPSULE PO PRN (22:13)
[2020-09-21] MEDS: LABETALOL 5 MG/ML ML IV PRN ×3 (00:09→14:52)
[2020-09-21] MEDS: cloNIDine HCL 0.1 MG TABLET PO PRN (02:18)
[2020-09-21] MEDS: PIPERACILLIN SODIUM/TAZOBACTAM 2.25 GM in DEXTROSE 5% IN WATER 50 ML IV SCH ×3 (05:34→21:32)
[2020-09-21 06:14] LABS: Basophils # (Auto) 0 K/mcL (0.00-0.20); Basophils % (Auto) 0 % (0.0-2.0); Eosinophils # (Auto) 0 K/mcL (0.00-0.70); Eosinophils % (Auto) 0 % (0.0-7.0); Hematocrit 32.6 % (36.0-48.0); Hemoglobin 10.6 g/dL (12.0-15.0); Lymphocytes # (Auto) 0.73 K/mcL (1.50-4.80); Lymphocytes % (Auto) 9.3 % (15.0-49.0); Mean Cell Volume 83.4 fL (80.0-100.0); Mean Corpuscular HGB Conc 32.5 g/dL (31.0-36.0); Mean Platelet Volume 10.3 fL (7.4-10.4); Monocytes % (Auto) 10.2 % (1.0-12.0); Neutrophils % (Auto) 80.5 % (38.0-78.0); Platelet Count 312 K/mcL (140-440); RBC 3.91 M/mcL (4.00-5.20); Red Cell Distribution Width 14.5 % (11.5-14.5); WBC 7.8 K/mcL (4.5-11.0)
[2020-09-21 07:36] LABS: ALT/SGPT 18 U/L (<40); AST/SGOT 39 U/L (<32); Albumin 2.6 gm/dL (3.2-5.2); Albumin/Globulin Ratio 0.7 (1.0-2.3); Alkaline Phosphatase 60 U/L (39-117); Bilirubin,Direct < 0.2 mg/dL (<0.3); Bilirubin,Total 0.4 mg/dL (0.1-1.0); Blood Urea Nitrogen 38 mg/dL (6-20); Calcium 7.2 mg/dL (8.6-10.4); Carbon Dioxide 27 mmol/L (22-30); Chloride 88 mmol/L (96-108); Globulin 3.9 gm/dL (2.2-3.7); Glomerular Filtration Rate 8; Glucose 117 mg/dL (70-105); Lactate Dehydrogenase 517 U/L (135-225); Phosphorous 4.8 mg/dL (2.5-4.5); Triglycerides 74 mg/dL (<150); Uric Acid 4.9 mg/dL (2.5-8.0)
[2020-09-21] MEDS: INSULIN LISPRO 1 UNIT/0.01 ML UNIT SQ SCH ×4 (08:48→20:41)
[2020-09-21] MEDS: DOCUSATE SODIUM 100 MG CAPSULE PO SCH ×2 (08:49→20:43)
[2020-09-21] MEDS: REMDESIVIR 100 MG in 0.9 % SODIUM CHLORIDE 250 ML IV SCH (08:50)
[2020-09-21] MEDS: 0.9 % SODIUM CHLORIDE 250 ML IV SCH (08:50)
[2020-09-21] MEDS ORDERED: clonazePAM 0.5 MG TABLET PO PRN (09:21)
--- NOTE | 2020-09-21 09:25 | Nephrology Progress Note ---
SUBJECTIVE Subjective Patient information: Note initiated : 09/21/20 at 9:22 am Service Date, if different from initiated Date: [] Patient: Dang Varner 55 y/o F admitted on 09/15/20 for altered loc. Chief Complaint: [Obtundation in ESRD with SARS -CV2 positive pneumonia] Patient was seen and evaluated on afternoon rounds. The chart shows that the patient has been able to wean down from BiPAP to nasal cannula. She is awake and sitting up but not eating much of he lung. Responsive, lethargic but appropriate. C. difficile titer is negative. Blood and urine cultures from admission are negative. I think it is unlikely that we are dealing with a bacterial infection in this patient and we should consider discontinuing the vancomycin and PIP Roger and can to continue to treat for COVID-19 with remdesivir (day #2) and dexamethasone (day #6). Her MRI was essentially normal with the ex ception of a stable lytic lesion in the occipital area. LP with normal protein and glucose, few white cells explained by blood contamination and tube #4 after the patient moved during the procedure. Prior to that fluid was clear. As she has a history of positive ARRON, I will go ahead and repeat her ARRON and complement levels. She seems fairly dependent on right-sided filling pressures for blood pressure as exhibited by the fact that her blood pressure at the end of dialysis will be low and as soon as we return the 250 cc of blood in the extracorporeal circuit her blood pressure returns to hypertensive levels. Send off a proBNP to see if we are dealing with cardiogenic or most likely noncardiogenic pulmonary edema which would be secondary to SARS COV 2 and cytokine storm. Laboratory Tests 09/21/20 09/21/20 05:30 05:30 NT-Pro-B Natriuret Pep 11937.0 H ARRON Screen Pending Complement C3 81 L Complement C4 19 Labs drawn on September 21 are as follows: Constitutional Vitals: Vital Signs Temp Pulse Resp BP Pulse Ox 36.3 C 76 19 132/93 95 09/21/20 08:02 09/21/20 08:02 09/21/20 08:02 09/21/20 08:02 09/21/20 08:02 Period Temp Pulse Resp BP Sys/Bernstein Pulse Ox Last 24 Hr 36.3 C-36.8 C 76-90 6-26 132-197/61-93 89-100 Intake and Output 09/20/20 09/21/20 09/21/20 21:59 05:59 13:59 Intake Total 407.5 450 50 Balance 407.5 450 50 Weight 78.5 kg Intake & Output: Intake & Output 09/20/20 09/21/20 09/21/20 21:59 05:59 13:59 Intake Total 407.5 450 50 Balance 407.5 450 50 Weight 78.5 kg Intake: IV 407.5 50 50 Zosyn 2.25 gm In Dextrose 5% in 50 50 50 Water 50 ml @ 100 mls/hr IV Q8H [facility] Rx#:[id number] Veklury 200 mg In Sodium 250 Chloride 0.9% 250 ml @ 500 mls/ hr IV ONCE ONE Rx#:[id number] Keppra 750 mg In Sodium 107.5 Chloride 0.9% 100 ml @ 200 mls/ hr IV Q24H [facility] Rx#:[id number] Oral 400 Other: Stool Size Moderate Stool Color Brown Stool Consistency Liquid # of times incontinent of 1 Bowels General appearance: mild distress and obese Head Head exam: Present normal inspection and normocephalic Eye Eye exam: Present EOMI and PERRL; Absent nystagmus ENT ENT exam: Present mucous membranes dry Neck Neck exam: Present full ROM; Absent meningismus Respiratory Respiratory exam: Present decreased breath sounds and rales (bilateral fine crackles); Absent wheezes Cardiovascular Cardiovascular exam: Present normal rate and rhythm, +S1 and +S2; Absent gallop, rubs, +S3 and +S4 GI/Abdominal GI/Abdominal exam: Present diminished bowel sounds; Absent guarding and mass Rectal Rectal exam: Present deferred Extremities Exam Extremities exam: Present pedal edema; Absent calf tenderness Neurological Exam Neurological exam: Present abnormal gait (nonambulatory at baseline), altered (still lethargic but awake) and CN II-XII intact Psychiatric Psychiatric exam: Present depressed (per primary nurse) and flat affect Skin Skin exam: Present dry; Absent rash A/P Assessment and plan (1) Toxic metabolic encephalopathy: Status: Acute Comment: Not related to uremia, bacterial infection, fungal infection or ischemic event or bleed. Could be secondary to SARS COV 2, non-convulsive sz with status or given Hx of prior (+) ARRON and mildly reduced C3 level, [employer] lupus. (2) COVID-19 in immunocompromised patient: Status: Acute Comment: Waxing and waning mental status.. For full 5 days with remdesivir, total of 10 days with dexamethasone IV, pulmonary status has improved over the past 24 hours (3) ESRD (end stage renal disease) on dialysis: Status: Chronic Comment: Missed HD on Tuesday due to viral syndrome and diarrhea. SARS CV2 positive on 09/11/2020 at [facility] Dialysis on Tuesday her regular treatment day Narrative A/P Narrative: 1. Would recommend stopping vancomycin and piperacillin tazobactam tomorrow as cultures are now negative for a week 2. Continue Keppra for 6 months. If seizure-free during this interval and this could be stopped. She does not drive or walk so she is at low risk for injury if she did have a seizure in the future. 3. Total of 5 days of remdesivir, 10 days of dexamethasone IV. 4. Trend complement levels, awaiting results of ARRON 5. CSF encephalopathy panel is pending. CSF itself was not suggestive of a viral encephalitis. 6. Due to her variability in blood pressure will use short-lasting medications either captopril orally or Vasotec IV as I wish to avoid hydralazine in a patient with a positive ARRON as this will just confuse the issue. 7. We will start a antidepressant but do not expect much improvement for 2 to 4 weeks. Time Spent With Patient Time: Total time spent is greater than 50% in coordination of care (as documented) at patient's floor/unit and/or counseling patient: Total time spent with greater than 50% in coordination of care (as documented) at patient's floor/unit and/or counseling patient:: 25 - 35 minutes
--- NOTE | 2020-09-21 09:30 | Internal Med Progress Note ---
SUBJECTIVE Subjective Patient information: Note initiated : 09/21/20 at 9:25 am Service Date, if different from initiated Date: [] Patient: Dang Varner a 55 y/o F admitted on 09/15/20 for altered loc. Chief Complaint: [] Interval history: Histor of present illness: Ms. Varner is a 55 year old F Presents to the ED with obtundation. History obtained from chart and, member. Per family member Meghan, she has had a dry cough for the past week little bit of phlegm occasionally but otherwise no recent complaints. She as well as found members were tested positive for Covid, but got tested at [place] on and were told results on Tuesday. She presented to [facility] ER with a cough on Tuesday when she was also to undergo dialysis but did not have any significant findings. Family ever said she was in her typical state of health last night. But they the patient would not wake up for the family member. Per the family member patient typically sleeps 2 to 4 hours daily. He has been to wound care clinic recently of the last Tuesday for a left foot infection she is dealing with. Family member did denies any drug use or alcohol use. She received Narcan x2 in the ED with no real response. She was hypotensive and was started on Levophed. Looking at her old history she has had many episodes of hypotension. She missed dialysis on Tuesday and today. Discussed with Dr. Mata. Patient will get dialysis today. 09/16 Patient getting dialysis this morning. Mentation much improved. She does not recalled why she came in, explained that her daughter found her unresponsive. 09/17 Mentation clear up yesterday evening and is good again today. No overnight event or new complaints. Getting dialysis this morning. 09/18 Has not had any other episodes or she became obtunded since starting the Keppra. No events overnight. Had dialysis yesterday. Leukocytosis resolved. Weak. Has not been out of bed. 09/19-patient doing a lot better since previous day. However suboptimally controlled hypertension. Managed as per nephrology recommendations. Currently on 1 L oxygen. Stable white count. On dexamethasone/COVID-19 precautions. Improving encephalopathy. Work-up negative so far. Currently on Keppra for suspected seizures. Continue antibiotic coverage. 09/20-dramatic deterioration in respiratory status now requiring several days oxygen. Repeat interval imaging/ABG. Worsening infiltrates noted on chest imaging. Case discussed with nephrology. Vice President Investor Relations recommends considering remdesivir in light of patient deteriorating status. Start noninvasive ventilation if significant AA gradient. Current PaO2 FiO2 ratio less than 150. Appears confused lethargic. No telemetry events. 09/21-patient intermittently on CPAP/on 7 L oxygen this morning. Very emotionally labile and distressed due to concern about her kids being alone at home and the fact that she is not recovering well from Covid. Started on remdesivir treatment per nephrology. Ongoing hemodialysis per nephrology. Stable hemodynamics overnight. White count 7.8, potassium 3.2, procalcitonin 2.69 on empiric antibiotic coverage on Zosyn/vancomycin Constitutional Vitals: Vital Signs Temp Pulse Resp BP Pulse Ox 97.4 F 76 19 132/93 95 09/21/20 08:02 09/21/20 08:02 09/21/20 08:02 09/21/20 08:02 09/21/20 08:02 Period Temp Pulse Resp BP Sys/Bernsteni Pulse Ox Last 24 Hr 97.4 F-98.2 F 76-90 6-26 132-197/61-93 89-100 Intake and Output 09/20/20 09/21/20 09/21/20 21:59 05:59 13:59 Intake Total 407.5 450 50 Balance 407.5 450 50 Weight 78.5 kg Alert but extremely anxious minimally labored breathing on 7 L oxygen nasal cannula No lymphedema Intake & Output: Intake & Output 09/20/20 09/21/20 09/21/20 21:59 05:59 13:59 Intake Total 407.5 450 50 Balance 407.5 450 50 Weight 78.5 kg Intake: IV 407.5 50 50 Zosyn 2.25 gm In Dextrose 5% in 50 50 50 Water 50 ml @ 100 mls/hr IV Q8H [facility] Rx#:[id number] Veklury 200 mg In Sodium 250 Chloride 0.9% 250 ml @ 500 mls/ hr IV ONCE ONE Rx#:[id number] Keppra 750 mg In Sodium 107.5 Chloride 0.9% 100 ml @ 200 mls/ hr IV Q24H [facility] Rx#:[id number] Oral 400 Other: Stool Size Moderate Stool Color Brown Stool Consistency Liquid # of times incontinent of 1 Bowels OBJ DATA Labs CBC & Chem 7: 09/21/20 05:30 09/21/20 05:30 Labs: Abnormal Lab Results 09/21/20 09/21/20 09/20/20 05:30 05:30 05:10 RBC 3.91 L 3.88 L Hgb 10.6 L 10.4 L Hct 32.6 L 32.3 L MPV Neut % (Auto) 80.5 H 84.0 H Lymph % (Auto) 9.3 L 10.7 L Lymph # (Auto) 0.73 L 1.10 L Absolute Neutrophils 8.60 H Sodium 131 L Potassium 3.2 L Chloride 88 L BUN 38 H Creatinine 5.3 H* Glucose 117 H Calcium 7.2 L Phosphorus 4.8 H AST 39 H Lactate Dehydrogenase 517 H Albumin 2.6 L Globulin 3.9 H Albumin/Globulin Ratio 0.7 L Triglycerides 09/20/20 09/19/20 09/19/20 05:10 05:08 05:08 RBC Hgb 10.9 L Hct 33.9 L MPV 10.5 H Neut % (Auto) Lymph % (Auto) 14.1 L Lymph # (Auto) 0.77 L Absolute Neutrophils Sodium 132 L Potassium Chloride 89 L 89 L BUN 37 H Creatinine 4.0 H 5.7 H* Glucose 121 H 172 H Calcium 7.1 L 6.8 L Phosphorus 2.4 L AST 36 H Lactate Dehydrogenase 424 H Albumin 2.8 L Globulin Albumin/Globulin Ratio 0.8 L Triglycerides 191 H Meds: Medications Acetaminophen (Tylenol) 650 mg PO Q6HP PRN; Protocol PRN Reason: Per Pain Protocol Last Admin: 09/17/20 14:38 Dose: 650 mg Documented by: Albuterol/Ipratropium (Duoneb) 3 ml NEB Q4HRT PRN PRN Reason: Dyspnea Clonazepam (Klonopin) 0.25 mg PO BIDP PRN PRN Reason: Anxiety Clonidine HCl (Catapres) 0.1 mg PO Q4HP PRN PRN Reason: Hypertension sbp>155 Last Admin: 09/21/20 02:18 Dose: 0.1 mg Documented by: Clonidine HCl (Catapres) 0.1 mg PO HS [facility] Last Admin: 09/20/20 20:29 Dose: 0.1 mg Documented by: Collagenase (Santyl Top Oint) 1 dose TOPICAL DAILY [facility] Last Admin: 09/20/20 09:39 Dose: 1 dose Documented by: Dexamethasone (Decadron) 6 mg IV DAILY [facility] Stop: 09/25/20 22:00 Dextrose (Dextrose 50%) 0 ml IV UD PRN PRN Reason: Hypoglycemia Diagnostic Test (Pha) (Accu-Chek) 1 each FS ACHS [facility] Last Admin: 09/21/20 08:48 Dose: 1 each Documented by: Docusate Sodium (Colace) 100 mg PO BID [facility] Last Admin: 09/21/20 08:49 Dose: Not Given Documented by: Glucose (Insta-Glucose) 15 gm PO PRN PRN PRN Reason: Hypoglycemia Heparin Sodium (Porcine) (Heparin) 5,000 unit SQ Q12 [facility] Last Admin: 09/20/20 20:29 Dose: 5,000 unit Documented by: Levetiracetam 750 mg/ Sodium (Chloride) 107.5 mls @ 200 mls/hr IV Q24H [facility] Last Infusion: 09/20/20 18:26 Dose: Infused Documented by: Piperacillin Sod/Tazobactam (Sod 2.25 gm/ Dextrose) 50 mls @ 100 mls/hr IV Q8H [facility]; Protocol Last Infusion: 09/21/20 06:14 Dose: Infused Documented by: Norepinephrine Bitartrate 16 (mg/ Sodium Chloride) 250 mls @ 9.375 mls/hr IV Q24HP PRN; Protocol PRN Reason: Hypotension REMDESIVIR 100 mg/ Sodium (Chloride) 250 mls @ 500 mls/hr IV Q24H [facility] Stop: 09/24/20 09:29 Last Admin: 09/21/20 08:50 Dose: 500 mls/hr Documented by: Insulin Human Lispro (Humalog) 0 unit SQ ACHS [facility]; Protocol Last Admin: 09/21/20 08:48 Dose: Not Given Documented by: Labetalol HCl (Trandate) 0 mg IV Q2HP PRN PRN Reason: Hypertension Last Admin: 09/21/20 04:14 Dose: 20 mg Documented by: Loperamide HCl (Imodium) 2 mg PO PRN PRN PRN Reason: Diarrhea Last Admin: 09/20/20 22:13 Dose: 2 mg Documented by: Lorazepam (Ativan) 2 mg IV Q4HP PRN PRN Reason: Seizure Midodrine (Midodrine Hcl) 2.5 mg PO BIDP PRN PRN Reason: BP equal/ below 90 Mupirocin (Bactroban Oint 2%) 1 dose TOPICAL DAILY [facility] Last Admin: 09/20/20 09:39 Dose: 1 dose Documented by: Ondansetron HCl (Zofran) 4 mg IV Q4-6HP PRN PRN Reason: Nausea And Vomiting Sodium Chloride (Saline Flush) 10 ml IV Q12 [facility] Last Admin: 09/20/20 20:35 Dose: 10 ml Documented by: Throat Lozenges (Cepacol) 1 lozenge PO PRN PRN PRN Reason: Sore Throat Vancomycin HCl (Vancomycin Per Pharmacy) 1 order IV UD [facility]; Protocol A/P Assessment and plan (1) COVID-19 in immunocompromised patient: Assessment and plan: Will have 10-day course of corticosteroids. Remdesivir x 5 days starting today due to clinical deterioration overnight Monitor Aa gradient and trend O2 sats May require daily ultrafiltration and every other day hemodialysis as continuous renal replacement therapy is not available in the [facility] Status: Acute Narrative A/P Narrative: * COVID-19 pneumonia with interval clinical deterioration . Diagnosed at [facility] on 09/11. on remdesivir/dexamethasone. On empiric vancomycin/Zosyn for concomitant bacterial infection * Acute hypoxic respiratory failure with large AA gradient/PaO2 FiO2 ratio less than 150. Now intermittently on NIV/7 L low flow, * Acute encephalopathy (obtunded): Fully resolved, Alert and responding. Likely manifestation of acute COVID-19 infection/uremia/electrolyte + meds/seizure. Responded well to Keppra. CT brain unremarkable for acute but does show old b/l lacunar infarcts. MRI/LP unremarkable, * ESRD: missed several outpatient sessions of HD. Management per Dr. Mata nephrology * Hyperkalemia: resolved * Circulatory shock: endocrine vs less likely septic vs meds(clonidine/narc). Has had multiple episodes of hypotension in past. Clinically resolved following brief treatment on vasopressors * recent Left foot infection: follows with Dr. Gerardo and seen recently, site looks good per Dr. Gerardo * Diabetes w/neuropathy: A1c 6.7 * Anemia, chronic * HTN/HLD: Managed per nephrology * Depression/anxiety/fibromyalgia: Started on clonazepam * Chronic pain: Stable * h/o cardiomyopathy: * Chronic leukocytosis Plan - HD per nephrology -Continue NIV and wean as tolerated -Hypertension management per nephrology -Continue Dexamathasone/remdesivir/empiric antibiotics -Continue Keppra, follow-up outpatient neurology/EEG on discharge -Wound care -basal and SSI -Continue home clonidine, BP labile -hold home narcotics -PT/OT -ppx: Heparin Critical care time 35 minutes on management of Covid pneumonia/hypoxic respiratory failure Time Spent With Patient Time: Total time spent is greater than 50% in coordination of care (as documented) at patient's floor/unit and/or counseling patient:
[2020-09-21] MEDS: LOPERAMIDE 2 MG CAPSULE PO PRN ×4 (09:53→17:11)
[2020-09-21] MEDS: HEPARIN 5,000 UNIT/ML VIAL SQ SCH ×2 (09:53→20:42)
[2020-09-21] MEDS: DEXAMETHASONE 10 MG/ML VIAL IV SCH (09:54)
[2020-09-21] MEDS: COLLAGENASE TOP OINT TUBE 30GM TOPICAL SCH (10:02)
[2020-09-21] MEDS: MUPIROCIN OINT 2% 22GM TOPICAL SCH (10:02)
[2020-09-21] MEDS: 0.9 % SODIUM CHLORIDE 10 ML SYRINGE IV SCH ×2 (10:02→21:32)
[2020-09-21 10:15] LABS: Complement C3 81 mg/dL (90-180)
[2020-09-21] MEDS: levETIRAcetam 750 MG in 0.9 % SODIUM CHLORIDE 100 ML IV SCH (16:41)
[2020-09-21] MEDS: CALCIUM ACETATE 667 MG CAPSULE PO SCH (17:48)
[2020-09-21 20:13] LABS: Anti-Nuclear Antibody Pattern SPECKLED
[2020-09-21] MEDS: cloNIDine HCL 0.1 MG TABLET PO SCH (20:43)
[2020-09-21] MEDS ORDERED: AMITRIPTYLINE 25 MG TABLET PO SCH (21:00)
[2020-09-22] MEDS: LABETALOL 5 MG/ML ML IV PRN ×2 (01:12→04:40)
[2020-09-22] MEDS: LOPERAMIDE 2 MG CAPSULE PO PRN ×2 (04:41→08:32)
[2020-09-22] MEDS: PIPERACILLIN SODIUM/TAZOBACTAM 2.25 GM in DEXTROSE 5% IN WATER 50 ML IV SCH (05:38)
[2020-09-22 06:20] LABS: Basophils # (Auto) 0.01 K/mcL (0.00-0.20); Basophils % (Auto) 0.1 % (0.0-2.0); Eosinophils # (Auto) 0 K/mcL (0.00-0.70); Eosinophils % (Auto) 0 % (0.0-7.0); Hematocrit 33.3 % (36.0-48.0); Hemoglobin 10.8 g/dL (12.0-15.0); Lymphocytes % (Auto) 7.4 % (15.0-49.0); Mean Cell Volume 82.2 fL (80.0-100.0); Mean Corpuscular HGB Conc 32.4 g/dL (31.0-36.0); Mean Platelet Volume 9.9 fL (7.4-10.4); Monocytes # (Auto) 0.85 K/mcL (0.10-0.90); Monocytes % (Auto) 7.9 % (1.0-12.0); Neutrophils % (Auto) 84.6 % (38.0-78.0); Platelet Count 389 K/mcL (140-440); RBC 4.05 M/mcL (4.00-5.20); Red Cell Distribution Width 14.4 % (11.5-14.5); WBC 10.8 K/mcL (4.5-11.0)
[2020-09-22 06:48] LABS: ALT/SGPT 17 U/L (<40); AST/SGOT 27 U/L (<32); Albumin 2.7 gm/dL (3.2-5.2); Albumin/Globulin Ratio 0.7 (1.0-2.3); Alkaline Phosphatase 64 U/L (39-117); Bilirubin,Direct < 0.2 mg/dL (<0.3); Bilirubin,Total 0.3 mg/dL (0.1-1.0); Blood Urea Nitrogen 55 mg/dL (6-20); Calcium 7.6 mg/dL (8.6-10.4); Carbon Dioxide 24 mmol/L (22-30); Chloride 85 mmol/L (96-108); Globulin 3.9 gm/dL (2.2-3.7); Glomerular Filtration Rate 7; Glucose 126 mg/dL (70-105); Lactate Dehydrogenase 491 U/L (135-225); Phosphorous 5.6 mg/dL (2.5-4.5); Triglycerides 60 mg/dL (<150); Uric Acid 5.9 mg/dL (2.5-8.0)
[2020-09-22] MEDS: INSULIN LISPRO 1 UNIT/0.01 ML UNIT SQ SCH ×2 (08:06→12:49)
--- NOTE | 2020-09-22 08:30 | Nephrology Progress Note ---
SUBJECTIVE Subjective Patient information: Note initiated : 09/22/20 at 8:28 am Service Date, if different from initiated Date: [] Patient: Dang Varner 55 y/o F admitted on 09/15/20 for altered loc. Chief Complaint: [esrd, sars cv-2, alteration in MS] Interval history: Patient was seen and evaluated on afternoon rounds. The chart shows that the patient has been able to wean down from BiPAP to nasal cannula. She is awake and sitting up but not eating much of he lung. Responsive, lethargic but appropriate. C. difficile titer is negative. Blood and urine cultures from admission are negative. I think it is unlikely that we are dealing with a bacterial infection in this patient and we should consider discontinuing the vancomycin and PIP Roger and can to continue to treat for COVID-19 with remdesivir (day #2) and dexamethasone (day #6). Her MRI was essentially normal with the exception of a stable lytic lesion in the occipital area. LP with normal protein and glucose, few white cells explained by blood contamination and tube #4 after the patient moved during the procedure. Prior to that fluid was clear. As she has a history of positive ARRON, I will go ahead and repeat her ARRON and complement levels. She seems fairly dependent on right-sided filling pressures for blood pressure as exhibited by the fact that her blood pressure at the end of dialysis will be low and as soon as we return the 250 cc of blood in the extracorporeal circuit her blood pressure returns to hypertensive levels. Send off a proBNP to see if we are dealing with cardiogenic or most likely noncardi ogenic pulmonary edema which would be secondary to SARS COV 2 and cytokine storm. Laboratory Tests 09/21/20 09/22/20 09/22/20 05:30 05:38 05:38 WBC 10.8 Hgb 10.8 L Hct 33.3 L MCV 82.2 Plt Count 389 Sodium 129 L Potassium 3.3 Chloride 85 L Carbon Dioxide 24 BUN 55 H Creatinine 6.2 H* Glucose 126 H Uric Acid 5.9 Calcium 7.6 L Phosphorus 5.5 Magnesium 1.9 Total Bilirubin 0.3 GGT 21 AST 27 Alkaline Phosphatase 64 Lactate Dehydrogenase 491 H Total Protein 6.6 Albumin 2.7 L ARRON Screen Pos 1:80 or greater A ARRON Pattern Speckled Complement C3 81 L Complement C4 19 Dialysis was performed for 3.5 hours with a total ultrafiltration volume of 1.5 L. While she tolerated the procedure well she has had progressive increased O2 requirements and the hospital service have requested and arranged transfer to a tertiary referral center in [facility]. Constitutional Vitals: Vital Signs Temp Pulse Resp BP Pulse Ox 36.1 C 71 16 167/58 95 09/22/20 08:01 09/22/20 08:01 09/22/20 08:01 09/22/20 08:01 09/22/20 08:01 Period Temp Pulse Resp BP Sys/Bernstein Pulse Ox Last 24 Hr 36.1 C-36.7 C 68-85 0-22 104-187/52-88 85-100 Intake and Output 09/21/20 09/22/20 09/22/20 21:59 05:59 13:59 Intake Total 767.5 250 Output Total 100 Balance 767.5 150 Weight 81 kg Intake & Output: Intake & Output 09/21/20 09/22/20 09/22/20 21:59 05:59 13:59 Intake Total 767.5 250 Output Total 100 Balance 767.5 150 Weight 81 kg Intake: IV 407.5 50 Zosyn 2.25 gm In Dextrose 5% in 50 50 Water 50 ml @ 100 mls/hr IV Q8H [facility] Rx#:[id number] Veklury 100 mg In Sodium 250 Chloride 0.9% 250 ml @ 500 mls/ hr IV Q24H [facility] Rx#:[id number] Keppra 750 mg In Sodium 107.5 Chloride 0.9% 100 ml @ 200 mls/ hr IV Q24H [facility] Rx#:[id number] Oral 360 200 Output: Stool 100 Other: Meal Dinner Percent of Meal Consumed 100% Urine Appearance Clear Urine Color Pale Urine Odor Normal Stool Size Moderate Stool Color Brown Stool Consistency Liquid # Bowel Movements 2 # of times incontinent of 2 Bowels General appearance: moderate distress and obese Head Head exam: Present normocephalic Eye Eye exam: Present EOMI Pupils: Present PERRL ENT ENT exam: Present mucous membranes dry Neck Neck exam: Present full ROM and meningismus Respiratory Respiratory exam: Present decreased breath sounds and rales (Fine crackles bilaterally); Absent stridor and wheezes Cardiovascular Cardiovascular exam: Present normal rate and rhythm and systolic murmur (2/6 JAMIE); Absent JVD, rubs and +S3 GI/Abdominal GI/Abdominal exam: Present diminished bowel sounds; Absent bruit, guarding, mass and rebound Rectal Rectal exam: Present deferred Extremities Exam Extremities exam: Absent calf tenderness Neurological Exam Neurological exam: Present abnormal gait (actually bedridden, wheelchair bound for years) and CN II-XII intact Psychiatric Psychiatric exam: Present flat affect Skin Skin exam: Present dry; Absent petechiae A/P Narrative A/P Narrative: (1) Toxic metabolic encephalopathy: (2) COVID-19 in immunocompromised patient: (3) ESRD (end stage renal disease) on dialysis: A/P Narrative: 1. Would recommend stopping vancomycin and piperacillin tazobactam tomorrow as cultures are now negative for a week 2. Continue Keppra for 6 months. If seizure-free during this interval and this could be stopped. She does not drive or walk so she is at low risk for injury if she did have a seizure in the future. 3. Total of 5 days of remdesivir, 10 days of dexamethasone IV. 4. Trend complement levels, awaiting results of ARRON 5. CSF encephalopathy panel is pending. CSF itself was not suggestive of a viral encephalitis. 6. Due to her variability in blood pressure will use short-lasting medications either captopril orally or Vasotec IV as I wish to avoid hydralazine in a patient with a positive ARRON as this will just confuse the issue. 7. We will start a antidepressant but do not expect much improvement for 2 to 4 weeks. Time Spent With Patient Time: Total time spent is greater than 50% in coordination of care (as documented) at patient's floor/unit and/or counseling patient: Total time spent with greater than 50% in coordination of care (as documented) at patient's floor/unit and/or counseling patient as well as supervising dialysis: 25 - 35 minutes Addendum: Patient has been transferred for higher level of care following completion of dialysis due to increased AA gradient and increased work of breathing. Time Spent With Patient Time: Total time spent is greater than 50% in coordination of care (as docu mented) at patient's floor/unit and/or counseling patient: Total time spent with greater than 50% in coordination of care (as documented) at patient's floor/unit and/or counseling patient:: Greater than 35 minutes
[2020-09-22] MEDS: DEXAMETHASONE 10 MG/ML VIAL IV SCH (08:31)
[2020-09-22] MEDS: CALCIUM ACETATE 667 MG CAPSULE PO SCH ×2 (08:32→14:10)
[2020-09-22] MEDS: HEPARIN 5,000 UNIT/ML VIAL SQ SCH (08:33)
[2020-09-22] MEDS: 0.9 % SODIUM CHLORIDE 10 ML SYRINGE IV SCH (08:40)
--- NOTE | 2020-09-22 10:41 | Internal Med Progress Note ---
SUBJECTIVE Subjective Patient information: Note initiated : 09/22/20 at 10:35 am Service Date, if different from initiated Date: [] Patient: Dang Varner a 55 y/o F admitted on 09/15/20 for altered loc. Chief Complaint: [] Interval history: Histor of present illness: Ms. Varner is a 55 year old F Presents to the ED with obtundation. History obtained from chart and, member. Per family member Meghan, she has had a dry cough for the past week little bit of phlegm occasionally but otherwise no recent complaints. She as well as found members were tested positive for Covid, but got tested at [place] on and were told results on Tuesday. She presented to [facility] ER with a cough on Tuesday when she was also to undergo dialysis but did not have any significant findings. Family ever said she was in her typical state of health last night. But they the patient would not wake up for the family member. Per the family member patient typically sleeps 2 to 4 hours daily. He has been to wound care clinic recently of the last Tuesday for a left foot infection she is dealing with. Family member did denies any drug use or alcohol use. She received Narcan x2 in the ED with no real response. She was hypotensive and was started on Levophed. Looking at her old history she has had many episodes of hypotension. She missed dialysis on Tuesday and today. Discussed with Dr. Mata. Patient will get dialysis today. 09/16 Patient getting dialysis this morning. Mentation much improved. She does not recalled why she came in, explained that her daughter found her unresponsive. 09/17 Mentation clear up yesterday evening and is good again today. No overnight event or new complaints. Getting dialysis this morning. 09/18 Has not had any other episodes or she became obtunded since starting the Keppra. No events overnight. Had dialysis yesterday. Leukocytosis resolved. Weak. Has not been out of bed. 09/19-patient doing a lot better since previous day. However suboptimally controlled hypertension. Managed as per nephrology recommendations. Currently on 1 L oxygen. Stable white count. On dexamethasone/COVID-19 precautions. Improving encephalopathy. Work-up negative so far. Currently on Keppra for suspected seizures. Continue antibiotic coverage. 09/20-dramatic deterioration in respiratory status now requiring several days oxygen. Repeat interval imaging/ABG. Worsening infiltrates noted on chest imaging. Case discussed with nephrology. Marketing Recruiter recommends considering remdesivir in light of patient deteriorating status. Start noninvasive ventilation if significant AA gradient. Current PaO2 FiO2 ratio less than 150. Appears confused lethargic. No telemetry events. 09/21-patient intermittently on CPAP/on 7 L oxygen this morning. Very emotionally labile and distressed due to concern about her kids being alone at home and the fact that she is not recovering well from Covid. Started on remdesivir treatment per nephrology. Ongoing hemodialysis per nephrology. Stable hemodynamics overnight. White count 7.8, potassium 3.2, procalcitonin 2.69 on empiric antibiotic coverage on Zosyn/vancomycin 09/22-patient continues to deteriorate currently on 9 to 10 L oxygen. Ongoing hemodialysis. Currently due to remdesivir. Will attempt transferring to tertiary center due to patient's age and high risk immunocompromised state with ESRD on HD. White count 10.8. De-escalate antibiotics, repeat chest imaging/blood gases. Constitutional Vitals: Vital Signs Temp Pulse Resp BP Pulse Ox 97.8 F 69 20 103/76 95 09/22/20 09:45 09/22/20 10:15 09/22/20 10:00 09/22/20 10:15 09/22/20 10:00 Period Temp Pulse Resp BP Sys/Bernstein Pulse Ox Last 24 Hr 97 F-98.0 F 67-85 0-22 103-187/45-88 85-100 Intake and Output 09/21/20 09/22/20 09/22/20 21:59 05:59 13:59 Intake Total 767.5 250 Output Total 100 Balance 767.5 150 Weight 81 kg Patient on 10 L oxygen. Ongoing hemodialysis. Minimal anxiety No telemetry events No lymphedema Intake & Output: Intake & Output 09/21/20 09/22/20 09/22/20 21:59 05:59 13:59 Intake Total 767.5 250 Output Total 100 Balance 767.5 150 Weight 81 kg Intake: IV 407.5 50 Zosyn 2.25 gm In Dextrose 5% in 50 50 Water 50 ml @ 100 mls/hr IV Q8H [facility] Rx#:[id number] Veklury 100 mg In Sodium 250 Chloride 0.9% 250 ml @ 500 mls/ hr IV Q24H [facility] Rx#:[id number] Keppra 750 mg In Sodium 107.5 Chloride 0.9% 100 ml @ 200 mls/ hr IV Q24H [facility] Rx#:[id number] Oral 360 200 Output: Stool 100 Other: Meal Dinner Percent of Meal Consumed 100% Urine Appearance Clear Urine Color Pale Urine Odor Normal Stool Size Moderate Stool Color Brown Stool Consistency Liquid # Bowel Movements 2 # of times incontinent of 2 Bowels OBJ DATA Labs CBC & Chem 7: 09/22/20 05:38 09/22/20 05:38 Labs: Abnormal Lab Results 09/22/20 09/22/20 09/22/20 05:38 05:38 05:38 RBC Hgb 10.8 L Hct 33.3 L Neut % (Auto) 84.6 H Lymph % (Auto) 7.4 L Lymph # (Auto) 0.80 L Absolute Neutrophils 9.11 H Sodium 129 L Potassium Chloride 85 L Anion Gap 20.0 H BUN 55 H Creatinine 6.2 H* Glucose 126 H Calcium 7.6 L Phosphorus 5.5 H 5.6 H AST Lactate Dehydrogenase 491 H NT-Pro-B Natriuret Pep Albumin 2.7 L Globulin 3.9 H Albumin/Globulin Ratio 0.7 L Triglycerides ARRON Screen Complement C3 09/21/20 09/21/20 09/21/20 05:30 05:30 05:30 RBC 3.91 L Hgb 10.6 L Hct 32.6 L Neut % (Auto) 80.5 H Lymph % (Auto) 9.3 L Lymph # (Auto) 0.73 L Absolute Neutrophils Sodium Potassium Chloride Anion Gap BUN Creatinine Glucose Calcium Phosphorus AST Lactate Dehydrogenase NT-Pro-B Natriuret Pep 63703.0 H Albumin Globulin Albumin/Globulin Ratio Triglycerides ARRON Screen Pos 1:80 or greater A Complement C3 81 L 09/21/20 09/20/20 09/20/20 05:30 05:10 05:10 RBC 3.88 L Hgb 10.4 L Hct 32.3 L Neut % (Auto) 84.0 H Lymph % (Auto) 10.7 L Lymph # (Auto) 1.10 L Absolute Neutrophils 8.60 H Sodium 131 L 132 L Potassium 3.2 L Chloride 88 L 89 L Anion Gap BUN 38 H Creatinine 5.3 H* 4.0 H Glucose 117 H 121 H Calcium 7.2 L 7.1 L Phosphorus 4.8 H 2.4 L AST 39 H 36 H Lactate Dehydrogenase 517 H 424 H NT-Pro-B Natriuret Pep Albumin 2.6 L 2.8 L Globulin 3.9 H Albumin/Globulin Ratio 0.7 L 0.8 L Triglycerides 191 H ARRON Screen Complement C3 Meds: Medications Acetaminophen (Tylenol) 650 mg PO Q6HP PRN; Protocol PRN Reason: Per Pain Protocol Last Admin: 09/17/20 14:38 Dose: 650 mg Documented by: Albuterol/Ipratropium (Duoneb) 3 ml NEB Q4HRT PRN PRN Reason: Dyspnea Amitriptyline HCl (Elavil) 25 mg PO [facility] Last Admin: 09/21/20 20:43 Dose: 25 mg Documented by: Calcium Acetate (Phoslo) 1,334 mg PO TIDCC [facility] Last Admin: 09/22/20 08:32 Dose: 1,334 mg Documented by: Clonidine HCl (Catapres) 0.1 mg PO [facility] Last Admin: 09/21/20 20:43 Dose: 0.1 mg Documented by: Collagenase (Santyl Top Oint) 1 dose TOPICAL DAILY [facility] Last Admin: 09/21/20 10:02 Dose: 1 dose Documented by: Dexamethasone (Decadron) 6 mg IV DAILY [facility] Stop: 09/25/20 22:00 Last Admin: 09/22/20 08:31 Dose: 6 mg Documented by: Dextrose (Dextrose 50%) 0 ml IV UD PRN PRN Reason: Hypoglycemia Diagnostic Test (Pha) (Accu-Chek) 1 each FS ACHS [facility] Last Admin: 09/22/20 08:05 Dose: 1 each Documented by: Docusate Sodium (Colace) 100 mg PO BID [facility] Last Admin: 09/21/20 20:43 Dose: Not Given Documented by: Glucose (Insta-Glucose) 15 gm PO PRN PRN PRN Reason: Hypoglycemia Heparin Sodium (Porcine) (Heparin) 5,000 unit SQ Q12 [facility] Last Admin: 09/22/20 08:33 Dose: 5,000 unit Documented by: Levetiracetam 750 mg/ Sodium (Chloride) 107.5 mls @ 200 mls/hr IV Q24H [facility] Last Infusion: 09/21/20 18:20 Dose: Infused Documented by: Piperacillin Sod/Tazobactam (Sod 2.25 gm/ Dextrose) 50 mls @ 100 mls/hr IV Q8H [facility]; Protocol Last Admin: 09/22/20 05:38 Dose: 100 mls/hr Documented by: Norepinephrine Bitartrate 16 (mg/ Sodium Chloride) 250 mls @ 9.375 mls/hr IV Q24HP PRN; Protocol PRN Reason: Hypotension REMDESIVIR 100 mg/ Sodium (Chloride) 250 mls @ 500 mls/hr IV Q24H [facility] Stop: 09/24/20 09:29 Last Infusion: 09/21/20 16:42 Dose: Infused Documented by: Insulin Human Lispro (Humalog) 0 unit SQ ACHS [facility]; Protocol Last Admin: 09/22/20 08:06 Dose: Not Given Documented by: Labetalol HCl (Trandate) 0 mg IV Q2HP PRN PRN Reason: Hypertension Last Admin: 09/22/20 04:40 Dose: 20 mg Documented by: Loperamide HCl (Imodium) 2 mg PO PRN PRN PRN Reason: Diarrhea Last Admin: 09/22/20 08:32 Dose: 2 mg Documented by: Lorazepam (Ativan) 2 mg IV Q4HP PRN PRN Reason: Seizure Mupirocin (Bactroban Oint 2%) 1 dose TOPICAL DAILY [facility] Last Admin: 09/21/20 10:02 Dose: 1 dose Documented by: Ondansetron HCl (Zofran) 4 mg IV Q4-6HP PRN PRN Reason: Nausea And Vomiting Sodium Chloride (Saline Flush) 10 ml IV Q12 [facility] Last Admin: 09/22/20 08:40 Dose: 10 ml Documented by: Throat Lozenges (Cepacol) 1 lozenge PO PRN PRN PRN Reason: Sore Throat Vancomycin HCl (Vancomycin Per Pharmacy) 1 order IV UD [facility]; Protocol A/P Narrative A/P Narrative: * COVID-19 pneumonia with interval clinical deterioration . Diagnosed at [facility] on 09/11. On day 2 remdesivir/dexamethasone. DC empiric antibiotics as no evidence of concurrent bacterial infection. Clinically deteriorating * Acute hypoxic respiratory failure with large AA gradient/PaO2 FiO2 ratio less than 150. Currently on 10 L oxygen/intermittent NIV * Acute encephalopathy (obtunded on presentation): Fully resolved, Alert and responding. Likely manifestation of acute COVID-19 infection/urem ia/electrolyte + meds/seizure. Responded well to Keppra(nephrology recommend 6 months Keppra) neuroimaging with MRI/CT brain unremarkable for acute but does show old b/l lacunar infarcts. LP unremarkable. Encephalitis panel pending. * ESRD: missed several outpatient sessions of HD. Ongoing hemodialysis per Dr. Mata nephrology * Hyperkalemia: resolved * Circulatory shock: endocrine vs less likely septic vs meds(clonidine/narc). Has had multiple episodes of hypotension in past. Clinically resolved following brief treatment on vasopressors * recent Left foot infection: follows with Dr. Gerardo and seen recently, site looks good per Dr. Gerardo * Diabetes w/neuropathy: A1c 6.7 * Anemia, chronic * HTN/HLD: Managed per nephrology * Depression/anxiety/fibromyalgia: Started on clonazepam * Chronic pain: Stable * h/o cardiomyopathy: * Chronic leukocytosis Plan -Continue HD per nephrology -Continue NIV/serial imaging/blood gas -Remdesivir day 2/dexamethasone -Hypertension management per nephrology -DC empiric antibiotics -Continue Keppra for 6 months per nephrology, follow-up outpatient neurology/EEG on discharge -Wound care -basal and SSI -Continue home clonidine, BP labile -hold home narcotics -PT/OT -ppx: Heparin Critical care time 35 minutes on management of Covid pneumonia/hypoxic respiratory failure Time Spent With Patient Time: Total time spent is greater than 50% in coordination of care (as documented) at patient's floor/unit and/or counseling patient:
[2020-09-22] MEDS: DOCUSATE SODIUM 100 MG CAPSULE PO SCH (11:00)
--- NOTE | 2020-09-22 11:46 | Transfer Summary ---
Discharge Provider Provider Patient information: Note initiated : 09/22/20 at 11:38 am Service Date, if different from initiated Date: [] Patient: Dang Varner a 55 y/o F admitted on 09/15/20 for altered loc. Transfer diagnosis * COVID-19 pneumonia with interval clinical deterioration and worsening hypoxemia. Diagnosed at [facility] on 09/11. On (day 2) remdesivir/dexamethasone (day 7). Discontinued empiric antibiotics as no evidence of concurrent bacterial infection. Transferring to tertiary center for further management * Acute hypoxic respiratory failure with large AA gradient/PaO2 FiO2 ratio less than 100. Currently on 10 L oxygen/intermittent NIV at 55% FiO2. ABG from AV fistula 7.4 * Acute encephalopathy (obtunded on presentation): Fully resolved, Alert and responding. Likely manifestation of acute COVID-19 infection/uremia/electrolyte abnormality + meds/possible seizure. Responded well to Keppra(nephrology recommend 6 months Keppra) neuroimaging with MRI/CT brain unremarkable for acute but does show old b/l lacunar infarcts. LP unremarkable. Encephalitis panel pending. * ESRD: missed several outpatient sessions of HD. Ongoing hemodialysis per Dr. Mata nephrology * Hyperkalemia: resolved * Circulatory shock: endocrine vs less likely septic vs meds(clonidine/narc). Has had multiple episodes of hypotension in past. Clinically resolved following brief treatment on vasopressors * recent Left foot infection: follows with Dr. Gerardo and seen recently, site looks good per Dr. Gerardo * Diabetes w/neuropathy: A1c 6.7 * Anemia, chronic * HTN/HLD: Managed per nephrology * Depression/anxiety/fibromyalgia: * Chronic pain: Stable * h/o cardiomyopathy * Chronic leukocytosis Brief hospital course Ms. Varner is a 55 year old F Presents to the ED with obtundation. History obtained from chart and, member. Per family member Meghan, she has had a dry cough for the past week little bit of phlegm occasionally but otherwise no recent complaints. She as well as found members were tested positive for Covid, but got tested at [place] on and were told results on Tuesday. She presented to [facility] ER with a cough on Tuesday when she was also to undergo dialysis but did not have any significant findings. Family ever said she was in her typical state of health last night. But they the patient would not wake up for the family member. Per the family member patient typically sleeps 2 to 4 hours daily. He has been to wound care clinic recently of the last Tuesday for a left foot infection she is dealing with. Family member did denies any drug use or alcohol use. She received Narcan x2 in the ED with no real response. She was hypotensive and was started on Levophed. Looking at her old history she has had many episodes of hypotension. She missed dialysis on Tuesday and today. Discussed with Dr. Mata. Patient will get dialysis today. 09/16 Patient getting dialysis this morning. Mentation much improved. She does not recalled why she came in, explained that her daughter found her unresponsive. 09/17 Mentation clear up yesterday evening and is good again today. No overnight event or new complaints. Getting dialysis this morning. 09/18 Has not had any other episodes or she became obtunded since starting the Keppra. No events overnight. Had dialysis yesterday. Leukocytosis resolved. Weak. Has not been out of bed. 09/19-patient doing a lot better since previous day. However suboptimally controlled hypertension. Managed as per nephrology recommendations. Currently on 1 L oxygen. Stable white count. On dexamethasone/COVID-19 precautions. Improving encephalopathy. Work-up negative so far. Currently on Keppra for suspected seizures. Continue antibiotic coverage. 09/20-dramatic deterioration in respiratory status now requiring several days oxy gen. Repeat interval imaging/ABG. Worsening infiltrates noted on chest imaging. Case discussed with nephrology. Certified Procedural Coder recommends considering remdesivir in light of patient deteriorating status. Start noninvasive ventilation if significant AA gradient. Current PaO2 FiO2 ratio less than 150. Appears confused lethargic. No telemetry events. 09/21-patient intermittently on CPAP/on 7 L oxygen this morning. Very emotionally labile and distressed due to concern about her kids being alone at home and the fact that she is not recovering well from Covid. Started on remdesivir treatment per nephrology. Ongoing hemodialysis per nephrology. Stable hemodynamics overnight. White count 7.8, potassium 3.2, procalcitonin 2.69 on empiric antibiotic coverage on Zosyn/vancomycin 09/22-patient continues to deteriorate currently on 9 to 10 L oxygen. Ongoing hemodialysis. Currently due to remdesivir. Will attempt transferring to tertiary center due to patient's age and high risk immunocompromised state with ESRD on HD. White count 10.8. De-escalate antibiotics, repeat chest imaging/blood gases. Interval blood gas pH 7.4 , despite dialysis patient on 10 L oxygen saturating around 92 to 93%. Interval chest imaging persistent bilateral pneumonia. Case discussed with [facility] supervisor telephone clerks Dr. Santizo. In light of patient's in a compromised status with underlying ESRD/worsening pneumonia it is prudent with patient be managed at a tertiary center should she require mechanical ventilation/extracorporeal membrane oxygenation. Case was discussed with patient who is agreeable for transfer but no beds currently available and currently on transfer hold. I highly appreciate [facility] supervisor telephone clerks Dr. Santizo for excepting the patient for further management. Patient be transferred via air ambulance once bed available Addendum No beds available at [facility]. Case discussed with Dr. Hoffman at [facility] who accepted patient for further management. Date of admission: 09/15/20 19:42 Discharge date: 09/22/20 Primary care physician: Reyna Mattson DO Consults: 09/15/20 Consult to Physician [CONS] Stat Comment: Consulting Provider: Yandel Hunt Reason For Exam: Physician to Consult 09/15/20 20:03 Consult to Physician [CONS] Routine Comment: Consulting Provider: Richy Mata Reason For Exam: Physician to Consult 09/17/20 08:47 Consult to Physician [CONS] Routine Comment: for L. Foot wounds Consulting Provider: Oscar Gerardo Reason For Exam: Physician to Consult Discharge Meds Discharge Medications Home Medications pregabalin 100 mg capsule 100 mg PO BID #180 cap 01/03/20 [Rx Confirmed 09/16/20 Last Taken 08/31/20 21:00] acetaminophen 325 mg capsule 325 mg PO ONCE PRN 05/21/20 [History Confirmed 09/17/20 Last Taken 08/31/20 20:00] alteplase 2 mg intra-catheter solution 2 mg INTRA-CATHETER ONCE 05/21/20 [History Confirmed 09/17/20 Last Taken Unknown] calcitriol 0.25 mcg capsule 0.25 mcg PO 3XW 05/21/20 [History Confirmed 09/17/20 Last Taken 08/31/20 20:00] cholecalciferol (vitamin D3) 125 mcg (5,000 unit) capsule 5,000 unit PO QDAY cap 05/21/20 [History Confirmed 09/17/20 Last Taken Unknown] clonidine HCl 0.1 mg tablet 0.1 mg PO QHS 05/21/20 [History Confirmed 09/17/20 Last Taken Unknown] heparin (porcine) 1,000 unit/mL injection solution 1 unit IV .3 x wk ml 05/21/20 [History Confirmed 09/17/20 Last Taken 09/01/20 21:00] heparin (porcine) 1,000 unit/mL injection solution 1 unit IV 3XW 05/21/20 [Hi story Confirmed 09/17/20 Last Taken 09/01/20 21:00] heparin (porcine) 1,000 unit/mL injection solution 1 unit IV 3XW ml 05/21/20 [History Confirmed 09/17/20 Last Taken 09/01/20 20:00] ondansetron HCl 4 mg tablet 4 mg PO Q8H 05/21/20 [History Confirmed 09/17/20 Last Taken Unknown] suvorexant 10 mg tablet 10 mg PO QHS #30 tab 06/02/20 [Rx Confirmed 09/16/20 Last Taken 08/31/20 21:00] B complex with C 20-folic acid 1 mg capsule 1 cap PO QDAY #30 cap 07/14/20 [Rx Confirmed 09/16/20 Last Taken 08/31/20 20:00] atorvastatin 40 mg tablet 40 mg PO HS #90 tab 08/04/20 [Rx Confirmed 09/17/20 Last Taken 08/31/20 20:00] sertraline 25 mg tablet 25 mg PO QDAY #30 tab 08/26/20 [Rx Confirmed 09/17/20 Last Taken 08/31/20 21:00] oxycodone 10 mg tablet 10 mg PO q8h PRN #90 tab 08/29/20 [Rx Confirmed 09/17/20 Last Taken 08/31/20 21:00] calcium acetate(phosphat bind) 1,334 mg PO TIDCC 09/16/20 [History Confirmed 09/17/20 Last Taken Unknown] midodrine 2.5 mg PO BIDP PRN 09/16/20 [History Confirmed 09/17/20 Last Taken Unknown] COURSE Hospital Course Hospital course: . Discharge diagnosis: COVID-19 pneumonia/hypoxic respiratory failure Time Spent with Patient Time attestation: Total time spent providing and/or coordinating discharge services: EXAM Constitutional Vitals: Temp Pulse Resp BP Pulse Ox 97.8 F 77 19 125/60 96 09/22/20 09:45 09/22/20 11:30 09/22/20 11:30 09/22/20 11:29 09/22/20 11:30 Discharge Data Data Completed and Pending Labs on day of discharge: Labs from last 24 hours 09/22/20 09/22/20 09/22/20 05:38 05:38 05:38 WBC 10.8 RBC 4.05 Hgb 10.8 L Hct 33.3 L MCV 82.2 MCH 26.7 MCHC 32.4 RDW 14.4 Plt Count 389 MPV 9.9 Neut % (Auto) 84.6 H Lymph % (Auto) 7.4 L [place] % (Auto) 7.9 Eos % (Auto) 0 Baso % (Auto) 0.1 Lymph # (Auto) 0.80 L [place] # (Auto) 0.85 Eos # (Auto) 0 Baso # (Auto) 0.01 Absolute Neutrophils 9.11 H Sodium 129 L Potassium 3.3 Chloride 85 L Carbon Dioxide 24 Anion Gap 20.0 H BUN 55 H Creatinine 6.2 H* GFR Calculation 7 Glucose 126 H Uric Acid 5.9 Calcium 7.6 L Phosphorus 5.5 H 5.6 H Magnesium 1.9 Total Bilirubin 0.3 Direct Bilirubin < 0.2 GGT 21 AST 27 ALT 17 Alkaline Phosphatase 64 Lactate Dehydrogenase 491 H Total Protein 6.6 Albumin 2.7 L Globulin 3.9 H Albumin/Globulin Ratio 0.7 L Triglycerides 60 ARRON Screen ARRON Titer ARRON Pattern 09/21/20 05:30 WBC RBC Hgb Hct MCV MCH MCHC RDW Plt Count MPV Neut % (Auto) Lymph % (Auto) [place] % (Auto) Eos % (Auto) Baso % (Auto) Lymph # (Auto) [place] # (Auto) Eos # (Auto) Baso # (Auto) Absolute Neutrophils Sodium Potassium Chloride Carbon Dioxide Anion Gap BUN Creatinine GFR Calculation Glucose Uric Acid Calcium Phosphorus Magnesium Total Bilirubin Direct Bilirubin GGT AST ALT Alkaline Phosphatase Lactate Dehydrogenase Total Protein Albumin Globulin Albumin/Globulin Ratio Triglycerides ARRON Screen Pos 1:80 or greater A ARRON Titer 1:80 ARRON Pattern Speckled Discharge Plan Patient/Caregiver Discharge Instructions Activity: other Diet: Renal Activity Restrictions/Additional Instructions: Discharge to [facility] Accepting physician Dr. Hoffman Prescriptions: No Action pregabalin 100 mg capsule 100 mg PO BID Qty: 180 RF: 3 suvorexant 10 mg tablet 10 mg PO QHS Qty: 30 RF: 3 Triphrocaps 1 mg capsule 1 cap PO QDAY Qty: 30 RF: 6 atorvastatin 40 mg tablet 40 mg PO HS Qty: 90 RF: 0 sertraline 25 mg tablet 25 mg PO QDAY Qty: 30 RF: 3 oxycodone 10 mg tablet 10 mg PO q8h PRN (Reason: pain) Qty: 90 RF: 0 acetaminophen 325 mg capsule 325 mg PO ONCE PRN (Reason: Pain) RF: 0 calcitriol 0.25 mcg capsule 0.25 mcg PO 3XW RF: 0 Cathflo Activase 2 mg recon soln 2 mg intra-catheter ONCE RF: 0 cholecalciferol (vitamin D3) 125 mcg (5,000 unit) capsule 5,000 unit PO QDAY RF: 0 clonidine HCl 0.1 mg tablet 0.1 mg PO QHS RF: 0 heparin (porcine) 1,000 unit/mL solution 1 unit IV 3XW RF: 0 heparin (porcine) 1,000 unit/mL solution 1 unit IV .3 x wk RF: 0 heparin (porcine) 1,000 unit/mL solution 1 unit IV 3XW RF: 0 ondansetron HCl 4 mg tablet 4 mg PO Q8H RF: 0 midodrine 2.5 mg tablet 2.5 mg PO BIDP PRN (Reason: BP equal/ below 90) RF: 0 calcium acetate(phosphat bind) 667 mg capsule 1,334 mg PO TIDCC RF: 0 Follow Up Plan Follow up with: Reyna aMttson DO [Primary Care Provider] - Patient Disposition: [facility] Rehab Potential: Undetermined I certify that the patient requires SNF services: No Overall status at discharge: patient is not back to baseline Discharge Orders: Discharge Order (Routine); Ordered 09/22/20 Ordered By: Roc Garibay
[2020-09-22] MEDS: REMDESIVIR 100 MG in 0.9 % SODIUM CHLORIDE 250 ML IV SCH (13:20)
[2020-09-22 14:06] LABS: HSV 1 IGG Index CSF 0.21; HSV 1 IGM Screen CSF NEGATIVE; HSV 2 IBM Screen CSF NEGATIVE; HSV 2 IGG Index CSF 0.15; LCM IGG <1:1; LCM IGM <1:1; Measles IGG AB CSF <1:64; Measles IGM AB CSF <1:1; VZV IGM (IFA) <1:1 titer; VZV Total AB (ACIF) <1:2 titer; WNV IGG Screen <1.30 index; WNV IGM Screen <0.90 index
[2020-09-22] MEDS: MUPIROCIN OINT 2% 22GM TOPICAL SCH (14:10)
[2020-09-22] MEDS: COLLAGENASE TOP OINT TUBE 30GM TOPICAL SCH (14:10)
== END 2020-09-22 14:48 | disposition short-term general hospital (02) | DRG 177 ==
LOC: ED 12:00 → ICU 19:42
PROVIDERS: ADMIT Internal Medicine; ATTEND Internal Medicine